=== PATIENT | female | born 1950 | race Caucasian/White ===

== ENCOUNTER 2017-10-27 15:10 | Inpatient (IN) | payer MEDICARE, MEDICAID ==
[2017-10-27] MEDS ORDERED: FUROSEMIDE INJ/PF 40 MG/4 ML SDV IV ONE (15:42)
--- NOTE | 2017-10-27 15:42 | ER Document Report ---
ED Medical Screen (RME) - General Chief Complaint: Abnormal Lab Results Stated Complaint: LABS Time Seen by Provider: 10/27/17 15:34 Mode of Arrival: Wheelchair Information source: Patient Notes: 67-year-old female who was seen recently for edema of the lower extremities presents after being called by primary care physician regarding abnormal lab value of the heart patient admits to recent shortness of breath and edema I have greeted and performed a rapid initial assessment of this patient. A comprehensive ED assessment and evaluation of the patient, analysis of test results and completion of the medical decision making process will be conducted by additional ED providers. PHYSICAL EXAMINATION: GENERAL: Well-appearing, well-nourished and in no acute distress. HEAD: Atraumatic, normocephalic. EYES: Pupils equal round extraocular movements intact, conjunctiva are normal. ENT: Nares patent NECK: Normal range of motion LUNGS: No respiratory distress Musculoskeletal: Normal range of motion NEUROLOGICAL: Normal speech, normal gait. PSYCH: Normal mood, normal affect. SKIN: +3 pitting edema lower extremities TRAVEL OUTSIDE OF THE [place] IN LAST 30 DAYS: No - Related Data Allergies/Adverse Reactions: iodine [Iodine] Allergy (Verified 10/27/17 15:13) Past Medical History - Social History Chew tobacco use (# tins/day): No Frequency of alcohol use: None Drug Abuse: None - Past Medical History Cardiac Medical History: Reports: Hx Hypertension Endocrine Medical History: Reports: Hx Diabetes Mellitus Type 2 Renal/ Medical History: Denies: Hx Peritoneal Dialysis Physical Exam - Vital signs Vitals: Temp Pulse Resp BP Pulse Ox 98.8 F 84 20 196/101 H 97 10/27/17 15:17 10/27/17 15:17 10/27/17 15:17 10/27/17 15:17 10/27/17 15:17 Course - Vital Signs Vital signs: Temp Pulse Resp BP Pulse Ox 98.5 F 84 20 189/104 H 97 10/27/17 15:23 10/27/17 15:23 10/27/17 15:23 10/27/17 15:23 10/27/17 15:23
[2017-10-27 16:14] LABS: ABSOLUTE EOSINOPHILS # (AUTO) 0.2 10^3/uL (0.0-0.6); ABSOLUTE LYMPHOCYTES (AUTO) 1.3 10^3/uL (0.5-4.7); ABSOLUTE MONOCYTES (AUTO) 0.5 10^3/uL (0.1-1.4); ABSOLUTE NEUT (AUTO) 4.2 10^3/uL (1.7-8.2); BASOPHILS % (AUTO) 0.3 % (0-2); EOSINOPHILS % (AUTO) 2.9 % (0-6); HEMATOCRIT 32.6 % (36.0-47.0); HEMOGLOBIN 10.5 g/dL (12.0-15.5); LYMPHOCYTES % (AUTO) 20.3 % (13-45); MEAN CORPUSCULAR HEMOGLOBIN 26.9 pg (27.0-33.4); MEAN CORPUSCULAR HGB CONC 32.2 g/dL (32.0-36.0); MEAN CORPUSCULAR VOLUME 84 fl (80-97); MONOCYTES % (AUTO) 8.8 % (3-13); PLATELET COUNT 297 10^3/uL (150-450); RED CELL DISTRIBUTION WIDTH 15.4 % (11.5-14.0); SEGMENTED NEUTROPHILS % (AUTO) 67.7 % (42-78); TOTAL CELLS COUNTED % (AUTO) 100 %; WHITE BLOOD COUNT 6.2 10^3/uL (4.0-10.5)
[2017-10-27 16:29] LABS: ALANINE AMINOTRANSFERASE 32 U/L (9-52); ALBUMIN 3.1 g/dL (3.5-5.0); ALKALINE PHOSPHATASE 103 U/L (38-126); ANION GAP 6 (5-19); ASPARTATE AMINO TRANSFERASE 47 U/L (14-36); BILIRUBIN,DIRECT 0.4 mg/dL (0.0-0.4); BILIRUBIN,TOTAL 0.5 mg/dL (0.2-1.3); BLOOD UREA NITROGEN 20 mg/dL (7-20); CALCIUM 8.5 mg/dL (8.4-10.2); CARBON DIOXIDE 28 mmol/L (22-30); CHLORIDE 105 mmol/L (98-107); CREATINE KINASE 369 U/L (30-135); GLUCOSE 127 mg/dL (75-110); POTASSIUM 4.3 mmol/L (3.6-5.0); SODIUM 138.7 mmol/L (137-145); TOTAL PROTEIN 6.7 g/dL (6.3-8.2)
[2017-10-27 16:39] LABS: CREATINE KINASE MB 2.51 ng/mL (<4.55); NT PRO BNP 7260 pg/mL (5-900)
--- NOTE | 2017-10-27 16:40 | RADIOLOGY REPORT (SQ) ---
EXAM DESCRIPTION: CHEST PA/LAT COMPLETED DATE/TIME: 10/27/2017 4:15 pm REASON FOR STUDY: edema lower extremities COMPARISON: None. EXAM PARAMETERS: NUMBER OF VIEWS: two views TECHNIQUE: Digital Frontal and Lateral radiographic views of the chest acquired. RADIATION DOSE: NA LIMITATIONS: Poor quality lateral view. FINDINGS: LUNGS AND PLEURA: No opacities, masses or pneumothorax. No pleural effusion. MEDIASTINUM AND HILAR STRUCTURES: No masses or contour abnormalities. HEART AND VASCULAR STRUCTURES: Mild cardiomegaly. Prominent central pulmonary vasculature on the rig ht. BONES: No acute findings. HARDWARE: None in the chest. OTHER: No other significant finding. IMPRESSION: Mild cardiomegaly with prominence of the central pulmonary vasculature on the right. TECHNICAL DOCUMENTATION: JOB ID: [id number] [email or web address]- All Rights Reserved
[2017-10-27 16:41] LABS: TROPONIN I < 0.012 ng/mL
--- NOTE | 2017-10-27 16:51 | ER Document Report ---
ED General - General Chief Complaint: Abnormal Lab Results Stated Complaint: LABS Time Seen by Provider: 10/27/17 15:34 Mode of Arrival: Wheelchair Notes: Patient has felt as if she has been swollen all over since Tuesday. She has also been short of breath. Tuesday this week, they had EMS come out and check the patient. She had an appointment at a local urgent care yesterday where she had some blood work drawn and was started on medications for her blood pressure and her blood sugar. She is taking metformin 500 mg daily and is on lisinopril 20-25, which she just started. The facility called her today about her lab results and told her 1 of her heart test was abnormal and she needed to come to the emergency department. We did not receive any calls, patient does not have any written information and we do not know what specifically she is being referred here for. Patient denies having chest pain, but has felt shortness of breath and swelling. She has a history of high blood pressure and diabetes, but has been out of her medications because she could not afford to go to the doctor. She has not had any vomiting or diarrhea. No UTI symptoms. No fevers. TRAVEL OUTSIDE OF THE [place] IN LAST 30 DAYS: No - Related Data Allergies/Adverse Reactions: iodine [Iodine] Allergy (Verified 10/27/17 15:13) Past Medical History - General Information source: Patient - Social History Smoking Status: Never Smoker Chew tobacco use (# tins/day): No Frequency of alcohol use: None Drug Abuse: None Family History: Reviewed & Not Pertinent Patient has suicidal ideation: No Patient has homicidal ideation: No - Past Medical History Cardiac Medical History: Reports: Hx Hypertension Denies: Hx Congestive Heart Failure, Hx Coronary Artery Disease Endocrine Medical History: Reports: Hx Diabetes Mellitus Type 2 Review of Systems - Review of Systems Notes: REVIEW OF SYSTEMS: CONSTITUTIONAL : Denies fever. EENT: Denies eye, ear, nose or mouth or throat pain or other symptoms. CARDIOVASCULAR: Denies chest pain. Has swelling of the lower extremities bilaterally. RESPIRATORY: Denies cough, chest congestion, but has had shortness of breath. GASTROINTESTINAL: Denies abdominal pain or nausea, vomiting, or diarrhea. GENITOURINARY: Denies difficulty or painful urinating, urinary frequency, blood in urine. MUSCULOSKELETAL: Denies back or neck pain. Denies joint pain or swelling. SKIN: Denies rash or skin lesions. NEUROLOGICAL: Denies LOC or altered mental status. Denies headache. Denies sensory loss or motor deficits. ALL OTHER SYSTEMS REVIEWED AND NEGATIVE. Physical Exam - Vital signs Vitals: Temp Pulse Resp BP Pulse Ox 98.8 F 84 20 196/101 H 97 10/27/17 15:17 10/27/17 15:17 10/27/17 15:17 10/27/17 15:17 10/27/17 15:17 Interpretation: Hypertensive - 196/101. - Notes Notes: PHYSICAL EXAMINATION: GENERAL: Well-appearing, in no acute distress. 360 pounds. HEAD: Atraumatic, normocephalic. EYES: Pupils equal round and reactive to light, extraocular movements intact. ENT: oropharynx clear without exudates. Moist mucous membranes. NECK: Normal range of motion, supple. LUNGS: Breath sounds are difficult to hear because of patient's size.. HEART: Regular rate and rhythm without murmurs. Heart sounds are very distant, also because of the adipose tissue present. ABDOMEN: Soft, nontender. No guarding or rebound. No masses. BACK: No tenderness throughout entire back. EXTREMITIES: Normal range of motion without pain. +2 pitting edema of the pretibial region of each lower leg. NEUROLOGICAL: Normal speech. Patient appears to have difficulty walking, but most of that I believe is due to the patient's size and her inability to carry this weight on her two legs. Normal sensory, motor, and reflex exams. Awake, alert, and oriented x3. Cranial nerves normal. PSYCH: Normal mood, normal affect. SKIN: Warm, dry, no rashes. Course - Re-evaluation Re-evalutation: 10/27/17 18:07 Workup appears to be primarily congestive heart failure. Spoke with hospitalist who will admit patient for inpatient for CHF, hypertension, renal insufficiency. - Vital Signs Vital signs: Temp Pulse Resp BP Pulse Ox 98.5 F 84 22 H 192/96 H 99 10/27/17 15:23 10/27/17 15:23 10/27/17 17:31 10/27/17 17:31 10/27/17 17:31 - Laboratory Result Diagrams: 10/27/17 15:54 10/27/17 15:54 Laboratory results interpreted by me: 10/27/17 10/27/17 10/27/17 15:54 15:54 15:54 Hgb 10.5 L Hct 32.6 L MCH 26.9 L RDW 15.4 H Creatinine 1.41 H Est GFR ( Amer) 45 L Est GFR (Non-Af Amer) 37 L Glucose 127 H AST 47 H Creatine Kinase 369 H NT-Pro-B Natriuret Pep 7260 H Albumin 3.1 L 10/27/17 16:54 Renal insufficiency noted and BNP of 7260 noted. - Diagnostic Test Radiology results interpreted by me: 10/27/17 16:53 Chest x-ray shows mild cardiomegaly with some mild vascular congestion of the right hilum. No evidence of pneumonia or infiltrates. - EKG Interpretation by Me EKG shows normal: Sinus rhythm Rate: Normal Rhythm: NSR, APC's Voltage: Consistant with [facility] Critical Care Note - Critical Care Note Total time excluding time spent on procedures (mins): 40 Discharge - Discharge Clinical Impression: Congestive heart failure, Hypertension, Renal insufficiency Condition: Stable Disposition: ADMITTED INPATIENT Admitting Provider: Hospitalist Unit Admitted: Telemetry
[2017-10-27] MEDS ORDERED: NITROGLYCERIN 5 MG (0.2 MG/HR) PATCH.TD24 TD ONE (17:57)
[2017-10-27] MEDS ORDERED: OXYCODONE-ACETAMINOPHEN 5-325 MG TABLET PO PRN (18:00)
[2017-10-27] MEDS ORDERED: ZOLPIDEM TARTRATE 5 MG TABLET PO PRN (18:00)
[2017-10-27] MEDS ORDERED: AMLODIPINE BESYLATE 5 MG TABLET PO SCH ×2 (18:00→18:08)
[2017-10-27] MEDS ORDERED: HYDRALAZINE HCL INJ/PF 20 MG/1 ML SDV IV PRN (18:07)
[2017-10-27] MEDS ORDERED: DEXTROSE 50%-WATER 25 GM/50 ML DISP.SYRIN IV PRN ×2 (18:25)
[2017-10-27] MEDS ORDERED: GLUCAGON,HUMAN RECOMB 1 MG INJ IM PRN (18:25)
[2017-10-27] MEDS ORDERED: DEXTROSE 40% GEL 15 GM TUBE PO PRN ×2 (18:25)
--- NOTE | 2017-10-27 18:40 | PDOC H&P ---
History of Present Illness Admission Date/PCP: FAZAL KNOTT October 27, 2017 Patient complains of: Shortness of breath and swelling over since Tuesday History of Present Illness: DOM ADAMS is a 67 year old female presented to emergency room after being referred by a local urgent care due to multiple abnormal laboratory tests. Patient states that she has been having shortness of breath and noticed swelling all over since Tuesday. She admits that prior to that she had noticed some swelling but got worse on Tuesday. She had also been experiencing some cough which she thought it was due to a cold. Patient denies chest pain, fever or chills. Patient admits that she has been losing weight for no particular reason. She admits also having being diagnosed as having high blood pressure and diabetes. She was notified by the provider at the urgent care to come to emergency room since there were multiple problems in her blood work. When evaluated in emergency room BNP was higher than 7000 and the hospitalist service was consulted for further management. We prompted to admit Past Medical History Cardiac Medical History: Reports: Hypertension Pulmonary Medical History: Reports: None EENT Medical History: Reports: None Neurological Medical History: Reports: None Endocrine Medical History: Reports: Diabetes Mellitus Type 2 Renal/ Medical History: Reports: None Malignancy Medical History: Reports: None GI Medical History: Reports: None Musculoskeltal Medical History: Reports: None Skin Medical History: Reports: None Psychiatric Medical History: Reports: None Traumatic Medical History: Reports: None Hematology: Reports: None Infectious Medical History: Reports: None Past Surgical History Past Surgical History: Reports: None Social History Information Source: Patient Smoking Status: Never Smoker Frequency of Alcohol Use: None Hx Recreational Drug Use: No Drugs: None Hx Prescription Drug Abuse: No Family History Family History: DM, Hypertension Parental Family History Reviewed: Yes Children Family History Reviewed: Yes Sibling(s) Family History Reviewed.: Yes Medication/Allergy Allergies/Adverse Reactions: iodine [Iodine] Allergy (Verified 10/27/17 15:13) Review of Systems Constitutional: PRESENT: weakness, weight loss. ABSENT: fever(s), headache(s) Eyes: ABSENT: visual disturbances Ears: ABSENT: hearing changes Nose, Mouth, and Throat: ABSENT: mouth pain, sore throat Cardiovascular: PRESENT: edema. ABSENT: chest pain, dyspnea on exertion Respiratory: PRESENT: cough, dyspnea Gastrointestinal: ABSENT: abdominal pain, nausea, vomiting Genitourinary: ABSENT: dysuria, hematuria Musculoskeletal: PRESENT: deformity Integumentary: ABSENT: pruritus Neurological: PRESENT: weakness. ABSENT: abnormal gait Endocrine: ABSENT: heat intolerance Physical Exam Vital Signs: Temp Pulse Resp BP Pulse Ox 98.5 F 84 22 H 192/96 H 99 10/27/17 15:23 10/27/17 15:23 10/27/17 17:31 10/27/17 17:31 10/27/17 17:31 Intake & Output 10/26/17 10/27/17 10/28/17 06:59 06:59 06:59 Weight 162.5 kg General appearance: PRESENT: cooperative, morbidly obese Head exam: PRESENT: atraumatic, normocephalic Eye exam: PRESENT: conjunctiva pink, EOMI, PERRLA Ear exam: PRESENT: normal external ear exam Mouth exam: PRESENT: moist Neck exam: PRESENT: full ROM. ABSENT: JVD, lymphadenopathy, tenderness Respiratory exam: PRESENT: clear to auscultation rona, decreased breath sounds Cardiovascular exam: PRESENT: RRR. ABSENT: diastolic murmur, systolic murmur Vascular exam: PRESENT: normal capillary refill GI/Abdominal exam: PRESENT: normal bowel sounds, soft. ABSENT: tenderness Extremities exam: PRESENT: full ROM, other - 4+ edema extending to pelvic area Musculoskeletal exam: PRESENT: ambulatory Neurological exam: PRESENT: alert, awake, oriented to person, oriented to place , oriented to time, oriented to situation Psychiatric exam: PRESENT: appropriate affect, normal mood Skin exam: PRESENT: intact, normal color Results Laboratory Results: 10/27/17 15:54 10/27/17 15:54 10/27/17 10/27/17 15:54 15:54 WBC 6.2 RBC 3.90 Hgb 10.5 L Hct 32.6 L MCV 84 MCH 26.9 L MCHC 32.2 RDW 15.4 H Plt Count 297 Seg Neutrophils % 67.7 Lymphocytes % 20.3 Monocytes % 8.8 Eosinophils % 2.9 Basophils % 0.3 Absolute Neutrophils 4.2 Absolute Lymphocytes 1.3 Absolute Monocytes 0.5 Absolute Eosinophils 0.2 Absolute Basophils 0.0 Sodium 138.7 Potassium 4.3 Chloride 105 Carbon Dioxide 28 Anion Gap 6 BUN 20 Creatinine 1.41 H Est GFR ( Amer) 45 L Est GFR (Non-Af Amer) 37 L Glucose 127 H Calcium 8.5 Total Bilirubin 0.5 AST 47 H ALT 32 Alkaline Phosphatase 103 Total Protein 6.7 Albumin 3.1 L 10/27/17 10/27/17 15:54 15:54 Creatine Kinase 369 H CK-MB (CK-2) 2.51 Troponin I < 0.012 NT-Pro-B Natriuret Pep 7260 H Impressions: Chest X-Ray 10/27/17 15:41 IMPRESSION: Mild cardiomegaly with prominence of the central pulmonary vasculature on the right. Assessment & Plan - Diagnosis (1) CKD (chronic kidney disease) stage 3, GFR 30-59 ml/min Is this a current diagnosis for this admission?: Yes Plan: Likely this relates to diabetic and hypertensive nephropathy. Patient will be placed on low-dose lisinopril (2) Hypertensive urgency Is this a current diagnosis for this admission?: Yes Plan: Patient will be placed on Norvasc, lisinopril and hydralazine for rescue. Will order a CT of the head since there is some mild drooping of her left eye (3) Congestive heart failure Qualifiers: Heart failure type: right-sided Heart failure chronicity: acute on chronic Qualified Code(s): I50.813 - Acute on chronic right heart failure Is this a current diagnosis for this admission?: Yes Plan: Patient will be placed on IV Lasix, will order echocardiogram and will trend renal function closely she can become cardiorenal (4) Morbid (severe) obesity due to excess calories Is this a current diagnosis for this admission?: Yes Plan: Patient encouraged to lose weight (5) Diabetes Qualifiers: Diabetes mellitus type: type 2 Diabetes mellitus complication status: with kidney complications Diabetes mellitus complication detail: with chronic kidney disease Diabetes mellitus fpc insulin use: without fpc use Chronic kidney disease stage: stage 3 (moderate) Qualified Code(s): E11.22 - Type 2 diabetes mellitus with diabetic chronic kidney disease; N18.3 - Chronic kidney disease, stage 3 (moderate); N18.3 - Chronic kidney disease, stage 3 (moderate) Is this a current diagnosis for this admission?: Yes Plan: Will place patient on Humalog sliding scale and bedside glucose before meals and at bedtime. Will order hemoglobin A1c (6) Anemia Qualifiers: Anemia type: unspecified type Qualified Code(s): D64.9 - Anemia, unspecified Is this a current diagnosis for this admission?: Yes Plan: Will order anemia panel - Time Time Spent: 50 to 70 Minutes Medications reviewed and adjusted accordingly: Yes Anticipated discharge: Home with Homehealth Within: within 72 hours - Inpatient Certification Based on my medical assessment, after consideration of the patient's comorbidities, presenting symptoms, or acuity I expect that the services needed warrant INPATIENT care.: Yes I certify that my determination is in accordance with my understanding of Medicare's requirements for reasonable and necessary INPATIENT services [42 CFR 412.3e].: Yes Medical Necessity: Need Close Monitoring Due to Risk of Patient Decompensation, Need For Continuous Telemetry Monitoring - IV diuresis
--- NOTE | 2017-10-27 19:39 | RADIOLOGY REPORT (SQ) ---
EXAM DESCRIPTION: CT HEAD WITHOUT COMPLETED DATE/TIME: 10/27/2017 7:22 pm REASON FOR STUDY: left eye weakness COMPARISON: None. TECHNIQUE: Axial images acquired through the brain without intravenous contrast. Images reviewed wi th bone, brain and subdural windows. Images stored on PACS. All CT scanners at this facility use dose modulation, iterative reconstruction, and/or weight based d osing when appropriate to reduce radiation dose to as low as reasonably achievable (ALARA). [facility]: Dose Right [facility]: CareDose [facility]: Dose Right [facility]: Teradose 4D [facility]: [address] RADIATION DOSE: CT Rad equipment meets quality standard of care and radiation dose reduction techniq ues were employed. CTDIvol: 64.6 mGy. DLP: 1163 mGy-cm. mGy. LIMITATIONS: None. FINDINGS: VENTRICLES: Normal size and contour. CEREBRUM: No masses. No hemorrhage. No midline shift. No evidence for acute infarction. Normal gra y/white matter differentiation. No areas of low density in the white matter. CEREBELLUM: No masses. No hemorrhage. No alteration of density. No evidence for acute infarction. EXTRAAXIAL SPACES: No fluid collections. No masses. ORBITS AND GLOBE: No intra- or extraconal masses. Normal contour of globe without masses. CALVARIUM: No fracture. PARANASAL SINUSES: No fluid or mucosal thickening. SOFT TISSUES: No mass or hematoma. OTHER: No other significant finding. IMPRESSION: No acute intracranial findings. EVIDENCE OF ACUTE STROKE: NO. COMMENT: Quality ID # [id number]: Final reports with documentation of one or more dose reduction techniques (e.g., Automated exposure control, adjustment of the mA and/or kV according to patient size, use of iterative reconstruction technique) TECHNICAL DOCUMENTATION: JOB ID: [id number] 2010 [employer]- All Rights Reserved
--- NOTE | 2017-10-27 19:47 | EKG REPORT ---
SEVERITY:- ABNORMAL ECG - SINUS RHYTHM ATRIAL PREMATURE COMPLEX LEFT VENTRICULAR HYPERTROPHY : Confirmed by: Francisco Triplett MD 27-Oct-2017 19:46:43
[2017-10-27] MEDS: HEPARIN SOD (PORCINE) 5,000 UNIT/ML 1 ML SYRINGE SUBCUT SCH (22:42)
[2017-10-27] MEDS: FUROSEMIDE INJ/PF 40 MG/4 ML SDV IV SCH (22:42)
[2017-10-27] MEDS: ATORVASTATIN CALCIUM 40 MG TABLET PO SCH (22:42)
[2017-10-28 05:05] LABS: ABSOLUTE EOSINOPHILS # (AUTO) 0.2 10^3/uL (0.0-0.6); ABSOLUTE LYMPHOCYTES (AUTO) 1.2 10^3/uL (0.5-4.7); ABSOLUTE MONOCYTES (AUTO) 0.7 10^3/uL (0.1-1.4); ABSOLUTE NEUT (AUTO) 4.3 10^3/uL (1.7-8.2); ABSOLUTE RETICS # 0.063 10^6/uL (0.028-0.122); BASOPHILS % (AUTO) 0.7 % (0-2); EOSINOPHILS % (AUTO) 3.5 % (0-6); HEMATOCRIT 30.1 % (36.0-47.0); LYMPHOCYTES % (AUTO) 18.7 % (13-45); MEAN CORPUSCULAR HEMOGLOBIN 27.3 pg (27.0-33.4); MEAN CORPUSCULAR HGB CONC 33.1 g/dL (32.0-36.0); MEAN CORPUSCULAR VOLUME 82 fl (80-97); MONOCYTES % (AUTO) 10.3 % (3-13); PLATELET COUNT 267 10^3/uL (150-450); RED BLOOD COUNT 3.65 10^6/uL (3.72-5.28); RED CELL DISTRIBUTION WIDTH 15.7 % (11.5-14.0); RETICULOCYTE COUNT (AUTO) 1.71 % (0.66-2.85); SEGMENTED NEUTROPHILS % (AUTO) 66.8 % (42-78); TOTAL CELLS COUNTED % (AUTO) 100 %; WHITE BLOOD COUNT 6.5 10^3/uL (4.0-10.5)
[2017-10-28] MEDS: HEPARIN SOD (PORCINE) 5,000 UNIT/ML 1 ML SYRINGE SUBCUT SCH ×3 (05:13→21:52)
[2017-10-28 05:24] LABS: ANION GAP 6 (5-19); BLOOD UREA NITROGEN 22 mg/dL (7-20); CALCIUM 8.7 mg/dL (8.4-10.2); CARBON DIOXIDE 29 mmol/L (22-30); CHLORIDE 105 mmol/L (98-107); GLUCOSE 154 mg/dL (75-110); IRON(TIBC) 44.2 ug/dL (37-170); POTASSIUM 4.1 mmol/L (3.6-5.0); SODIUM 140.3 mmol/L (137-145)
[2017-10-28] MEDS ORDERED: HYDRALAZINE HCL 50 MG TABLET PO ONE (08:45)
[2017-10-28] MEDS ORDERED: LANSOPRAZOLE 30 MG TAB.RAP.DR PO ONE (08:45)
[2017-10-28] MEDS: ASPIRIN 81 MG TABLET, CHEWABLE PO SCH (09:51)
[2017-10-28] MEDS: LISINOPRIL 10 MG TABLET PO SCH (09:51)
[2017-10-28] MEDS: FUROSEMIDE INJ/PF 40 MG/4 ML SDV IV SCH ×2 (09:51→21:52)
[2017-10-28] MEDS ORDERED: AMLODIPINE BESYLATE 10 MG TABLET PO SCH (10:00)
--- NOTE | 2017-10-28 10:38 | PDOC PROGRESS REPORT ---
Subjective Progress Note for:: 10/28/17 Subjective:: Patient complains of indigestion. As far as the shortness of breath she is not able to tell that much since she has been laying on her bed. She admits that the swelling is better. Patient was updated about findings on her medical condition. Daughter and her son were at bedside. Review of systems All organ systems evaluated and negative except as in subjective All significant laboratories and diagnostics have been reviewed Reason For Visit: RIGHT SIDED HEART FAILURE/ANASARCA/HTN Physical Exam Vital Signs: Temp Pulse Resp BP Pulse Ox 98.2 F 86 20 181/73 H 97 10/28/17 03:36 10/28/17 03:36 10/28/17 03:36 10/28/17 03:36 10/28/17 03:36 Intake & Output 10/26/17 10/27/17 10/28/17 06:59 06:59 06:59 Intake Total 1220 Output Total 2850 Balance -1630 Weight 165.9 kg General appearance: PRESENT: cooperative, morbidly obese Head exam: PRESENT: atraumatic, normocephalic Eye exam: PRESENT: conjunctiva pink, EOMI, PERRLA Ear exam: PRESENT: normal external ear exam Mouth exam: PRESENT: moist Neck exam: PRESENT: full ROM, JVD. ABSENT: lymphadenopathy, tenderness Respiratory exam: PRESENT: crackles, decreased breath sounds Cardiovascular exam: PRESENT: RRR. ABSENT: diastolic murmur, systolic murmur Vascular exam: PRESENT: normal capillary refill GI/Abdominal exam: PRESENT: normal bowel sounds, soft. 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) Psychiatric exam: PRESENT: appropriate affect, normal mood Skin exam: PRESENT: intact, normal color Results Laboratory Results: 10/28/17 04:36 10/28/17 04:36 10/28/17 10/28/17 10/28/17 04:36 04:36 04:36 WBC 6.5 RBC 3.65 L Hgb 10.0 L Hct 30.1 L MCV 82 MCH 27.3 MCHC 33.1 RDW 15.7 H Plt Count 267 Seg Neutrophils % 66.8 Lymphocytes % 18.7 Monocytes % 10.3 Eosinophils % 3.5 Basophils % 0.7 Absolute Neutrophils 4.3 Absolute Lymphocytes 1.2 Absolute Monocytes 0.7 Absolute Eosinophils 0.2 Absolute Basophils 0.0 Retic Count (auto) 1.71 Absolute Retic 0.063 Sodium 140.3 Potassium 4.1 Chloride 105 Carbon Dioxide 29 Anion Gap 6 BUN 22 H Creatinine 1.62 H Est GFR ( Amer) 38 L Est GFR (Non-Af Amer) 32 L Glucose 154 H Calcium 8.7 Magnesium 2.1 Iron 44.2 TIBC 236 L % Saturation 19 Ferritin 43.00 Vitamin B12 472.0 Folate 12.90 TSH 1.89 10/27/17 10/28/17 22:35 04:36 Troponin I < 0.012 < 0.012 Impressions: Head CT 10/27/17 00:00 IMPRESSION: No acute intracranial findings. EVIDENCE OF ACUTE STROKE: NO. Chest X-Ray 10/27/17 15:41 IMPRESSION: Mild cardiomegaly with prominence of the central pulmonary vasculature on the right. Assessment & Plan - Diagnosis (1) CKD (chronic kidney disease) stage 3, GFR 30-59 ml/min Is this a current diagnosis for this admission?: Yes Plan: Likely this relates to diabetic and hypertensive nephropathy. Continue lisinopril. Trend renal since diuresis and patient (2) Hypertensive urgency Is this a current diagnosis for this admission?: Yes Plan: Increase hydralazine and continue current dose of Norvasc and lisinopril. Urgency resolved (3) Congestive heart failure Qualifiers: Heart failure type: right-sided Heart failure chronicity: acute on chronic Qualified Code(s): I50.813 - Acute on chronic right heart failure Is this a current diagnosis for this admission?: Yes Plan: Echocardiogram result is pending therefore at this present time unable to determine whether systolic versus diastolic or combined. Will continue with diuresis and blood pressure control further adjustments will be tailored according to echocardiogram (4) Morbid (severe) obesity due to excess calories Is this a current diagnosis for this admission?: Yes Plan: Patient encouraged to lose weight (5) Diabetes Qualifiers: Diabetes mellitus type: type 2 Diabetes mellitus complication status: with kidney complications Diabetes mellitus complication detail: with chronic kidney disease Diabetes mellitus correction insulin use: without termite exterminator use Chronic kidney disease stage: stage 3 (moderate) Qualified Code(s): E11.22 - Type 2 diabetes mellitus with diabetic chronic kidney disease; N18.3 - Chronic kidney disease, stage 3 (moderate); N18.3 - Chronic kidney disease, stage 3 (moderate) Is this a current diagnosis for this admission?: Yes Plan: Continue Humalog sliding scale and bedside glucose before meals and at bedtime. Hemoglobin A1c 7.8. (6) Anemia Qualifiers: Anemia type: unspecified type Qualified Code(s): D64.9 - Anemia, unspecified Is this a current diagnosis for this admission?: Yes Plan: Anemia workup in process - Time Time Spent with patient: 15-24 minutes Medications reviewed and adjusted accordingly: Yes Anticipated discharge: Home Within: within 72 hours - Inpatient Certification Based on my medical assessment, after consideration of the patient's comorbidities, presenting symptoms, or acuity I expect that the services needed warrant INPATIENT care.: Yes I certify that my determination is in accordance with my understanding of Medicare's requirements for reasonable and necessary INPATIENT services [42 CFR 412.3e].: Yes Medical Necessity: Need Close Monitoring Due to Risk of Patient Decompensation - IV diuresis and blood pressure control
[2017-10-28] MEDS: HYDRALAZINE HCL 50 MG TABLET PO SCH ×2 (13:22→21:52)
[2017-10-28] MEDS: ONDANSETRON HCL INJ/PF 4 MG/2 ML SDV IV PRN (16:23)
--- NOTE | 2017-10-28 18:16 | XCELERA REPORT ---
[address] [address] Transthoracic Echocardiogram Report Name: DOM ADAMS Age: 67 yrs Gender: Female : 1950 Patient Status: Inpatient Patient Location: [address] [place] [address] Study Date: 10/28/2017 09:09 AM Height: 68 in Weight: 358 lb BSA: 2.6 m2 Procedure: A complete two-dimensional transthoracic echocardiogram was performed (2D, M-mode, spectral and color flow Doppler). The study was technically adequate with some images being suboptimal in quality. Reason For Study: chf Ordering Physician: GEORGE OCONNOR Performed By: Heather Polanco Interpretation Summary The left ventricular ejection fraction is within normal limits. Doppler measurements suggest pseudonormalized left ventricular relaxation, which is associated with grade II/IV or mild to moderate diastolic dysfunction There is mild concentric left ventricular hypertrophy. The left ventricle is grossly normal size. Wall motion cannot be accurately commented on, but no definite regional wall motion abnormalities noted. The right ventricular systolic function is normal. The left atrium is mildly dilated. The right atrium is normal in size There is a trace amount of mitral regurgitation There is no mitral valve stenosis. There is no aortic valve stenosis No aortic regurgitation is present. There is a mild amount of tricuspid regurgitation Right ventricular systolic pressure is estimated to be elevated at 40- 50mmHg. There is mild to moderate pulmonary hypertension by echo There is no pericardial effusion. MMode/2D Measurements & Calculations RVDd: 3.0 cm LVIDd: 5.7 cm FS: 36.1 % Ao root diam: 3.1 cm IVSd: 1.2 cm LVIDs: 3.6 cm EDV(Teich): 159.4 ml LVPWd: 1.2 cm ESV(Teich): 55.8 ml Ao root area: 7.5 cm2 EF(Teich): 65.0 % LA dimension: 3.9 cm Doppler Measurements & Calculations MV E max philomena: MV P1/2t max philomena: Ao V2 max: LV V1 max P.0 cm/sec 117.0 cm/sec 204.1 cm/sec 3.6 mmHg MV A max philomena: MV P1/2t: 74.6 msec Ao max PG: LV V1 max: 114.5 cm/sec 16.7 mmHg 94.3 cm/sec MV E/A: 1.0 MVA(P1/2t): 3.0 cm2 MV dec slope: 459.5 cm/sec2 MV dec time: 0.26 sec PA V2 max: TR max philomena: 81.4 cm/sec 283.7 cm/sec PA max P.7 mmHgTR max P.2 mmHg Left Ventricle The left ventricle is grossly normal size. There is mild concentric left ventricular hypertrophy. The left ventricular ejection fraction is within normal limits. Doppler measurements suggest pseudonormalized left ventricular relaxation, which is associated with grade II/IV or mild to moderate diastolic dysfunction. Wall motion cannot be accurately commented on, but no definite regional wall motion abnormalities noted. Right Ventricle The right ventricle is grossly normal size. There is normal right ventricular wall thickness. The right ventricular systolic function is normal. Atria The right atrium is normal in size. The left atrium is mildly dilated. Mitral Valve The mitral valve is grossly normal. There is no mitral valve stenosis. There is a trace amount of mitral regurgitation. Aortic Valve The aortic valve is grossly normal. There is no aortic valve stenosis. No aortic regurgitation is present. Tricuspid Valve The tricuspid valve is not well visualized, but is grossly normal. There is no tricuspid stenosis. There is a mild amount of tricuspid regurgitation. There is mild to moderate pulmonary hypertension by echo. Right ventricular systolic pressure is estimated to be elevated at 40-50mmHg. Pulmonic Valve The pulmonic valve is not well visualized. Great Vessels The aortic root is not well visualized but is probably normal size. The inferior vena cava appeared normal and decreased < 50% with respiration (RAP 10-15 mmHg). Effusions There is no pericardial effusion. : GEORGE OCONNOR > Montserrat Floresl
[2017-10-28] MEDS: ATORVASTATIN CALCIUM 40 MG TABLET PO SCH (21:52)
[2017-10-29] MEDS: CALCIUM CARBONATE 500 MG TAB.CHEW PO PRN (02:07)
[2017-10-29] MEDS: HEPARIN SOD (PORCINE) 5,000 UNIT/ML 1 ML SYRINGE SUBCUT SCH ×3 (05:23→21:59)
[2017-10-29] MEDS: HYDRALAZINE HCL 50 MG TABLET PO SCH ×3 (05:23→23:57)
[2017-10-29] MEDS ORDERED: LANSOPRAZOLE 30 MG TAB.RAP.DR PO SCH (06:00)
[2017-10-29] MEDS ORDERED: HYDRALAZINE HCL 50 MG TABLET PO ONE (07:30)
[2017-10-29 07:37] LABS: ANION GAP 7 (5-19); BLOOD UREA NITROGEN 24 mg/dL (7-20); CALCIUM 8.4 mg/dL (8.4-10.2); CARBON DIOXIDE 30 mmol/L (22-30); CHLORIDE 104 mmol/L (98-107); GLUCOSE 163 mg/dL (75-110); SODIUM 140.6 mmol/L (137-145)
[2017-10-29 08:15] LABS: RETICULOCYTE COUNT (AUTO) 1.67 % (0.66-2.85)
[2017-10-29 08:19] LABS: IRON(TIBC) 32.9 ug/dL (37-170); LIPASE 69.2 U/L (23-300)
[2017-10-29] MEDS ORDERED: NIFEDIPINE 30 MG TAB.ER.24 PO SCH (09:00)
[2017-10-29] MEDS: PANTOPRAZOLE SODIUM 40 MG VIAL IV SCH ×2 (09:29→21:59)
[2017-10-29] MEDS: ONDANSETRON HCL INJ/PF 4 MG/2 ML SDV IV PRN (09:29)
[2017-10-29] MEDS ORDERED: GLUCAGON,HUMAN RECOMB 1 MG INJ SUBCUT PRN (10:09)
[2017-10-29] MEDS ORDERED: DEXTROSE 50%-WATER 25 GM/50 ML DISP.SYRIN IV PRN (10:09)
[2017-10-29] MEDS ORDERED: DEXTROSE 5%-1/2 NORMAL SALINE 1,000 ML IV PRN (10:11)
--- NOTE | 2017-10-29 10:39 | PDOC PROGRESS REPORT ---
Subjective Progress Note for:: 10/29/17 Subjective:: Patient complains of indigestion. Patient relates that is having pain and points to the midepigastric area and mid chest. Accordingly pain got worse when she took the medication this morning. Pain is relieved when burping. At the time of dictating this note the nurse reported that patient started throwing up. Review of systems All organ systems evaluated and negative except as in subjective All significant laboratories and diagnostics have been reviewed Reason For Visit: RIGHT SIDED HEART FAILURE/ANASARCA/HTN Physical Exam Vital Signs: Temp Pulse Resp BP Pulse Ox 98.0 F 95 21 H 170/81 H 95 10/29/17 04:00 10/29/17 04:00 10/29/17 04:00 10/29/17 04:00 10/29/17 04:00 Intake & Output 10/28/17 10/29/17 10/30/17 06:59 06:59 06:59 Intake Total 1220 1592 Output Total 2850 4100 Balance -1630 -2508 Weight 165.9 kg 164.1 kg General appearance: PRESENT: cooperative, morbidly obese Head exam: PRESENT: atraumatic, normocephalic Eye exam: PRESENT: conjunctiva pink, EOMI, PERRLA Ear exam: PRESENT: normal external ear exam Mouth exam: PRESENT: moist Neck exam: PRESENT: full ROM. ABSENT: JVD, lymphadenopathy, tenderness Respiratory exam: PRESENT: clear to auscultation rona, decreased breath sounds Cardiovascular exam: PRESENT: RRR. ABSENT: diastolic murmur, systolic murmur Vascular exam: PRESENT: normal capillary refill GI/Abdominal exam: PRESENT: hypoactive bowel sounds, soft - Mild midepigastric tenderness, tenderness Rectal exam: PRESENT: deferred Extremities exam: PRESENT: full ROM, +2 edema Musculoskeletal exam: PRESENT: ambulatory Neurological exam: PRESENT: alert, awake, oriented to person, oriented to place , oriented to time, oriented to situation, CN II-XII grossly intact Psychiatric exam: PRESENT: appropriate affect, normal mood Skin exam: PRESENT: intact, normal color Results Laboratory Results: 10/28/17 04:36 10/27/17 10/28/17 10/28/17 22:35 04:36 19:23 Troponin I < 0.012 < 0.012 < 0.012 Impressions: Head CT 10/27/17 00:00 IMPRESSION: No acute intracranial findings. EVIDENCE OF ACUTE STROKE: NO. Chest X-Ray 10/27/17 15:41 IMPRESSION: Mild cardiomegaly with prominence of the central pulmonary vasculature on the right. Assessment & Plan - Diagnosis (1) Congestive heart failure Qualifiers: Heart failure type: diastolic Heart failure chronicity: acute on chronic Qualified Code(s): I50.33 - Acute on chronic diastolic (congestive) heart failure Is this a current diagnosis for this admission?: Yes Plan: Echocardiogram shows diastolic dysfunction and pulmonary hypertension. Will continue blood pressure control. Will decrease Lasix IV due to slight bump in renal function (2) Hypertensive urgency Is this a current diagnosis for this admission?: Yes Plan: Discontinue Norvasc and instead place her on Procardia XL. To increase hydralazine and will place on clonidine. (3) CKD (chronic kidney disease) stage 3, GFR 30-59 ml/min Is this a current diagnosis for this admission?: Yes Plan: Likely this relates to diabetic and hypertensive nephropathy. Continue lisinopril. Trend renal due to diuresis (4) Morbid (severe) obesity due to excess calories Is this a current diagnosis for this admission?: Yes Plan: Patient encouraged to lose weight (5) Diabetes Qualifiers: Diabetes mellitus type: type 2 Diabetes mellitus complication status: with kidney complications Diabetes mellitus complication detail: with chronic kidney disease Diabetes mellitus assistant terminal manager insulin use: without group home use Chronic kidney disease stage: stage 3 (moderate) Qualified Code(s): E11.22 - Type 2 diabetes mellitus with diabetic chronic kidney disease; N18.3 - Chronic kidney disease, stage 3 (moderate); N18.3 - Chronic kidney disease, stage 3 (moderate) Is this a current diagnosis for this admission?: Yes Plan: Continue Humalog sliding scale and bedside glucose before meals and at bedtime. Hemoglobin A1c 7.8. (6) Anemia Qualifiers: Anemia type: unspecified type Qualified Code(s): D64.9 - Anemia, unspecified Is this a current diagnosis for this admission?: Yes Plan: . Anemia panel showing iron deficiency. Will order occult blood This patient has not had a colonoscopy so therefore I am concerned about the possibility of malignancy though anemia of chronic disease and is also possibility in the setting of kidney disease. Will consider GI consult (7) Vomiting Qualifiers: Vomiting type: unspecified Nausea presence: with nausea Is this a current diagnosis for this admission?: Yes Plan: Provide antiemetic support. Order stat KUB, abdominal sonogram and lipase. The latter may be somewhat difficult due to patient's body habitus. Patient will be placed n.p.o. except for meds (8) Pulmonary hypertension Is this a current diagnosis for this admission?: Yes Plan: Likely due to diastolic dysfunction. Will continue aggressively managing blood pressure and diuresis - Time Time Spent with patient: 15-24 minutes Medications reviewed and adjusted accordingly: Yes Anticipated discharge: Home Within: within 72 hours - Inpatient Certification Based on my medical assessment, after consideration of the patient's comorbidities, presenting symptoms, or acuity I expect that the services needed warrant INPATIENT care.: Yes I certify that my determination is in accordance with my understanding of Medicare's requirements for reasonable and necessary INPATIENT services [42 CFR 412.3e].: Yes Medical Necessity: Need Close Monitoring Due to Risk of Patient Decompensation - IV diuretics
[2017-10-29] MEDS: METOCLOPRAMIDE HCL INJ/PF 10 MG/2 ML SDV IV SCH ×3 (11:12→23:57)
[2017-10-29] MEDS: CLONIDINE HCL 0.1 MG TABLET PO SCH ×2 (11:20→20:26)
[2017-10-29] MEDS: LISINOPRIL 10 MG TABLET PO SCH (11:21)
[2017-10-29] MEDS: NIFEDIPINE 30 MG TAB.ER.24 PO SCH (11:21)
[2017-10-29] MEDS: FUROSEMIDE INJ/PF 40 MG/4 ML SDV IV SCH ×2 (11:21→21:59)
[2017-10-29] MEDS: ASPIRIN 81 MG TABLET, CHEWABLE PO SCH (11:21)
[2017-10-29] MEDS: NITROGLYCERIN 2% OINTMENT 1 GM PACKET TP SCH ×3 (12:50→23:57)
--- NOTE | 2017-10-29 13:49 | RADIOLOGY REPORT (SQ) ---
EXAM DESCRIPTION: KUB/ABDOMEN (SINGLE VIEW) COMPLETED DATE/TIME: 10/29/2017 12:31 pm REASON FOR STUDY: vomiting COMPARISON: None. NUMBER OF VIEWS: One view. TECHNIQUE: Supine radiographic image of the abdomen acquired. LIMITATIONS: Morbid obesity FINDINGS: BOWEL GAS PATTERN: Normal bowel gas pattern. No dilated loops. CALCIFICATIONS: No suspicious calcifications. SOFT TISSUES: No gross mass or suggestion of organomegaly. HARDWARE: Lackey catheter in the bladder BONES: No acute fracture. No worrisome bone lesions. OTHER: No other significant finding. IMPRESSION: Grossly nonobstructive bowel gas pattern TECHNICAL DOCUMENTATION: JOB ID: [id number] Register My Info- All Rights Reserved Reading location - IP/workstation name: [email or web address]
[2017-10-29] MEDS: ACETAMINOPHEN 325 MG TABLET PO PRN ×2 (16:21→20:26)
[2017-10-29] MEDS: ATORVASTATIN CALCIUM 40 MG TABLET PO SCH (21:59)
--- NOTE | 2017-10-30 03:14 | RADIOLOGY REPORT (SQ) ---
EXAM DESCRIPTION: U/S ABDOMEN COMPLETE W/O DOP CLINICAL HISTORY: epigastric pain COMPARISON: None. TECHNIQUE: Real-time sonographic images of the abdomen were obtained using a curved multihertz transducer. Suboptimal exam due to patient body habitus and overlying bowel gas. FINDINGS: The visualized portions of the pancreas are unremarkable. The visualized portions of the aorta and IVC are unremarkable. The liver has normal contour and echogenicity. Common bile duct is not visualized. No definite biliary dilatation. Normal gallbladder wall thickness. Mobile echogenic structure with posterior shadowing compatible with gallstone. No definite pericholecystic fluid. The right kidney measures 11.9 cm in length. The left kidney is identified due to overlying bowel gas. No solid renal mass, shadowing renal calculi, or hydronephrosis. The spleen is not visualized due to overlying bowel gas. IMPRESSION: 1. Cholelithiasis without other sonographic evidence of acute cholecystitis. 2. Suboptimal evaluation of the common bile duct, left kidney and spleen due to overlying bowel gas and patient body habitus.
[2017-10-30] MEDS: METOCLOPRAMIDE HCL INJ/PF 10 MG/2 ML SDV IV SCH ×4 (05:45→23:14)
[2017-10-30] MEDS: HEPARIN SOD (PORCINE) 5,000 UNIT/ML 1 ML SYRINGE SUBCUT SCH ×3 (05:46→21:38)
[2017-10-30] MEDS: NITROGLYCERIN 2% OINTMENT 1 GM PACKET TP SCH (05:46)
[2017-10-30] MEDS: HYDRALAZINE HCL 50 MG TABLET PO SCH ×3 (05:46→21:39)
[2017-10-30 05:50] LABS: ALANINE AMINOTRANSFERASE 24 U/L (9-52); ALBUMIN 2.8 g/dL (3.5-5.0); ALKALINE PHOSPHATASE 86 U/L (38-126); ANION GAP 8 (5-19); ASPARTATE AMINO TRANSFERASE 17 U/L (14-36); BILIRUBIN,TOTAL 0.2 mg/dL (0.2-1.3); BLOOD UREA NITROGEN 22 mg/dL (7-20); CALCIUM 8.2 mg/dL (8.4-10.2); CARBON DIOXIDE 29 mmol/L (22-30); CHLORIDE 101 mmol/L (98-107); GLUCOSE 177 mg/dL (75-110); POTASSIUM 3.8 mmol/L (3.6-5.0); SODIUM 138.4 mmol/L (137-145); TOTAL PROTEIN 5.6 g/dL (6.3-8.2)
[2017-10-30] MEDS ORDERED: LANSOPRAZOLE 30 MG TAB.RAP.DR PO ONE (09:30)
[2017-10-30] MEDS: LISINOPRIL 10 MG TABLET PO SCH (10:25)
[2017-10-30] MEDS: ASPIRIN 81 MG TABLET, CHEWABLE PO SCH (10:26)
[2017-10-30] MEDS: NIFEDIPINE 30 MG TAB.ER.24 PO SCH (10:26)
[2017-10-30] MEDS: FERROUS SULFATE 325 MG TABLET PO SCH ×2 (10:26→17:32)
[2017-10-30] MEDS: CLONIDINE HCL 0.1 MG TABLET PO SCH ×2 (10:26→21:39)
[2017-10-30] MEDS: POLYETHYLENE GLYCOL 3350 POWDER 17 GM/1 PACKET PO SCH (10:27)
[2017-10-30] MEDS: FUROSEMIDE INJ/PF 40 MG/4 ML SDV IV SCH ×2 (10:28→21:39)
[2017-10-30] MEDS: ONDANSETRON HCL INJ/PF 4 MG/2 ML SDV IV PRN (10:37)
[2017-10-30] MEDS: ACETAMINOPHEN 325 MG TABLET PO PRN (10:45)
[2017-10-30] MEDS: INSULIN LISPRO 100 UNIT/ML 3 ML VIAL SUBCUT PRN ×3 (10:46→21:38)
--- NOTE | 2017-10-30 14:44 | PDOC PROGRESS REPORT ---
Subjective Progress Note for:: 10/30/17 Subjective:: Patient refers that after vomiting yesterday she started feeling better. Patient also refers that her shortness of breath is gone. Review of system All organ systems evaluated and negative except as in subjective All laboratories and significant diagnostics have been reviewed Reason For Visit: RIGHT SIDED HEART FAILURE/ANASARCA/HTN Physical Exam Vital Signs: Temp Pulse Resp BP Pulse Ox 98.5 F 94 21 H 157/60 H 93 10/30/17 04:00 10/30/17 07:00 10/30/17 04:00 10/30/17 04:00 10/30/17 04:00 Intake & Output 10/29/17 10/30/17 10/31/17 06:59 06:59 06:59 Intake Total 1592 1782 Output Total 4100 1520 Balance -2508 262 Weight 164.1 kg 161.5 kg Results Laboratory Results: 10/28/17 04:36 10/30/17 04:22 10/28/17 10/29/17 10/29/17 04:36 05:58 05:58 Retic Count (auto) Absolute Retic Sodium 140.6 Potassium 4.0 Chloride 104 Carbon Dioxide 30 Anion Gap 7 BUN 24 H Creatinine 1.66 H Est GFR ( Amer) 37 L Est GFR (Non-Af Amer) 31 L Glucose 163 H Calcium 8.4 Magnesium 2.2 Iron 32.9 L TIBC 244 L % Saturation 13 Transferrin 166 L Ferritin 35.50 Total Bilirubin AST ALT Alkaline Phosphatase Total Protein Albumin Lipase 69.2 Vitamin B12 488.0 Folate 10.80 10/29/17 10/30/17 05:58 04:22 Retic Count (auto) 1.67 Absolute Retic 0.060 Sodium 138.4 Potassium 3.8 Chloride 101 Carbon Dioxide 29 Anion Gap 8 BUN 22 H Creatinine 1.61 H Est GFR ( Amer) 39 L Est GFR (Non-Af Amer) 32 L Glucose 177 H Calcium 8.2 L Magnesium 2.0 Iron TIBC % Saturation Transferrin Ferritin Total Bilirubin 0.2 AST 17 ALT 24 Alkaline Phosphatase 86 Total Protein 5.6 L Albumin 2.8 L Lipase Vitamin B12 Folate 10/27/17 10/28/17 10/28/17 22:35 04:36 19:23 Troponin I < 0.012 < 0.012 < 0.012 Impressions: Head CT 10/27/17 00:00 IMPRESSION: No acute intracranial findings. EVIDENCE OF ACUTE STROKE: NO. Chest X-Ray 10/27/17 15:41 IMPRESSION: Mild cardiomegaly with prominence of the central pulmonary vasculature on the right. Abdomen Ultrasound 10/29/17 00:00 IMPRESSION: 1. Cholelithiasis without other sonographic evidence of acute cholecystitis. 2. Suboptimal evaluation of the common bile duct, left kidney and spleen due to overlying bowel gas and patient body habitus. KUB X-Ray 10/29/17 00:00 IMPRESSION: Grossly nonobstructive bowel gas pattern Assessment & Plan - Diagnosis (1) Congestive heart failure Qualifiers: Heart failure type: diastolic Heart failure chronicity: acute on chronic Qualified Code(s): I50.33 - Acute on chronic diastolic (congestive) heart failure Is this a current diagnosis for this admission?: Yes Plan: Echocardiogram shows diastolic dysfunction and pulmonary hypertension. Will decrease of Procardia XL. Will continue with hydralazine and clonidine. To discontinue Nitropaste. Watch for bradycardia. Order nuclear stress test (2) Hypertensive urgency Is this a current diagnosis for this admission?: Yes Plan: Resolved. Will continue clonidine, hydralazine and decrease Procardia dose (3) CKD (chronic kidney disease) stage 3, GFR 30-59 ml/min Is this a current diagnosis for this admission?: Yes Plan: Likely this relates to diabetic and hypertensive nephropathy. Continue lisinopril. Trend renal due to diuresis (4) Morbid (severe) obesity due to excess calories Is this a current diagnosis for this admission?: Yes Plan: Patient encouraged to lose weight. Currently posing problem as far as evaluating patient (5) Diabetes Qualifiers: Diabetes mellitus type: type 2 Diabetes mellitus complication status: with kidney complications Diabetes mellitus complication detail: with chronic kidney disease Diabetes mellitus snf insulin use: without placing judge use Chronic kidney disease stage: stage 3 (moderate) Qualified Code(s): E11.22 - Type 2 diabetes mellitus with diabetic chronic kidney disease; N18.3 - Chronic kidney disease, stage 3 (moderate); N18.3 - Chronic kidney disease, stage 3 (moderate) Is this a current diagnosis for this admission?: Yes Plan: Continue Humalog sliding scale and bedside glucose before meals and at bedtime. Hemoglobin A1c 7.8. Restart oral since nausea resolved (6) Anemia Qualifiers: Anemia type: unspecified type Qualified Code(s): D64.9 - Anemia, unspecified Is this a current diagnosis for this admission?: Yes Plan: . Anemia panel showing iron deficiency. Occult blood pending. This patient has not had a colonoscopy so therefore I am concerned about the possibility of malignancy though anemia of chronic disease and is also possibility in the setting of kidney disease. Will consider GI consult (7) Vomiting Qualifiers: Vomiting type: unspecified Nausea presence: with nausea Is this a current diagnosis for this admission?: Yes Plan: Resolved. Appears to be related to biliary colic (8) Pulmonary hypertension Is this a current diagnosis for this admission?: Yes Plan: Likely due to diastolic dysfunction. Will continue managing blood pressure and diuresis (9) Ambulatory dysfunction Is this a current diagnosis for this admission?: Yes Plan: Due to massive obesity. Nurse notified to encourage ambulation. Will request PT. Another issue is that patient does have heel ulcer (10) Heel ulcer Qualifiers: Laterality: unspecified laterality Non-pressure ulcer stage: limited to breakdown of skin Qualified Code(s): L97.401 - Non-pressure chronic ulcer of unspecified heel and midfoot limited to breakdown of skin Is this a current diagnosis for this admission?: Yes Plan: Apply foam right heel (11) Biliary colic Is this a current diagnosis for this admission?: Yes Plan: Abdominal sonogram shows cholelithiasis. Pain and nausea resolved - Time Time Spent with patient: 15-24 minutes Medications reviewed and adjusted accordingly: Yes Anticipated discharge: Home with Homehealth Within: within 72 hours - Inpatient Certification Based on my medical assessment, after consideration of the patient's comorbidities, presenting symptoms, or acuity I expect that the services needed warrant INPATIENT care.: Yes I certify that my determination is in accordance with my understanding of Medicare's requirements for reasonable and necessary INPATIENT services [42 CFR 412.3e].: Yes Medical Necessity: Need Close Monitoring Due to Risk of Patient Decompensation, Need For Continuous Telemetry Monitoring
[2017-10-30] MEDS: CALCIUM CARBONATE 500 MG TAB.CHEW PO PRN (16:00)
[2017-10-30] MEDS: PANTOT AC/MIN OIL/PET HY-PHL OINT 50 GM TOP SCH ×2 (17:31→17:36)
[2017-10-30] MEDS: LACTULOSE SYRUP 20 GM/30 ML UDCUP PO SCH (21:38)
[2017-10-30] MEDS: ATORVASTATIN CALCIUM 40 MG TABLET PO SCH (21:39)
[2017-10-31 05:13] LABS: ABSOLUTE EOSINOPHILS # (AUTO) 0.1 10^3/uL (0.0-0.6); ABSOLUTE LYMPHOCYTES (AUTO) 1.2 10^3/uL (0.5-4.7); ABSOLUTE MONOCYTES (AUTO) 0.8 10^3/uL (0.1-1.4); ABSOLUTE NEUT (AUTO) 6.3 10^3/uL (1.7-8.2); BASOPHILS % (AUTO) 0.4 % (0-2); EOSINOPHILS % (AUTO) 1.2 % (0-6); HEMATOCRIT 29.6 % (36.0-47.0); HEMOGLOBIN 9.8 g/dL (12.0-15.5); LYMPHOCYTES % (AUTO) 13.6 % (13-45); MEAN CORPUSCULAR HEMOGLOBIN 27.3 pg (27.0-33.4); MEAN CORPUSCULAR HGB CONC 33.1 g/dL (32.0-36.0); MEAN CORPUSCULAR VOLUME 83 fl (80-97); MONOCYTES % (AUTO) 9.7 % (3-13); PLATELET COUNT 285 10^3/uL (150-450); RED BLOOD COUNT 3.58 10^6/uL (3.72-5.28); RED CELL DISTRIBUTION WIDTH 15.8 % (11.5-14.0); SEGMENTED NEUTROPHILS % (AUTO) 75.1 % (42-78); TOTAL CELLS COUNTED % (AUTO) 100 %; WHITE BLOOD COUNT 8.5 10^3/uL (4.0-10.5)
[2017-10-31 05:34] LABS: ANION GAP 8 (5-19); BLOOD UREA NITROGEN 27 mg/dL (7-20); CALCIUM 7.8 mg/dL (8.4-10.2); CARBON DIOXIDE 28 mmol/L (22-30); CHLORIDE 101 mmol/L (98-107); GLUCOSE 167 mg/dL (75-110); POTASSIUM 4.1 mmol/L (3.6-5.0); SODIUM 136.6 mmol/L (137-145)
[2017-10-31] MEDS: HYDRALAZINE HCL 50 MG TABLET PO SCH ×3 (05:34→22:23)
[2017-10-31] MEDS: METOCLOPRAMIDE HCL INJ/PF 10 MG/2 ML SDV IV SCH ×3 (05:34→18:00)
[2017-10-31] MEDS: HEPARIN SOD (PORCINE) 5,000 UNIT/ML 1 ML SYRINGE SUBCUT SCH ×3 (05:34→22:24)
[2017-10-31] MEDS: LANSOPRAZOLE 30 MG TAB.RAP.DR PO SCH (05:34)
[2017-10-31] MEDS: FERROUS SULFATE 325 MG TABLET PO SCH ×2 (11:07→18:00)
[2017-10-31] MEDS: LISINOPRIL 10 MG TABLET PO SCH (11:07)
[2017-10-31] MEDS: ASPIRIN 81 MG TABLET, CHEWABLE PO SCH (11:08)
[2017-10-31] MEDS: CLONIDINE HCL 0.1 MG TABLET PO SCH ×2 (11:08→22:23)
[2017-10-31] MEDS: NIFEDIPINE 30 MG TAB.ER.24 PO SCH (11:08)
[2017-10-31] MEDS: PANTOT AC/MIN OIL/PET HY-PHL OINT 50 GM TOP SCH ×3 (11:09→18:01)
[2017-10-31] MEDS: FUROSEMIDE INJ/PF 40 MG/4 ML SDV IV SCH ×2 (11:09→22:24)
[2017-10-31] MEDS: POLYETHYLENE GLYCOL 3350 POWDER 17 GM/1 PACKET PO SCH (11:12)
--- NOTE | 2017-10-31 12:55 | PDOC PROGRESS REPORT ---
Subjective Progress Note for:: 10/31/17 Subjective:: Patient states feels she is improved no chest pains or abdominal pains decreased edema lower extremities Reason For Visit: RIGHT SIDED HEART FAILURE/ANASARCA/HTN Physical Exam Vital Signs: Temp Pulse Resp BP Pulse Ox 98.4 F 90 18 136/70 H 94 10/31/17 11:48 10/31/17 11:48 10/31/17 11:48 10/31/17 11:48 10/31/17 11:48 Intake & Output 10/30/17 10/31/17 11/01/17 00:59 00:59 00:59 Intake Total 1852 2246 Output Total 2310 1612 401 Balance -458 634 -401 Weight 164.1 kg 161.5 kg 164.3 kg General appearance: PRESENT: no acute distress, obese Head exam: PRESENT: atraumatic, normocephalic Eye exam: PRESENT: conjunctiva pink, EOMI, PERRLA. ABSENT: scleral icterus Neck exam: ABSENT: carotid bruit, JVD, lymphadenopathy, thyromegaly Respiratory exam: PRESENT: decreased breath sounds. ABSENT: accessory muscle use, rales, rhonchi, tachypnea Cardiovascular exam: PRESENT: RRR. ABSENT: diastolic murmur, rubs, systolic murmur Pulses: PRESENT: normal dorsalis pedis pul Vascular exam: PRESENT: normal capillary refill GI/Abdominal exam: PRESENT: normal bowel sounds, soft. ABSENT: distended, guarding, mass, organolmegaly, rebound, tenderness Extremities exam: PRESENT: full ROM. ABSENT: calf tenderness, pedal edema Neurological exam: PRESENT: alert, awake, oriented to person, oriented to place , oriented to time, oriented to situation, CN II-XII grossly intact. ABSENT: motor sensory deficit Results Laboratory Results: 10/31/17 04:54 10/31/17 04:54 10/30/17 10/31/17 10/31/17 23:55 04:54 04:54 WBC 8.5 RBC 3.58 L Hgb 9.8 L Hct 29.6 L MCV 83 MCH 27.3 MCHC 33.1 RDW 15.8 H Plt Count 285 Seg Neutrophils % 75.1 Lymphocytes % 13.6 Monocytes % 9.7 Eosinophils % 1.2 Basophils % 0.4 Absolute Neutrophils 6.3 Absolute Lymphocytes 1.2 Absolute Monocytes 0.8 Absolute Eosinophils 0.1 Absolute Basophils 0.0 Sodium 136.6 L Potassium 4.1 Chloride 101 Carbon Dioxide 28 Anion Gap 8 BUN 27 H Creatinine 1.85 H Est GFR ( Amer) 33 L Est GFR (Non-Af Amer) 27 L Glucose 167 H Calcium 7.8 L Magnesium 2.2 Stool Occult Blood NEGATIVE 10/27/17 10/28/17 10/28/17 22:35 04:36 19:23 Troponin I < 0.012 < 0.012 < 0.012 Impressions: Head CT 10/27/17 00:00 IMPRESSION: No acute intracranial findings. EVIDENCE OF ACUTE STROKE: NO. Chest X-Ray 10/27/17 15:41 IMPRESSION: Mild cardiomegaly with prominence of the central pulmonary vasculature on the right. Abdomen Ultrasound 10/29/17 00:00 IMPRESSION: 1. Cholelithiasis without other sonographic evidence of acute cholecystitis. 2. Suboptimal evaluation of the common bile duct, left kidney and spleen due to overlying bowel gas and patient body habitus. KUB X-Ray 10/29/17 00:00 IMPRESSION: Grossly nonobstructive bowel gas pattern Assessment & Plan - Time Time Spent with patient: (1) Congestive heart failure Qualifiers: Heart failure type: diastolic Heart failure chronicity: acute on chronic Qualified Code(s): I50.33 - Acute on chronic diastolic (congestive) heart failure Is this a current diagnosis for this admission?: Yes Plan: acute on chronic diastolic CHF Echocardiogram shows diastolic dysfunction and pulmonary hypertension. Will decrease of Procardia XL. resume small doses lasix po repeat proBNP continue present management (2) Hypertensive urgency Is this a current diagnosis for this admission?: Yes Plan: Resolved. Will continue clonidine, hydralazine and decrease Procardia dose (3) CKD (chronic kidney disease) stage 3, GFR 30-59 ml/min Is this a current diagnosis for this admission?: Yes Plan: Likely this relates to diabetic and hypertensive nephropathy. Continue lisinopril. Trend renal due to diuresis acute on chronic renal failure stage III repeat BMP in am (4) Morbid (severe) obesity due to excess calories Is this a current diagnosis for this admission?: Yes Plan: Patient encouraged to lose weight. Currently posing problem as far as evaluating patient (5) Diabetes Qualifiers: Diabetes mellitus type: type 2 Diabetes mellitus complication status: with kidney complications Diabetes mellitus complication detail: with chronic kidney disease Diabetes mellitus correction insulin use: without navy seal use Chronic kidney disease stage: stage 3 (moderate) Qualified Code(s): E11.22 - Type 2 diabetes mellitus with diabetic chronic kidney disease; N18.3 - Chronic kidney disease, stage 3 (moderate); N18.3 - Chronic kidney disease, stage 3 (moderate) Is this a current diagnosis for this admission?: Yes Plan: Continue Humalog sliding scale and bedside glucose before meals and at bedtime. Hemoglobin A1c 7.8. Restart oral since nausea resolved (6) Anemia Qualifiers: Anemia type: unspecified type Qualified Code(s): D64.9 - Anemia, unspecified Is this a current diagnosis for this admission?: Yes Plan: . Anemia panel showing iron deficiency. Occult blood pending. This patient has not had a colonoscopy so therefore I am concerned about the possibility of malignancy though anemia of chronic disease and is also possibility in the setting of kidney disease. Will consider GI consult (7) Vomiting Qualifiers: Vomiting type: unspecified Nausea presence: with nausea Is this a current diagnosis for this admission?: Yes Plan: Resolved. Appears to be related to biliary colic (8) Pulmonary hypertension Is this a current diagnosis for this admission?: Yes Plan: Likely due to diastolic dysfunction. Will continue managing blood pressure and diuresis (9) Ambulatory dysfunction Is this a current diagnosis for this admission?: Yes Plan: Due to massive obesity. Nurse notified to encourage ambulation. Will request PT. Another issue is that patient does have heel ulcer (10) Heel ulcer Qualifiers: Laterality: unspecified laterality Non-pressure ulcer stage: limited to breakdown of skin Qualified Code(s): L97.401 - Non-pressure chronic ulcer of unspecified heel and midfoot limited to breakdown of skin Is this a current diagnosis for this admission?: Yes Plan: Apply foam right heel (11) Biliary colic Is this a current diagnosis for this admission?: Yes Plan: Abdominal sonogram shows cholelithiasis. Pain and nausea resolved Time Spent with patient: 25-34 minutes
--- NOTE | 2017-10-31 13:39 | DRAGON STRESS TEST REPORT ---
INTRAVENOUS LEXISCAN CARDIOLITE STRESS TEST USING SINGLE PHOTON EMMISION COMPUTERIZED TOMOGRAPHIC. DATE OF PROCEDURE: October 31, 2017, INDICATION : Shortness of breath CARDIAC RISK FACTORS: Diabetes, hypertension, dyslipidemia RESTING EKG: Sinus rhythm with minor nonspecific T-wave changes STRESS EKG: No significant changes noted with LexiScan bolus REASON FOR TERMINATION: Protocol. PROCEDURE REPORT: Baseline heart rate 97 beats per minute with blood pressure of 137/75. Patient had no significant complaints. Heart rate at 2 minutes post bolus 100 with a blood pressure of 146/58. 3 minutes post bolus heart rate 99 with blood pressure of 122/58. No significant EKG changes were noted. Patient had no significant complaints during the procedure or postprocedure. Patient injected with Aminophyllin 75 mg at 3 minutes or later after Lexiscan bolus. CONCLUSIONS: Normal EKG and hemodynamic response to IV LexiScan. NUCLEAR DATA: 2 day protocol rest followed by stress. At rest the patient was given 41.6 millicuries of technetium 99 sestamibi injected intravenously. As per protocol rest gated SPECT images were obtained. On day of stress test, the patient was given intravenous LexiScan at a dose of 0.4 mg in 5 mL intravenously, followed by flush with normal saline. 40 stress imaging day 2, the stress dose of 41.8 millicuries of technetium 99 sestamibi was injected intravenously. As per protocol stress gated images were obtained. NUCLEAR INTERPRETATION: Both raw and processed data were used for interpretation. Visual, qualitative, computer-generated quantitative data was used. There was good myocardial uptake of technetium compound. Motion artifact and soft tissue attenuations were noted. Increased visceral uptake was noted. Mild decreased uptake noted in the inferior wall and is felt related to diaphragmatic attenuation artifact and subtraction artifact rather than a true perfusion defect. Clinical correlation however requested. No definitive areas of transient perfusion defect noted, No definitive areas of fixed perfusion defect or scars noted. EKG gated imaging showed LV EF at 58 %, rest and stress gated EF similar visually. No regional wall motion abnormalities noted. T. I D. ratio was 1.11. Lung heart ratio noted to be within normal limits 0.34. No significant extracardiac and abnormal radiotracer activities were noted. RV free wall uptake was noted to be WNL. IMPRESSION: Also refer to comments under nuclear interpretation. Also test results needs to be interpreted in the context of pretest probability. 1. No definitive areas of transient perfusion defect noted. 2. There is no definitive scintigraphic evidence of myocardial infarction/scar. 3. EKG gated imaging shows left ventricular ejection fraction of approx. 58 %. 4. Clinical correlation requested as occasionally single vessel disease or balanced ischemia could be missed. In approximately 10% of the cases Lexiscan may not cause adequate vasodilatory stress. RECOMMENDATIONS: Aggressive risk factor modification and medical management. Further evaluation may be needed if continued symptoms or other high risk indicators are noted on clinical evaluation. Close cardiology follow-up is also recommended. Clinical correlation with echocardiogram derived ejection fraction. Inability to exercise by itself can lead to increased cardiovascular event risks. Consider cardiology consultation and or follow-up if clinically indicated. I am available for cardiology evaluation and consultation if requested by the landscape architecture professor, unless patient already has a compensation director. CHRISTIAN
[2017-10-31] MEDS ORDERED: AMINOPHYLLINE INJ/PF 250 MG/10 ML SDV IV ONE (16:27)
[2017-10-31] MEDS ORDERED: REGADENOSON INJ 0.4 MG/5 ML DISP.SYRIN IV ONE (16:27)
[2017-10-31] MEDS: INSULIN LISPRO 100 UNIT/ML 3 ML VIAL SUBCUT PRN ×2 (18:00→22:24)
[2017-10-31] MEDS: ATORVASTATIN CALCIUM 40 MG TABLET PO SCH (22:23)
[2017-10-31] MEDS: LACTULOSE SYRUP 20 GM/30 ML UDCUP PO SCH (22:24)
[2017-11-01] MEDS: METOCLOPRAMIDE HCL INJ/PF 10 MG/2 ML SDV IV SCH ×4 (00:41→17:09)
[2017-11-01] MEDS: LANSOPRAZOLE 30 MG TAB.RAP.DR PO SCH (05:23)
[2017-11-01] MEDS: HEPARIN SOD (PORCINE) 5,000 UNIT/ML 1 ML SYRINGE SUBCUT SCH ×3 (05:23→22:52)
[2017-11-01] MEDS: HYDRALAZINE HCL 50 MG TABLET PO SCH ×3 (05:23→22:51)
[2017-11-01 07:05] LABS: ANION GAP 6 (5-19); BLOOD UREA NITROGEN 30 mg/dL (7-20); CALCIUM 7.5 mg/dL (8.4-10.2); CARBON DIOXIDE 27 mmol/L (22-30); CHLORIDE 101 mmol/L (98-107); GLUCOSE 130 mg/dL (75-110); POTASSIUM 4.3 mmol/L (3.6-5.0); SODIUM 134.1 mmol/L (137-145)
[2017-11-01] MEDS: CLONIDINE HCL 0.1 MG TABLET PO SCH ×2 (08:09→22:51)
[2017-11-01] MEDS: FERROUS SULFATE 325 MG TABLET PO SCH ×2 (08:09→17:08)
[2017-11-01] MEDS: LISINOPRIL 10 MG TABLET PO SCH (09:57)
[2017-11-01] MEDS: POLYETHYLENE GLYCOL 3350 POWDER 17 GM/1 PACKET PO SCH (09:57)
[2017-11-01] MEDS: NIFEDIPINE 30 MG TAB.ER.24 PO SCH (09:57)
[2017-11-01] MEDS: ASPIRIN 81 MG TABLET, CHEWABLE PO SCH (09:57)
[2017-11-01] MEDS: FUROSEMIDE INJ/PF 40 MG/4 ML SDV IV SCH ×2 (09:57→22:52)
[2017-11-01] MEDS: PANTOT AC/MIN OIL/PET HY-PHL OINT 50 GM TOP SCH ×3 (09:58→17:09)
[2017-11-01] MEDS: INSULIN LISPRO 100 UNIT/ML 3 ML VIAL SUBCUT PRN (12:48)
--- NOTE | 2017-11-01 12:48 | PDOC CONSULTATION ---
Consultation Consult Date: 11/01/17 Attending physician:: LINDA PORTILLO Consult reason:: Anemia, rectal bleeding. encounter for colorectal cancer screening History of Present Illness Admission Date/PCP: 10/27/17 18:13 FAZAL KNOTT History of Present Illness: Asked to see this patient for GI workup had been having some SOB, has had cardiac work up to include cardiolite stress test, this was negative patient had been having some blood in her stools she was supposed to have had a referral for a colonoscopy, but her primary is no longer in town, and that fell " thru the cracks" patient admits to having seen some blood in her stools she describes it as bright red there is no weight loss she does not have a family history of colon cancer patient is noted to be anemic GI work up is requested she denies having any upper GI symptoms there is no nausea or vomiting denies any dysphagia or odynophagia patient states no melena does not have any early satiety Past Medical History Cardiac Medical History: Reports: Hypertension Denies: Congestive Heart Failure, Coronary Artery Disease Pulmonary Medical History: Reports: None EENT Medical History: Reports: None Neurological Medical History: Reports: None Endocrine Medical History: Reports: Diabetes Mellitus Type 2 Renal/ Medical History: Reports: None Malignancy Medical History: Reports: None GI Medical History: Reports: None Musculoskeltal Medical History: Reports: None Skin Medical History: Reports: None Psychiatric Medical History: Reports: None Traumatic Medical History: Reports: None Hematology: Reports: None Infectious Medical History: Reports: None Past Surgical History Past Surgical History: Reports: None Social History Smoking Status: Former Smoker Number of Years Smokin Last Time Smoked: 35 years Frequency of Alcohol Use: None Hx Recreational Drug Use: No Drugs: None Hx Prescription Drug Abuse: No - Advance Directive Resuscitation Status: Full Code Family History Family History: Reviewed & Not Pertinent Parental Family History Reviewed: Yes Children Family History Reviewed: Unknown Sibling(s) Family History Reviewed.: Unknown Medication/Allergy Home Medications: Lisinopril/Hydrochlorothiazide [Lisinopril-Hctz 20-25 mg Tab] 1 tab PO DAILY Metformin HCl [Metformin HCl ER] 500 mg PO DAILY 10/27/17 Allergies/Adverse Reactions: iodine [Iodine] Allergy (Verified 10/27/17 15:13) Review of Systems Constitutional: ABSENT: fever(s), headache(s), night sweats, weakness Eyes: ABSENT: visual disturbances Ears: ABSENT: hearing changes Nose, Mouth, and Throat: ABSENT: mouth pain, sore throat Cardiovascular: ABSENT: chest pain, edema Respiratory: ABSENT: dyspnea, hemoptysis Gastrointestinal: ABSENT: diarrhea, melena, nausea, vomiting Genitourinary: ABSENT: dysuria, hematuria Musculoskeletal: ABSENT: deformity, joint swelling Integumentary: ABSENT: lesions, pruritus Neurological: ABSENT: focal weakness, tingling, tremor(s), vertigo Endocrine: ABSENT: polydipsia, polyphagia, polyuria Hematologic/Lymphatic: ABSENT: easy bruising Physical Exam Vital Signs: Temp Pulse Resp BP Pulse Ox 98.7 F 81 22 H 131/55 H 95 11/01/17 08:02 11/01/17 08:02 11/01/17 08:02 11/01/17 08:02 11/01/17 08:02 Intake & Output 10/31/17 11/01/17 11/02/17 06:59 06:59 06:59 Intake Total 1244 720 Output Total 803 1020 Balance 441 -300 Weight 164.3 kg 166.6 kg General appearance: PRESENT: no acute distress, well-developed, well-nourished Head exam: PRESENT: atraumatic, normocephalic Eye exam: PRESENT: EOMI, PERRLA. ABSENT: nystagmus, periorbital swelling, scleral icterus Mouth exam: PRESENT: moist, neck supple Throat exam: ABSENT: tonsillar exudate, tonsillogmegaly Neck exam: ABSENT: meningismus, tenderness, thyromegaly Respiratory exam: PRESENT: symmetrical, unlabored. ABSENT: tachypnea, wheezes Cardiovascular exam: PRESENT: RRR, +S1, +S2 GI/Abdominal exam: PRESENT: soft. ABSENT: rebound, rigid, tenderness Gentrourinary exam: ABSENT: lesions Extremities exam: ABSENT: joint swelling Musculoskeletal exam: PRESENT: full ROM Neurological exam: PRESENT: oriented to situation, CN II-XII grossly intact Psychiatric exam: PRESENT: appropriate affect Focused psych exam: ABSENT: restlessness Skin exam: PRESENT: normal color. ABSENT: mottled, pallor, petechiae, urticaria , vesicles Results Laboratory Results: 10/31/17 04:54 11/01/17 05:32 10/29/17 11/01/17 05:58 05:32 Sodium 134.1 L Potassium 4.3 Chloride 101 Carbon Dioxide 27 Anion Gap 6 BUN 30 H Creatinine 1.90 H Est GFR ( Amer) 32 L Est GFR (Non-Af Amer) 26 L Glucose 130 H Calcium 7.5 L Transferrin 164 L 10/27/17 10/28/17 10/28/17 22:35 04:36 19:23 Troponin I < 0.012 < 0.012 < 0.012 Impressions: Head CT 10/27/17 00:00 IMPRESSION: No acute intracranial findings. EVIDENCE OF ACUTE STROKE: NO. Chest X-Ray 10/27/17 15:41 IMPRESSION: Mild cardiomegaly with prominence of the central pulmonary vasculature on the right. Abdomen Ultrasound 10/29/17 00:00 IMPRESSION: 1. Cholelithiasis without other sonographic evidence of acute cholecystitis. 2. Suboptimal evaluation of the common bile duct, left kidney and spleen due to overlying bowel gas and patient body habitus. KUB X-Ray 10/29/17 00:00 IMPRESSION: Grossly nonobstructive bowel gas pattern Assessment & Plan - Diagnosis (1) Rectal bleeding Plan: could be due to hemorrhoids however has not had colorectal cancer screening Risks, benefits and alternatives are discussed with the patient in detail further recommendations to follow she is willing to proceed (2) Anemia Qualifiers: Anemia type: unspecified type Qualified Code(s): D64.9 - Anemia, unspecified Is this a current diagnosis for this admission?: Yes Plan: likely due to multifactorial reasons will need to have GI work up done while she is in an inpatient further recommendations to follow - Time Time Spent: 50 to 70 Minutes
[2017-11-01] MEDS ORDERED: PEG 3350/NA SULF,BICARB,CL/KCL 4000 ML PO ONE (16:00)
[2017-11-01] MEDS: ONDANSETRON HCL INJ/PF 4 MG/2 ML SDV IV PRN (17:09)
--- NOTE | 2017-11-01 17:51 | PDOC PROGRESS REPORT ---
Subjective Progress Note for:: 11/01/17 Subjective:: Patient states feels she is improved no chest pains or abdominal pains Chest still feels congested ; the urinary output has been poor she does not really have negative balance Patient was evaluated by Dr. Park for rectal bleeding And will be scheduled tomorrow for colonoscopy Reason For Visit: RIGHT SIDED HEART FAILURE/ANASARCA/HTN Physical Exam Vital Signs: Temp Pulse Resp BP Pulse Ox 98.4 F 87 18 138/64 H 99 11/01/17 12:30 11/01/17 14:00 11/01/17 12:30 11/01/17 12:30 11/01/17 12:30 Intake & Output 10/31/17 11/01/17 11/02/17 00:59 00:59 00:59 Intake Total 2246 360 360 Output Total 1612 1001 420 Balance 634 -641 -60 Weight 161.5 kg 164.3 kg 166.6 kg General appearance: PRESENT: no acute distress, obese Head exam: PRESENT: atraumatic, normocephalic Eye exam: PRESENT: conjunctiva pink, EOMI, PERRLA. ABSENT: scleral icterus Neck exam: ABSENT: carotid bruit, JVD, lymphadenopathy, thyromegaly Respiratory exam: PRESENT: decreased breath sounds. ABSENT: accessory muscle use, rales, rhonchi, tachypnea Cardiovascular exam: PRESENT: RRR. ABSENT: diastolic murmur, rubs, systolic murmur Pulses: PRESENT: normal dorsalis pedis pul Vascular exam: PRESENT: normal capillary refill GI/Abdominal exam: PRESENT: normal bowel sounds, soft. ABSENT: distended, guarding, mass, organolmegaly, rebound, tenderness Extremities exam: PRESENT: full ROM. ABSENT: calf tenderness, pedal edema Neurological exam: PRESENT: alert, awake, oriented to person, oriented to place , oriented to time, oriented to situation, CN II-XII grossly intact. ABSENT: motor sensory deficit Results Laboratory Results: 10/31/17 04:54 11/01/17 05:32 10/29/17 11/01/17 05:58 05:32 Sodium 134.1 L Potassium 4.3 Chloride 101 Carbon Dioxide 27 Anion Gap 6 BUN 30 H Creatinine 1.90 H Est GFR ( Amer) 32 L Est GFR (Non-Af Amer) 26 L Glucose 130 H Calcium 7.5 L Transferrin 164 L 10/27/17 10/28/17 10/28/17 22:35 04:36 19:23 Troponin I < 0.012 < 0.012 < 0.012 Impressions: Head CT 10/27/17 00:00 IMPRESSION: No acute intracranial findings. EVIDENCE OF ACUTE STROKE: NO. Chest X-Ray 10/27/17 15:41 IMPRESSION: Mild cardiomegaly with prominence of the central pulmonary vasculature on the right. Abdomen Ultrasound 10/29/17 00:00 IMPRESSION: 1. Cholelithiasis without other sonographic evidence of acute cholecystitis. 2. Suboptimal evaluation of the common bile duct, left kidney and spleen due to overlying bowel gas and patient body habitus. KUB X-Ray 10/29/17 00:00 IMPRESSION: Grossly nonobstructive bowel gas pattern Assessment & Plan - Time Time Spent with patient: (1) Congestive heart failure Qualifiers: Heart failure type: diastolic Heart failure chronicity: acute on chronic Qualified Code(s): I50.33 - Acute on chronic diastolic (congestive) heart failure Is this a current diagnosis for this admission?: Yes Plan: acute on chronic diastolic CHF Echocardiogram shows diastolic dysfunction and pulmonary hypertension. Increased Lasix; will give small dose of metolazone Follow-up BMP in a.m. (2) Hypertensive urgency Is this a current diagnosis for this admission?: Yes Plan: Resolved. (3) CKD (chronic kidney disease) stage 3, GFR 30-59 ml/min Is this a current diagnosis for this admission?: Yes Plan: Likely this relates to diabetic and hypertensive nephropathy. Continue lisinopril. Trend renal due to diuresis acute on chronic renal failure stage III repeat BMP in am (4) Morbid (severe) obesity due to excess calories Is this a current diagnosis for this admission?: Yes Plan: Patient encouraged to lose weight. Currently posing problem as far as evaluating patient (5) Diabetes Qualifiers: Diabetes mellitus type: type 2 Diabetes mellitus complication status: with kidney complications Diabetes mellitus complication detail: with chronic kidney disease Diabetes mellitus assisted insulin use: without assisted use Chronic kidney disease stage: stage 3 (moderate) Qualified Code(s): E11.22 - Type 2 diabetes mellitus with diabetic chronic kidney disease; N18.3 - Chronic kidney disease, stage 3 (moderate); N18.3 - Chronic kidney disease, stage 3 (moderate) Is this a current diagnosis for this admission?: Yes Plan: Continue Humalog sliding scale and bedside glucose before meals and at bedtime. Hemoglobin A1c 7.8. Restart oral since nausea resolved (6) Anemia Qualifiers: Anemia type: unspecified type Qualified Code(s): D64.9 - Anemia, unspecified Is this a current diagnosis for this admission?: Yes Plan: . Anemia panel showing iron deficiency. Occult blood pending. This patient has not had a colonoscopy so therefore I am concerned about the possibility of malignancy though anemia of chronic disease and is also possibility in the setting of kidney disease. Will consider GI consult (7) Vomiting Qualifiers: Vomiting type: unspecified Nausea presence: with nausea Is this a current diagnosis for this admission?: Yes Plan: Resolved. Appears to be related to biliary colic (8) Pulmonary hypertension Is this a current diagnosis for this admission?: Yes Plan: Likely due to diastolic dysfunction. Will continue managing blood pressure and diuresis (9) Ambulatory dysfunction Is this a current diagnosis for this admission?: Yes Plan: Due to massive obesity. Nurse notified to encourage ambulation. Will request PT. Another issue is that patient does have heel ulcer (10) Heel ulcer Qualifiers: Laterality: unspecified laterality Non-pressure ulcer stage: limited to breakdown of skin Qualified Code(s): L97.401 - Non-pressure chronic ulcer of unspecified heel and midfoot limited to breakdown of skin Is this a current diagnosis for this admission?: Yes Plan: Apply foam right heel (11) Biliary colic Is this a current diagnosis for this admission?: Yes Plan: Abdominal sonogram shows cholelithiasis. Pain and nausea resolved (12) Rectal bleeding H&H has been stable Patient will undergo colonoscopy in a.m. Dr. Park Time Spent with patient: 25-34 minutes
--- NOTE | 2017-11-01 18:49 | RADIOLOGY REPORT (SQ) ---
EXAM DESCRIPTION: CHEST SINGLE VIEW COMPLETED DATE/TIME: 11/01/2017 6:35 pm REASON FOR STUDY: SOB COMPARISON: 10/27/2017 EXAM PARAMETERS: NUMBER OF VIEWS: One view. TECHNIQUE: Single frontal radiographic view of the chest acquired. RADIATION DOSE: NA LIMITATIONS: None. FINDINGS: LUNGS AND PLEURA: New opacities at the lung bases. Possible effusions. MEDIASTINUM AND HILAR STRUCTURES: No masses. Contour normal. HEART AND VASCULAR STRUCTURES: Cardiac enlargement. Mild vascular congestion. BONES: No acute findings. HARDWARE: None in the chest. OTHER: No other significant finding. IMPRESSION: New opacities at the lung bases with possible effusions. Vascular congestion. TECHNICAL DOCUMENTATION: JOB ID: [id number] [employer]- All Rights Reserved Reading location - IP/workstation name: [email or web address]
[2017-11-01] MEDS ORDERED: METOLAZONE 5 MG TABLET PO ONE (19:00)
[2017-11-01] MEDS: ATORVASTATIN CALCIUM 40 MG TABLET PO SCH (22:51)
[2017-11-01] MEDS: LACTULOSE SYRUP 20 GM/30 ML UDCUP PO SCH (22:52)
[2017-11-02] MEDS: METOCLOPRAMIDE HCL INJ/PF 10 MG/2 ML SDV IV SCH ×4 (00:33→18:12)
--- NOTE | 2017-11-02 01:08 | PDOC CONSULTATION ---
Consultation Consult Date: 11/01/17 Consult reason:: right heel chronic ulcer History of Present Illness Admission Date/PCP: 10/27/17 18:13 FAZAL KNOTT History of Present Illness: Noted to have a right heel ulcer that was being treated at the wound care center with wound vac. Somehow this was stopped. Patient claims she some good response with the wound vac. Past Medical History Cardiac Medical History: Reports: Hypertension Denies: Congestive Heart Failure, Coronary Artery Disease Pulmonary Medical History: Reports: None EENT Medical History: Reports: None Neurological Medical History: Reports: None Endocrine Medical History: Reports: Diabetes Mellitus Type 2 Renal/ Medical History: Reports: None Malignancy Medical History: Reports: None GI Medical History: Reports: None Musculoskeltal Medical History: Reports: None Skin Medical History: Reports: None Psychiatric Medical History: Reports: None Traumatic Medical History: Reports: None Hematology: Reports: None Infectious Medical History: Reports: None Past Surgical History Past Surgical History: Reports: None Social History Smoking Status: Former Smoker Number of Years Smokin Last Time Smoked: 35 years Frequency of Alcohol Use: None Hx Recreational Drug Use: No Drugs: None Hx Prescription Drug Abuse: No - Advance Directive Resuscitation Status: Full Code Family History Family History: Reviewed & Not Pertinent Parental Family History Reviewed: Yes Children Family History Reviewed: No Sibling(s) Family History Reviewed.: No Medication/Allergy Home Medications: Lisinopril/Hydrochlorothiazide [Lisinopril-Hctz 20-25 mg Tab] 1 tab PO DAILY Metformin HCl [Metformin HCl ER] 500 mg PO DAILY 10/27/17 Allergies/Adverse Reactions: iodine [Iodine] Allergy (Verified 10/27/17 15:13) Review of Systems Integumentary: PRESENT: other - ulcer right heel with mild pains Physical Exam Vital Signs: Temp Pulse Resp BP Pulse Ox 98.4 F 88 22 H 154/60 H 93 11/01/17 16:46 11/01/17 19:00 11/01/17 16:46 11/01/17 16:46 11/01/17 16:46 Intake & Output 10/31/17 11/01/17 11/02/17 06:59 06:59 06:59 Intake Total 1244 720 480 Output Total 803 1020 1100 Balance 441 300 -584 Weight 164.3 kg 166.6 kg General appearance: PRESENT: no acute distress Head exam: PRESENT: atraumatic Eye exam: PRESENT: conjunctiva pink Mouth exam: PRESENT: moist Neck exam: PRESENT: full ROM Respiratory exam: PRESENT: clear to auscultation rona Cardiovascular exam: PRESENT: RRR Pulses: PRESENT: normal radial pulses, other - unable to palpate right ankle pulses primarily because of edema but foot is warm. Musculoskeletal exam: PRESENT: other - Has a4x5 cm ulcer with some necrotic surrounding skin that was sharply debrided. Skin exam: PRESENT: other - 5x4 cm right heel ulcer Results Laboratory Results: 10/31/17 04:54 11/01/17 05:32 10/29/17 11/01/17 05:58 05:32 Sodium 134.1 L Potassium 4.3 Chloride 101 Carbon Dioxide 27 Anion Gap 6 BUN 30 H Creatinine 1.90 H Est GFR ( Amer) 32 L Est GFR (Non-Af Amer) 26 L Glucose 130 H Calcium 7.5 L Transferrin 164 L 10/27/17 10/28/17 10/28/17 22:35 04:36 19:23 Troponin I < 0.012 < 0.012 < 0.012 Impressions: Head CT 10/27/17 00:00 IMPRESSION: No acute intracranial findings. EVIDENCE OF ACUTE STROKE: NO. Abdomen Ultrasound 10/29/17 00:00 IMPRESSION: 1. Cholelithiasis without other sonographic evidence of acute cholecystitis. 2. Suboptimal evaluation of the common bile duct, left kidney and spleen due to overlying bowel gas and patient body habitus. KUB X-Ray 10/29/17 00:00 IMPRESSION: Grossly nonobstructive bowel gas pattern Chest X-Ray 11/01/17 18:00 IMPRESSION: New opacities at the lung bases with possible effusions. Vascular congestion. Assessment & Plan - Diagnosis (1) Heel ulcer Qualifiers: Laterality: unspecified laterality Non-pressure ulcer stage: limited to breakdown of skin Qualified Code(s): L97.401 - Non-pressure chronic ulcer of unspecified heel and midfoot limited to breakdown of skin Is this a current diagnosis for this admission?: Yes - Time Time Spent: 30 to 50 Minutes - Plan Summary Plan Summary: Sharp debridement of ulcer done at bedside. Wound Vac ordered for tomorrow.
--- NOTE | 2017-11-02 05:14 | OPERATIVE REPORT E ---
Operative Report NAME: DOM ADAMS : 1950 AGE: 67Y DATE OF SURGERY: 11/01/2017 ROOM: 429 PREOPERATIVE DIAGNOSIS: Chronic ulcer, right heel 5 x 4 cm with necrotic tissue around it. POSTOPERATIVE DIAGNOSIS: Chronic ulcer, right heel 5 x 4 cm with necrotic tissue around it. OPERATION: Sharp debridement of necrotic tissue around right heel ulcer 5 x 4 cm. SURGEON: PERNELL SOARES M.D. INDICATION: This is a 67-year-old female with multiple comorbidities noted to have a chronic ulcer along the right heel that was previously treated with [facility]AC [facility]. This time there is about a 5 x 4 cm ulcer full thickness with some necrotic tissue around it. DESCRIPTION OF PROCEDURE: Patient was placed in supine position and the right leg elevated. The right heel was then sharply debrided around the ulcer, cutting most of the necrotic tissue. This was then performed with the use of sharp scissors. A wound VAC was ordered to be restarted tomorrow for better healing of the ulcer. A wound dressing was used, using thick pad. The patient tolerated the procedure well. DICTATING PHYSICIAN: PERNELL SOARES M.D. [id number] PHY#: [id number] ID: [id number] JOB#: [id number] ACCT: [id number] cc:PERNELL SOARES M.D. >
[2017-11-02] MEDS: HEPARIN SOD (PORCINE) 5,000 UNIT/ML 1 ML SYRINGE SUBCUT SCH ×3 (05:28→22:14)
[2017-11-02] MEDS: LANSOPRAZOLE 30 MG TAB.RAP.DR PO SCH (05:28)
[2017-11-02] MEDS: HYDRALAZINE HCL 50 MG TABLET PO SCH ×3 (06:20→22:13)
[2017-11-02 06:31] LABS: ABSOLUTE EOSINOPHILS # (AUTO) 0.3 10^3/uL (0.0-0.6); ABSOLUTE LYMPHOCYTES (AUTO) 0.8 10^3/uL (0.5-4.7); ABSOLUTE MONOCYTES (AUTO) 0.7 10^3/uL (0.1-1.4); ABSOLUTE NEUT (AUTO) 4.1 10^3/uL (1.7-8.2); BASOPHILS % (AUTO) 0.7 % (0-2); EOSINOPHILS % (AUTO) 5.3 % (0-6); HEMATOCRIT 30.8 % (36.0-47.0); HEMOGLOBIN 10.1 g/dL (12.0-15.5); LYMPHOCYTES % (AUTO) 12.8 % (13-45); MEAN CORPUSCULAR HEMOGLOBIN 27.2 pg (27.0-33.4); MEAN CORPUSCULAR HGB CONC 32.7 g/dL (32.0-36.0); MEAN CORPUSCULAR VOLUME 83 fl (80-97); MONOCYTES % (AUTO) 11.6 % (3-13); PLATELET COUNT 287 10^3/uL (150-450); RED CELL DISTRIBUTION WIDTH 15.5 % (11.5-14.0); SEGMENTED NEUTROPHILS % (AUTO) 69.6 % (42-78); TOTAL CELLS COUNTED % (AUTO) 100 %; WHITE BLOOD COUNT 5.9 10^3/uL (4.0-10.5)
[2017-11-02 06:45] LABS: ANION GAP 9 (5-19); BLOOD UREA NITROGEN 28 mg/dL (7-20); CALCIUM 7.7 mg/dL (8.4-10.2); CARBON DIOXIDE 27 mmol/L (22-30); CHLORIDE 100 mmol/L (98-107); GLUCOSE 171 mg/dL (75-110); POTASSIUM 3.9 mmol/L (3.6-5.0); SODIUM 135.6 mmol/L (137-145)
[2017-11-02] MEDS ORDERED: DIPHENHYDRAMINE HCL 25 MG CAPSULE ONE (08:07)
[2017-11-02] MEDS: CLONIDINE HCL 0.1 MG TABLET PO SCH ×2 (08:54→22:14)
[2017-11-02] MEDS: FUROSEMIDE INJ/PF 40 MG/4 ML SDV IV SCH ×2 (09:00→22:13)
[2017-11-02] MEDS ORDERED: NALOXONE HCL INJ/PF 0.4 MG/1 ML SDV ONE (10:16)
[2017-11-02] MEDS ORDERED: ONDANSETRON HCL INJ/PF 4 MG/2 ML SDV ONE (10:16)
[2017-11-02] MEDS ORDERED: DIPHENHYDRAMINE HCL 50 MG/ML VIAL ONE (10:16)
[2017-11-02] MEDS ORDERED: FLUMAZENIL INJ 0.5 MG/5 ML VIAL ONE (10:17)
[2017-11-02] MEDS ORDERED: EPINEPHRINE INJ 1 MG/10 ML DISP.SYRIN ONE (10:17)
[2017-11-02] MEDS ORDERED: GLUCAGON,HUMAN RECOMB 1 MG INJ ONE (10:17)
[2017-11-02] MEDS ORDERED: FENTANYL CITRATE INJ/PF 100 MCG/2 ML AMPUL ONE (10:17)
[2017-11-02] MEDS: MIDAZOLAM 2 MG/2 ML INJ ONE ×2 (11:10→11:20)
--- NOTE | 2017-11-02 11:55 | Operative Report ---
Operative Report DATE OF SURGERY: 11/02/17 Operative Report: The risks, benefits and alternatives of the procedure including risks of bleeding, perforation requiring surgery are explained to the patient in detail and informed consent was obtained. Patient was taken back to the endoscopy suite and placed in a left, lateral decubital position. Timeout was called. Conscious sedation medications are provided. A rectal examination is done which did not reveal any masses, tears or fissures. There does appear to be a uterine prolapse. The scope was inserted into the patient's rectum the scope was then carefully advanced all the way to the cecum. The cecum was identified by the usual anatomical landmarks including the ileocecal valve as well as the appendiceal office. Photodocumentation was obtained. Scope was then sequentially pulled back via the various segments of the colon including the ascending colon, hepatic flexure, transverse colon, splenic flexure, descending colon and into the rectosigmoid portions of the colon. Retroflexion maneuver is performed. PREOPERATIVE DIAGNOSIS: Rectal bleeding, anemia, encounter for colorectal cancer screening. POSTOPERATIVE DIAGNOSIS: Normal screening colonoscopy. Diverticulosis. Internal hemorrhoids OPERATION: Diagnostic colonoscopy SURGEON: LINDA PORTILLO ANESTHESIA: Moderate Sedation - 3 mg of Versed, 25 mcg of fentanyl. Conscious sedation monitoring time 30 minutes. TISSUE REMOVED OR ALTERED: None. COMPLICATIONS: None. ESTIMATED BLOOD LOSS: None. INTRAOPERATIVE FINDINGS: As noted above. Greenish stool noted throughout the colon. PROCEDURE: Patient tolerated procedure well. No immediate postprocedure complications are noted. Patient sent back to her room in good condition. Resume regular diet. Resume previous activity level. Can follow-up as outpatient.
[2017-11-02] MEDS: METOLAZONE 5 MG TABLET PO SCH (12:57)
[2017-11-02] MEDS: NIFEDIPINE 30 MG TAB.ER.24 PO SCH (12:58)
[2017-11-02] MEDS: LISINOPRIL 10 MG TABLET PO SCH (12:59)
[2017-11-02] MEDS: ASPIRIN 81 MG TABLET, CHEWABLE PO SCH (12:59)
[2017-11-02] MEDS: POLYETHYLENE GLYCOL 3350 POWDER 17 GM/1 PACKET PO SCH (13:00)
[2017-11-02] MEDS: FERROUS SULFATE 325 MG TABLET PO SCH ×2 (13:00→18:08)
[2017-11-02] MEDS: PANTOT AC/MIN OIL/PET HY-PHL OINT 50 GM TOP SCH ×2 (15:47→18:12)
[2017-11-02] MEDS: ACETAMINOPHEN 325 MG TABLET PO PRN (15:49)
[2017-11-02] MEDS: INSULIN LISPRO 100 UNIT/ML 3 ML VIAL SUBCUT PRN ×2 (18:07→22:14)
--- NOTE | 2017-11-02 18:22 | PDOC PROGRESS REPORT ---
Subjective Progress Note for:: 11/02/17 Subjective:: Patient underwent colonoscopy today without any complications She states she feels well She has no shortness of breath no chest pain no abdominal pain She has less edema We discussed at length discharge planning Patient is agreeable to go to short-term rehab Reason For Visit: RIGHT SIDED HEART FAILURE/ANASARCA/HTN Physical Exam Vital Signs: Temp Pulse Resp BP Pulse Ox 98.4 F 79 18 133/55 H 100 11/02/17 15:29 11/02/17 15:29 11/02/17 15:29 11/02/17 15:29 11/02/17 15:29 Intake & Output 11/01/17 11/02/17 11/03/17 00:59 00:59 00:59 Intake Total 360 3400 534 Output Total 1001 2500 900 Balance -641 900 -366 Weight 164.3 kg 166.6 kg 164.8 kg General appearance: PRESENT: no acute distress, obese Head exam: PRESENT: atraumatic, normocephalic Eye exam: PRESENT: conjunctiva pink, EOMI, PERRLA. ABSENT: scleral icterus Neck exam: ABSENT: carotid bruit, JVD, lymphadenopathy, thyromegaly Respiratory exam: PRESENT: decreased breath sounds. ABSENT: accessory muscle use, rales, rhonchi, tachypnea Cardiovascular exam: PRESENT: RRR. ABSENT: diastolic murmur, rubs, systolic murmur Pulses: PRESENT: normal dorsalis pedis pul Vascular exam: PRESENT: normal capillary refill GI/Abdominal exam: PRESENT: normal bowel sounds, soft. ABSENT: distended, guarding, mass, organolmegaly, rebound, tenderness Extremities exam: PRESENT: full ROM. ABSENT: calf tenderness, pedal edema Neurological exam: PRESENT: alert, awake, oriented to person, oriented to place , oriented to time, oriented to situation, CN II-XII grossly intact. ABSENT: motor sensory deficit Results Laboratory Results: 11/02/17 05:40 11/02/17 05:40 11/02/17 11/02/17 05:40 05:40 WBC 5.9 RBC 3.70 L Hgb 10.1 L Hct 30.8 L MCV 83 MCH 27.2 MCHC 32.7 RDW 15.5 H Plt Count 287 Seg Neutrophils % 69.6 Lymphocytes % 12.8 L Monocytes % 11.6 Eosinophils % 5.3 Basophils % 0.7 Absolute Neutrophils 4.1 Absolute Lymphocytes 0.8 Absolute Monocytes 0.7 Absolute Eosinophils 0.3 Absolute Basophils 0.0 Sodium 135.6 L Potassium 3.9 Chloride 100 Carbon Dioxide 27 Anion Gap 9 BUN 28 H Creatinine 1.60 H Est GFR ( Amer) 39 L Est GFR (Non-Af Amer) 32 L Glucose 171 H Calcium 7.7 L 10/27/17 10/28/17 10/28/17 22:35 04:36 19:23 Troponin I < 0.012 < 0.012 < 0.012 NT-Pro-B Natriuret Pep 11/02/17 05:40 Troponin I NT-Pro-B Natriuret Pep 1920 H Impressions: Head CT 10/27/17 00:00 IMPRESSION: No acute intracranial findings. EVIDENCE OF ACUTE STROKE: NO. Abdomen Ultrasound 10/29/17 00:00 IMPRESSION: 1. Cholelithiasis without other sonographic evidence of acute cholecystitis. 2. Suboptimal evaluation of the common bile duct, left kidney and spleen due to overlying bowel gas and patient body habitus. KUB X-Ray 10/29/17 00:00 IMPRESSION: Grossly nonobstructive bowel gas pattern Chest X-Ray 11/01/17 18:00 IMPRESSION: New opacities at the lung bases with possible effusions. Vascular congestion. Assessment & Plan - Time Time Spent with patient: (1) Congestive heart failure Qualifiers: Heart failure type: diastolic Heart failure chronicity: acute on chronic Qualified Code(s): I50.33 - Acute on chronic diastolic (congestive) heart failure Is this a current diagnosis for this admission?: Yes Plan: acute on chronic diastolic CHF Echocardiogram shows diastolic dysfunction and pulmonary hypertension. Increased Lasix; will give small dose of metolazone Follow-up BMP in a.m. (2) Hypertensive urgency Is this a current diagnosis for this admission?: Yes Plan: Resolved. (3) CKD (chronic kidney disease) stage 3, GFR 30-59 ml/min Is this a current diagnosis for this admission?: Yes Plan: Likely this relates to diabetic and hypertensive nephropathy. Continue lisinopril. Trend renal due to diuresis acute on chronic renal failure stage III repeat BMP in am (4) Morbid (severe) obesity due to excess calories Is this a current diagnosis for this admission?: Yes Plan: Patient encouraged to lose weight. Currently posing problem as far as evaluating patient (5) Diabetes Qualifiers: Diabetes mellitus type: type 2 Diabetes mellitus complication status: with kidney complications Diabetes mellitus complication detail: with chronic kidney disease Diabetes mellitus chcf insulin use: without chcf use Chronic kidney disease stage: stage 3 (moderate) Qualified Code(s): E11.22 - Type 2 diabetes mellitus with diabetic chronic kidney disease; N18.3 - Chronic kidney disease, stage 3 (moderate); N18.3 - Chronic kidney disease, stage 3 (moderate) Is this a current diagnosis for this admission?: Yes Plan: Continue Humalog sliding scale and bedside glucose before meals and at bedtime. Hemoglobin A1c 7.8. Restart oral since nausea resolved (6) Anemia Qualifiers: Anemia type: unspecified type Qualified Code(s): D64.9 - Anemia, unspecified Is this a current diagnosis for this admission?: Yes Plan: . Anemia panel showing iron deficiency. Occult blood pending. This patient has not had a colonoscopy so therefore I am concerned about the possibility of malignancy though anemia of chronic disease and is also possibility in the setting of kidney disease. Will consider GI consult (7) Vomiting Qualifiers: Vomiting type: unspecified Nausea presence: with nausea Is this a current diagnosis for this admission?: Yes Plan: Resolved. Appears to be related to biliary colic (8) Pulmonary hypertension Is this a current diagnosis for this admission?: Yes Plan: Likely due to diastolic dysfunction. Will continue managing blood pressure and diuresis (9) Ambulatory dysfunction Is this a current diagnosis for this admission?: Yes Plan: Due to massive obesity. Nurse notified to encourage ambulation. Will request PT. Another issue is that patient does have heel ulcer (10) Heel ulcer Qualifiers: Laterality: unspecified laterality Non-pressure ulcer stage: limited to breakdown of skin Qualified Code(s): L97.401 - Non-pressure chronic ulcer of unspecified heel and midfoot limited to breakdown of skin Is this a current diagnosis for this admission?: Yes Plan: Apply foam right heel (11) Biliary colic Is this a current diagnosis for this admission?: Yes Plan: Abdominal sonogram shows cholelithiasis. Pain and nausea resolved (12) Rectal bleeding H&H has been stable Patient did undergo colonoscopy No bleeding Diverticulosis Discharge planning to short-term rehab Time Spent with patient: 15-24 minutes
[2017-11-02] MEDS: LACTULOSE SYRUP 20 GM/30 ML UDCUP PO SCH (22:13)
[2017-11-02] MEDS: ATORVASTATIN CALCIUM 40 MG TABLET PO SCH (22:14)
[2017-11-03] MEDS: METOCLOPRAMIDE HCL INJ/PF 10 MG/2 ML SDV IV SCH ×2 (01:44→05:41)
[2017-11-03] MEDS: HEPARIN SOD (PORCINE) 5,000 UNIT/ML 1 ML SYRINGE SUBCUT SCH ×3 (05:41→21:41)
[2017-11-03] MEDS: LANSOPRAZOLE 30 MG TAB.RAP.DR PO SCH (05:41)
[2017-11-03] MEDS: HYDRALAZINE HCL 50 MG TABLET PO SCH ×3 (05:41→21:41)
[2017-11-03] MEDS: FERROUS SULFATE 325 MG TABLET PO SCH ×2 (09:02→18:20)
[2017-11-03] MEDS: CLONIDINE HCL 0.1 MG TABLET PO SCH ×2 (09:03→21:40)
[2017-11-03] MEDS: ASPIRIN 81 MG TABLET, CHEWABLE PO SCH (09:03)
[2017-11-03] MEDS ORDERED: ONDANSETRON HCL INJ/PF 4 MG/2 ML SDV IV PRN (10:30)
[2017-11-03] MEDS ORDERED: HYDRALAZINE HCL INJ/PF 20 MG/1 ML SDV IV PRN (10:30)
[2017-11-03] MEDS: LISINOPRIL 10 MG TABLET PO SCH (10:55)
[2017-11-03] MEDS: PANTOT AC/MIN OIL/PET HY-PHL OINT 50 GM TOP SCH ×3 (10:55→18:23)
[2017-11-03] MEDS: FUROSEMIDE INJ/PF 40 MG/4 ML SDV IV SCH ×2 (10:55→21:42)
[2017-11-03] MEDS: METOLAZONE 5 MG TABLET PO SCH (10:59)
[2017-11-03] MEDS: NIFEDIPINE 30 MG TAB.ER.24 PO SCH (10:59)
[2017-11-03] MEDS: POLYETHYLENE GLYCOL 3350 POWDER 17 GM/1 PACKET PO SCH (11:00)
[2017-11-03] MEDS: INSULIN LISPRO 100 UNIT/ML 3 ML VIAL SUBCUT PRN ×3 (12:35→22:34)
[2017-11-03] MEDS: METOCLOPRAMIDE HCL 10 MG TABLET PO SCH ×2 (12:36→18:20)
--- NOTE | 2017-11-03 13:27 | PDOC PROGRESS REPORT ---
Subjective Progress Note for:: 11/03/17 Subjective:: Doing better, no chest pain, shortness of breath improved. Edema improving. Denies fever or chills, no nausea or vomiting. Status post colonoscopy 11/02/17 and doing well. Rectal bleeding. Reason For Visit: RIGHT SIDED HEART FAILURE/ANASARCA/HTN Physical Exam Vital Signs: Temp Pulse Resp BP Pulse Ox 98.1 F 73 16 128/57 H 98 11/03/17 11:34 11/03/17 11:34 11/03/17 11:34 11/03/17 11:34 11/03/17 11:34 Intake & Output 11/02/17 11/03/17 11/04/17 06:59 06:59 06:59 Intake Total 3360 1245 Output Total 2980 4400 Balance 380 -3155 Weight 164.8 kg 163.6 kg GEN: NAD, well-developed, well-nourished, obese CV: RRR, NL S1S2 LUNGS: CTA bilaterally ABDOMEN Soft, NT, +BS EXTERMITIES: 3+ generalized edema, no cyanosis or clubbing, wound VAC right heel. : Lackey in place, clear urine NEURO: Alert, oriented 3, generalized weakness, but no acute focal weakness. Results Laboratory Results: 11/02/17 05:40 11/02/17 05:40 10/27/17 10/28/17 10/28/17 22:35 04:36 19:23 Troponin I < 0.012 < 0.012 < 0.012 NT-Pro-B Natriuret Pep 11/02/17 05:40 Troponin I NT-Pro-B Natriuret Pep 1920 H Impressions: Head CT 10/27/17 00:00 IMPRESSION: No acute intracranial findings. EVIDENCE OF ACUTE STROKE: NO. Abdomen Ultrasound 10/29/17 00:00 IMPRESSION: 1. Cholelithiasis without other sonographic evidence of acute cholecystitis. 2. Suboptimal evaluation of the common bile duct, left kidney and spleen due to overlying bowel gas and patient body habitus. KUB X-Ray 10/29/17 00:00 IMPRESSION: Grossly nonobstructive bowel gas pattern Chest X-Ray 11/01/17 18:00 IMPRESSION: New opacities at the lung bases with possible effusions. Vascular congestion. Assessment & Plan - Diagnosis (1) Congestive heart failure Qualifiers: Heart failure type: diastolic Heart failure chronicity: acute on chronic Qualified Code(s): I50.33 - Acute on chronic diastolic (congestive) heart failure Is this a current diagnosis for this admission?: Yes Plan: On Lasix IV 40 mg twice daily and Zaroxolyn 5mg daily. We will continue this regimen for now. Strict I&O's. (2) Hypertensive urgency Is this a current diagnosis for this admission?: Yes Plan: Improved. Continue blood pressure medications. (3) CKD (chronic kidney disease) stage 3, GFR 30-59 ml/min Is this a current diagnosis for this admission?: Yes Plan: Continue to monitor. (4) Diabetes Qualifiers: Diabetes mellitus type: type 2 Diabetes mellitus complication status: with kidney complications Diabetes mellitus complication detail: with chronic kidney disease Diabetes mellitus intermediate insulin use: without intermediate school teacher use Chronic kidney disease stage: stage 3 (moderate) Qualified Code(s): E11.22 - Type 2 diabetes mellitus with diabetic chronic kidney disease; N18.3 - Chronic kidney disease, stage 3 (moderate); N18.3 - Chronic kidney disease, stage 3 (moderate) Is this a current diagnosis for this admission?: Yes Plan: Continue management. (5) Morbid (severe) obesity due to excess calories Is this a current diagnosis for this admission?: Yes Plan: Stable. PT/OT. Weight loss counseling. (6) Pulmonary hypertension Is this a current diagnosis for this admission?: Yes (7) Ambulatory dysfunction Is this a current diagnosis for this admission?: Yes Plan: PT/OT. Plan for rehab. (8) Anemia Qualifiers: Anemia type: iron deficiency Is this a current diagnosis for this admission?: Yes Plan: Follow-up CBC in a.m. 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 - Time Time Spent with patient: 35 or more minutes
[2017-11-03] MEDS: ATORVASTATIN CALCIUM 40 MG TABLET PO SCH (21:41)
[2017-11-03] MEDS: LACTULOSE SYRUP 20 GM/30 ML UDCUP PO SCH (21:42)
[2017-11-04] MEDS: METOCLOPRAMIDE HCL 10 MG TABLET PO SCH ×4 (00:45→17:13)
[2017-11-04] MEDS: HYDRALAZINE HCL 50 MG TABLET PO SCH ×3 (05:58→22:11)
[2017-11-04] MEDS: LANSOPRAZOLE 30 MG TAB.RAP.DR PO SCH (05:59)
[2017-11-04] MEDS: HEPARIN SOD (PORCINE) 5,000 UNIT/ML 1 ML SYRINGE SUBCUT SCH ×3 (05:59→22:10)
[2017-11-04 06:05] LABS: ABSOLUTE EOSINOPHILS # (AUTO) 0.2 10^3/uL (0.0-0.6); ABSOLUTE LYMPHOCYTES (AUTO) 0.8 10^3/uL (0.5-4.7); ABSOLUTE MONOCYTES (AUTO) 0.6 10^3/uL (0.1-1.4); ABSOLUTE NEUT (AUTO) 4.3 10^3/uL (1.7-8.2); BASOPHILS % (AUTO) 0.4 % (0-2); EOSINOPHILS % (AUTO) 3.9 % (0-6); HEMATOCRIT 31.8 % (36.0-47.0); HEMOGLOBIN 10.5 g/dL (12.0-15.5); LYMPHOCYTES % (AUTO) 13.5 % (13-45); MEAN CORPUSCULAR HEMOGLOBIN 27.1 pg (27.0-33.4); MEAN CORPUSCULAR VOLUME 82 fl (80-97); MONOCYTES % (AUTO) 10.3 % (3-13); PLATELET COUNT 306 10^3/uL (150-450); RED BLOOD COUNT 3.88 10^6/uL (3.72-5.28); RED CELL DISTRIBUTION WIDTH 15.2 % (11.5-14.0); SEGMENTED NEUTROPHILS % (AUTO) 71.9 % (42-78); TOTAL CELLS COUNTED % (AUTO) 100 %; WHITE BLOOD COUNT 5.9 10^3/uL (4.0-10.5)
[2017-11-04 06:33] LABS: ANION GAP 9 (5-19); BLOOD UREA NITROGEN 32 mg/dL (7-20); CALCIUM 8.4 mg/dL (8.4-10.2); CARBON DIOXIDE 32 mmol/L (22-30); CHLORIDE 95 mmol/L (98-107); GLUCOSE 169 mg/dL (75-110); POTASSIUM 3.9 mmol/L (3.6-5.0); SODIUM 136.2 mmol/L (137-145)
[2017-11-04] MEDS: INSULIN LISPRO 100 UNIT/ML 3 ML VIAL SUBCUT PRN ×4 (08:54→22:10)
[2017-11-04] MEDS: FERROUS SULFATE 325 MG TABLET PO SCH ×2 (11:08→17:13)
[2017-11-04] MEDS: CLONIDINE HCL 0.1 MG TABLET PO SCH ×2 (11:08→22:10)
[2017-11-04] MEDS: POLYETHYLENE GLYCOL 3350 POWDER 17 GM/1 PACKET PO SCH (11:09)
[2017-11-04] MEDS: NIFEDIPINE 30 MG TAB.ER.24 PO SCH (11:10)
[2017-11-04] MEDS: METOLAZONE 5 MG TABLET PO SCH (11:11)
[2017-11-04] MEDS: ASPIRIN 81 MG TABLET, CHEWABLE PO SCH (11:11)
[2017-11-04] MEDS: FUROSEMIDE INJ/PF 40 MG/4 ML SDV IV SCH ×2 (11:11→22:10)
[2017-11-04] MEDS: LISINOPRIL 10 MG TABLET PO SCH (11:12)
[2017-11-04] MEDS: PANTOT AC/MIN OIL/PET HY-PHL OINT 50 GM TOP SCH ×3 (11:42→17:19)
--- NOTE | 2017-11-04 19:35 | PDOC PROGRESS REPORT ---
Subjective Progress Note for:: 11/04/17 Subjective:: Doing better, no chest pain, shortness of breath remains improved. Edema improving. Denies fever or chills, no nausea or vomiting. Status post colonoscopy 11/02/17 and doing well. Denies rectal bleeding. Reason For Visit: RIGHT SIDED HEART FAILURE/ANASARCA/HTN Physical Exam Vital Signs: Temp Pulse Resp BP Pulse Ox 97.9 F 86 20 154/61 H 95 11/04/17 07:36 11/04/17 07:36 11/04/17 07:36 11/04/17 07:36 11/04/17 07:36 Intake & Output 11/03/17 11/04/17 11/05/17 06:59 06:59 06:59 Intake Total 1245 818 Output Total 4400 1595 Balance -0257 -1067 Weight 163.6 kg 161.3 kg GEN: NAD, well-developed, well-nourished, obese CV: RRR, NL S1S2 LUNGS: CTA bilaterally ABDOMEN Soft, NT, +BS EXTERMITIES: 2+ generalized edema, no cyanosis or clubbing, wound VAC right heel. : Lackey in place, clear urine NEURO: Alert, oriented 3, generalized weakness, but no acute focal weakness. Results Laboratory Results: 11/04/17 05:35 11/04/17 05:35 11/04/17 11/04/17 05:35 05:35 WBC 5.9 RBC 3.88 Hgb 10.5 L Hct 31.8 L MCV 82 MCH 27.1 MCHC 33.0 RDW 15.2 H Plt Count 306 Seg Neutrophils % 71.9 Lymphocytes % 13.5 Monocytes % 10.3 Eosinophils % 3.9 Basophils % 0.4 Absolute Neutrophils 4.3 Absolute Lymphocytes 0.8 Absolute Monocytes 0.6 Absolute Eosinophils 0.2 Absolute Basophils 0.0 Sodium 136.2 L Potassium 3.9 Chloride 95 L Carbon Dioxide 32 H Anion Gap 9 BUN 32 H Creatinine 1.61 H Est GFR ( Amer) 39 L Est GFR (Non-Af Amer) 32 L Glucose 169 H Calcium 8.4 Magnesium 2.1 10/27/17 10/28/17 10/28/17 22:35 04:36 19:23 Troponin I < 0.012 < 0.012 < 0.012 NT-Pro-B Natriuret Pep 11/02/17 05:40 Troponin I NT-Pro-B Natriuret Pep 1920 H Impressions: Head CT 10/27/17 00:00 IMPRESSION: No acute intracranial findings. EVIDENCE OF ACUTE STROKE: NO. Abdomen Ultrasound 10/29/17 00:00 IMPRESSION: 1. Cholelithiasis without other sonographic evidence of acute cholecystitis. 2. Suboptimal evaluation of the common bile duct, left kidney and spleen due to overlying bowel gas and patient body habitus. KUB X-Ray 10/29/17 00:00 IMPRESSION: Grossly nonobstructive bowel gas pattern Chest X-Ray 11/01/17 18:00 IMPRESSION: New opacities at the lung bases with possible effusions. Vascular congestion. Assessment & Plan - Diagnosis (1) Congestive heart failure Qualifiers: Heart failure type: diastolic Heart failure chronicity: acute on chronic Qualified Code(s): I50.33 - Acute on chronic diastolic (congestive) heart failure Is this a current diagnosis for this admission?: Yes Plan: On Lasix IV 40 mg twice daily and Zaroxolyn 5mg daily. We will continue this regimen for now as patient making good urine and renal function remains stable. Continue strict I&O's. (2) Hypertensive urgency Is this a current diagnosis for this admission?: Yes Plan: Improved. Continue blood pressure medications. (3) CKD (chronic kidney disease) stage 3, GFR 30-59 ml/min Is this a current diagnosis for this admission?: Yes Plan: Continue to monitor. (4) Diabetes Qualifiers: Diabetes mellitus type: type 2 Diabetes mellitus complication status: with kidney complications Diabetes mellitus complication detail: with chronic kidney disease Diabetes mellitus half-way insulin use: without woodworking machine feeder use Chronic kidney disease stage: stage 3 (moderate) Qualified Code(s): E11.22 - Type 2 diabetes mellitus with diabetic chronic kidney disease; N18.3 - Chronic kidney disease, stage 3 (moderate); N18.3 - Chronic kidney disease, stage 3 (moderate) Is this a current diagnosis for this admission?: Yes Plan: Continue management. (5) Morbid (severe) obesity due to excess calories Is this a current diagnosis for this admission?: Yes Plan: Stable. PT/OT. Weight loss counseling. (6) Pulmonary hypertension Is this a current diagnosis for this admission?: Yes (7) Ambulatory dysfunction Is this a current diagnosis for this admission?: Yes Plan: Continue PT/OT. Plan for rehab. (8) Anemia Qualifiers: Anemia type: iron deficiency Is this a current diagnosis for this admission?: Yes Plan: Follow-up CBC in a.m. 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
[2017-11-04] MEDS: ATORVASTATIN CALCIUM 40 MG TABLET PO SCH (22:11)
[2017-11-04] MEDS: LACTULOSE SYRUP 20 GM/30 ML UDCUP PO SCH (22:11)
[2017-11-05] MEDS: METOCLOPRAMIDE HCL 10 MG TABLET PO SCH ×5 (00:01→23:53)
[2017-11-05] MEDS: CALCIUM CARBONATE 500 MG TAB.CHEW PO PRN (01:13)
[2017-11-05] MEDS: LANSOPRAZOLE 30 MG TAB.RAP.DR PO SCH (05:57)
[2017-11-05] MEDS: HYDRALAZINE HCL 50 MG TABLET PO SCH ×3 (05:57→22:03)
[2017-11-05] MEDS: HEPARIN SOD (PORCINE) 5,000 UNIT/ML 1 ML SYRINGE SUBCUT SCH ×3 (05:57→22:03)
[2017-11-05] MEDS: FUROSEMIDE INJ/PF 40 MG/4 ML SDV IV SCH ×2 (05:57→18:08)
[2017-11-05 06:22] LABS: ABSOLUTE EOSINOPHILS # (AUTO) 0.3 10^3/uL (0.0-0.6); ABSOLUTE LYMPHOCYTES (AUTO) 0.6 10^3/uL (0.5-4.7); ABSOLUTE MONOCYTES (AUTO) 0.6 10^3/uL (0.1-1.4); ABSOLUTE NEUT (AUTO) 3.9 10^3/uL (1.7-8.2); BASOPHILS % (AUTO) 0.8 % (0-2); EOSINOPHILS % (AUTO) 4.7 % (0-6); HEMATOCRIT 30.6 % (36.0-47.0); LYMPHOCYTES % (AUTO) 11.8 % (13-45); MEAN CORPUSCULAR HEMOGLOBIN 26.6 pg (27.0-33.4); MEAN CORPUSCULAR HGB CONC 32.5 g/dL (32.0-36.0); MEAN CORPUSCULAR VOLUME 82 fl (80-97); MONOCYTES % (AUTO) 11.5 % (3-13); PLATELET COUNT 286 10^3/uL (150-450); RED BLOOD COUNT 3.75 10^6/uL (3.72-5.28); RED CELL DISTRIBUTION WIDTH 15.3 % (11.5-14.0); SEGMENTED NEUTROPHILS % (AUTO) 71.2 % (42-78); TOTAL CELLS COUNTED % (AUTO) 100 %; WHITE BLOOD COUNT 5.4 10^3/uL (4.0-10.5)
[2017-11-05 06:34] LABS: ANION GAP 8 (5-19); BLOOD UREA NITROGEN 30 mg/dL (7-20); CALCIUM 8.5 mg/dL (8.4-10.2); CARBON DIOXIDE 34 mmol/L (22-30); CHLORIDE 92 mmol/L (98-107); GLUCOSE 166 mg/dL (75-110); POTASSIUM 3.7 mmol/L (3.6-5.0); SODIUM 134.1 mmol/L (137-145)
[2017-11-05] MEDS: NIFEDIPINE 30 MG TAB.ER.24 PO SCH (10:26)
[2017-11-05] MEDS: PANTOT AC/MIN OIL/PET HY-PHL OINT 50 GM TOP SCH ×3 (10:26→18:13)
[2017-11-05] MEDS: LISINOPRIL 10 MG TABLET PO SCH (10:27)
[2017-11-05] MEDS: METOLAZONE 5 MG TABLET PO SCH (10:27)
[2017-11-05] MEDS: FERROUS SULFATE 325 MG TABLET PO SCH ×2 (10:27→18:07)
[2017-11-05] MEDS: ASPIRIN 81 MG TABLET, CHEWABLE PO SCH (10:27)
[2017-11-05] MEDS: CLONIDINE HCL 0.1 MG TABLET PO SCH ×2 (10:27→22:03)
[2017-11-05] MEDS: POLYETHYLENE GLYCOL 3350 POWDER 17 GM/1 PACKET PO SCH (10:28)
--- NOTE | 2017-11-05 11:12 | PDOC PROGRESS REPORT ---
Subjective Progress Note for:: 11/05/17 Subjective:: Doing better, no chest pain, shortness of breath remains improved. Edema continues to improve. Denies fever or chills, no nausea or vomiting. Status post colonoscopy 11/02/17 and doing well. Denies rectal bleeding, no hematemesis. Reason For Visit: RIGHT SIDED HEART FAILURE/ANASARCA/HTN Physical Exam Vital Signs: Temp Pulse Resp BP Pulse Ox 98.3 F 86 12 160/77 H 99 11/05/17 07:34 11/05/17 07:34 11/05/17 07:34 11/05/17 07:34 11/05/17 07:34 Intake & Output 11/04/17 11/05/17 11/06/17 06:59 06:59 06:59 Intake Total 818 786 Output Total 3075 4150 1000 Balance -7371 -5687 -1000 Weight 161.3 kg 158.3 kg GEN: NAD, well-developed, well-nourished, obese CV: RRR, NL S1S2 LUNGS: CTA bilaterally ABDOMEN Soft, NT, +BS EXTERMITIES: 2+ generalized edema, no cyanosis or clubbing, wound VAC right heel. : Lackey in place, clear urine NEURO: Alert, oriented 3, generalized weakness, but no acute focal weakness. Results Laboratory Results: 11/05/17 05:00 11/05/17 05:00 11/05/17 11/05/17 05:00 05:00 WBC 5.4 RBC 3.75 Hgb 10.0 L Hct 30.6 L MCV 82 MCH 26.6 L MCHC 32.5 RDW 15.3 H Plt Count 286 Seg Neutrophils % 71.2 Lymphocytes % 11.8 L Monocytes % 11.5 Eosinophils % 4.7 Basophils % 0.8 Absolute Neutrophils 3.9 Absolute Lymphocytes 0.6 Absolute Monocytes 0.6 Absolute Eosinophils 0.3 Absolute Basophils 0.0 Sodium 134.1 L Potassium 3.7 Chloride 92 L Carbon Dioxide 34 H Anion Gap 8 BUN 30 H Creatinine 1.49 H Est GFR ( Amer) 42 L Est GFR (Non-Af Amer) 35 L Glucose 166 H Calcium 8.5 10/27/17 10/28/17 10/28/17 22:35 04:36 19:23 Troponin I < 0.012 < 0.012 < 0.012 NT-Pro-B Natriuret Pep 11/02/17 05:40 Troponin I NT-Pro-B Natriuret Pep 1920 H Impressions: Head CT 10/27/17 00:00 IMPRESSION: No acute intracranial findings. EVIDENCE OF ACUTE STROKE: NO. Abdomen Ultrasound 10/29/17 00:00 IMPRESSION: 1. Cholelithiasis without other sonographic evidence of acute cholecystitis. 2. Suboptimal evaluation of the common bile duct, left kidney and spleen due to overlying bowel gas and patient body habitus. KUB X-Ray 10/29/17 00:00 IMPRESSION: Grossly nonobstructive bowel gas pattern Chest X-Ray 11/01/17 18:00 IMPRESSION: New opacities at the lung bases with possible effusions. Vascular congestion. Assessment & Plan - Diagnosis (1) Congestive heart failure Qualifiers: Heart failure type: diastolic Heart failure chronicity: acute on chronic Qualified Code(s): I50.33 - Acute on chronic diastolic (congestive) heart failure Is this a current diagnosis for this admission?: Yes Plan: On Lasix IV 40 mg twice daily and Zaroxolyn 5mg daily. We will continue this regimen for now as patient making good urine and renal function remains stable. Continue strict I&O's. (2) Hypertensive urgency Is this a current diagnosis for this admission?: Yes Plan: Improved. Continue blood pressure medications. (3) CKD (chronic kidney disease) stage 3, GFR 30-59 ml/min Is this a current diagnosis for this admission?: Yes Plan: Continue to monitor. Creatinine continues to improve/stable. (4) Diabetes Qualifiers: Diabetes mellitus type: type 2 Diabetes mellitus complication status: with kidney complications Diabetes mellitus complication detail: with chronic kidney disease Diabetes mellitus extermination inspector insulin use: without extermination inspector use Chronic kidney disease stage: stage 3 (moderate) Qualified Code(s): E11.22 - Type 2 diabetes mellitus with diabetic chronic kidney disease; N18.3 - Chronic kidney disease, stage 3 (moderate); N18.3 - Chronic kidney disease, stage 3 (moderate) Is this a current diagnosis for this admission?: Yes Plan: Continue management. (5) Morbid (severe) obesity due to excess calories Is this a current diagnosis for this admission?: Yes Plan: Stable. PT/OT. Weight loss counseling. (6) Pulmonary hypertension Is this a current diagnosis for this admission?: Yes (7) Ambulatory dysfunction Is this a current diagnosis for this admission?: Yes Plan: Continue PT/OT. Plan for rehab. (8) Anemia Qualifiers: Anemia type: iron deficiency Is this a current diagnosis for this admission?: Yes Plan: H&H stable. 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
[2017-11-05] MEDS: ATORVASTATIN CALCIUM 40 MG TABLET PO SCH (22:03)
[2017-11-05] MEDS: INSULIN LISPRO 100 UNIT/ML 3 ML VIAL SUBCUT PRN (22:03)
[2017-11-05] MEDS: LACTULOSE SYRUP 20 GM/30 ML UDCUP PO SCH (22:31)
[2017-11-06 06:01] LABS: ANION GAP 9 (5-19); BLOOD UREA NITROGEN 28 mg/dL (7-20); CALCIUM 8.8 mg/dL (8.4-10.2); CARBON DIOXIDE 33 mmol/L (22-30); CHLORIDE 92 mmol/L (98-107); GLUCOSE 148 mg/dL (75-110); SODIUM 134.3 mmol/L (137-145)
[2017-11-06] MEDS: HYDRALAZINE HCL 50 MG TABLET PO SCH ×3 (06:44→23:15)
[2017-11-06] MEDS: FUROSEMIDE INJ/PF 40 MG/4 ML SDV IV SCH ×2 (06:44→18:01)
[2017-11-06] MEDS: METOCLOPRAMIDE HCL 10 MG TABLET PO SCH ×4 (06:44→23:19)
[2017-11-06] MEDS: LANSOPRAZOLE 30 MG TAB.RAP.DR PO SCH (06:45)
[2017-11-06] MEDS: HEPARIN SOD (PORCINE) 5,000 UNIT/ML 1 ML SYRINGE SUBCUT SCH ×3 (06:45→23:15)
[2017-11-06] MEDS: FERROUS SULFATE 325 MG TABLET PO SCH ×2 (08:52→18:03)
[2017-11-06] MEDS: CLONIDINE HCL 0.1 MG TABLET PO SCH ×2 (08:53→23:16)
[2017-11-06] MEDS: POLYETHYLENE GLYCOL 3350 POWDER 17 GM/1 PACKET PO SCH (11:50)
[2017-11-06] MEDS: NIFEDIPINE 30 MG TAB.ER.24 PO SCH (11:50)
[2017-11-06] MEDS: LISINOPRIL 10 MG TABLET PO SCH (11:50)
[2017-11-06] MEDS: METOLAZONE 5 MG TABLET PO SCH (11:50)
[2017-11-06] MEDS: ASPIRIN 81 MG TABLET, CHEWABLE PO SCH (11:50)
[2017-11-06] MEDS: PANTOT AC/MIN OIL/PET HY-PHL OINT 50 GM TOP SCH ×3 (11:51→18:06)
--- NOTE | 2017-11-06 11:54 | PDOC PROGRESS REPORT ---
Subjective Progress Note for:: 11/06/17 Subjective:: Continues to do better, no chest pain, shortness of breath remains improved. Edema continues to improve. Denies fever or chills, no nausea or vomiting. Status post colonoscopy 11/02/17 and doing well. Denies rectal bleeding, no hematemesis. Reason For Visit: RIGHT SIDED HEART FAILURE/ANASARCA/HTN Physical Exam Vital Signs: Temp Pulse Resp BP Pulse Ox 98.6 F 88 16 144/58 H 98 11/06/17 03:03 11/06/17 07:00 11/06/17 03:03 11/06/17 03:03 11/06/17 03:03 Intake & Output 11/05/17 11/06/17 11/07/17 06:59 06:59 06:59 Intake Total 786 483 Output Total 4150 2049 Balance -7414 -4603 Weight 158.3 kg 153.1 kg GEN: NAD, well-developed, well-nourished, obese CV: RRR, NL S1S2 LUNGS: CTA bilaterally ABDOMEN Soft, NT, +BS EXTERMITIES: 2+ generalized edema, no cyanosis or clubbing, wound VAC right heel. NEURO: Alert, oriented 3, generalized weakness, but no acute focal weakness. Results Laboratory Results: 11/05/17 05:00 11/06/17 04:56 11/06/17 04:56 Sodium 134.3 L Potassium 4.0 Chloride 92 L Carbon Dioxide 33 H Anion Gap 9 BUN 28 H Creatinine 1.48 H Est GFR ( Amer) 43 L Est GFR (Non-Af Amer) 35 L Glucose 148 H Calcium 8.8 10/27/17 10/28/17 10/28/17 22:35 04:36 19:23 Troponin I < 0.012 < 0.012 < 0.012 NT-Pro-B Natriuret Pep 11/02/17 05:40 Troponin I NT-Pro-B Natriuret Pep 1920 H Impressions: Head CT 10/27/17 00:00 IMPRESSION: No acute intracranial findings. EVIDENCE OF ACUTE STROKE: NO. Abdomen Ultrasound 10/29/17 00:00 IMPRESSION: 1. Cholelithiasis without other sonographic evidence of acute cholecystitis. 2. Suboptimal evaluation of the common bile duct, left kidney and spleen due to overlying bowel gas and patient body habitus. KUB X-Ray 10/29/17 00:00 IMPRESSION: Grossly nonobstructive bowel gas pattern Chest X-Ray 11/01/17 18:00 IMPRESSION: New opacities at the lung bases with possible effusions. Vascular congestion. Assessment & Plan - Diagnosis (1) Congestive heart failure Qualifiers: Heart failure type: diastolic Heart failure chronicity: acute on chronic Qualified Code(s): I50.33 - Acute on chronic diastolic (congestive) heart failure Is this a current diagnosis for this admission?: Yes Plan: On Lasix IV 40 mg twice daily and Zaroxolyn 5mg daily. We will continue this regimen for now as patient making good urine and renal function remains stable. Continue strict I&O's. (2) Hypertensive urgency Is this a current diagnosis for this admission?: Yes Plan: Improved. Continue blood pressure medications. (3) CKD (chronic kidney disease) stage 3, GFR 30-59 ml/min Is this a current diagnosis for this admission?: Yes Plan: Continue to monitor. Creatinine continues to improve/stable. (4) Diabetes Qualifiers: Diabetes mellitus type: type 2 Diabetes mellitus complication status: with kidney complications Diabetes mellitus complication detail: with chronic kidney disease Diabetes mellitus rat exterminator insulin use: without rat exterminator use Chronic kidney disease stage: stage 3 (moderate) Qualified Code(s): E11.22 - Type 2 diabetes mellitus with diabetic chronic kidney disease; N18.3 - Chronic kidney disease, stage 3 (moderate); N18.3 - Chronic kidney disease, stage 3 (moderate) Is this a current diagnosis for this admission?: Yes Plan: Continue management. (5) Morbid (severe) obesity due to excess calories Is this a current diagnosis for this admission?: Yes Plan: Stable. PT/OT. Weight loss counseling. (6) Pulmonary hypertension Is this a current diagnosis for this admission?: Yes (7) Ambulatory dysfunction Is this a current diagnosis for this admission?: Yes Plan: Continue PT/OT. Plan for rehab. (8) Anemia Qualifiers: Anemia type: iron deficiency Is this a current diagnosis for this admission?: Yes Plan: Status post colonoscopy 11/02/17 that revealed no suspicious lesion. Positive for diverticulosis and internal hemorrhoids. H&H stable. 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
[2017-11-06] MEDS: ACETAMINOPHEN 325 MG TABLET PO PRN (18:49)
[2017-11-06] MEDS: LACTULOSE SYRUP 20 GM/30 ML UDCUP PO SCH (23:15)
[2017-11-06] MEDS: INSULIN LISPRO 100 UNIT/ML 3 ML VIAL SUBCUT PRN (23:15)
[2017-11-06] MEDS: ATORVASTATIN CALCIUM 40 MG TABLET PO SCH (23:16)
[2017-11-07] MEDS: FUROSEMIDE INJ/PF 40 MG/4 ML SDV IV SCH ×2 (05:30→17:31)
[2017-11-07] MEDS: HEPARIN SOD (PORCINE) 5,000 UNIT/ML 1 ML SYRINGE SUBCUT SCH ×3 (05:30→22:01)
[2017-11-07] MEDS: METOCLOPRAMIDE HCL 10 MG TABLET PO SCH ×3 (05:30→17:32)
[2017-11-07] MEDS: HYDRALAZINE HCL 50 MG TABLET PO SCH ×3 (05:31→22:01)
[2017-11-07] MEDS: LANSOPRAZOLE 30 MG TAB.RAP.DR PO SCH (05:31)
[2017-11-07 07:06] LABS: HEMATOCRIT 31.4 % (36.0-47.0); HEMOGLOBIN 10.2 g/dL (12.0-15.5); MEAN CORPUSCULAR HEMOGLOBIN 26.7 pg (27.0-33.4); MEAN CORPUSCULAR HGB CONC 32.6 g/dL (32.0-36.0); MEAN CORPUSCULAR VOLUME 82 fl (80-97); PLATELET COUNT 316 10^3/uL (150-450); RED BLOOD COUNT 3.84 10^6/uL (3.72-5.28); RED CELL DISTRIBUTION WIDTH 15.3 % (11.5-14.0); WHITE BLOOD COUNT 4.9 10^3/uL (4.0-10.5)
[2017-11-07 07:26] LABS: ANION GAP 10 (5-19); BLOOD UREA NITROGEN 27 mg/dL (7-20); CALCIUM 8.5 mg/dL (8.4-10.2); CARBON DIOXIDE 33 mmol/L (22-30); CHLORIDE 92 mmol/L (98-107); GLUCOSE 141 mg/dL (75-110); POTASSIUM 3.9 mmol/L (3.6-5.0); SODIUM 134.5 mmol/L (137-145)
[2017-11-07 07:51] LABS: ABSOLUTE LYMPHOCYTES# (MANUAL) 0.5 10^3/uL (0.5-4.7); ABSOLUTE MONOCYTES # (MANUAL) 0.6 10^3/uL (0.1-1.4); ABSOLUTE NEUTROPHILS# (MANUAL) 3.7 10^3/uL (1.7-8.2); BAND NEUTROPHILS % (MANUAL) 1 % (3-5); BASOPHILS % (MANUAL) 1 % (0-2); EOSINOPHILS % (MANUAL) 1 % (0-6); LYMPHOCYTES % (MANUAL) 11 % (13-45); MONOCYTES % (MANUAL) 12 % (3-13); SEGMENTED NEUTROPHILS % (MAN) 74 % (42-78); TOTAL CELLS COUNTED 100
[2017-11-07 07:52] LABS: ANISOCYTOSIS SLIGHT; HYPOCHROMASIA SLIGHT; PLATELET COMMENT ADEQUATE; POLYCHROMASIA SLIGHT; ROULEAUX SLIGHT; TOXIC GRANULATION SLIGHT; TOXIC VACUOLATION PRESENT
[2017-11-07] MEDS: CLONIDINE HCL 0.1 MG TABLET PO SCH ×2 (09:44→20:47)
[2017-11-07] MEDS: POLYETHYLENE GLYCOL 3350 POWDER 17 GM/1 PACKET PO SCH (09:45)
[2017-11-07] MEDS: NIFEDIPINE 30 MG TAB.ER.24 PO SCH (09:45)
[2017-11-07] MEDS: LISINOPRIL 10 MG TABLET PO SCH (09:45)
[2017-11-07] MEDS: ASPIRIN 81 MG TABLET, CHEWABLE PO SCH (09:45)
[2017-11-07] MEDS: FERROUS SULFATE 325 MG TABLET PO SCH ×2 (09:45→17:32)
[2017-11-07] MEDS: METOLAZONE 5 MG TABLET PO SCH (09:45)
[2017-11-07] MEDS: PANTOT AC/MIN OIL/PET HY-PHL OINT 50 GM TOP SCH ×3 (09:46→17:32)
--- NOTE | 2017-11-07 18:45 | PDOC PROGRESS REPORT ---
Subjective Progress Note for:: 11/07/17 Subjective:: Continues to do better, no chest pain, shortness of breath remains improved. Edema continues to improve. Denies fever or chills, no nausea or vomiting. Status post colonoscopy 11/02/17 and doing well. Denies rectal bleeding, no hematemesis. Reason For Visit: RIGHT SIDED HEART FAILURE/ANASARCA/HTN Physical Exam Vital Signs: Temp Pulse Resp BP Pulse Ox 98.5 F 75 18 164/77 H 92 11/07/17 16:21 11/07/17 16:21 11/07/17 16:21 11/07/17 16:21 11/07/17 16:21 Intake & Output 11/06/17 11/07/17 11/08/17 06:59 06:59 06:59 Intake Total 532 103 5804 Output Total 5 1700 1400 Balance -1567 -886 606 Weight 153.1 kg 151.2 kg GEN: NAD, well-developed, well-nourished, obese CV: RRR, NL S1S2 LUNGS: CTA bilaterally ABDOMEN Soft, NT, +BS EXTERMITIES: 2+ generalized edema, no cyanosis or clubbing, wound VAC right heel. NEURO: Alert, oriented 3, generalized weakness, but no acute focal weakness. Results Laboratory Results: 11/07/17 06:30 11/07/17 06:30 11/07/17 11/07/17 06:30 06:30 WBC 4.9 RBC 3.84 Hgb 10.2 L Hct 31.4 L MCV 82 MCH 26.7 L MCHC 32.6 RDW 15.3 H Plt Count 316 Seg Neutrophils % Not Reportable Lymphocytes % Not Reportable Monocytes % Not Reportable Eosinophils % Not Reportable Basophils % Not Reportable Absolute Neutrophils Not Reportable Absolute Lymphocytes Not Reportable Absolute Monocytes Not Reportable Absolute Eosinophils Not Reportable Absolute Basophils Not Reportable Sodium 134.5 L Potassium 3.9 Chloride 92 L Carbon Dioxide 33 H Anion Gap 10 BUN 27 H Creatinine 1.49 H Est GFR ( Amer) 42 L Est GFR (Non-Af Amer) 35 L Glucose 141 H Calcium 8.5 10/27/17 10/28/17 10/28/17 22:35 04:36 19:23 Troponin I < 0.012 < 0.012 < 0.012 NT-Pro-B Natriuret Pep 11/02/17 05:40 Troponin I NT-Pro-B Natriuret Pep 1920 H Impressions: Head CT 10/27/17 00:00 IMPRESSION: No acute intracranial findings. EVIDENCE OF ACUTE STROKE: NO. Abdomen Ultrasound 10/29/17 00:00 IMPRESSION: 1. Cholelithiasis without other sonographic evidence of acute cholecystitis. 2. Suboptimal evaluation of the common bile duct, left kidney and spleen due to overlying bowel gas and patient body habitus. KUB X-Ray 10/29/17 00:00 IMPRESSION: Grossly nonobstructive bowel gas pattern Chest X-Ray 11/01/17 18:00 IMPRESSION: New opacities at the lung bases with possible effusions. Vascular congestion. Assessment & Plan - Diagnosis (1) Congestive heart failure Qualifiers: Heart failure type: diastolic Heart failure chronicity: acute on chronic Qualified Code(s): I50.33 - Acute on chronic diastolic (congestive) heart failure Is this a current diagnosis for this admission?: Yes Plan: On Lasix IV 40 mg twice daily and Zaroxolyn 5mg daily. We will continue this regimen for now as patient making good urine and renal function remains stable. Continue strict I&O's. (2) Hypertensive urgency Is this a current diagnosis for this admission?: Yes Plan: Improved. Continue blood pressure medications. (3) CKD (chronic kidney disease) stage 3, GFR 30-59 ml/min Is this a current diagnosis for this admission?: Yes Plan: Continue to monitor. Creatinine continues to improve/stable. 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 (5) Morbid (severe) obesity due to excess calories Is this a current diagnosis for this admission?: Yes Plan: Stable. PT/OT. Weight loss counseling. (6) Pulmonary hypertension Is this a current diagnosis for this admission?: Yes (7) Ambulatory dysfunction Is this a current diagnosis for this admission?: Yes Plan: Continue PT/OT. Plan for rehab. Awaiting placement. (8) Anemia Qualifiers: Anemia type: iron deficiency Is this a current diagnosis for this admission?: Yes Plan: Status post colonoscopy 11/02/17 that revealed no suspicious lesion. Positive for diverticulosis and internal hemorrhoids. H&H stable. 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
[2017-11-07] MEDS: INSULIN LISPRO 100 UNIT/ML 3 ML VIAL SUBCUT PRN (22:01)
[2017-11-07] MEDS: ATORVASTATIN CALCIUM 40 MG TABLET PO SCH (22:01)
[2017-11-07] MEDS: LACTULOSE SYRUP 20 GM/30 ML UDCUP PO SCH (22:01)
[2017-11-08] MEDS: METOCLOPRAMIDE HCL 10 MG TABLET PO SCH ×5 (00:58→23:33)
[2017-11-08] MEDS: HEPARIN SOD (PORCINE) 5,000 UNIT/ML 1 ML SYRINGE SUBCUT SCH ×3 (05:38→21:56)
[2017-11-08] MEDS: FUROSEMIDE INJ/PF 40 MG/4 ML SDV IV SCH (05:38)
[2017-11-08] MEDS: HYDRALAZINE HCL 50 MG TABLET PO SCH ×3 (05:39→21:56)
[2017-11-08] MEDS: LANSOPRAZOLE 30 MG TAB.RAP.DR PO SCH (05:39)
[2017-11-08 07:22] LABS: ABSOLUTE EOSINOPHILS # (AUTO) 0.2 10^3/uL (0.0-0.6); ABSOLUTE LYMPHOCYTES (AUTO) 0.9 10^3/uL (0.5-4.7); ABSOLUTE MONOCYTES (AUTO) 0.7 10^3/uL (0.1-1.4); BASOPHILS % (AUTO) 0.6 % (0-2); HEMOGLOBIN 11.1 g/dL (12.0-15.5); LYMPHOCYTES % (AUTO) 18.3 % (13-45); MEAN CORPUSCULAR HEMOGLOBIN 27.5 pg (27.0-33.4); MEAN CORPUSCULAR HGB CONC 33.6 g/dL (32.0-36.0); MEAN CORPUSCULAR VOLUME 82 fl (80-97); MONOCYTES % (AUTO) 14.4 % (3-13); PLATELET COUNT 325 10^3/uL (150-450); RED BLOOD COUNT 4.03 10^6/uL (3.72-5.28); RED CELL DISTRIBUTION WIDTH 15.4 % (11.5-14.0); SEGMENTED NEUTROPHILS % (AUTO) 62.7 % (42-78); TOTAL CELLS COUNTED % (AUTO) 100 %; WHITE BLOOD COUNT 4.7 10^3/uL (4.0-10.5)
[2017-11-08 07:36] LABS: ANION GAP 11 (5-19); BLOOD UREA NITROGEN 26 mg/dL (7-20); CALCIUM 8.8 mg/dL (8.4-10.2); CARBON DIOXIDE 33 mmol/L (22-30); CHLORIDE 91 mmol/L (98-107); GLUCOSE 169 mg/dL (75-110); POTASSIUM 3.6 mmol/L (3.6-5.0); SODIUM 134.9 mmol/L (137-145)
[2017-11-08] MEDS: CLONIDINE HCL 0.1 MG TABLET PO SCH ×2 (10:37→20:26)
[2017-11-08] MEDS: ASPIRIN 81 MG TABLET, CHEWABLE PO SCH (10:38)
[2017-11-08] MEDS: LISINOPRIL 10 MG TABLET PO SCH (10:38)
[2017-11-08] MEDS: FERROUS SULFATE 325 MG TABLET PO SCH ×2 (10:38→17:32)
[2017-11-08] MEDS: METOLAZONE 5 MG TABLET PO SCH (10:38)
[2017-11-08] MEDS: NIFEDIPINE 30 MG TAB.ER.24 PO SCH (10:38)
[2017-11-08] MEDS: PANTOT AC/MIN OIL/PET HY-PHL OINT 50 GM TOP SCH ×3 (10:41→17:33)
[2017-11-08] MEDS: POLYETHYLENE GLYCOL 3350 POWDER 17 GM/1 PACKET PO SCH (10:42)
--- NOTE | 2017-11-08 12:23 | PDOC PROGRESS REPORT ---
Subjective Progress Note for:: 11/08/17 Subjective:: Doing better, no chest pain, shortness of breath remains improved. Edema continues to improve. Denies fever or chills, no nausea or vomiting. Status post colonoscopy 11/02/17 and doing well. Denies rectal bleeding, no hematemesis. Patient awaiting rehab placement. Reason For Visit: RIGHT SIDED HEART FAILURE/ANASARCA/HTN Physical Exam Vital Signs: Temp Pulse Resp BP Pulse Ox 98.2 F 76 18 165/82 H 98 11/08/17 11:02 11/08/17 11:02 11/08/17 11:02 11/08/17 11:02 11/08/17 11:02 Intake & Output 11/07/17 11/08/17 11/09/17 06:59 06:59 06:59 Intake Total 814 2858 Output Total 1700 2650 Balance -886 208 Weight 151.2 kg 146.2 kg GEN: NAD, well-developed, well-nourished, obese CV: RRR, NL S1S2 LUNGS: CTA bilaterally ABDOMEN Soft, NT, +BS EXTERMITIES: 1-2+ pedal edema, no cyanosis or clubbing, wound VAC right heel. NEURO: Alert, oriented 3, no acute/focal weakness. Results Laboratory Results: 11/08/17 06:34 11/08/17 06:34 11/08/17 11/08/17 06:34 06:34 WBC 4.7 RBC 4.03 Hgb 11.1 L Hct 33.0 L MCV 82 MCH 27.5 MCHC 33.6 RDW 15.4 H Plt Count 325 Seg Neutrophils % 62.7 Lymphocytes % 18.3 Monocytes % 14.4 H Eosinophils % 4.0 Basophils % 0.6 Absolute Neutrophils 3.0 Absolute Lymphocytes 0.9 Absolute Monocytes 0.7 Absolute Eosinophils 0.2 Absolute Basophils 0.0 Sodium 134.9 L Potassium 3.6 Chloride 91 L Carbon Dioxide 33 H Anion Gap 11 BUN 26 H Creatinine 1.56 H Est GFR ( Amer) 40 L Est GFR (Non-Af Amer) 33 L Glucose 169 H Calcium 8.8 10/27/17 10/28/17 10/28/17 22:35 04:36 19:23 Troponin I < 0.012 < 0.012 < 0.012 NT-Pro-B Natriuret Pep 11/02/17 05:40 Troponin I NT-Pro-B Natriuret Pep 1920 H Impressions: Head CT 10/27/17 00:00 IMPRESSION: No acute intracranial findings. EVIDENCE OF ACUTE STROKE: NO. Abdomen Ultrasound 10/29/17 00:00 IMPRESSION: 1. Cholelithiasis without other sonographic evidence of acute cholecystitis. 2. Suboptimal evaluation of the common bile duct, left kidney and spleen due to overlying bowel gas and patient body habitus. KUB X-Ray 10/29/17 00:00 IMPRESSION: Grossly nonobstructive bowel gas pattern Chest X-Ray 11/01/17 18:00 IMPRESSION: New opacities at the lung bases with possible effusions. Vascular congestion. Assessment & Plan - Diagnosis (1) Congestive heart failure Qualifiers: Heart failure type: diastolic Heart failure chronicity: acute on chronic Qualified Code(s): I50.33 - Acute on chronic diastolic (congestive) heart failure Is this a current diagnosis for this admission?: Yes Plan: On Lasix IV 40 mg twice daily and Zaroxolyn 5mg daily. Patient has has diuresed very well. Renal function has generally remained stable, but her creatinine seems to have bumped slightly to today. Will transition IV Lasix to p.o. 40 mg twice daily. Continue strict I&O's. (2) Hypertensive urgency Is this a current diagnosis for this admission?: Yes (3) CKD (chronic kidney disease) stage 3, GFR 30-59 ml/min Is this a current diagnosis for this admission?: Yes Plan: Continue to monitor. Creatinine has been generally stable. Lasix being changed to p.o. as in CHF above. 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 (5) Morbid (severe) obesity due to excess calories Is this a current diagnosis for this admission?: Yes Plan: Stable. PT/OT. Weight loss counseling. (6) Pulmonary hypertension Is this a current diagnosis for this admission?: Yes (7) Ambulatory dysfunction Is this a current diagnosis for this admission?: Yes Plan: Continue PT/OT. Plan for rehab. Awaiting placement/rehab. (8) Anemia Qualifiers: Anemia type: iron deficiency Is this a current diagnosis for this admission?: Yes Plan: Status post colonoscopy 11/02/17 that revealed no suspicious lesion. Positive for diverticulosis and internal hemorrhoids. H&H stable. 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
[2017-11-08] MEDS: INSULIN LISPRO 100 UNIT/ML 3 ML VIAL SUBCUT PRN (18:03)
[2017-11-08] MEDS: FUROSEMIDE 40 MG TABLET PO SCH (18:28)
[2017-11-08] MEDS: ATORVASTATIN CALCIUM 40 MG TABLET PO SCH (21:56)
[2017-11-08] MEDS: LACTULOSE SYRUP 20 GM/30 ML UDCUP PO SCH (21:57)
[2017-11-09] MEDS: HEPARIN SOD (PORCINE) 5,000 UNIT/ML 1 ML SYRINGE SUBCUT SCH ×3 (05:38→21:54)
[2017-11-09] MEDS: FUROSEMIDE 40 MG TABLET PO SCH ×2 (05:38→17:16)
[2017-11-09] MEDS: LANSOPRAZOLE 30 MG TAB.RAP.DR PO SCH (05:39)
[2017-11-09] MEDS: METOCLOPRAMIDE HCL 10 MG TABLET PO SCH ×4 (05:39→23:37)
[2017-11-09] MEDS: HYDRALAZINE HCL 50 MG TABLET PO SCH ×3 (05:39→21:54)
[2017-11-09] MEDS: INSULIN LISPRO 100 UNIT/ML 3 ML VIAL SUBCUT PRN ×3 (09:34→21:54)
[2017-11-09] MEDS: METOLAZONE 5 MG TABLET PO SCH (09:36)
[2017-11-09] MEDS: ASPIRIN 81 MG TABLET, CHEWABLE PO SCH (09:37)
[2017-11-09] MEDS: POLYETHYLENE GLYCOL 3350 POWDER 17 GM/1 PACKET PO SCH (09:37)
[2017-11-09] MEDS: NIFEDIPINE 30 MG TAB.ER.24 PO SCH (09:37)
[2017-11-09] MEDS: LISINOPRIL 10 MG TABLET PO SCH (09:37)
[2017-11-09] MEDS: CLONIDINE HCL 0.1 MG TABLET PO SCH ×2 (09:39→21:54)
[2017-11-09] MEDS: FERROUS SULFATE 325 MG TABLET PO SCH ×2 (09:40→17:17)
[2017-11-09] MEDS: PANTOT AC/MIN OIL/PET HY-PHL OINT 50 GM TOP SCH ×3 (09:42→17:19)
--- NOTE | 2017-11-09 16:19 | PDOC PROGRESS REPORT ---
Subjective Progress Note for:: 11/09/17 Subjective:: This is a 67-year-old -[place] morbidly obese admitted since October with shortness of breath and treated this admission for acute on chronic diastolic CHF exacerbation. For this admission with evidence of grade 2 /4 moderate diastolic dysfunction. She also have evidence of moderate pulmonary hypertension with right ventricular systolic pressure estimated to be 40-50 mmHg. This admission she was evaluated by GI for concern of bloody stool and she did have a colonoscopy on 11/02/17 with a normal screening colonoscopy. Diverticulosis and internal hemorrhoid. And examined this morning she reports feeling and breathing better and her leg swelling it is much improved. Reason For Visit: RIGHT SIDED HEART FAILURE/ANASARCA/HTN Physical Exam Vital Signs: Temp Pulse Resp BP Pulse Ox 97.8 F 73 18 134/60 H 94 11/08/17 23:31 11/09/17 14:00 11/08/17 23:31 11/08/17 23:31 11/08/17 23:31 Intake & Output 11/08/17 11/09/17 11/10/17 06:59 06:59 06:59 Intake Total 2858 1281 Output Total 2650 3600 Balance 208 -2319 Weight 146.2 kg 144.7 kg General appearance: PRESENT: no acute distress, morbidly obese Head exam: PRESENT: atraumatic, normocephalic Eye exam: PRESENT: EOMI Mouth exam: PRESENT: moist Neck exam: PRESENT: full ROM Respiratory exam: PRESENT: clear to auscultation rona, unlabored. ABSENT: accessory muscle use Cardiovascular exam: PRESENT: RRR GI/Abdominal exam: PRESENT: normal bowel sounds, soft Rectal exam: PRESENT: deferred Extremities exam: PRESENT: +1 edema Neurological exam: PRESENT: alert, oriented to person, oriented to time, oriented to situation Psychiatric exam: PRESENT: appropriate affect Skin exam: PRESENT: other - LE with venous stasis Results Laboratory Results: 11/08/17 06:34 11/08/17 06:34 10/27/17 10/28/17 10/28/17 22:35 04:36 19:23 Troponin I < 0.012 < 0.012 < 0.012 NT-Pro-B Natriuret Pep 11/02/17 05:40 Troponin I NT-Pro-B Natriuret Pep 1920 H Impressions: Head CT 10/27/17 00:00 IMPRESSION: No acute intracranial findings. EVIDENCE OF ACUTE STROKE: NO. Abdomen Ultrasound 10/29/17 00:00 IMPRESSION: 1. Cholelithiasis without other sonographic evidence of acute cholecystitis. 2. Suboptimal evaluation of the common bile duct, left kidney and spleen due to overlying bowel gas and patient body habitus. KUB X-Ray 10/29/17 00:00 IMPRESSION: Grossly nonobstructive bowel gas pattern Chest X-Ray 11/01/17 18:00 IMPRESSION: New opacities at the lung bases with possible effusions. Vascular congestion. Assessment & Plan - Diagnosis (1) Acute on chronic diastolic ACC/AHA stage C congestive heart failure Is this a current diagnosis for this admission?: Yes Plan: Seems to have resolved Continue PO Lasix (2) Hypertension Qualifiers: Hypertension type: essential hypertension Qualified Code(s): I10 - Essential (primary) hypertension Is this a current diagnosis for this admission?: Yes Plan: BP not at goal On Clonidine, Nifedipine, Lisinopril and Hydralazine Titrate up Nifedipine to 90 mg PO daily (3) CKD (chronic kidney disease) stage 3, GFR 30-59 ml/min Is this a current diagnosis for this admission?: Yes Plan: Renally dosed all medication Renal function stable (4) Ambulatory dysfunction Is this a current diagnosis for this admission?: Yes Plan: Continue physical therapy (5) Morbid (severe) obesity due to excess calories Is this a current diagnosis for this admission?: Yes Plan: Caloric controlled diet (6) Pulmonary hypertension Is this a current diagnosis for this admission?: Yes Plan: Continue current management (7) Type 2 diabetes mellitus Qualifiers: Diabetes mellitus complication detail: with diabetic retinopathy Is this a current diagnosis for this admission?: Yes Plan: Continue current management (8) DVT prophylaxis Is this a current diagnosis for this admission?: Yes Plan: HSQ - Time Time Spent with patient: 25-34 minutes Within: within 24 hours
[2017-11-09] MEDS: ATORVASTATIN CALCIUM 40 MG TABLET PO SCH (21:54)
[2017-11-09] MEDS: LACTULOSE SYRUP 20 GM/30 ML UDCUP PO SCH (21:55)
[2017-11-09] MEDS ORDERED: NIFEDIPINE 30 MG TAB.ER.24 PO SCH (22:00)
[2017-11-10] MEDS: METOCLOPRAMIDE HCL 10 MG TABLET PO SCH ×3 (05:44→18:51)
[2017-11-10] MEDS: HYDRALAZINE HCL 50 MG TABLET PO SCH ×2 (05:44→13:42)
[2017-11-10] MEDS: HEPARIN SOD (PORCINE) 5,000 UNIT/ML 1 ML SYRINGE SUBCUT SCH ×2 (05:44→13:42)
[2017-11-10] MEDS: LANSOPRAZOLE 30 MG TAB.RAP.DR PO SCH (05:44)
[2017-11-10] MEDS: FUROSEMIDE 40 MG TABLET PO SCH ×2 (05:44→18:51)
[2017-11-10] MEDS: INSULIN LISPRO 100 UNIT/ML 3 ML VIAL SUBCUT PRN ×2 (08:05→13:44)
[2017-11-10] MEDS: FERROUS SULFATE 325 MG TABLET PO SCH ×2 (09:24→18:53)
[2017-11-10] MEDS: METOLAZONE 5 MG TABLET PO SCH (09:24)
[2017-11-10] MEDS: ASPIRIN 81 MG TABLET, CHEWABLE PO SCH (09:24)
[2017-11-10] MEDS: CLONIDINE HCL 0.1 MG TABLET PO SCH (09:25)
[2017-11-10] MEDS: LISINOPRIL 10 MG TABLET PO SCH (09:25)
[2017-11-10] MEDS: POLYETHYLENE GLYCOL 3350 POWDER 17 GM/1 PACKET PO SCH (09:25)
[2017-11-10] MEDS: PANTOT AC/MIN OIL/PET HY-PHL OINT 50 GM TOP SCH ×3 (09:26→19:01)
[2017-11-10] MEDS ORDERED: NIFEDIPINE 30 MG TAB.ER.24 PO SCH (10:00)
--- NOTE | 2017-11-10 10:54 | PDOC DISCHARGE SUMMARY ---
General - Admit/Disc Date/PCP Admission Date/Primary Care Provider: 10/27/17 18:13 FAZAL KNOTT Discharge Date: 11/10/17 - Discharge Diagnosis (1) Acute on chronic diastolic ACC/AHA stage C congestive heart failure Is this a current diagnosis for this admission?: Yes (2) Hypertension Is this a current diagnosis for this admission?: Yes (3) CKD (chronic kidney disease) stage 3, GFR 30-59 ml/min Is this a current diagnosis for this admission?: Yes (4) Ambulatory dysfunction Is this a current diagnosis for this admission?: Yes (5) Morbid (severe) obesity due to excess calories Is this a current diagnosis for this admission?: Yes (6) Pulmonary hypertension Is this a current diagnosis for this admission?: Yes (7) Type 2 diabetes mellitus Is this a current diagnosis for this admission?: Yes (8) Diabetic neuropathy Is this a current diagnosis for this admission?: Yes (9) DVT prophylaxis Is this a current diagnosis for this admission?: Yes (10) Diabetic foot ulcer Is this a current diagnosis for this admission?: Yes - Additional Information Resuscitation Status: Full Code Discharge Diet: Cardiac, Diabetic Discharge Activity: Activity As Tolerated, Balance Activity w/Rest, Weigh Daily Prescriptions: Aspirin [Aspirin 81 mg Chewable Tablet] 81 mg PO DAILY #30 tab.chew Atorvastatin Calcium [Lipitor 40 mg Tablet] 40 mg PO QHS #30 tablet Clonidine HCl [Catapres 0.1 mg Tablet] 0.1 mg PO Q12@0900,2100 #60 tablet Ferrous Sulfate [Feosol 325 mg Tablet] 325 mg PO BIDPCBS #60 tablet Furosemide [Lasix 40 mg Tablet] 40 mg PO Q12A #60 tablet Hydralazine HCl [Apresoline 50 mg Tablet] 100 mg PO Q8 #90 tablet Lansoprazole [Prevacid 30 mg Odt Tablet] 30 mg PO Q6AM #30 tab. Lisinopril [Prinivil 10 mg Tablet] 10 mg PO DAILY #30 tablet Metolazone [Zaroxolyn 5 mg Tablet] 5 mg PO DAILY #30 tablet Nifedipine [Procardia XL 30 mg Tablet] 90 mg PO DAILY #30 tab.er.24 Polyethylene Glycol 3350 [Clearlax] 17 gm PO QAM #30 powd.pack Home Medications: Metformin HCl [Metformin HCl ER] 500 mg PO DAILY 10/27/17 Aspirin [Aspirin 81 mg Chewable Tablet] 81 mg PO DAILY #30 tab.chew 11/10/17 Atorvastatin Calcium [Lipitor 40 mg Tablet] 40 mg PO QHS #30 tablet 11/10/17 Clonidine HCl [Catapres 0.1 mg Tablet] 0.1 mg PO Q12@0900,2100 #60 tablet Ferrous Sulfate [Feosol 325 mg Tablet] 325 mg PO BIDPCBS #60 tablet 11/10/17 Furosemide [Lasix 40 mg Tablet] 40 mg PO Q12A #60 tablet 11/10/17 Hydralazine HCl [Apresoline 50 mg Tablet] 100 mg PO Q8 #90 tablet 11/10/17 Lansoprazole [Prevacid 30 mg Odt Tablet] 30 mg PO Q6AM #30 tab.rap.dr 11/10/17 Lisinopril [Prinivil 10 mg Tablet] 10 mg PO DAILY #30 tablet 11/10/17 Metolazone [Zaroxolyn 5 mg Tablet] 5 mg PO DAILY #30 tablet 11/10/17 Nifedipine [Procardia XL 30 mg Tablet] 90 mg PO DAILY #30 tab.er.24 11/10/17 Pantot AC/Min Oil/Pet Hy-Phl [Aquaphor W-Emily Heal Oint 50 gm] 1 applic TOP TID tube 11/10/17 Polyethylene Glycol 3350 [Clearlax] 17 gm PO QAM #30 powd.pack 11/10/17 History of Present Illness History of Present Illness: DOM ADAMS is a 67 year old female presented to emergency room after being referred by a local urgent care due to multiple abnormal laboratory tests. Patient states that she has been having shortness of breath and noticed swelling all over since Tuesday. She admits that prior to that she had noticed some swelling but got worse on Tuesday. She had also been experiencing some cough which she thought it was due to a cold. Patient denies chest pain, fever or chills. Patient admits that she has been losing weight for no particular reason. She admits also having being diagnosed as having high blood pressure and diabetes. She was notified by the provider at the urgent care to come to emergency room since there were multiple problems in her blood work. When evaluated in emergency room BNP was higher than 7000 and the hospitalist service was consulted for further management. We prompted to admit. Hospital Course Hospital Course: his is a 67-year-old -[place] morbidly obese admitted since October with shortness of breath and treated this admission for acute on chronic diastolic CHF exacerbation. For this admission with evidence of grade 2/4 moderate diastolic dysfunction. She also have evidence of moderate pulmonary hypertension with right ventricular systolic pressure estimated to be 40-50 mmHg. This admission she was evaluated by GI for concern of bloody stool and she did have a colonoscopy on 11/02/17 with a normal screening colonoscopy. Diverticulosis and internal hemorrhoid. She was seen and evaluated by surgery this admission for diabetic heel ulcer and was taken to the OR and had surgical debridement. Currently had a wound VAC, she will need contined wound care and wound Vac management.Her antihypertensive regimen adjusted this admission. She has diuresed well this admission and IV Lasix changed to p.o. Seen and examined this morning she reports feeling fine and her leg swelling it is much better since admitted. She is being discharged to nursing facility to continue wound care and order management. To follow-up with PCP for further management. Physical Exam Vital Signs: Temp Pulse Resp BP Pulse Ox 97.5 F 81 20 158/72 H 97 11/10/17 07:40 11/10/17 07:40 11/10/17 07:40 11/10/17 07:40 11/10/17 07:40 Intake & Output 11/09/17 11/10/17 11/11/17 06:59 06:59 06:59 Intake Total 1281 460 Output Total 3600 700 Balance -2319 -240 Weight 144.7 kg 144.7 kg General appearance: PRESENT: no acute distress, morbidly obese Head exam: PRESENT: atraumatic, normocephalic Eye exam: PRESENT: EOMI Mouth exam: PRESENT: moist, neck supple Respiratory exam: PRESENT: clear to auscultation rona, unlabored. ABSENT: accessory muscle use Cardiovascular exam: PRESENT: RRR GI/Abdominal exam: PRESENT: normal bowel sounds, soft Rectal exam: PRESENT: deferred Extremities exam: PRESENT: full ROM, other - R found dressing with wound vac Neurological exam: PRESENT: alert, oriented to person, oriented to place, oriented to time, oriented to situation, reflexes normal Psychiatric exam: PRESENT: appropriate affect Skin exam: PRESENT: other - R foot ulcer dressed Results Laboratory Results: 11/08/17 06:34 11/08/17 06:34 10/27/17 10/28/17 10/28/17 22:35 04:36 19:23 Troponin I < 0.012 < 0.012 < 0.012 NT-Pro-B Natriuret Pep 11/02/17 05:40 Troponin I NT-Pro-B Natriuret Pep 1920 H Impressions: Head CT 10/27/17 00:00 IMPRESSION: No acute intracranial findings. EVIDENCE OF ACUTE STROKE: NO. Abdomen Ultrasound 10/29/17 00:00 IMPRESSION: 1. Cholelithiasis without other sonographic evidence of acute cholecystitis. 2. Suboptimal evaluation of the common bile duct, left kidney and spleen due to overlying bowel gas and patient body habitus. KUB X-Ray 10/29/17 00:00 IMPRESSION: Grossly nonobstructive bowel gas pattern Chest X-Ray 11/01/17 18:00 IMPRESSION: New opacities at the lung bases with possible effusions. Vascular congestion. Qualifiers - * PATEINT BEING DISCHARGED WITH ANY OF THE FOLLOWING DIAGNOSIS?: No VTE patient discharged on overlapping Therapy?: Yes
[2017-11-10 19:52] VITALS: BP 141/59
== END 2017-11-10 19:50 | DRG 291 ==
LOC: ER 15:10 → EH 18:13 → 4S 19:37
PROVIDERS: ADMIT Emergency Medicine; ATTEND Emergency Medicine
PROC: 0DJD8ZZ Inspection of Lower Intestinal Tract, Via Natural or Artificial Opening Endoscopic (ICD-10-PCS; 2017-11-02)
PROC: 0HBMXZZ Excision of Right Foot Skin, External Approach (ICD-10-PCS; principal; 2017-11-02 10:45)
DX: I13.0 Hypertensive heart and chronic kidney disease with heart failure and stage 1 through stage 4 chronic kidney disease, or unspecified chronic kidney disease (principal); I50.33 Acute on chronic diastolic (congestive) heart failure; L97.401 Non-pressure chronic ulcer of unspecified heel and midfoot limited to breakdown of skin; N17.9 Acute kidney failure, unspecified; K62.5 Hemorrhage of anus and rectum; Z68.42 Body mass index [BMI] 45.0-49.9, adult; I16.0 Hypertensive urgency; D50.9 Iron deficiency anemia, unspecified; E11.22 Type 2 diabetes mellitus with diabetic chronic kidney disease; N18.3 Chronic kidney disease, stage 3 (moderate); I27.20 Pulmonary hypertension, unspecified; E11.40 Type 2 diabetes mellitus with diabetic neuropathy, unspecified; K64.8 Other hemorrhoids; K57.90 Diverticulosis of intestine, part unspecified, without perforation or abscess without bleeding; K80.50 Calculus of bile duct without cholangitis or cholecystitis without obstruction; E66.01 Morbid (severe) obesity due to excess calories; N81.4 Uterovaginal prolapse, unspecified; R26.2 Difficulty in walking, not elsewhere classified; Z79.899 Other long term (current) drug therapy; Z79.84 Long term (current) use of oral hypoglycemic drugs; Z87.891 Personal history of nicotine dependence
CPT/HCPCS: 36415; 45378; 70450; 71045; 71046; 74018; 76700; 78452; 80048; 80053; 82272; 82550; 82553; 82607; 82728; 82746; 82962; 83036; 83540; 83550; 83690; 83735; 83880; 84443; 84466; 84484; 85025; 85045; 93005; 93010; 93017; 93306; 96374; 99291; A9500; G8978-GP; G8979-GP; J0171; J0280; J0360; J1200; J1610; J1644; J1815; J1940; J2250; J2310; J2405; J2765; J2785; J3010; J3490; Q9969; S0164

== ENCOUNTER 2017-12-12 15:14 | Inpatient (IN) | payer MEDICARE, MEDICAID ==
[2017-12-12] MEDS ORDERED: NORMAL SALINE 1000 ML 1,000 ML IV ONE ×2 (16:18→19:26)
[2017-12-12] MEDS ORDERED: ONDANSETRON HCL INJ/PF 4 MG/2 ML SDV IV ONE (16:18)
--- NOTE | 2017-12-12 16:19 | ER Document Report ---
ED Medical Screen (RME) - General Chief Complaint: Nausea/Vomiting Stated Complaint: NAUSEA VOMITING Time Seen by Provider: 12/12/17 16:18 Notes: Patient states for approximately 2 weeks she has had severe nausea and feeling weak. She states she saw her primary care physician today who told her that she appeared dehydrated and had an elevated blood sugar of 280. She states that her primary care physician told her to come the emergency department. The ambulance run sheet states that this is due to a medication change. However patient states she was not sure what that meant and does not know of any new medicines. TRAVEL OUTSIDE OF THE [place] IN LAST 30 DAYS: No - Related Data Allergies/Adverse Reactions: iodine [Iodine] Allergy (Verified 10/27/17 15:13) Past Medical History - Social History Chew tobacco use (# tins/day): No Frequency of alcohol use: None Drug Abuse: None - Past Medical History Cardiac Medical History: Reports: Hx Congestive Heart Failure, Hx Hypercholesterolemia, Hx Hypertension Denies: Hx Coronary Artery Disease Neurological Medical History: Denies: Hx Seizures Endocrine Medical History: Reports: Hx Diabetes Mellitus Type 2 Renal/ Medical History: Denies: Hx Peritoneal Dialysis Past Surgical History: Denies: Hx Hysterectomy - Immunizations History of Influenza Vaccine for 06/2017 - 11/2017 Season: Refused Physical Exam - Vital signs Vitals: Temp Pulse Resp BP Pulse Ox 98.7 F 114 H 20 154/80 H 97 12/12/17 15:37 12/12/17 15:37 12/12/17 15:37 12/12/17 15:37 12/12/17 15:37 Course - Vital Signs Vital signs: Temp Pulse Resp BP Pulse Ox 98.7 F 114 H 20 154/80 H 97 12/12/17 15:37 12/12/17 15:37 12/12/17 15:37 12/12/17 15:37 12/12/17 15:37
[2017-12-12 17:18] LABS: ABSOLUTE LYMPHOCYTES (AUTO) 0.7 10^3/uL (0.5-4.7); ABSOLUTE MONOCYTES (AUTO) 0.4 10^3/uL (0.1-1.4); ABSOLUTE NEUT (AUTO) 7.3 10^3/uL (1.7-8.2); BASOPHILS % (AUTO) 0.5 % (0-2); EOSINOPHILS % (AUTO) 0.5 % (0-6); HEMATOCRIT 33.5 % (36.0-47.0); HEMOGLOBIN 11.2 g/dL (12.0-15.5); LYMPHOCYTES % (AUTO) 8.4 % (13-45); MEAN CORPUSCULAR HGB CONC 33.5 g/dL (32.0-36.0); MEAN CORPUSCULAR VOLUME 81 fl (80-97); MONOCYTES % (AUTO) 4.5 % (3-13); PLATELET COUNT 403 10^3/uL (150-450); RED BLOOD COUNT 4.16 10^6/uL (3.72-5.28); RED CELL DISTRIBUTION WIDTH 15.7 % (11.5-14.0); SEGMENTED NEUTROPHILS % (AUTO) 86.1 % (42-78); TOTAL CELLS COUNTED % (AUTO) 100 %; WHITE BLOOD COUNT 8.5 10^3/uL (4.0-10.5)
[2017-12-12 17:35] LABS: ALANINE AMINOTRANSFERASE 16 U/L (9-52); ALBUMIN 4.1 g/dL (3.5-5.0); ALKALINE PHOSPHATASE 96 U/L (38-126); ANION GAP 17 (5-19); ASPARTATE AMINO TRANSFERASE 21 U/L (14-36); BILIRUBIN,DIRECT 0.5 mg/dL (0.0-0.4); BILIRUBIN,TOTAL 0.5 mg/dL (0.2-1.3); BLOOD UREA NITROGEN 79 mg/dL (7-20); CALCIUM 9.9 mg/dL (8.4-10.2); CARBON DIOXIDE 27 mmol/L (22-30); CHLORIDE 93 mmol/L (98-107); GLUCOSE 223 mg/dL (75-110); POTASSIUM 4.2 mmol/L (3.6-5.0); SODIUM 137.3 mmol/L (137-145); TOTAL PROTEIN 8.4 g/dL (6.3-8.2)
--- NOTE | 2017-12-12 20:17 | RADIOLOGY REPORT (SQ) ---
EXAM DESCRIPTION: ACUTE ABDOMEN SERIES COMPLETED DATE/TIME: 12/12/2017 8:06 pm REASON FOR STUDY: n/v COMPARISON: Chest films 11/01/2017 NUMBER OF VIEWS: Three views. TECHNIQUE: Frontal chest, supine abdomen and upright/decubitus abdomen radiographic images acquired. LIMITATIONS: None. FINDINGS: CHEST: Lungs clear of infiltrates. FREE AIR: None. No abnormal gas collections. BOWEL GAS PATTERN: Nonobstructive pattern. No dilated loops or air fluid levels. CALCIFICATIONS: No suspicious calcifications. HARDWARE: None in the abdomen. SOFT TISSUES: No gross mass or suggestion of organomegaly. BONES: No acute fracture. No worrisome bone lesions. OTHER: No other significant finding. IMPRESSION: NO RADIOGRAPHIC EVIDENCE FOR ACUTE ABDOMINAL DISEASE. TECHNICAL DOCUMENTATION: JOB ID: [id number] [employer]- All Rights Reserved Reading location - IP/workstation name: [email or web address]
--- NOTE | 2017-12-12 21:14 | RADIOLOGY REPORT (SQ) ---
EXAM DESCRIPTION: CT LTD RENAL STONE PROTOCOL ON COMPLETED DATE/TIME: 12/12/2017 8:55 pm REASON FOR STUDY: flank pain COMPARISON: None. TECHNIQUE: CT scan of the abdomen and pelvis performed without intravenous or oral contrast. Images reviewed with lung, soft tissue, and bone windows. Reconstructed coronal and sagittal MPR images revi ewed. All images stored on PACS. All CT scanners at this facility use dose modulation, iterative reconstruction, and/or weight based d osing when appropriate to reduce radiation dose to as low as reasonably achievable (ALARA). [facility]: Dose Right [facility]: CareDose [facility]: Dose Right [facility]: Teradose 4D [facility]: [employer] RADIATION DOSE: CT Rad equipment meets quality standard of care and radiation dose reduction techniq ues were employed. CTDIvol: 19.2 mGy. DLP: 993 mGy-cm.mGy. LIMITATIONS: None. FINDINGS: LOWER CHEST: No significant findings. No nodules or infiltrates. NON-CONTRASTED LIVER, SPLEEN, ADRENALS: Evaluation limited by lack of IV contrast. No identified sign ificant masses. PANCREAS: No masses. No peripancreatic inflammatory changes. GALLBLADDER: No identified stones by CT criteria. No inflammatory changes to suggest cholecystitis. RIGHT KIDNEY AND URETER: No solid masses. No significant calcification. No hydronephrosis or hydroure ter. LEFT KIDNEY AND URETER: No solid masses. No significant calcification. No hydronephrosis or hydrouret er. AORTA AND RETROPERITONEUM: No aneurysm. No retroperitoneal masses or adenopathy. BOWEL AND PERITONEAL CAVITY: Moderate colonic stool. No wall thickening or inflammatory process. No bowel obstruction, ascites or abnormal gas. APPENDIX: Normal. PELVIS, BLADDER, AND ABDOMINAL WALL:No abnormal masses. No free fluid. Bladder normal. BONES: No significant findings. OTHER: No other significant finding. IMPRESSION: 1. No acute or suspicious abdominopelvic abnormality. TECHNICAL DOCUMENTATION: JOB ID: [id number] Quality ID # [id number]: Final reports with documentation of one or more dose reduction techniques (e.g., Au tomated exposure control, adjustment of the mA and/or kV according to patient size, use of iterative reconstruction technique) 2010 [employer]- All Rights Reserved Reading location - IP/workstation name: [email or web address]
[2017-12-12] MEDS ORDERED: ACETAMINOPHEN 650 MG SUPP.RECT PR PRN (21:52)
[2017-12-12 21:53] LABS: APPEARANCE,URINE SLIGHTLY-CLOUDY; BILIRUBIN,URINE NEGATIVE (NEGATIVE); COLOR,URINE YELLOW; GLUCOSE, URINE 50 mg/dL (NEGATIVE); KETONES,URINE NEGATIVE (NEGATIVE); LEUKOCYTE ESTERASE,URINE SMALL (NEGATIVE); NITRITE,URINE NEGATIVE (NEGATIVE); PROTEIN,URINE >=500 mg/dL (NEGATIVE); URINE SPECIFIC GRAVITY 1.011; UROBILINOGEN,URINE NEGATIVE mg/dL (<2.0)
[2017-12-12] MEDS ORDERED: ONDANSETRON HCL INJ/PF 4 MG/2 ML SDV IV PRN (21:58)
[2017-12-12] MEDS ORDERED: DEXTROSE 50%-WATER 25 GM/50 ML DISP.SYRIN IV PRN ×2 (21:59)
[2017-12-12] MEDS ORDERED: GLUCAGON,HUMAN RECOMB 1 MG INJ IM PRN (21:59)
[2017-12-12] MEDS ORDERED: DEXTROSE 40% GEL 15 GM TUBE PO PRN ×2 (21:59)
[2017-12-12] MEDS ORDERED: DICYCLOMINE HCL INJ 20 MG/2 ML AMPULE IM ONE (22:45)
--- NOTE | 2017-12-12 22:54 | PDOC H&P ---
History of Present Illness Admission Date/PCP: 12/12/17 22:08 History of Present Illness: DOM ADAMS is a 67 year old black female patient with past medical history of hypertension, diabetes mellitus, diastolic congestive heart failure, CKD peripheral neuropathy presented with 2 weeks history of vomiting of ingested material which is on and off. For this problem she visited her primary care physician office and PCP office patient found to be dehydrated with elevated blood sugar so they direct her to visit ER. On her initial workup her creatinine is elevated to 2.38 her baseline creatinine is 1.4. Clinically patient's also visibly dehydrated. She denies chills, fever, chest pain, cough , palpitation, diaphoresis, abdominal pain, diarrhea or any urinary complaints. She denies headache, dizziness, blurring of vision. She denies shortness of breath, facial or leg swelling. As per her daughter patient denied to be over diuresed. Past Medical History Cardiac Medical History: Reports: Congestive Heart Failure, Hyperlipidema, Hypertension Denies: Coronary Artery Disease Neurological Medical History: Denies: Seizures Endocrine Medical History: Reports: Diabetes Mellitus Type 2 Past Surgical History Past Surgical History: Denies: Hysterectomy Social History Smoking Status: Former Smoker Frequency of Alcohol Use: None Hx Recreational Drug Use: No Drugs: None Hx Prescription Drug Abuse: No Family History Family History: Reviewed & Not Pertinent, Hypertension Parental Family History Reviewed: Yes Children Family History Reviewed: Yes Sibling(s) Family History Reviewed.: Yes Medication/Allergy Home Medications: Metformin HCl [Metformin HCl ER] 500 mg PO DAILY 10/27/17 Aspirin [Aspirin 81 mg Chewable Tablet] 81 mg PO DAILY #30 tab.chew 11/10/17 Atorvastatin Calcium [Lipitor 40 mg Tablet] 40 mg PO QHS #30 tablet 11/10/17 Clonidine HCl [Catapres 0.1 mg Tablet] 0.1 mg PO Q12@0900,2100 #60 tablet Ferrous Sulfate [Feosol 325 mg Tablet] 325 mg PO BIDPCBS #60 tablet 11/10/17 Furosemide [Lasix 40 mg Tablet] 40 mg PO Q12A #60 tablet 11/10/17 Hydralazine HCl [Apresoline 50 mg Tablet] 100 mg PO Q8 #90 tablet 11/10/17 Lansoprazole [Prevacid 30 mg Odt Tablet] 30 mg PO Q6AM #30 tab.rap. 11/10/17 Lisinopril [Prinivil 10 mg Tablet] 10 mg PO DAILY #30 tablet 11/10/17 Metolazone [Zaroxolyn 5 mg Tablet] 5 mg PO DAILY #30 tablet 11/10/17 Nifedipine [Procardia XL 30 mg Tablet] 90 mg PO DAILY #30 tab.er.24 11/10/17 Pantot AC/Min Oil/Pet Hy-Phl [Aquaphor W-Emily Heal Oint 50 gm] 1 applic TOP TID tube 11/10/17 Polyethylene Glycol 3350 [Clearlax] 17 gm PO QAM #30 powd.pack 11/10/17 Allergies/Adverse Reactions: iodine [Iodine] Allergy (Verified 10/27/17 15:13) Review of Systems Constitutional: PRESENT: as per HPI Eyes: PRESENT: as per HPI Cardiovascular: PRESENT: as per HPI Respiratory: PRESENT: as per HPI Gastrointestinal: PRESENT: as per HPI Physical Exam Vital Signs: Temp Pulse Resp BP Pulse Ox 98.7 F 106 H 18 156/65 H 97 12/12/17 15:37 12/12/17 21:35 12/12/17 18:18 12/12/17 21:35 12/12/17 15:37 Results Impressions: Acute Abdomen Series 12/12/17 19:26 IMPRESSION: NO RADIOGRAPHIC EVIDENCE FOR ACUTE ABDOMINAL DISEASE. Limited or Localized CT 12/12/17 20:17 IMPRESSION: 1. No acute or suspicious abdominopelvic abnormality. Assessment & Plan - Diagnosis (1) Acute kidney injury superimposed on chronic kidney disease Is this a current diagnosis for this admission?: Yes Plan: Since patient has underlying congestive heart failure we will cautiously hydrate her. She will be on Zofran for her emesis. (2) Hypertension Qualifiers: Hypertension type: essential hypertension Qualified Code(s): I10 - Essential (primary) hypertension Is this a current diagnosis for this admission?: Yes Plan: Controlled. I will continue her home medication. (3) Hyperlipidemia Qualifiers: Hyperlipidemia type: unspecified Qualified Code(s): E78.5 - Hyperlipidemia , unspecified Is this a current diagnosis for this admission?: Yes Plan: Continue her home medication. (4) Diastolic congestive heart failure Qualifiers: Heart failure chronicity: chronic Qualified Code(s): I50.32 - Chronic diastolic (congestive) heart failure Is this a current diagnosis for this admission?: Yes Plan: Patient seems compensated for heart failure. Patient may need adjustment to her diuretics. - Time Critical Time spent with patient: 15-24 minutes Within: within 48 hours
[2017-12-12] MEDS: HEPARIN SOD (PORCINE) 5,000 UNIT/ML 1 ML SYRINGE SUBCUT SCH (23:27)
[2017-12-12] MEDS: METOPROLOL SUCCINATE 50 MG TAB.SR.24H PO SCH (23:27)
--- NOTE | 2017-12-13 00:27 | ER Document Report ---
ED General - General Chief Complaint: Nausea/Vomiting Stated Complaint: NAUSEA VOMITING Time Seen by Provider: 12/12/17 16:18 TRAVEL OUTSIDE OF THE [place] IN LAST 30 DAYS: No - HPI Patient complains to provider of: Nausea vomiting Notes: Patient coming in for evaluation nausea vomiting. Patient states otherwise feeling generally weak feeling unwell. Patient has a history of CHF and renal issues in the past. States to have had adjusted her diuretics in the past. Patient states multiple episodes of nausea and vomiting patient otherwise states feeling very unwell. Patient also has a history of diabetes. Denies any recent travel denies any recent trauma denies any diarrhea. Patient looks unwell upon my evaluation. - Related Data Allergies/Adverse Reactions: iodine [Iodine] Allergy (Verified 10/27/17 15:13) Past Medical History - Social History Smoking Status: Former Smoker Chew tobacco use (# tins/day): No Frequency of alcohol use: None Drug Abuse: None Family History: Reviewed & Not Pertinent, Hypertension Patient has suicidal ideation: No Patient has homicidal ideation: No - Past Medical History Cardiac Medical History: Reports: Hx Congestive Heart Failure, Hx Hypercholesterolemia, Hx Hypertension Denies: Hx Coronary Artery Disease Neurological Medical History: Denies: Hx Seizures Endocrine Medical History: Reports: Hx Diabetes Mellitus Type 2 Renal/ Medical History: Denies: Hx Peritoneal Dialysis Past Surgical History: Denies: Hx Hysterectomy Review of Systems - Review of Systems Constitutional: Weakness EENT: No symptoms reported Cardiovascular: No symptoms reported Respiratory: No symptoms reported Gastrointestinal: Nausea, Vomiting Genitourinary: No symptoms reported Female Genitourinary: No symptoms reported Musculoskeletal: No symptoms reported Skin: No symptoms reported Hematologic/Lymphatic: No symptoms reported Neurological/Psychological: No symptoms reported -: Yes All other systems reviewed and negative Physical Exam - Vital signs Vitals: Temp Pulse Resp BP Pulse Ox 98.7 F 114 H 20 154/80 H 97 12/12/17 15:37 12/12/17 15:37 12/12/17 15:37 12/12/17 15:37 12/12/17 15:37 Interpretation: Normal - General General appearance: Appears well, Alert - HEENT Head: Normocephalic, Atraumatic Eyes: Normal Pupils: PERRL - Respiratory Respiratory status: No respiratory distress Chest status: Nontender Breath sounds: Normal Chest palpation: Normal - Cardiovascular Rhythm: Regular Heart sounds: Normal auscultation Murmur: No - Abdominal Inspection: Normal Distension: No distension Bowel sounds: Normal Tenderness: Nontender Organomegaly: No organomegaly - Back Back: Normal, Nontender - Extremities General upper extremity: Normal inspection, Nontender, Normal color, Normal temperature General lower extremity: Normal inspection, Nontender, Normal color, Normal temperature - Neurological Neuro grossly intact: Yes Cognition: Normal Orientation: AAOx4 Isaías Coma Scale Eye Opening: Spontaneous [place] Coma Scale Verbal: Oriented Isaías Coma Scale Motor: Obeys Commands [place] Coma Scale Total: 15 Speech: Normal Motor strength normal: LUE, RUE, LLE, RLE Sensory: Normal - Psychological Associated symptoms: Normal affect, Normal mood - Skin Skin Temperature: Warm Skin Moisture: Dry Skin Color: Normal Course - Re-evaluation Re-evalutation: 12/13/17 00:27 Laboratory studies showed acute renal injury on chronic. More likely due to underlying dehydration. Patient also has positive orthostatics. Discussed with hospital staff will admit the patient for hydration - Vital Signs Vital signs: Temp Pulse Resp BP Pulse Ox 98.7 F 106 H 18 156/65 H 97 12/12/17 15:37 12/12/17 21:35 12/12/17 18:18 12/12/17 21:35 12/12/17 15:37 - Laboratory Result Diagrams: 12/12/17 17:00 12/12/17 17:00 Laboratory results interpreted by me: 12/12/17 12/12/17 12/12/17 17:00 17:00 21:36 Hgb 11.2 L Hct 33.5 L RDW 15.7 H Seg Neutrophils % 86.1 H Lymphocytes % 8.4 L Chloride 93 L BUN 79 H Creatinine 2.38 H Est GFR ( Amer) 25 L Est GFR (Non-Af Amer) 20 L Glucose 223 H Direct Bilirubin 0.5 H Total Protein 8.4 H Urine Protein >=500 H Urine Glucose (UA) 50 H Ur Leukocyte Esterase SMALL H Discharge - Discharge Clinical Impression: Acute kidney injury superimposed on chronic kidney disease Congestive heart failure Qualifiers: Heart failure type: diastolic Heart failure chronicity: acute on chronic Qualified Code(s): I50.33 - Acute on chronic diastolic (congestive) heart failure Diastolic congestive heart failure Qualifiers: Heart failure chronicity: chronic Qualified Code(s): I50.32 - Chronic diastolic (congestive) heart failure Condition: Good Disposition: ADMITTED OBSERVATION Admitting Provider: Hospitalist Unit Admitted: Medical Floor
[2017-12-13] MEDS: ACETAMINOPHEN 325 MG TABLET PO PRN (03:34)
[2017-12-13] MEDS: HEPARIN SOD (PORCINE) 5,000 UNIT/ML 1 ML SYRINGE SUBCUT SCH ×3 (06:08→22:09)
[2017-12-13] MEDS: LANSOPRAZOLE 30 MG TAB.RAP.DR PO SCH (06:08)
[2017-12-13 07:28] LABS: ANION GAP 12 (5-19); BLOOD UREA NITROGEN 72 mg/dL (7-20); CALCIUM 9.1 mg/dL (8.4-10.2); CARBON DIOXIDE 28 mmol/L (22-30); CHLORIDE 98 mmol/L (98-107); GLUCOSE 149 mg/dL (75-110); POTASSIUM 4.5 mmol/L (3.6-5.0); SODIUM 138.3 mmol/L (137-145)
[2017-12-13] MEDS ORDERED: GLIPIZIDE 5 MG TABLET PO SCH (08:00)
[2017-12-13] MEDS: INSULIN LISPRO 100 UNIT/ML 3 ML VIAL SUBCUT PRN (08:30)
[2017-12-13] MEDS: METOPROLOL SUCCINATE 50 MG TAB.SR.24H PO SCH ×2 (09:31→22:08)
[2017-12-13] MEDS: NORMAL SALINE 1000 ML 1,000 ML IV PRN (09:31)
[2017-12-13] MEDS: AMLODIPINE BESYLATE 5 MG TABLET PO SCH (09:31)
[2017-12-13] MEDS: DOCUSATE SODIUM 100 MG CAPSULE PO SCH ×2 (09:31→17:49)
[2017-12-13] MEDS: HYDRALAZINE HCL 50 MG TABLET PO SCH ×2 (13:59→22:07)
[2017-12-13] MEDS: METOCLOPRAMIDE HCL INJ/PF 10 MG/2 ML SDV IV SCH ×2 (14:37→18:34)
[2017-12-13] MEDS ORDERED: MORPHINE SULFATE 10 MG/ML INJ IV PRN (15:30)
--- NOTE | 2017-12-13 17:43 | PDOC PROGRESS REPORT ---
Subjective Progress Note for:: 12/13/17 Subjective:: Patient complains of stomach pain and feeling nauseated. Turns out that I have taking care of patient on her previous hospitalization. At that point time she has had similar pain. Sonogram of the abdomen showed a gallstone. Review of system All organ systems evaluated and negative except as in subjective All significant laboratories and diagnostics have been reviewed Reason For Visit: NAUSEA,VOMITING,ACUTE RENAL FAILURE Physical Exam Vital Signs: Temp Pulse Resp BP Pulse Ox 98.0 F 92 18 167/84 H 93 12/13/17 03:59 12/13/17 03:59 12/13/17 03:59 12/13/17 03:59 12/13/17 03:59 Intake & Output 12/12/17 12/13/17 12/14/17 06:59 06:59 06:59 Weight 119.8 kg General appearance: PRESENT: cooperative, morbidly obese Head exam: PRESENT: atraumatic, normocephalic Eye exam: PRESENT: conjunctiva pink, EOMI, PERRLA Ear exam: PRESENT: normal external ear exam Neck exam: PRESENT: full ROM, JVD, lymphadenopathy. ABSENT: tenderness Respiratory exam: PRESENT: clear to auscultation rona Cardiovascular exam: PRESENT: RRR. ABSENT: diastolic murmur, systolic murmur GI/Abdominal exam: PRESENT: normal bowel sounds, soft, tenderness Extremities exam: PRESENT: full ROM, pedal edema Musculoskeletal exam: ABSENT: ambulatory Neurological exam: PRESENT: alert, awake, oriented to person, oriented to place , oriented to time, oriented to situation, CN II-XII grossly intact Psychiatric exam: PRESENT: depressed Skin exam: PRESENT: normal color Results Impressions: Acute Abdomen Series 12/12/17 19:26 IMPRESSION: NO RADIOGRAPHIC EVIDENCE FOR ACUTE ABDOMINAL DISEASE. Limited or Localized CT 12/12/17 20:17 IMPRESSION: 1. No acute or suspicious abdominopelvic abnormality. Assessment & Plan - Diagnosis (1) Biliary colic Is this a current diagnosis for this admission?: Yes Plan: CT okay in emergency room did not disclose any gallbladder problems. Will repeat sonogram and will request a HIDA scan. (2) Nausea & vomiting Qualifiers: Vomiting Intractability: unspecified Is this a current diagnosis for this admission?: Yes Plan: We will provide antiemetics. We will continue IV fluids. Will order a gastric empty study and HIDA scan (3) Acute kidney injury superimposed on chronic kidney disease Is this a current diagnosis for this admission?: Yes Plan: Trend (4) Diastolic congestive heart failure Qualifiers: Heart failure chronicity: chronic Qualified Code(s): I50.32 - Chronic diastolic (congestive) heart failure Is this a current diagnosis for this admission?: Yes Plan: Appears to be stable (5) Hyperlipidemia Qualifiers: Hyperlipidemia type: unspecified Qualified Code(s): E78.5 - Hyperlipidemia , unspecified Is this a current diagnosis for this admission?: Yes Plan: Continue ooutpatient regimen (6) Hypertension Qualifiers: Hypertension type: essential hypertension Qualified Code(s): I10 - Essential (primary) hypertension Is this a current diagnosis for this admission?: Yes Plan: Continue outpatient (7) Ambulatory dysfunction Is this a current diagnosis for this admission?: Yes Plan: Longstanding and multifactorial (8) Anemia Qualifiers: Anemia type: iron deficiency Is this a current diagnosis for this admission?: Yes Plan: Nutritional. Had work up during her recent hospital stay. Trend (9) Diabetes Qualifiers: Diabetes mellitus type: type 2 Diabetes mellitus tank terminal gauger insulin use: without custodial use Diabetes mellitus complication status: with kidney complications Diabetes mellitus complication detail: with chronic kidney disease Chronic kidney disease stage: stage 3 (moderate) Qualified Code(s): E11.22 - Type 2 diabetes mellitus with diabetic chronic kidney disease; N18.3 - Chronic kidney disease, stage 3 (moderate); N18.3 - Chronic kidney disease, stage 3 (moderate) Is this a current diagnosis for this admission?: Yes Plan: Continue current management (10) Morbid (severe) obesity due to excess calories Is this a current diagnosis for this admission?: Yes Plan: Patient has been educated about lifestyle modifications limiting factor is poor mobilization
--- NOTE | 2017-12-13 22:02 | RADIOLOGY REPORT (SQ) ---
EXAM DESCRIPTION: U/S ABDOMEN LIMITED W/O DOP COMPLETED DATE/TIME: 12/13/2017 9:00 pm REASON FOR STUDY: epigastric pain R10.13 EPIGASTRIC PAIN COMPARISON: 10/30/2017. TECHNIQUE: Dynamic and static grayscale images acquired of the abdomen and recorded on PACS. Additio nal selected color Doppler and spectral images recorded. LIMITATIONS: None. FINDINGS: PANCREAS: No masses. No peripancreatic edema or fluid collections. LIVER: Echotexture is coarse with increased echogenicity consistent with fatty infiltration. LIVER VASCULATURE: Normal directional flow of the main portal vein and hepatic veins. GALLBLADDER: Gallstone(s). No pericholecystic fluid. No wall thickening. ULTRASOUND-DETECTED ALFARO'S SIGN: Negative. INTRAHEPATIC DUCTS AND COMMON DUCT: CBD and intrahepatic ducts normal caliber. No filling defects. INFERIOR VENA CAVA: Normal flow. AORTA: No aneurysm. RIGHT KIDNEY: Normal size. Normal echogenicity. No solid or suspicious masses. No hydronephrosis. No calcifications. PERITONEAL AND RIGHT PLEURAL SPACE: No ascites or effusions. OTHER: No other significant finding. IMPRESSION: GALLSTONE. FATTY INFILTRATION OF THE LIVER. NO OTHER SIGNIFICANT FINDINGS. TECHNICAL DOCUMENTATION: JOB ID: [id number] [employer]- All Rights Reserved Reading location - IP/workstation name: [email or web address]
[2017-12-13] MEDS: CLONIDINE HCL 0.1 MG TABLET PO SCH (22:06)
[2017-12-13] MEDS: ATORVASTATIN CALCIUM 40 MG TABLET PO SCH (22:07)
[2017-12-14] MEDS: METOCLOPRAMIDE HCL INJ/PF 10 MG/2 ML SDV IV SCH ×4 (00:32→17:28)
[2017-12-14] MEDS: NORMAL SALINE 1000 ML 1,000 ML IV PRN (00:32)
[2017-12-14] MEDS: LANSOPRAZOLE 30 MG TAB.RAP.DR PO SCH (05:36)
[2017-12-14] MEDS: HYDRALAZINE HCL 50 MG TABLET PO SCH ×3 (06:04→22:03)
[2017-12-14] MEDS: HEPARIN SOD (PORCINE) 5,000 UNIT/ML 1 ML SYRINGE SUBCUT SCH ×3 (06:05→22:05)
[2017-12-14] MEDS: AMLODIPINE BESYLATE 5 MG TABLET PO SCH (09:45)
[2017-12-14] MEDS: LISINOPRIL 10 MG TABLET PO SCH (09:45)
[2017-12-14] MEDS: METOLAZONE 5 MG TABLET PO SCH (09:45)
[2017-12-14] MEDS: FUROSEMIDE 40 MG TABLET PO SCH (09:46)
[2017-12-14] MEDS: NIFEDIPINE 30 MG TAB.ER.24 PO SCH (09:46)
[2017-12-14] MEDS: METOPROLOL SUCCINATE 50 MG TAB.SR.24H PO SCH ×2 (09:46→22:05)
[2017-12-14] MEDS: DOCUSATE SODIUM 100 MG CAPSULE PO SCH ×2 (09:46→17:28)
[2017-12-14] MEDS: CLONIDINE HCL 0.1 MG TABLET PO SCH ×2 (09:47→22:04)
[2017-12-14] MEDS: POLYETHYLENE GLYCOL 3350 POWDER 17 GM/1 PACKET PO SCH (09:49)
--- NOTE | 2017-12-14 14:06 | RADIOLOGY REPORT (SQ) ---
EXAM DESCRIPTION: NM HIDA SCAN COMPLETED DATE/TIME: 12/14/2017 1:53 pm REASON FOR STUDY: abdominal pain/N V R10.13 EPIGASTRIC PAIN COMPARISON: CT abdomen pelvis 12/12/2017 Right upper quadrant ultrasound 12/13/2017 RADIONUCLIDE AND DOSE: DOSAGE RADIONUCLIDE: 5.4 millicuries Tc99m Mebrofenin. DOSAGE MORPHINE: Not required. The route of agent administration: Intravenous TECHNIQUE: Serial imaging right upper quadrant up to 60 minutes following injection of radionuclide. Patient imaged AP and Right Lateral. LIMITATIONS: None. FINDINGS: LIVER: Normal visualization without areas of photopenia. Good clearance of activity from the liver by 1 hour. INTRA-HEPATIC BILE DUCTS: Normal visualization COMMON BILE DUCT: Normal visualization GALLBLADDER: Visualized by 90 minutes OTHER: No other significant finding. IMPRESSION: No scintigraphic evidence of cystic duct or common duct obstruction TECHNICAL DOCUMENTATION: JOB ID: [id number] [employer]- All Rights Reserved Reading location - IP/workstation name: [email or web address]
[2017-12-14] MEDS: INSULIN LISPRO 100 UNIT/ML 3 ML VIAL SUBCUT PRN ×3 (14:13→22:45)
--- NOTE | 2017-12-14 18:37 | PDOC PROGRESS REPORT ---
Subjective Progress Note for:: 12/14/17 Subjective:: States the stomach pain and nausea totally forgot. Patient admits that she forgot about the gallstone that was diagnosed in her prior hospitalization. Review of system All organ systems evaluated and negative except as in subjective All significant laboratories and diagnostics have been reviewed Reason For Visit: NAUSEA,VOMITING,ACUTE RENAL FAILURE Physical Exam Vital Signs: Temp Pulse Resp BP Pulse Ox 98.4 F 62 18 140/62 H 96 12/14/17 11:25 12/14/17 11:25 12/14/17 11:25 12/14/17 11:25 12/14/17 11:25 Intake & Output 12/13/17 12/14/17 12/15/17 06:59 06:59 06:59 Weight 119.8 kg 122.8 kg General appearance: PRESENT: cooperative, morbidly obese Head exam: PRESENT: atraumatic, normocephalic Eye exam: PRESENT: conjunctiva pink, EOMI, PERRLA Ear exam: PRESENT: normal external ear exam Mouth exam: PRESENT: moist Neck exam: PRESENT: full ROM. ABSENT: JVD, lymphadenopathy, tenderness Respiratory exam: PRESENT: clear to auscultation rona Cardiovascular exam: PRESENT: RRR. ABSENT: diastolic murmur, systolic murmur Vascular exam: PRESENT: normal capillary refill GI/Abdominal exam: PRESENT: normal bowel sounds, soft. ABSENT: tenderness Extremities exam: PRESENT: full ROM, +1 edema Musculoskeletal exam: ABSENT: ambulatory Neurological exam: PRESENT: alert, awake, oriented to person, oriented to place , oriented to time, oriented to situation, CN II-XII grossly intact Psychiatric exam: PRESENT: appropriate affect, normal mood Skin exam: PRESENT: intact, normal color, other - Right foot wrapped with clean dressings Results Laboratory Results: 12/13/17 06:40 Impressions: Acute Abdomen Series 12/12/17 19:26 IMPRESSION: NO RADIOGRAPHIC EVIDENCE FOR ACUTE ABDOMINAL DISEASE. Limited or Localized CT 12/12/17 20:17 IMPRESSION: 1. No acute or suspicious abdominopelvic abnormality. Abdomen Ultrasound 12/13/17 00:00 IMPRESSION: GALLSTONE. FATTY INFILTRATION OF THE LIVER. NO OTHER SIGNIFICANT FINDINGS. Hepatobiliary Scan Nuclear Medicine 12/14/17 00:00 IMPRESSION: No scintigraphic evidence of cystic duct or common duct obstruction Assessment & Plan - Diagnosis (1) Biliary colic Is this a current diagnosis for this admission?: Yes Plan: Sonogram still showing gallstones. HIDA scan pending. Will consult surgery for further input (2) Nausea & vomiting Qualifiers: Vomiting Intractability: unspecified Is this a current diagnosis for this admission?: Yes Plan: Resolved. Gastric emptying study pending (3) Acute kidney injury superimposed on chronic kidney disease Is this a current diagnosis for this admission?: Yes Plan: Trend (4) Diastolic congestive heart failure Qualifiers: Heart failure chronicity: chronic Qualified Code(s): I50.32 - Chronic diastolic (congestive) heart failure Is this a current diagnosis for this admission?: Yes Plan: Appears to be stable (5) Hyperlipidemia Qualifiers: Hyperlipidemia type: unspecified Qualified Code(s): E78.5 - Hyperlipidemia , unspecified Is this a current diagnosis for this admission?: Yes Plan: Continue ooutpatient regimen (6) Hypertension Qualifiers: Hypertension type: essential hypertension Qualified Code(s): I10 - Essential (primary) hypertension Is this a current diagnosis for this admission?: Yes Plan: Continue outpatient (7) Ambulatory dysfunction Is this a current diagnosis for this admission?: Yes Plan: Longstanding and multifactorial (8) Anemia Qualifiers: Anemia type: iron deficiency Is this a current diagnosis for this admission?: Yes Plan: Nutritional. Had work up during her recent hospital stay. Trend (9) Diabetes Qualifiers: Diabetes mellitus type: type 2 Diabetes mellitus correction insulin use: without food service representative use Diabetes mellitus complication status: with kidney complications Diabetes mellitus complication detail: with chronic kidney disease Chronic kidney disease stage: stage 3 (moderate) Qualified Code(s): E11.22 - Type 2 diabetes mellitus with diabetic chronic kidney disease; N18.3 - Chronic kidney disease, stage 3 (moderate); N18.3 - Chronic kidney disease, stage 3 (moderate) Is this a current diagnosis for this admission?: Yes Plan: Continue current management (10) Morbid (severe) obesity due to excess calories Is this a current diagnosis for this admission?: Yes Plan: Patient has been educated about lifestyle modifications limiting factor is poor mobilization (11) Unspecified open wound, right foot, sequela Is this a current diagnosis for this admission?: Yes Plan: Has not been able to go to the wound care center yet - Time Time Spent with patient: 15-24 minutes Medications reviewed and adjusted accordingly: Yes Anticipated discharge: Home with Homehealth Within: within 48 hours - Inpatient Certification Based on my medical assessment, after consideration of the patient's comorbidities, presenting symptoms, or acuity I expect that the services needed warrant INPATIENT care.: Yes I certify that my determination is in accordance with my understanding of Medicare's requirements for reasonable and necessary INPATIENT services [42 CFR 412.3e].: Yes Medical Necessity: Need Close Monitoring Due to Risk of Patient Decompensation
[2017-12-14] MEDS ORDERED: DEXTROSE 5%-1/2 NORMAL SALINE 1,000 ML IV PRN (18:38)
--- NOTE | 2017-12-14 19:59 | PDOC CONSULTATION ---
History of Present Illness Admission Date/PCP: 12/12/17 22:08 Patient complains of: nausea and vomiting History of Present Illness: DOM ADAMS is a 67 year old female whohas DM,CHF,CRF initially admitted for Nausea and vomiting with no apparent abdominal pains. Patient then known to have gallstones on US. Had Hida scan today which was normal. Past Medical History Cardiac Medical History: Reports: Congestive Heart Failure, Hyperlipidema, Hypertension Denies: Coronary Artery Disease Neurological Medical History: Denies: Seizures Endocrine Medical History: Reports: Diabetes Mellitus Type 2 Past Surgical History Past Surgical History: Denies: Hysterectomy Social History Smoking Status: Former Smoker Last Time Smoked: 20 years ago Frequency of Alcohol Use: None Hx Recreational Drug Use: No Drugs: None Hx Prescription Drug Abuse: No Family History Family History: Reviewed & Not Pertinent, Hypertension Parental Family History Reviewed: Yes - hypertension Sibling(s) Family History Reviewed.: No Medication/Allergy Home Medications: Atorvastatin Calcium [Lipitor 40 mg Tablet] 40 mg PO QHS 12/13/17 Clonidine HCl [Catapres 0.1 mg Tablet] 0.1 mg PO Q12 12/13/17 Furosemide [Lasix 40 mg Tablet] 40 mg PO DAILY 12/13/17 Hydralazine HCl [Apresoline 50 mg Tablet] 100 mg PO Q8 12/13/17 Lisinopril [Prinivil 10 mg Tablet] 10 mg PO DAILY 12/13/17 Metolazone [Zaroxolyn 5 mg Tablet] 5 mg PO DAILY 12/13/17 Nifedipine [Nifedipine ER] 90 mg PO DAILY 12/13/17 Polyethylene Glycol 3350 [Miralax Powder 17 gm/Packet] 17 gm PO DAILY 12/13/17 Allergies/Adverse Reactions: iodine [Iodine] Allergy (Verified 10/27/17 15:13) Review of Systems Constitutional: PRESENT: other - no fever/chills Eyes: PRESENT: other - no visual/hearing changes Cardiovascular: PRESENT: other - no chest pains/cough Gastrointestinal: PRESENT: nausea, vomiting Genitourinary: PRESENT: other - no dysuria Integumentary: PRESENT: wounds - right foot Neurological: PRESENT: other - no seizures Endocrine: PRESENT: other - no polyuria Hematologic/Lymphatic: PRESENT: other - no easy bruising Physical Exam Vital Signs: Temp Pulse Resp BP Pulse Ox 98.4 F 62 18 140/62 H 96 12/14/17 11:25 12/14/17 11:25 12/14/17 11:25 12/14/17 11:25 12/14/17 11:25 Intake & Output 12/13/17 12/14/17 12/15/17 06:59 06:59 06:59 Weight 119.8 kg 122.8 kg General appearance: PRESENT: no acute distress Head exam: PRESENT: atraumatic Eye exam: PRESENT: conjunctiva pink Mouth exam: PRESENT: moist Neck exam: PRESENT: full ROM Respiratory exam: PRESENT: clear to auscultation rona Cardiovascular exam: PRESENT: RRR Pulses: PRESENT: normal radial pulses Vascular exam: PRESENT: normal capillary refill GI/Abdominal exam: PRESENT: soft - non tender Rectal exam: PRESENT: deferred Extremities exam: PRESENT: full ROM Musculoskeletal exam: PRESENT: ambulatory Neurological exam: PRESENT: alert, oriented to person, oriented to place, oriented to time, oriented to situation Psychiatric exam: PRESENT: appropriate affect Skin exam: PRESENT: normal color, warm Results Laboratory Results: 12/13/17 06:40 Impressions: Acute Abdomen Series 12/12/17 19:26 IMPRESSION: NO RADIOGRAPHIC EVIDENCE FOR ACUTE ABDOMINAL DISEASE. Limited or Localized CT 12/12/17 20:17 IMPRESSION: 1. No acute or suspicious abdominopelvic abnormality. Abdomen Ultrasound 12/13/17 00:00 IMPRESSION: GALLSTONE. FATTY INFILTRATION OF THE LIVER. NO OTHER SIGNIFICANT FINDINGS. Hepatobiliary Scan Nuclear Medicine 12/14/17 00:00 IMPRESSION: No scintigraphic evidence of cystic duct or common duct obstruction Assessment & Plan - Diagnosis (1) Cholelithiasis Qualifiers: Cholecystitis presence: without cholecystitis Biliary obstruction: without biliary obstruction Is this a current diagnosis for this admission?: Yes - Time Time Spent: 30 to 50 Minutes - Plan Summary Plan Summary: There is no urgent indication to do cholecystectomy. Follow up at the surgical clinic when medically cleared for surgery Will be high risk for now because of history of CHF. Not sure if she really needs surgery if remains asymptomatic
[2017-12-14] MEDS: ATORVASTATIN CALCIUM 40 MG TABLET PO SCH (22:04)
[2017-12-15] MEDS: METOCLOPRAMIDE HCL INJ/PF 10 MG/2 ML SDV IV SCH ×2 (00:30→05:48)
[2017-12-15] MEDS: HYDRALAZINE HCL 50 MG TABLET PO SCH ×2 (05:47→14:34)
[2017-12-15] MEDS: LANSOPRAZOLE 30 MG TAB.RAP.DR PO SCH (05:48)
[2017-12-15] MEDS: INSULIN LISPRO 100 UNIT/ML 3 ML VIAL SUBCUT PRN ×5 (06:04→22:45)
[2017-12-15 07:38] LABS: ABSOLUTE BASOPHILS # (AUTO) 0.1 10^3/uL (0.0-0.2); ABSOLUTE EOSINOPHILS # (AUTO) 0.2 10^3/uL (0.0-0.6); ABSOLUTE MONOCYTES (AUTO) 0.4 10^3/uL (0.1-1.4); ABSOLUTE NEUT (AUTO) 4.8 10^3/uL (1.7-8.2); EOSINOPHILS % (AUTO) 3.2 % (0-6); HEMATOCRIT 31.4 % (36.0-47.0); HEMOGLOBIN 10.4 g/dL (12.0-15.5); LYMPHOCYTES % (AUTO) 15.9 % (13-45); MEAN CORPUSCULAR HEMOGLOBIN 26.8 pg (27.0-33.4); MEAN CORPUSCULAR VOLUME 81 fl (80-97); MONOCYTES % (AUTO) 6.7 % (3-13); PLATELET COUNT 345 10^3/uL (150-450); RED BLOOD COUNT 3.87 10^6/uL (3.72-5.28); RED CELL DISTRIBUTION WIDTH 15.5 % (11.5-14.0); SEGMENTED NEUTROPHILS % (AUTO) 73.2 % (42-78); TOTAL CELLS COUNTED % (AUTO) 100 %; WHITE BLOOD COUNT 6.5 10^3/uL (4.0-10.5)
[2017-12-15 07:51] LABS: ANION GAP 15 (5-19); BLOOD UREA NITROGEN 50 mg/dL (7-20); CALCIUM 9.3 mg/dL (8.4-10.2); CARBON DIOXIDE 26 mmol/L (22-30); CHLORIDE 99 mmol/L (98-107); GLUCOSE 209 mg/dL (75-110); POTASSIUM 4.3 mmol/L (3.6-5.0); SODIUM 139.5 mmol/L (137-145)
[2017-12-15] MEDS: HEPARIN SOD (PORCINE) 5,000 UNIT/ML 1 ML SYRINGE SUBCUT SCH ×3 (09:44→22:59)
[2017-12-15] MEDS: AMLODIPINE BESYLATE 5 MG TABLET PO SCH (09:52)
[2017-12-15] MEDS: NIFEDIPINE 30 MG TAB.ER.24 PO SCH (09:52)
[2017-12-15] MEDS: METOPROLOL SUCCINATE 50 MG TAB.SR.24H PO SCH (09:52)
[2017-12-15] MEDS: METOLAZONE 5 MG TABLET PO SCH (09:53)
[2017-12-15] MEDS: CLONIDINE HCL 0.1 MG TABLET PO SCH (09:53)
[2017-12-15] MEDS: LISINOPRIL 10 MG TABLET PO SCH (09:53)
[2017-12-15] MEDS: DOCUSATE SODIUM 100 MG CAPSULE PO SCH ×2 (09:53→17:54)
[2017-12-15] MEDS: FUROSEMIDE 40 MG TABLET PO SCH (09:53)
[2017-12-15] MEDS: POLYETHYLENE GLYCOL 3350 POWDER 17 GM/1 PACKET PO SCH (09:53)
[2017-12-15] MEDS: ACETAMINOPHEN 325 MG TABLET PO PRN ×2 (12:52→18:21)
[2017-12-15] MEDS ORDERED: LABETALOL HCL 200 MG TABLET PO SCH (14:00)
--- NOTE | 2017-12-15 17:11 | PDOC PROGRESS REPORT ---
Subjective Progress Note for:: 12/15/17 Subjective:: She relates that had been able to tolerate food. Blood sugar has been all and revised the author to discontinue IV fluids with sugar sugar. Review of system All organ systems evaluated and negative except as in subjective All significant laboratories and diagnostics have been reviewed Reason For Visit: NAUSEA,VOMITING,ACUTE RENAL FAILURE Physical Exam Vital Signs: Temp Pulse Resp BP Pulse Ox 98.0 F 62 16 145/64 H 96 12/15/17 03:19 12/15/17 03:19 12/14/17 22:55 12/15/17 03:19 12/15/17 03:19 Intake & Output 12/13/17 12/14/17 12/15/17 06:59 06:59 06:59 Weight 119.8 kg 122.8 kg 121.1 kg General appearance: PRESENT: cooperative, morbidly obese Head exam: PRESENT: atraumatic, normocephalic Eye exam: PRESENT: conjunctiva pink, EOMI, PERRLA Ear exam: PRESENT: normal external ear exam Mouth exam: PRESENT: moist Neck exam: PRESENT: full ROM. ABSENT: JVD, lymphadenopathy, tenderness Respiratory exam: PRESENT: chest wall tenderness Cardiovascular exam: PRESENT: RRR. ABSENT: diastolic murmur, systolic murmur Vascular exam: PRESENT: normal capillary refill GI/Abdominal exam: PRESENT: normal bowel sounds, soft. ABSENT: tenderness Extremities exam: PRESENT: full ROM, pedal edema. ABSENT: clubbing Musculoskeletal exam: PRESENT: ambulatory Neurological exam: PRESENT: alert, awake, oriented to person, oriented to place , oriented to time, oriented to situation, CN II-XII grossly intact Psychiatric exam: PRESENT: appropriate affect, normal mood Skin exam: PRESENT: normal color Results Laboratory Results: 12/13/17 06:40 Impressions: Acute Abdomen Series 12/12/17 19:26 IMPRESSION: NO RADIOGRAPHIC EVIDENCE FOR ACUTE ABDOMINAL DISEASE. Limited or Localized CT 12/12/17 20:17 IMPRESSION: 1. No acute or suspicious abdominopelvic abnormality. Abdomen Ultrasound 12/13/17 00:00 IMPRESSION: GALLSTONE. FATTY INFILTRATION OF THE LIVER. NO OTHER SIGNIFICANT FINDINGS. Hepatobiliary Scan Nuclear Medicine 12/14/17 00:00 IMPRESSION: No scintigraphic evidence of cystic duct or common duct obstruction Assessment & Plan - Diagnosis (1) Biliary colic Is this a current diagnosis for this admission?: Yes Plan: Sonogram still showing gallstones. HIDA scan negative. Patient seen by surgery and deemed to be high risk and agree. Discussed with patient will place on Reglan p.o. for the possibility of gastroparesis (2) Nausea & vomiting Qualifiers: Vomiting Intractability: unspecified Is this a current diagnosis for this admission?: Yes Plan: Resolved. Gastric emptying study pending. To place on Reglan p.o. (3) Acute kidney injury superimposed on chronic kidney disease Is this a current diagnosis for this admission?: Yes Plan: Stable (4) Diastolic congestive heart failure Qualifiers: Heart failure chronicity: chronic Qualified Code(s): I50.32 - Chronic diastolic (congestive) heart failure Is this a current diagnosis for this admission?: Yes Plan: Appears to be stable (5) Hyperlipidemia Qualifiers: Hyperlipidemia type: unspecified Qualified Code(s): E78.5 - Hyperlipidemia , unspecified Is this a current diagnosis for this admission?: Yes Plan: Continue ooutpatient regimen (6) Hypertension Qualifiers: Hypertension type: essential hypertension Qualified Code(s): I10 - Essential (primary) hypertension Is this a current diagnosis for this admission?: Yes Plan: Discontinue Toprol and placed on labetalol to see if can achieve better blood pressure control (7) Ambulatory dysfunction Is this a current diagnosis for this admission?: Yes Plan: Longstanding and multifactorial (8) Anemia Qualifiers: Anemia type: iron deficiency Is this a current diagnosis for this admission?: Yes Plan: Nutritional. Had work up during her recent hospital stay. 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 Discontinue IV fluids with D5 water which was started to avoid hypoglycemia due to n.p.o. status for diagnostics (10) Morbid (severe) obesity due to excess calories Is this a current diagnosis for this admission?: Yes Plan: Patient has been educated about lifestyle modifications limiting factor is poor mobilization (11) Unspecified open wound, right foot, sequela Is this a current diagnosis for this admission?: Yes Plan: Has not been able to go to the wound care center yet - Time Time Spent with patient: 15-24 minutes Medications reviewed and adjusted accordingly: Yes Anticipated discharge: Home with Homehealth Within: within 24 hours - Inpatient Certification Based on my medical assessment, after consideration of the patient's comorbidities, presenting symptoms, or acuity I expect that the services needed warrant INPATIENT care.: Yes I certify that my determination is in accordance with my understanding of Medicare's requirements for reasonable and necessary INPATIENT services [42 CFR 412.3e].: Yes Medical Necessity: Significant Comorbidiites Make Outpatient Treatment Too Risky
[2017-12-15] MEDS ORDERED: BUTALB/ACETAMINOPHEN/CAFFEINE 1 TAB EACH PO PRN (17:23)
[2017-12-15] MEDS ORDERED: METOCLOPRAMIDE HCL 10 MG TABLET PO SCH (22:00)
[2017-12-15] MEDS: ATORVASTATIN CALCIUM 40 MG TABLET PO SCH (22:58)
[2017-12-16] MEDS ORDERED: LABETALOL HCL 200 MG TABLET PO ONE (00:15)
[2017-12-16] MEDS ORDERED: CLONIDINE HCL 0.1 MG TABLET PO ONE (00:15)
[2017-12-16] MEDS: HYDRALAZINE HCL 50 MG TABLET PO SCH ×3 (00:26→15:36)
[2017-12-16] MEDS: LANSOPRAZOLE 30 MG TAB.RAP.DR PO SCH (06:47)
[2017-12-16] MEDS: LABETALOL HCL 200 MG TABLET PO SCH ×2 (06:47→15:37)
[2017-12-16] MEDS: HEPARIN SOD (PORCINE) 5,000 UNIT/ML 1 ML SYRINGE SUBCUT SCH ×2 (06:52→15:38)
[2017-12-16] MEDS: INSULIN LISPRO 100 UNIT/ML 3 ML VIAL SUBCUT PRN ×2 (08:03→12:30)
[2017-12-16] MEDS: NIFEDIPINE 30 MG TAB.ER.24 PO SCH (09:28)
[2017-12-16] MEDS: LISINOPRIL 10 MG TABLET PO SCH (09:29)
[2017-12-16] MEDS: METOLAZONE 5 MG TABLET PO SCH (09:29)
[2017-12-16] MEDS: FUROSEMIDE 40 MG TABLET PO SCH (09:29)
[2017-12-16] MEDS: AMLODIPINE BESYLATE 5 MG TABLET PO SCH (09:29)
[2017-12-16] MEDS: DOCUSATE SODIUM 100 MG CAPSULE PO SCH (09:29)
[2017-12-16] MEDS ORDERED: CLONIDINE HCL 0.1 MG TABLET PO SCH (10:00)
--- NOTE | 2017-12-16 14:19 | RADIOLOGY REPORT (SQ) ---
EXAM DESCRIPTION: NM GASTRIC EMPTYING STUDY COMPLETED DATE/TIME: 12/16/2017 2:11 pm REASON FOR STUDY: abdominal pain/n V R10.13 EPIGASTRIC PAIN COMPARISON: CT abdomen pelvis 12/12/2017, Abdominal ultrasound 12/13/2017 Hepatobiliary scan 12/14/2017 RADIONUCLIDE AND DOSE: 2.1 mCi of technetium 99 M sulfur colloid was not administered orally, patien t ate scrambled egg with sulfur colloid The route of agent administration: Oral. TECHNIQUE: Serial images acquired to 4 hours with each image recorded over a 2-minute time frame. Im age intensity values plotted with respect to time with linear regression algorithm. LIMITATIONS: None. FINDINGS: Patient was observed for 4 hours. Gastric emptying at 30 minutes, 19% At 60 minutes, 34% At 90 minutes 46% At 120 minutes 56% At 240 minutes 81% IMPRESSION: NORMAL GASTRIC EMPTYING. TECHNICAL DOCUMENTATION: JOB ID: [id number] [employer]- All Rights Reserved Reading location - IP/workstation name: [email or web address]
[2017-12-16] MEDS: POLYETHYLENE GLYCOL 3350 POWDER 17 GM/1 PACKET PO SCH (15:38)
[2017-12-16 15:41] VITALS: BP 145/62
--- NOTE | 2017-12-16 18:12 | PDOC DISCHARGE SUMMARY ---
General - Admit/Disc Date/PCP Admission Date/Primary Care Provider: 12/12/17 22:08 Discharge Date: 12/16/17 - Discharge Diagnosis (1) Acute kidney injury superimposed on chronic kidney disease Is this a current diagnosis for this admission?: Yes (2) Nausea & vomiting Is this a current diagnosis for this admission?: Yes (3) Biliary colic Is this a current diagnosis for this admission?: Yes (4) Gallstones Is this a current diagnosis for this admission?: Yes (5) Diastolic congestive heart failure Is this a current diagnosis for this admission?: Yes (6) Hyperlipidemia Is this a current diagnosis for this admission?: Yes (7) Hypertension Is this a current diagnosis for this admission?: Yes (8) Ambulatory dysfunction Is this a current diagnosis for this admission?: Yes (9) Anemia Is this a current diagnosis for this admission?: Yes (10) Diabetes Is this a current diagnosis for this admission?: Yes (11) Morbid (severe) obesity due to excess calories Is this a current diagnosis for this admission?: Yes (12) Unspecified open wound, right foot, sequela Is this a current diagnosis for this admission?: Yes - Additional Information Resuscitation Status: Full Code Discharge Diet: Cardiac, Diabetic Discharge Activity: Activity As Tolerated Prescriptions: Labetalol HCl [Normodyne 200 mg Tablet] 200 mg PO Q8 #90 tablet Nifedipine [Procardia XL 60 mg Tablet] 60 mg PO DAILY #60 tab.er.24 Home Medications: Atorvastatin Calcium [Lipitor 40 mg Tablet] 40 mg PO QHS 12/13/17 Clonidine HCl [Catapres 0.1 mg Tablet] 0.1 mg PO Q12 12/13/17 Furosemide [Lasix 40 mg Tablet] 40 mg PO DAILY 12/13/17 Hydralazine HCl [Apresoline 50 mg Tablet] 100 mg PO Q8 12/13/17 Lisinopril [Prinivil 10 mg Tablet] 10 mg PO DAILY 12/13/17 Metolazone [Zaroxolyn 5 mg Tablet] 5 mg PO DAILY 12/13/17 Polyethylene Glycol 3350 [Miralax Powder 17 gm/Packet] 17 gm PO DAILY 12/13/17 Labetalol HCl [Normodyne 200 mg Tablet] 200 mg PO Q8 #90 tablet 12/16/17 Nifedipine [Procardia XL 60 mg Tablet] 60 mg PO DAILY #60 tab.er.24 12/16/17 History of Present Illness History of Present Illness: DOM ADAMS is a 67 year old female with a past medical history of hypertension, diabetes mellitus, diastolic congestive heart failure, CKD peripheral neuropathy presented with 2 weeks history of vomiting which was on and off. For this problem she visited her primary care physician office. Patient was found to be dehydrated and with elevated blood sugar. She was directed ER. On her initial workup her creatinine was elevated to 2.38 when her baseline creatinine is 1.4. She denied chills, fever, chest pain, cough, palpitation, diaphoresis, abdominal pain, diarrhea or any urinary complaints. She denied headache, dizziness, blurring of vision. She denied shortness of breath, facial or leg swelling. Patient was admitted under the hospitalist service Hospital Course Hospital Course: Patient was gently hydrated trying to avoid exacerbation of chronic diastolic congestive heart failure. On discharge creatinine had gone down to 1.76. The author had taken care of this patient in the recent past. Since concerned that she was having another bout that related to gallstones repeated sonogram. It is noteworthy to mention that initial imaging in ED failed to show gallstone. Repeat sonogram of the abdomen showed a large gallstone. We ordered a HIDA scan which was negative. Surgical team was consulted since symptoms are recurrent in nature. Patient was deemed to be high risk. Patient was informed that if she continues having problems she may need to be evaluated in a tertiary center such as [facility] or [facility]. Patient was also evaluated through a gastric emptying study which was negative. At the time of discharge nausea, vomiting and abdominal pain had resolved. Patient was able to tolerate diet. Patient does suffer from uncontrolled high blood pressure. We opted to place patient on Procardia XL 60 mg 2 caps p.o. daily and discontinue Norvasc. We also discontinued Toprol and instead placed her on labetalol 200 mg p.o. 3 times daily. Recommend PCP to follow-up since she is also on clonidine. Patient has been encouraged as to follow-up at wound care center for the follow- up of right foot wound. Blood sugar was slightly elevated since we had to place her on D5 normal saline to avoid hypoglycemic event in the setting of her being n.p.o. for diagnostics. Since patient had achieved maximum benefit of hospitalization stay prompted to discharge Physical Exam Vital Signs: Temp Pulse Resp BP Pulse Ox 98.6 F 70 18 141/61 H 97 12/16/17 07:53 12/16/17 07:53 12/16/17 07:53 12/16/17 07:53 12/16/17 07:53 Intake & Output 12/15/17 12/16/17 12/17/17 06:59 06:59 06:59 Weight 121.1 kg 121.5 kg General appearance: PRESENT: no acute distress, cooperative, morbidly obese Head exam: PRESENT: atraumatic, normocephalic Eye exam: PRESENT: conjunctiva pink, EOMI, PERRLA Ear exam: PRESENT: normal external ear exam Mouth exam: PRESENT: moist Neck exam: PRESENT: full ROM. ABSENT: JVD, lymphadenopathy, tenderness Respiratory exam: PRESENT: clear to auscultation rona Cardiovascular exam: PRESENT: RRR. ABSENT: diastolic murmur, systolic murmur Vascular exam: PRESENT: normal capillary refill GI/Abdominal exam: PRESENT: normal bowel sounds, soft. ABSENT: tenderness Extremities exam: PRESENT: full ROM, +2 edema Musculoskeletal exam: PRESENT: ambulatory Neurological exam: PRESENT: alert, awake, oriented to person, oriented to place , oriented to time, oriented to situation, CN II-XII grossly intact Psychiatric exam: PRESENT: appropriate affect, normal mood Skin exam: PRESENT: normal color Results Laboratory Results: 12/15/17 06:48 12/15/17 06:48 Impressions: Acute Abdomen Series 12/12/17 19:26 IMPRESSION: NO RADIOGRAPHIC EVIDENCE FOR ACUTE ABDOMINAL DISEASE. Limited or Localized CT 12/12/17 20:17 IMPRESSION: 1. No acute or suspicious abdominopelvic abnormality. Abdomen Ultrasound 12/13/17 00:00 IMPRESSION: GALLSTONE. FATTY INFILTRATION OF THE LIVER. NO OTHER SIGNIFICANT FINDINGS. Hepatobiliary Scan Nuclear Medicine 12/14/17 00:00 IMPRESSION: No scintigraphic evidence of cystic duct or common duct obstruction Gastric Emptying Nuclear Medicine 12/16/17 00:00 IMPRESSION: NORMAL GASTRIC EMPTYING. Qualifiers - * PATEINT BEING DISCHARGED WITH ANY OF THE FOLLOWING DIAGNOSIS?: No Plan Discharge Plan: Discharge home with home health Time Spent: Less than 30 Minutes
== END 2017-12-16 15:58 | disposition home health service (06) | DRG 683 ==
LOC: ER 15:14 → OBSVTOIN 22:08 → EH 22:08 → 2N 12-13 00:43
PROVIDERS: ADMIT Internal Medicine; ATTEND Internal Medicine
DX: N17.9 Acute kidney failure, unspecified (principal); I13.0 Hypertensive heart and chronic kidney disease with heart failure and stage 1 through stage 4 chronic kidney disease, or unspecified chronic kidney disease; Z68.41 Body mass index [BMI] 40.0-44.9, adult; I50.32 Chronic diastolic (congestive) heart failure; N18.3 Chronic kidney disease, stage 3 (moderate); E78.00 Pure hypercholesterolemia, unspecified; D50.9 Iron deficiency anemia, unspecified; E11.22 Type 2 diabetes mellitus with diabetic chronic kidney disease; E66.01 Morbid (severe) obesity due to excess calories; E11.42 Type 2 diabetes mellitus with diabetic polyneuropathy; E86.0 Dehydration; K76.0 Fatty (change of) liver, not elsewhere classified; K80.20 Calculus of gallbladder without cholecystitis without obstruction; S91.301S Unspecified open wound, right foot, sequela; X58.XXXS Exposure to other specified factors, sequela; Z79.82 Long term (current) use of aspirin; Z79.899 Other long term (current) drug therapy; Z87.891 Personal history of nicotine dependence; Z88.8 Allergy status to other drugs, medicaments and biological substances; Z82.49 Family history of ischemic heart disease and other diseases of the circulatory system
CPT/HCPCS: 36415; 74022; 76380; 76705; 78226; 78264; 80048; 80053; 81001; 82962; 83735; 84484; 85025; 96361; 96372; 96374; 99285; A9537; A9541; J0500; J1644; J1815; J2405; J2765; J3490; J7030; Q9969

== ENCOUNTER 2017-12-21 17:38 | Emergency (ER) | payer MEDICARE, MEDICAID ==
--- NOTE | 2017-12-21 17:57 | ER Document Report ---
ED Medical Screen (RME) - General Chief Complaint: Low Back Pain Stated Complaint: BACK PAIN Time Seen by Provider: 12/21/17 17:53 Mode of Arrival: Medic Information source: Patient Notes: 67-year-old female presents to ED via EMS for low back pain shortness of breath with a history of CHF diabetes blood pressure cholesterol and multiple cardiac problems. She also has a diabetic ulcer to her right leg. She has had pedal edema bilaterally. She states she went to her doctor's office today and started having severe back pain does not normally have back pain and became very short of breath so he sent her to the ER via EMS. I have greeted and performed a rapid initial assessment of this patient. A comprehensive ED assessment and evaluation of the patient, analysis of test results and completion of medical decision making process will be conducted by an additional ED providers. TRAVEL OUTSIDE OF THE [place] IN LAST 30 DAYS: No - Related Data Allergies/Adverse Reactions: iodine [Iodine] Allergy (Verified 10/27/17 15:13) Past Medical History - Past Medical History Cardiac Medical History: Reports: Hx Congestive Heart Failure, Hx Hypercholesterolemia, Hx Hypertension Denies: Hx Coronary Artery Disease Neurological Medical History: Denies: Hx Seizures Endocrine Medical History: Reports: Hx Diabetes Mellitus Type 2 Renal/ Medical History: Denies: Hx Peritoneal Dialysis Past Surgical History: Denies: Hx Hysterectomy - Immunizations History of Influenza Vaccine for 06/2017 - 11/2017 Season: No Physical Exam - Vital signs Vitals: Temp Pulse Resp BP Pulse Ox 98.0 F 76 18 143/67 H 96 12/21/17 17:44 12/21/17 17:44 12/21/17 17:44 12/21/17 17:44 12/21/17 17:44 Course - Vital Signs Vital signs: Temp Pulse Resp BP Pulse Ox 98.0 F 76 18 143/67 H 96 12/21/17 17:44 12/21/17 17:44 12/21/17 17:44 12/21/17 17:44 12/21/17 17:44
[2017-12-21] MEDS ORDERED: ONDANSETRON HCL INJ/PF 4 MG/2 ML SDV IV ONE (18:18)
[2017-12-21 18:55] LABS: ABSOLUTE EOSINOPHILS # (AUTO) 0.1 10^3/uL (0.0-0.6); ABSOLUTE LYMPHOCYTES (AUTO) 0.9 10^3/uL (0.5-4.7); ABSOLUTE MONOCYTES (AUTO) 0.4 10^3/uL (0.1-1.4); ABSOLUTE NEUT (AUTO) 4.7 10^3/uL (1.7-8.2); BASOPHILS % (AUTO) 0.6 % (0-2); EOSINOPHILS % (AUTO) 2.1 % (0-6); HEMATOCRIT 30.2 % (36.0-47.0); HEMOGLOBIN 9.9 g/dL (12.0-15.5); LYMPHOCYTES % (AUTO) 14.7 % (13-45); MEAN CORPUSCULAR HEMOGLOBIN 26.5 pg (27.0-33.4); MEAN CORPUSCULAR HGB CONC 32.9 g/dL (32.0-36.0); MEAN CORPUSCULAR VOLUME 81 fl (80-97); MONOCYTES % (AUTO) 7.1 % (3-13); PLATELET COUNT 323 10^3/uL (150-450); RED BLOOD COUNT 3.75 10^6/uL (3.72-5.28); RED CELL DISTRIBUTION WIDTH 15.9 % (11.5-14.0); SEGMENTED NEUTROPHILS % (AUTO) 75.5 % (42-78); TOTAL CELLS COUNTED % (AUTO) 100 %; VENOUS BLOOD BASE EXCESS 0.2 mmol/L; VENOUS BLOOD HCO3 20.8 mmol/L (20-32); VENOUS BLOOD PCO2 25.7 mmHg (35-63); VENOUS BLOOD PH 7.53 (7.30-7.42); WHITE BLOOD COUNT 6.2 10^3/uL (4.0-10.5)
--- NOTE | 2017-12-21 19:09 | RADIOLOGY REPORT (SQ) ---
EXAM DESCRIPTION: CHEST 2 VIEWS COMPLETED DATE/TIME: 12/21/2017 6:57 pm REASON FOR STUDY: short of breath, low back pain COMPARISON: 11/01/2017 EXAM PARAMETERS: NUMBER OF VIEWS: two views TECHNIQUE: Digital Frontal and Lateral radiographic views of the chest acquired. RADIATION DOSE: NA LIMITATIONS: none FINDINGS: LUNGS AND PLEURA: No opacities, masses or pneumothorax. No pleural effusion. MEDIASTINUM AND HILAR STRUCTURES: No masses or contour abnormalities. HEART AND VASCULAR STRUCTURES: Heart normal size. No evidence for failure. BONES: No acute findings. HARDWARE: None in the chest. OTHER: No other significant finding. IMPRESSION: NO ACUTE RADIOGRAPHIC FINDING IN THE CHEST. TECHNICAL DOCUMENTATION: JOB ID: [id number] [employer]- All Rights Reserved Reading location - IP/workstation name: [email or web address]
--- NOTE | 2017-12-21 19:11 | RADIOLOGY REPORT (SQ) ---
EXAM DESCRIPTION: L SPINE WHOLE COMPLETED DATE/TIME: 12/21/2017 6:57 pm REASON FOR STUDY: short of breath, low back pain COMPARISON: None. NUMBER OF VIEWS: Five views including obliques. TECHNIQUE: AP, lateral, oblique, and sacral radiographic images acquired of the lumbar spine. LIMITATIONS: None. FINDINGS: MINERALIZATION: Normal. SEGMENTATION: Normal. No transitional anatomy. ALIGNMENT: Levoscoliosis. Grade 1 anterolisthesis of L4 on L5. VERTEBRAE: Maintained height. No fracture or worrisome bone lesion. DISCS: Disc spaces are narrowed from L2 to L5. POSTERIOR ELEMENTS: Hypertrophic facet changes from L2-S1. HARDWARE: None in the spine. PARASPINAL SOFT TISSUES: Normal. PELVIS: Intact as visualized. No fractures or worrisome bone lesions. SI joints intact. OTHER: No other significant finding. IMPRESSION: Anterolisthesis of L4 on L5. Scoliosis. Degenerative disc disease. Facet arthropathy. TECHNICAL DOCUMENTATION: JOB ID: [id number] [employer]- All Rights Reserved Reading location - IP/workstation name: [email or web address]
[2017-12-21 19:19] LABS: ALANINE AMINOTRANSFERASE 16 U/L (9-52); ALBUMIN 3.8 g/dL (3.5-5.0); ALKALINE PHOSPHATASE 85 U/L (38-126); ANION GAP 17 (5-19); ASPARTATE AMINO TRANSFERASE 20 U/L (14-36); BILIRUBIN,DIRECT 0.3 mg/dL (0.0-0.4); BILIRUBIN,TOTAL 0.4 mg/dL (0.2-1.3); BLOOD UREA NITROGEN 56 mg/dL (7-20); CALCIUM 9.5 mg/dL (8.4-10.2); CARBON DIOXIDE 20 mmol/L (22-30); CHLORIDE 95 mmol/L (98-107); CREATINE KINASE 79 U/L (30-135); GLUCOSE 146 mg/dL (75-110); POTASSIUM 4.4 mmol/L (3.6-5.0); SODIUM 131.6 mmol/L (137-145)
[2017-12-21] MEDS ORDERED: MORPHINE SULFATE 10 MG/ML INJ IV ONE (19:24)
--- NOTE | 2017-12-21 19:30 | ER Document Report ---
ED General - General Chief Complaint: Low Back Pain Stated Complaint: BACK PAIN Time Seen by Provider: 12/21/17 17:53 Mode of Arrival: Medic Notes: The patient is a 67-year-old female, PMHx CHF, diabetes, hypertension, hypercholesterolemia, presents with lower back pain that developed while she was at her PA's office today. Patient does not normally have back pain and does not remember an injury. Patient also with chronic pedal edema and a diabetic ulcer to her right leg, which she is [facility]. Patient also with chronic shortness of breath. She denies chest pain, nausea, vomiting, fevers, abdominal pain, rash, saddle anesthesia, change in bowel or bladder, numbness or tingling. TRAVEL OUTSIDE OF THE [place] IN LAST 30 DAYS: No - Related Data Allergies/Adverse Reactions: iodine [Iodine] Allergy (Verified 10/27/17 15:13) Past Medical History - General Information source: Patient - Social History Smoking Status: Unknown if Ever Smoked Frequency of alcohol use: None Drug Abuse: None Family History: Reviewed & Not Pertinent, Hypertension Patient has suicidal ideation: No Patient has homicidal ideation: No - Past Medical History Cardiac Medical History: Reports: Hx Congestive Heart Failure, Hx Hypercholesterolemia, Hx Hypertension Denies: Hx Coronary Artery Disease Neurological Medical History: Denies: Hx Seizures Endocrine Medical History: Reports: Hx Diabetes Mellitus Type 2 Renal/ Medical History: Denies: Hx Peritoneal Dialysis Past Surgical History: Denies: Hx Hysterectomy Review of Systems - Review of Systems Notes: REVIEW OF SYSTEMS: CONSTITUTIONAL: -fevers, -chills EENT: -eye pain, -difficulty swallowing, -nasal congestion CARDIOVASCULAR: -chest pain, -syncope. RESPIRATORY: -cough, +SOB GASTROINTESTINAL: -abdominal pain, -nausea, -vomiting, -diarrhea GENITOURINARY: -dysuria, -hematuria MUSCULOSKELETAL: +back pain, -neck pain SKIN: -rash or skin lesions. HEMATOLOGIC: -easy bruising or bleeding. LYMPHATIC: -swollen, enlarged glands. NEUROLOGICAL: -altered mental status or loss of consciousness, -headache, - neurologic symptoms PSYCHIATRIC: -anxiety, -depression. ALL OTHER SYSTEMS REVIEWED AND NEGATIVE. Physical Exam - Vital signs Vitals: Temp Pulse Resp BP Pulse Ox 98.0 F 76 18 143/67 H 96 12/21/17 17:44 12/21/17 17:44 12/21/17 17:44 12/21/17 17:44 12/21/17 17:44 - Notes Notes: PHYSICAL EXAMINATION: GENERAL: Uncomfortable. Hyperventilating. HEAD: Atraumatic, normocephalic. EYES: Pupils equal round and reactive to light, extraocular movements intact, sclera anicteric, conjunctiva are normal. ENT: nares patent, oropharynx clear without exudates. Moist mucous membranes. NECK: Normal range of motion, supple without lymphadenopathy LUNGS: Breath sounds clear to auscultation bilaterally and equal. No wheezes rales or rhonchi. HEART: Regular rate and rhythm without murmurs ABDOMEN: Soft, nontender, normoactive bowel sounds. No guarding, no rebound. No masses appreciated. : Prolapsed uterus. EXTREMITIES: Normal range of motion. No cyanosis. Chronic right diabetic heel ulcer without drainage or surrounding erythema. BACK: No midline or paraspinal tenderness. NEUROLOGICAL: Cranial nerves grossly intact. Normal speech, normal gait. Normal sensory and motor exams. PSYCH: Anxious affect. Course - Re-evaluation Re-evalutation: Pt with acute low back pain that is worse when she moves. There are no red flag signs for low back pain at this time. Exam is difficult due to body habitus and patient initially hyperventilating with an elevated lactate. CT A/P and blood work does not show any evidence of emergent abnormalities. Gentle hydration provided by patient and lactate normalized on repeat and after she became less anxious. She feels much better after medications and is able to ambulate using her home walker. Talked to family about pain control and following-up with her primary care physician. She already has home PT and OT. Her diabetic foot wound does not appear acutely infected. Given very strict return precautions and she understands. - Vital Signs Vital signs: Temp Pulse Resp BP Pulse Ox 97.8 F 76 28 H 119/63 100 12/21/17 18:28 12/21/17 17:44 12/21/17 19:01 12/21/17 19:00 12/21/17 19:01 - Laboratory Result Diagrams: 12/21/17 18:14 12/21/17 18:14 Laboratory results interpreted by me: 12/21/17 12/21/17 12/21/17 18:14 18:14 18:14 Hgb 9.9 L Hct 30.2 L MCH 26.5 L RDW 15.9 H VBG pH VBG pCO2 Sodium 131.6 L Chloride 95 L Carbon Dioxide 20 L BUN 56 H Creatinine 1.94 H Est GFR ( Amer) 31 L Est GFR (Non-Af Amer) 26 L Glucose 146 H Lactic Acid NT-Pro-B Natriuret Pep 1000 H Urine Protein 12/21/17 12/21/17 12/21/17 18:14 18:14 21:31 Hgb Hct MCH RDW VBG pH 7.53 H VBG pCO2 25.7 L Sodium Chloride Carbon Dioxide BUN Creatinine Est GFR ( Amer) Est GFR (Non-Af Amer) Glucose Lactic Acid 4.2 H NT-Pro-B Natriuret Pep Urine Protein 100 H - Diagnostic Test Radiology reviewed: Image reviewed, Reports reviewed Radiology results interpreted by me: CXR: NAD Lumbar x-ray: Anterolisthesis of L4 on L5. Scoliosis. Degenerative disc disease. Facet arthropathy. - EKG Interpretation by Me EKG shows normal: Sinus rhythm, [place], Intervals, QRS Complexes, ST-T Waves Rate: Normal Discharge - Discharge Clinical Impression: Low back pain Qualifiers: Chronicity: acute Back pain laterality: unspecified Sciatica presence: without sciatica Qualified Code(s): M54.5 - Low back pain Condition: Stable Disposition: HOME, SELF-CARE Additional Instructions: LOW BACK PAIN: Three out of every four people will have an episode of disabling back pain during their lifetime. Most commonly the pain is due to straining of the muscles and ligaments in the low back. Usual treatment includes: (1) Rest on a firm surface. Avoid lying on your stomach. (2) Ice pack the painful area. After a few days, gentle heat may be used intermittently to relax the area, or ice packs can be continued. (3) Medication may be needed -- muscle relaxers and antiinflammatory medicines are commonly used. (4) As the back improves, exercises are prescribed to strengthen the back and abdominal muscles. Your doctor will advise you on the proper care for your back at each stage in your recovery. You may be better in a few days -- or healing may take several weeks. If new symptoms of a "herniated disc" (radiation of pain, numbness, or tingling down the back of the leg or weakness in the leg) occur, you should be re-examined. Further testing may be necessary. PAIN MEDICATION INJECTION: You have received an injection of a pain medication. You should experience significant pain relief within 45 minutes. If this injection was a narcotic -- it will impair your judgement, slow your reaction time and make you sleepy (as well as relieve your pain). Narcotics also can cause nausea. You should not drive, work with machinery, or perform any task requiring mental alertness until all effects of the medication are gone -- six to eight hours. Do not take any alcohol, or sedatives, and do not take any other medication without checking with your physician. MUSCLE RELAXERS: Muscle relaxing medications are usually prescribed for acute muscle spasm or injury to the neck and back. They are often combined with antiinflammatory pain medication for increased relief. You may stop the muscle relaxer when the pain and stiffness have improved. Start the medication again if spasms recur. Muscle relaxers may cause drowsiness, especially with the first dose. Do not operate machinery or drive while under the effects of the medication. Most muscle relaxers last up to 24 hours. Do not combine the medication with alcohol. ICE PACKS: Apply ice packs frequently against the painful area. Many different schedules are recommended, such as "20 minutes on, 20 minutes off" or "one hour ice, two hours rest." If you need to work, you may need to go longer between ice treatments. You should plan to have the area ice packed AT LEAST one fourth of the time. The ice should be applied over the wrap, tape, or splint, or over a layer of cloth -- not directly against the skin. Some ice bags have a built-in cloth and can be put directly on the skin. WARM PACKS: After approximately two days, apply gentle heat (such as a heating pad or hot water bottle) for about 20 to 30 minutes about every two hours -- at least four times daily. Warmth and elevation will help you make a more rapid recovery , and will ease the pain considerably. Do not use HOT heat, and never apply heat for longer than 30 minutes. The continuous heat can invisibly damage skin and muscles -- even when no burn is seen on the surface. Damaged muscles can make you MORE sore. FOLLOW-UP CARE: If you have been referred to a physician for follow-up care, call the physician s office for an appointment as you were instructed or within the next two days. If you experience worsening or a significant change in your symptoms, notify the physician immediately or return to the Emergency Department at any time for re-evaluation. Prescriptions: Diclofenac Sodium [Voltaren] 100 gm TP Q8H PRN #100 gel..gram. PRN Reason: Lidocaine [Lidoderm 5% (700 mg) Transdermal Patch] 1 patch TP DAILY #10 adh..patch Tizanidine HCl [Zanaflex 4 Mg Tablet] 4 mg PO Q8H PRN #15 tablet PRN Reason: Referrals: ROSINA PRICE PA-C [Primary Care Provider] - Follow up as needed
[2017-12-21 19:34] LABS: CREATINE KINASE MB 1.25 ng/mL (<4.55); NT PRO BNP 1000 pg/mL (5-900)
[2017-12-21 19:35] LABS: TROPONIN I < 0.012 ng/mL
[2017-12-21] MEDS ORDERED: NORMAL SALINE 1000 ML 1,000 ML IV ONE (19:40)
--- NOTE | 2017-12-21 20:30 | RADIOLOGY REPORT (SQ) ---
EXAM DESCRIPTION: CT ABD/PELVIS NO ORAL OR IV COMPLETED DATE/TIME: 12/21/2017 8:18 pm REASON FOR STUDY: septic COMPARISON: None. TECHNIQUE: CT scan of the abdomen and pelvis performed without intravenous or oral contrast. Images reviewed with lung, soft tissue, and bone windows. Reconstructed coronal and sagittal MPR images revi ewed. All images stored on PACS. All CT scanners at this facility use dose modulation, iterative reconstruction, and/or weight based d osing when appropriate to reduce radiation dose to as low as reasonably achievable (ALARA). [facility]: Dose Right [facility]: CareDose [facility]: Dose Right [facility]: Teradose 4D [facility]: Smart Technologies RADIATION DOSE: CT Rad equipment meets quality standard of care and radiation dose reduction techniq ues were employed. CTDIvol: 26.9 mGy. DLP: 1407 mGy-cm.mGy. LIMITATIONS: None. FINDINGS: LOWER CHEST: No significant findings. No nodules or infiltrates. NON-CONTRASTED LIVER, SPLEEN, ADRENALS: Evaluation limited by lack of IV contrast. No identified sign ificant masses. PANCREAS: No masses. No peripancreatic inflammatory changes. GALLBLADDER: Low-density gallstones are suggested. There is no ductal dilatation. RIGHT KIDNEY AND URETER: No suspicious masses. Assessment limited by lack of IV contrast. No signif icant calcifications. No hydronephrosis or hydroureter. LEFT KIDNEY AND URETER: No suspicious masses. Assessment limited by lack of IV contrast. No signifi cant calcifications. No hydronephrosis or hydroureter. AORTA AND RETROPERITONEUM: No aneurysm. No retroperitoneal masses or adenopathy. BOWEL AND PERITONEAL CAVITY: Sigmoid diverticulosis coli. No acute inflammatory changes. No masses. APPENDIX: Normal. PELVIS, BLADDER, AND ABDOMINAL WALL:Urinary bladder is normal. Uterus is absent. BONES: Scoliosis, degenerative disc changes. OTHER: No other significant finding. IMPRESSION: 1. There appear to be some low-density gallstones. There is no ductal dilatation. 2. Diverticulosis coli. 3. Scoliosis and degenerative disc changes in the lumbar spine. COMMENT: Quality ID # [id number]: Final reports with documentation of one or more dose reduction techniques (e.g., Automated exposure control, adjustment of the mA and/or kV according to patient size, use of iterative reconstruction technique) TECHNICAL DOCUMENTATION: JOB ID: [id number]- All Rights Reserved Reading location - IP/workstation name: [email or web address]
[2017-12-21] MEDS ORDERED: DIAZEPAM INJ 10 MG/2 ML DISP.SYRIN IV ONE (20:55)
--- NOTE | 2017-12-21 21:22 | RADIOLOGY REPORT (SQ) ---
EXAM DESCRIPTION: U/S ABDOMEN LIMITED W/O DOP COMPLETED DATE/TIME: 12/21/2017 8:56 pm REASON FOR STUDY: RUQ tenderness, N/V COMPARISON: 12/13/2017 TECHNIQUE: Dynamic and static grayscale images acquired of the abdomen and recorded on PACS. Rodney mejia selected color Doppler and spectral images recorded. LIMITATIONS: None. FINDINGS: PANCREAS: No masses. Visualized pancreatic duct normal caliber. LIVER: 17.1 cm. Normal echotexture. LIVER VASCULATURE: Portal vein not seen. GALLBLADDER: Gallstones. No thickening of the gallbladder wall. No pericholecystic fluid. ULTRASOUND-DETECTED ALFARO'S SIGN: Positive. INTRAHEPATIC DUCTS AND COMMON DUCT: CBD and intrahepatic ducts normal caliber. No filling defects. INFERIOR VENA CAVA: Not seen AORTA: Not well seen. No aneurysm the proximal or distal abdominal aorta. RIGHT KIDNEY: Normal size, 11.3 cm. Normal echogenicity. No solid or suspicious masses. No hydroneph rosis. No calcifications. PERITONEAL AND RIGHT PLEURAL SPACE: No ascites or effusions. OTHER: No other significant findings. IMPRESSION: Cholelithiasis with a positive sonographic Alfaro sign. There is no wall thickening or pericholecystic fluid. TECHNICAL DOCUMENTATION: JOB ID: [id number] [employer]- All Rights Reserved Reading location - IP/workstation name: [email or web address]
[2017-12-21 22:03] LABS: AMORPHOUS SEDIMENT,URINE TRACE /HPF; APPEARANCE,URINE SLIGHTLY-CLOUDY; BILIRUBIN,URINE NEGATIVE (NEGATIVE); COLOR,URINE YELLOW; GLUCOSE, URINE NEGATIVE (NEGATIVE); KETONES,URINE NEGATIVE (NEGATIVE); LEUKOCYTE ESTERASE,URINE NEGATIVE (NEGATIVE); NITRITE,URINE NEGATIVE (NEGATIVE); PROTEIN,URINE 100 mg/dL (NEGATIVE); URINE SPECIFIC GRAVITY 1.009; UROBILINOGEN,URINE NEGATIVE mg/dL (<2.0)
--- NOTE | 2017-12-21 22:19 | EKG REPORT ---
SEVERITY:- ABNORMAL ECG - SINUS RHYTHM MULTIPLE ATRIAL PREMATURE COMPLEXES NONSPECIFIC T ABNORMALITIES, LATERAL LEADS : Confirmed by: Brice Flores 21-Dec-2017 22:18:57
[2017-12-21 22:40] VITALS: BP 150/70
== END 2017-12-22 00:52 | disposition home or self-care (01) ==
LOC: ER 17:38
DX: M54.5 Low back pain (principal); R06.02 Shortness of breath; E11.621 Type 2 diabetes mellitus with foot ulcer; I50.9 Heart failure, unspecified; I11.0 Hypertensive heart disease with heart failure; E78.00 Pure hypercholesterolemia, unspecified; R60.9 Edema, unspecified
CPT/HCPCS: 93005; 99285; 96361; 96374; 96375; 36415; 87040; 87070; 87205; 82553; 82962; 82550; 85025; 87077; 80053; 81001; 84484; 87186; 82803; 83605; 83880; 71046; 72110; 76705; 74176; 93010; J3360; J2270; J2405; J7030

== ENCOUNTER 2018-01-24 13:08 | Inpatient (IN) | payer MEDICARE, MEDICAID ==
--- NOTE | 2018-01-24 13:51 | ER Document Report ---
ED Medical Screen (RME) - General Chief Complaint: Nausea/Vomiting/Diarrhea Stated Complaint: VOMITING Time Seen by Provider: 01/24/18 13:42 Notes: RAPID MEDICAL EVALUATION DISCLOSURE I have seen this patient as part of a Rapid Medical Evaluation and, if applicable, placed any initially appropriate orders. The patient will be seen and fully evaluated, including a full history and physical exam, by a provider ( in Main ED or Fast Track) when a room becomes available. 67-year-old female here with 4-6 weeks of nausea vomiting diarrhea and generalized weakness progressively worsening. Today she had an episode of syncope less than 1 minute approximately 3 hours ago. Patient denies that she had any odell-ictal chest pain shortness of breath headache. EMS gave her 4 mg Zofran and she no longer has nausea. She has been seen here in the past and per chart review had a CT scan that showed cholelithiasis and a subsequent gallbladder ultrasound that showed cholelithiasis but no cholecystitis. She denies nausea abdominal pain at this time. EXAM No abdominal TTP TRAVEL OUTSIDE OF THE [place] IN LAST 30 DAYS: No - Related Data Allergies/Adverse Reactions: iodine [Iodine] Allergy (Verified 01/24/18 13:22) Past Medical History - Social History Chew tobacco use (# tins/day): No Frequency of alcohol use: None Drug Abuse: None - Past Medical History Cardiac Medical History: Reports: Hx Congestive Heart Failure, Hx Hypercholesterolemia, Hx Hypertension Denies: Hx Coronary Artery Disease Neurological Medical History: Denies: Hx Seizures Endocrine Medical History: Reports: Hx Diabetes Mellitus Type 2 Renal/ Medical History: Denies: Hx Peritoneal Dialysis Musculoskeltal Medical History: Reports Hx Arthritis Past Surgical History: Denies: Hx Hysterectomy - Immunizations History of Influenza Vaccine for 06/2017 - 11/2017 Season: No Physical Exam - Vital signs Vitals: Temp Pulse Resp BP Pulse Ox 98.5 F 81 22 H 116/62 99 01/24/18 13:13 01/24/18 13:13 01/24/18 13:13 01/24/18 13:13 01/24/18 13:13 Course - Vital Signs Vital signs: Temp Pulse Resp BP Pulse Ox 98.5 F 81 22 H 116/62 99 01/24/18 13:13 01/24/18 13:13 01/24/18 13:13 01/24/18 13:13 01/24/18 13:13
[2018-01-24 14:23] LABS: ABSOLUTE EOSINOPHILS # (AUTO) 0.3 10^3/uL (0.0-0.6); ABSOLUTE LYMPHOCYTES (AUTO) 0.8 10^3/uL (0.5-4.7); ABSOLUTE MONOCYTES (AUTO) 0.4 10^3/uL (0.1-1.4); ABSOLUTE NEUT (AUTO) 5.9 10^3/uL (1.7-8.2); BASOPHILS % (AUTO) 0.6 % (0-2); HEMATOCRIT 30.4 % (36.0-47.0); HEMOGLOBIN 10.1 g/dL (12.0-15.5); LYMPHOCYTES % (AUTO) 10.2 % (13-45); MEAN CORPUSCULAR HEMOGLOBIN 26.9 pg (27.0-33.4); MEAN CORPUSCULAR HGB CONC 33.3 g/dL (32.0-36.0); MEAN CORPUSCULAR VOLUME 81 fl (80-97); PLATELET COUNT 384 10^3/uL (150-450); RED BLOOD COUNT 3.77 10^6/uL (3.72-5.28); RED CELL DISTRIBUTION WIDTH 17.4 % (11.5-14.0); SEGMENTED NEUTROPHILS % (AUTO) 79.2 % (42-78); TOTAL CELLS COUNTED % (AUTO) 100 %; WHITE BLOOD COUNT 7.5 10^3/uL (4.0-10.5)
[2018-01-24 14:44] LABS: ALANINE AMINOTRANSFERASE 17 U/L (9-52); ALKALINE PHOSPHATASE 87 U/L (38-126); ASPARTATE AMINO TRANSFERASE 18 U/L (14-36); BILIRUBIN,DIRECT 0.4 mg/dL (0.0-0.4); BILIRUBIN,TOTAL 0.5 mg/dL (0.2-1.3); BLOOD UREA NITROGEN 68 mg/dL (7-20); CALCIUM 9.9 mg/dL (8.4-10.2); GLUCOSE 110 mg/dL (75-110); LIPASE 134.4 U/L (23-300); POTASSIUM 5.8 mmol/L (3.6-5.0); TOTAL PROTEIN 7.5 g/dL (6.3-8.2)
[2018-01-24 14:49] LABS: CARBON DIOXIDE 14 mmol/L (22-30); CHLORIDE 103 mmol/L (98-107); SODIUM 137.3 mmol/L (137-145)
[2018-01-24 14:52] LABS: ANION GAP 20 (5-19)
--- NOTE | 2018-01-24 15:02 | RADIOLOGY REPORT (SQ) ---
EXAM DESCRIPTION: ACUTE ABDOMEN SERIES COMPLETED DATE/TIME: 01/24/2018 2:47 pm REASON FOR STUDY: syncope COMPARISON: CT abdomen pelvis 12/21/2017, 12/12/2017 Right upper quadrant ultrasound 12/21/2017, 10/30/2017 Chest film 12/21/2017 Gastric emptying study 12/16/2017 Hepatobiliary scan 12/14/2017 NUMBER OF VIEWS: Three views. TECHNIQUE: Frontal chest, supine abdomen and upright abdomen radiographic images acquired. LIMITATIONS: None. FINDINGS: CHEST: Minimal scarring or atelectasis in the left lateral costophrenic sulcus. No fluffy alveolar infiltrates worrisome for edema or pneumonia. No pleural effusion. No pneumothorax. No c ardiomegaly. Calcific tendinopathy both shoulders. FREE AIR: None. No abnormal gas collections. BOWEL GAS PATTERN: Nonobstructive pattern. No dilated loops or air fluid levels. CALCIFICATIONS: Calcified pelvic phleboliths HARDWARE: None in the abdomen. SOFT TISSUES: No gross mass or suggestion of organomegaly. BONES: No acute fracture. SI joint vacuum phenomenon. Degenerative disc changes lower lumbar spine. Enthesophytes along the iliac crests and proximal femurs. OTHER: No other significant finding. IMPRESSION: Nonobstructive bowel gas pattern Minimal left lateral costophrenic sulcus atelectasis or scarring TECHNICAL DOCUMENTATION: JOB ID: [id number]- All Rights Reserved Reading location - IP/workstation name: [email or web address]
[2018-01-24] MEDS ORDERED: NORMAL SALINE 1000 ML 1,000 ML IV ONE (15:57)
--- NOTE | 2018-01-24 16:06 | ER Document Report ---
ED GI/ - General Chief Complaint: Nausea/Vomiting/Diarrhea Stated Complaint: VOMITING Time Seen by Provider: 01/24/18 13:42 Information source: Patient Notes: Patient is a 67-year-old female with past medical history as recorded including stage III kidney disease, diabetes, diverticulitis, high blood pressure, followed by the primary care physician Dr. Rivera who states 2-3 weeks of some intermittent vomiting and diarrhea. She also states some mild abdominal diffuse tenderness prior to bowel movement. She denies any recent antibiotics, trips or travel. She denies any fevers, chest pain, or flank pain. She states mild dysuria. She states she has been admitted in October for congestive heart failure as well as for vomiting and diarrhea subsequently. She states she has had multiple tests showing no obvious acute pathology except for gallstones. She states that they told her that she did not need an operation for these gallstones. She denies any blood in the vomit or diarrhea. She states she vomited around 3 times today. She states the diarrhea has improved with Imodium over this last week. She states her bowel movement today was " more formed". TRAVEL OUTSIDE OF THE [place] IN LAST 30 DAYS: No - HPI Patient complains to provider of: Other - See above Onset: Other - See above Timing/Duration: Sudden Quality of pain: Achy Severity at maximum: Mild Severity in ED: None Pain Level: Denies Location: Other - See above Sexual history: Inactive Associated symptoms: Other - See above Exacerbated by: Denies Relieved by: Denies Similar symptoms previously: Yes Recently seen / treated by doctor: Yes - Related Data Allergies/Adverse Reactions: iodine [Iodine] Allergy (Verified 01/24/18 13:22) Past Medical History - General Information source: Patient - Social History Smoking Status: Unknown if Ever Smoked Cigarette use (# per day): No Chew tobacco use (# tins/day): No Smoking Education Provided: No Frequency of alcohol use: None Drug Abuse: None Family History: Reviewed & Not Pertinent, Hypertension Patient has suicidal ideation: No Patient has homicidal ideation: No - Past Medical History Cardiac Medical History: Reports: Hx Congestive Heart Failure, Hx Hypercholesterolemia, Hx Hypertension Denies: Hx Coronary Artery Disease Neurological Medical History: Denies: Hx Seizures Endocrine Medical History: Reports: Hx Diabetes Mellitus Type 2 Renal/ Medical History: Denies: Hx Peritoneal Dialysis Musculoskeltal Medical History: Reports Hx Arthritis Past Surgical History: Denies: Hx Hysterectomy Review of Systems - Review of Systems Constitutional: denies: Fever EENT: denies: Eye discharge, Nose discharge Cardiovascular: denies: Chest pain, Palpitations Respiratory: denies: Short of breath Gastrointestinal: Vomiting Genitourinary: Dysuria Musculoskeletal: denies: Leg swelling Skin: Other - no hives. denies: Rash Neurological/Psychological: Other - no slurred speech -: Yes All other systems reviewed and negative Physical Exam - Vital signs Vitals: Temp Pulse Resp BP Pulse Ox 98.5 F 81 22 H 116/62 99 01/24/18 13:13 01/24/18 13:13 01/24/18 13:13 01/24/18 13:13 01/24/18 13:13 Notes: Reviewed vital signs and nursing note as charted by RN. CONSTITUTIONAL: Alert and oriented and responds appropriately to questions. Well -appearing; well-nourished HEAD: Normocephalic; atraumatic EYES: PERRL; sclerae non-icteric ENT: Normal nose; no rhinorrhea; moist mucous membranes NECK: Supple without meningismus; non-tender; no cervical lymphadenopathy CARD: Regular rate and rhythm; no murmurs RESP: Normal chest excursion without splinting or tachypnea; breath sounds clear and equal bilaterally ABD/GI: Normal bowel sounds; elevated BMI; soft, non-tender to deep palpation of all 4 quadrants of the abdomen including no right upper quadrant tenderness BACK: The back appears normal and is non-tender to palpation EXT: Normal ROM in all joints; non-tender to palpation, no edema NEURO: Moves all extremities equally; Motor and sensory function intact PSYCH: The patient's mood and manner are appropriate. Grooming and personal hygiene are appropriate. Course - Re-evaluation Re-evalutation: 01/24/18 16:04 Given the above history and physical examination, basic labs, liver panel, lipase, and a CT scan of the abdomen and pelvis were performed. I also ordered stool studies to evaluate the patient's chronic appearing diarrhea. EKG and troponin were ordered in triage. EKG shows a heart rate of 80, normal sinus rhythm, LVH, no obvious ST elevation or depression. Inverted T waves in leads I, aVL, V5 and V6 Labs and troponin as recorded. Urinalysis and stool studies are pending. Patient's creatinine and potassium as recorded. A liter of fluid has been provided. Patient has a history of chronic kidney disease. Her creatinine at discharge on previous admission was 1.7. Patient supposedly had a baseline of 1.4. A liter of fluid has been started. During last admission it appears that the patient was noted to have a gallstone in the gallbladder after initial ultrasound on last evaluation was negative. HIDA scan was unremarkable. Gastric flow study was unremarkable. 01/24/18 17:15 On reexamination while they were attempting to perform a urine catheterization, it appears that the patient has a very large prolapsed uterus. She states that she was aware of this in the past. She does state it intermittently extrudes. I have tried to apply gentle pressure with no retraction whatsoever. I have called and spoken to the DENTAL TECHNICIAN APPRENTICE Dr. Best to come and evaluate the patient. She has politely stated she will be down in around 20-30 minutes. 01/24/18 17:48 Dr. Best is come and evaluated the patient. She states she is able to reduce the prolapse. She states that she is happy to consult on the service. The patient is having no urinary retention. Urine analysis shows no obvious infection. I have called and spoken directly to Dr. Madrigal the radiologist who has reviewed the CT scan. He states that there is no obvious obstruction. No obvious urinary retention. No diverticulitis noted. He states the patient still has the gallstones noted on previous imaging. Given the patient's elevated creatinine, I did call the patient's cage operator Dr. Alvarado once again. We will hydrate the patient gently given her heart failure and reassess. DENTAL TECHNICIAN APPRENTICE states that they will consult on the patient. 01/24/18 17:59 I have spoken to Dr. Alvarado who is comfortable with the patient being admitted to this location. - Vital Signs Vital signs: Temp Pulse Resp BP Pulse Ox 98.5 F 81 22 H 116/62 99 01/24/18 13:13 01/24/18 13:13 01/24/18 13:13 01/24/18 13:13 01/24/18 13:13 - Laboratory Result Diagrams: 01/24/18 13:56 01/24/18 13:56 Laboratory results interpreted by me: 01/24/18 01/24/18 01/24/18 13:56 13:56 17:14 Hgb 10.1 L Hct 30.4 L MCH 26.9 L RDW 17.4 H Seg Neutrophils % 79.2 H Lymphocytes % 10.2 L Potassium 5.8 H Carbon Dioxide 14 L Anion Gap 20 H BUN 68 H Creatinine 2.59 H Est GFR ( Amer) 22 L Est GFR (Non-Af Amer) 18 L Phosphorus 5.0 H Urine Protein 30 H Discharge - Discharge Clinical Impression: Vomiting and diarrhea, Uterine prolapse Acute renal failure (ARF) Qualifiers: Acute renal failure type: unspecified Qualified Code(s): N17.9 - Acute kidney failure, unspecified Condition: Fair Disposition: ADMITTED INPATIENT Admitting Provider: Hospitalist Unit Admitted: Telemetry Referrals: ROSINA PRICE PA-C [Primary Care Provider] - Follow up as needed
[2018-01-24 17:28] LABS: AMORPHOUS SEDIMENT,URINE TRACE /HPF; APPEARANCE,URINE SLIGHTLY-CLOUDY; BILIRUBIN,URINE NEGATIVE (NEGATIVE); COLOR,URINE YELLOW; GLUCOSE, URINE NEGATIVE (NEGATIVE); KETONES,URINE NEGATIVE (NEGATIVE); LEUKOCYTE ESTERASE,URINE NEGATIVE (NEGATIVE); NITRITE,URINE NEGATIVE (NEGATIVE); PROTEIN,URINE 30 mg/dL (NEGATIVE); URINE SPECIFIC GRAVITY 1.011; UROBILINOGEN,URINE NEGATIVE mg/dL (<2.0)
--- NOTE | 2018-01-24 18:06 | RADIOLOGY REPORT (SQ) ---
EXAM DESCRIPTION: CT ABD/PELVIS NO ORAL OR IV COMPLETED DATE/TIME: 01/24/2018 5:50 pm REASON FOR STUDY: 20, vomiting and diarrhea COMPARISON: 12/21/2017 TECHNIQUE: CT scan of the abdomen and pelvis performed without intravenous or oral contrast. Images reviewed with lung, soft tissue, and bone windows. Reconstructed coronal and sagittal MPR images revi ewed. All images stored on PACS. All CT scanners at this facility use dose modulation, iterative reconstruction, and/or weight based d osing when appropriate to reduce radiation dose to as low as reasonably achievable (ALARA). [facility]: Dose Right [facility]: CareDose [facility]: Dose Right [facility]: Teradose 4D [facility]: Smart [employer] Systems RADIATION DOSE: CT Rad equipment meets quality standard of care and radiation dose reduction techniq ues were employed. CTDIvol: 19.4 mGy. DLP: 1173 mGy-cm.mGy. LIMITATIONS: None. FINDINGS: LOWER CHEST: 4 mm pulmonary nodule left lower lobe. Interval portions of the lungs are ot herwise clear. NON-CONTRASTED LIVER, SPLEEN, ADRENALS: Evaluation limited by lack of IV contrast. No identified sign ificant masses. PANCREAS: No masses. No peripancreatic inflammatory changes. GALLBLADDER: Gallstones. No inflammatory changes to suggest cholecystitis. RIGHT KIDNEY AND URETER: No suspicious masses. Assessment limited by lack of IV contrast. No signif icant calcifications. No hydronephrosis or hydroureter. LEFT KIDNEY AND URETER: No suspicious masses. Assessment limited by lack of IV contrast. No signifi cant calcifications. No hydronephrosis or hydroureter. AORTA AND RETROPERITONEUM: No aneurysm. No retroperitoneal masses or adenopathy. BOWEL AND PERITONEAL CAVITY: Scattered colonic diverticula. No obvious masses or inflammatory change s. No free fluid. APPENDIX: Normal. PELVIS, BLADDER, AND ABDOMINAL WALL:No abnormal masses. No free fluid. Prolapsed uterus. A small po rtion of the bladder is also prolapsed without evidence of urinary outlet obstruction. Tiny fat cont aining periumbilical hernia. BONES: Stable degenerative change without fracture or suspicious osseous lesion. OTHER: No other significant finding. IMPRESSION: NO ACUTE FINDINGS WITHIN THE ABDOMEN OR PELVIS. NO SIGNIFICANT CHANGE COMPARED TO PRIOR STUDY INCLUDING CHOLELITHIASIS, DIVERTICULOSIS, AND PROLAPSED UTERUS. COMMENT: Quality ID # [id number]: Final reports with documentation of one or more dose reduction techniques (e.g., Automated exposure control, adjustment of the mA and/or kV according to patient size, use of iterative reconstruction technique) TECHNICAL DOCUMENTATION: JOB ID: [id number] [employer]- All Rights Reserved Reading location - IP/workstation name: [email or web address]
--- NOTE | 2018-01-24 18:24 | PDOC CONSULTATION ---
Consultation Consult Date: 01/24/18 Attending physician:: FABIAN HATCH Consult reason:: possible prolapse uterus History of Present Illness Admission Date/PCP: ROSINA PRICE PA-C Patient complains of: vomiting, diarrhea, abdominal pain. History of Present Illness: DOM ADAMS is a 67-year-old female with past medical history as recorded including stage III kidney disease, diabetes, diverticulitis, high blood pressure, followed by the primary care physician Dr. Thomas (?) who states 2-3 weeks of some intermittent vomiting and diarrhea. She reports that she was last able to tolerate po intake with Ensure this am at 0700ish. She also states some mild abdominal diffuse tenderness prior to bowel movement. She denies any recent antibiotics, trips or travel. She denies any fevers, chest pain, or flank pain. She states mild dysuria but reports that she is voiding normally. She reports that she only has mild pressure in vaginal area. She states she has been admitted in October for congestive heart failure as well as for vomiting and diarrhea subsequently. She states she has had multiple tests showing no obvious acute pathology except for gallstones. She states that they told her that she did not need an operation for these gallstones. She denies any blood in the vomit or diarrhea. She states she vomited around 3 times today and reports sometimes more. She states the diarrhea has improved with Imodium over this last week. She states her bowel movement today was " more formed". She is menopausal and reports that she has not had any postmenopausal vaginal bleeding. Past Medical History Gynecological Infection: No Cardiac Medical History: Reports: Congestive Heart Failure, Hyperlipidema, Hypertension Denies: Coronary Artery Disease Neurological Medical History: Denies: Seizures Endocrine Medical History: Reports: Diabetes Mellitus Type 2 Renal/ Medical History: Reports: Chronic Kidney Disease Malignancy Medical History: Reports: None GI Medical History: Reports: Diverticulitis Musculoskeltal Medical History: Reports: Arthritis Social History Information Source: Patient, Emergency Med Personnel, [facility] Records Lives with: Alone Smoking Status: Unknown if Ever Smoked Frequency of Alcohol Use: None Hx Recreational Drug Use: No Drugs: None Hx Prescription Drug Abuse: No - Advance Directive Resuscitation Status: Full Code Family History Family History: Reviewed & Not Pertinent, Hypertension Parental Family History Reviewed: No Children Family History Reviewed: NA Sibling(s) Family History Reviewed.: NA Medication/Allergy Home Medications: Atorvastatin Calcium [Lipitor 40 mg Tablet] 40 mg PO QHS 12/13/17 Clonidine HCl [Catapres 0.1 mg Tablet] 0.1 mg PO Q12 12/13/17 Furosemide [Lasix 40 mg Tablet] 40 mg PO DAILY 12/13/17 Hydralazine HCl [Apresoline 50 mg Tablet] 100 mg PO Q8 12/13/17 Lisinopril [Prinivil 10 mg Tablet] 10 mg PO DAILY 12/13/17 Metolazone [Zaroxolyn 5 mg Tablet] 5 mg PO DAILY 12/13/17 Polyethylene Glycol 3350 [Miralax Powder 17 gm/Packet] 17 gm PO DAILY 12/13/17 Labetalol HCl [Normodyne 200 mg Tablet] 200 mg PO Q8 #90 tablet 12/16/17 Nifedipine [Procardia XL 60 mg Tablet] 60 mg PO DAILY #60 tab.er.24 12/16/17 Diclofenac Sodium [Voltaren] 100 gm TP Q8H PRN #100 gel..gram. 12/21/17 Lidocaine [Lidoderm 5% (700 mg) Transdermal Patch] 1 patch TP DAILY #10 adh..patch 12/21/17 Tizanidine HCl [Zanaflex 4 Mg Tablet] 4 mg PO Q8H PRN #15 tablet 12/21/17 Allergies/Adverse Reactions: iodine [Iodine] Allergy (Verified 01/24/18 13:22) Review of Systems Constitutional: PRESENT: weakness. ABSENT: chills, fatigue, fever(s) Cardiovascular: PRESENT: as per HPI Respiratory: ABSENT: cough, dyspnea Gastrointestinal: PRESENT: abdominal pain, diarrhea, nausea, vomiting. ABSENT: constipation, hematemesis, hematochezia, melena Genitourinary: PRESENT: dysuria. ABSENT: difficulty urinating, hematuria Musculoskeletal: ABSENT: joint swelling Integumentary: ABSENT: wounds Neurological: PRESENT: as per HPI, other - pt examined in [facility] - appears ill Psychiatric: ABSENT: anxiety, depression Endocrine: ABSENT: cold intolerance, heat intolerance, polydipsia, polyuria Hematologic/Lymphatic: ABSENT: easy bleeding, easy bruising Physical Exam - Physical Exam Vital Signs: Temp Pulse Resp BP Pulse Ox 98.5 F 81 22 H 116/62 99 01/24/18 13:13 01/24/18 13:13 01/24/18 13:13 01/24/18 13:13 01/24/18 13:13 Intake & Output 01/23/18 01/24/18 01/25/18 06:59 06:59 06:59 Weight 110 kg General appearance: PRESENT: morbidly obese, well-developed, well-nourished, other - shivering, appears uncomfortable, is able to converse Head exam: PRESENT: atraumatic, normocephalic Respiratory exam: PRESENT: clear to auscultation rona, symmetrical Cardiovascular exam: PRESENT: RRR. ABSENT: diastolic murmur, rubs, systolic murmur GI/Abdominal exam: PRESENT: normal bowel sounds, soft, tenderness - only with replacement of uterus which was easily replaced - then reprolapsed with patient valsalva Rectal exam: PRESENT: deferred Gentrourinary exam: PRESENT: other - uterus and cervix prolapsed in entireity. Uterus easily replaced. When patient valsalva reprolapse occurs Extremities exam: ABSENT: clubbing Neurological exam: PRESENT: alert, awake, oriented to person, oriented to place , oriented to time, oriented to situation, CN II-XII grossly intact. ABSENT: motor sensory deficit Psychiatric exam: PRESENT: appropriate affect Result Laboratory Results: 01/24/18 13:56 01/24/18 13:56 01/24/18 01/24/18 01/24/18 13:56 13:56 13:56 WBC 7.5 RBC 3.77 Hgb 10.1 L Hct 30.4 L MCV 81 MCH 26.9 L MCHC 33.3 RDW 17.4 H Plt Count 384 Seg Neutrophils % 79.2 H Lymphocytes % 10.2 L Monocytes % 6.0 Eosinophils % 4.0 Basophils % 0.6 Absolute Neutrophils 5.9 Absolute Lymphocytes 0.8 Absolute Monocytes 0.4 Absolute Eosinophils 0.3 Absolute Basophils 0.0 Sodium 137.3 Potassium 5.8 H Chloride 103 Carbon Dioxide 14 L Anion Gap 20 H BUN 68 H Creatinine 2.59 H Est GFR ( Amer) 22 L Est GFR (Non-Af Amer) 18 L Glucose 110 Calcium 9.9 Phosphorus 5.0 H Magnesium 1.9 Total Bilirubin 0.5 AST 18 ALT 17 Alkaline Phosphatase 87 Total Protein 7.5 Albumin 4.0 Lipase 134.4 TSH 1.53 Urine Color Urine Appearance Urine pH Ur Specific [place] Urine Protein Urine Glucose (UA) Urine Ketones Urine Blood Urine Nitrite Ur Leukocyte Esterase Urine WBC (Auto) Urine RBC (Auto) 01/24/18 17:14 WBC RBC Hgb Hct MCV MCH MCHC RDW Plt Count Seg Neutrophils % Lymphocytes % Monocytes % Eosinophils % Basophils % Absolute Neutrophils Absolute Lymphocytes Absolute Monocytes Absolute Eosinophils Absolute Basophils Sodium Potassium Chloride Carbon Dioxide Anion Gap BUN Creatinine Est GFR ( Amer) Est GFR (Non-Af Amer) Glucose Calcium Phosphorus Magnesium Total Bilirubin AST ALT Alkaline Phosphatase Total Protein Albumin Lipase TSH Urine Color YELLOW Urine Appearance SLIGHTLY-CLOUDY Urine pH 5.0 Ur Specific [place] 1.011 Urine Protein 30 H Urine Glucose (UA) NEGATIVE Urine Ketones NEGATIVE Urine Blood NEGATIVE Urine Nitrite NEGATIVE Ur Leukocyte Esterase NEGATIVE Urine WBC (Auto) 1 Urine RBC (Auto) 0 01/24/18 13:56 Troponin I < 0.012 Impressions: Acute Abdomen Series 01/24/18 13:49 IMPRESSION: Nonobstructive bowel gas pattern Minimal left lateral costophrenic sulcus atelectasis or scarring Status: Imported from PACS Assessment & Plan - Diagnosis (1) Uterovaginal prolapse, complete Is this a current diagnosis for this admission?: Yes Plan: Patient is still voiding normally per her report. Only reports mild vaginal discomfort and dysuria. CT abd/pelvis done - no urinary or bowel obstruction. Pt with multiple medical issues and not a good surgical candidate at this time. Suspect that based on patients history of this being present as a longstanding issue - that she can usually replace uterus and it replaces itself when she is sitting. She is likely having worsening of her longstanding prolapse with her 3 week history of Nausea and vomiting and diarrhea. Suspect if n/v/d improves that her prolapse will improve. May need pessary for interim to relieve some of symptoms if needed. Will be able to fit patient in office. Other treatment options include: colpocleisis (closure of vagina -if continues to be a poor surgical candidate) versus hysterectomy. Due to medical issues if hysterectomy is needed she may need that performed at tertiary care facility. Pt is going to be admitted to medical service due to her multiple medical issues. Would recommend monitor patients voiding habits and I/O - if patient becomes unable to void then would place urinary catheter. If patient is able to be discharge from medical standpoint in the future (and patient unable to void) then would discharge home with a leg bag and f/u in office if that is necessary - Time Time Spent: 30 to 50 Minutes Critical Time spent with patient: 15-24 minutes Medications reviewed and adjusted accordingly: Yes Anticipated discharge: Home Within: Other - Inpatient Certification Based on my medical assessment, after consideration of the patient's comorbidities, presenting symptoms, or acuity I expect that the services needed warrant INPATIENT care.: Yes I certify that my determination is in accordance with my understanding of Medicare's requirements for reasonable and necessary INPATIENT services [42 CFR 412.3e].: Yes Medical Necessity: Need Close Monitoring Due to Risk of Patient Decompensation, Need For IV Fluids Post Hospital Care: D/C [employer] Programmer Documentation - Plan Summary Plan Summary: will follow if needed.
[2018-01-24] MEDS ORDERED: ACETAMINOPHEN 325 MG TABLET PO PRN (19:28)
[2018-01-24 19:58] LABS: ABSOLUTE RETICS # 0.031 10^6/uL (0.028-0.122); RETICULOCYTE COUNT (AUTO) 0.84 % (0.66-2.85)
--- NOTE | 2018-01-24 20:33 | EKG REPORT ---
SEVERITY:- ABNORMAL ECG - SINUS RHYTHM PROBABLE LVH WITH SECONDARY REPOL ABNRM : Confirmed by: Francisco Triplett MD 24-Jan-2018 20:32:26
[2018-01-24] MEDS ORDERED: GLUCAGON,HUMAN RECOMB 1 MG INJ IM PRN (21:58)
[2018-01-24] MEDS ORDERED: DEXTROSE 50%-WATER 25 GM/50 ML DISP.SYRIN IV PRN ×2 (21:58)
[2018-01-24] MEDS ORDERED: DEXTROSE 40% GEL 15 GM TUBE PO PRN ×2 (21:58)
[2018-01-24] MEDS: HYDRALAZINE HCL 50 MG TABLET PO SCH (23:55)
[2018-01-24] MEDS: HEPARIN SOD (PORCINE) 5,000 UNIT/ML 1 ML SYRINGE SUBCUT SCH (23:55)
[2018-01-24] MEDS: CLONIDINE HCL 0.1 MG TABLET PO SCH (23:56)
[2018-01-24] MEDS: NORMAL SALINE 1000 ML 1,000 ML IV SCH (23:56)
[2018-01-24] MEDS: LABETALOL HCL 200 MG TABLET PO SCH (23:56)
[2018-01-25] MEDS: NORMAL SALINE 1000 ML 1,000 ML IV SCH (04:42)
--- NOTE | 2018-01-25 05:02 | PDOC H&P ---
History of Present Illness Admission Date/PCP: 01/24/18 18:11 ROSINA PRICE PA-C Patient complains of: Abdominal pain nausea vomiting History of Present Illness: DOM ADAMS is a 67 year old female with past medical history of mild to moderate moderate diastolic heart failure, pulmonary hypertension, morbid obesity, stage III chronic kidney disease, anemia, chronic uterine prolapse and diabetes. Patient presents after 2 weeks of nausea vomiting and abdominal pain. In the emergency room she is found to have hypotension of 100/70, acute on chronic renal failure and referred to the hospitalist for admission. Patient has recently had an addition of labetalol and nifedipine. She has continued to take metformin. She denies chest pain, shortness of breath, palpitations, orthopnea or fever. She denies previous episode. Past Medical History Cardiac Medical History: Reports: Congestive Heart Failure, Hyperlipidema, Hypertension Denies: Coronary Artery Disease Neurological Medical History: Denies: Seizures Endocrine Medical History: Reports: Diabetes Mellitus Type 2, Obesity Renal/ Medical History: Reports: Chronic Kidney Disease Malignancy Medical History: Reports: None GI Medical History: Reports: Diverticulitis Musculoskeltal Medical History: Reports: Arthritis Hematology: Reports: Anemia Past Surgical History Past Surgical History: Denies: Hysterectomy Social History Information Source: Patient, [facility] Records Lives with: Alone Smoking Status: Unknown if Ever Smoked Frequency of Alcohol Use: None Hx Recreational Drug Use: No Drugs: None Hx Prescription Drug Abuse: No - Advance Directive Resuscitation Status: Full Code Family History Family History: DM, Hypertension Parental Family History Reviewed: Yes Children Family History Reviewed: Yes Sibling(s) Family History Reviewed.: Yes Medication/Allergy Home Medications: Atorvastatin Calcium [Lipitor 40 mg Tablet] 40 mg PO QHS 12/13/17 Clonidine HCl [Catapres 0.1 mg Tablet] 0.1 mg PO QPM 12/13/17 Furosemide [Lasix 40 mg Tablet] 40 mg PO DAILY 12/13/17 Hydralazine HCl [Apresoline 50 mg Tablet] 50 mg PO BID 12/13/17 Lisinopril [Prinivil 10 mg Tablet] 10 mg PO DAILY 12/13/17 Labetalol HCl [Normodyne 200 mg Tablet] 200 mg PO Q8 #90 tablet 12/16/17 Nifedipine [Procardia XL 60 mg Tablet] 60 mg PO DAILY #60 tab.er.24 12/16/17 Lansoprazole [Prevacid] 30 mg PO DAILY 01/24/18 Metformin HCl [Metformin HCl ER] 1,000 mg PO BID 01/24/18 Metolazone [Zaroxolyn 2.5 Mg Tablet] 2.5 mg PO DAILY 01/24/18 Allergies/Adverse Reactions: iodine [Iodine] Allergy (Verified 01/24/18 13:22) Review of Systems Constitutional: PRESENT: as per HPI, anorexia, fatigue, weakness, weight loss. ABSENT: fever(s) Eyes: ABSENT: visual disturbances Ears: ABSENT: hearing changes Cardiovascular: ABSENT: chest pain, dyspnea on exertion, edema, orthropnea, palpitations Respiratory: ABSENT: cough, hemoptysis Gastrointestinal: PRESENT: as per HPI, abdominal pain, diarrhea, nausea, vomiting. ABSENT: constipation Genitourinary: PRESENT: other - Acute worsening of chronic uterine prolapse secondary to nausea and vomiting. ABSENT: dysuria, hematuria Musculoskeletal: ABSENT: joint swelling Integumentary: ABSENT: rash, wounds Neurological: ABSENT: abnormal gait, abnormal speech, confusion, dizziness, focal weakness, syncope Psychiatric: ABSENT: anxiety, depression, homidical ideation, suicidal ideation Endocrine: PRESENT: as per HPI Physical Exam Vital Signs: Temp Pulse Resp BP Pulse Ox 98.3 F 85 16 116/54 L 96 01/25/18 04:02 01/25/18 04:02 01/25/18 04:02 01/25/18 04:02 01/25/18 04:02 Intake & Output 01/23/18 01/24/18 01/25/18 11:59 11:59 11:59 Weight 110.3 kg General appearance: PRESENT: cooperative, mild distress, morbidly obese. ABSENT : disheveled Head exam: PRESENT: atraumatic, normocephalic Eye exam: PRESENT: conjunctiva pink, EOMI, PERRLA. ABSENT: scleral icterus Ear exam: PRESENT: normal external ear exam Mouth exam: PRESENT: dry mucosa, neck supple. ABSENT: laceration, moist Neck exam: ABSENT: carotid bruit, JVD, lymphadenopathy, thyromegaly Respiratory exam: PRESENT: clear to auscultation rona. ABSENT: rales, rhonchi, wheezes Cardiovascular exam: PRESENT: RRR, tachycardia. ABSENT: diastolic murmur, rubs , systolic murmur Pulses: PRESENT: normal dorsalis pedis pul Vascular exam: PRESENT: normal capillary refill GI/Abdominal exam: PRESENT: normal bowel sounds, soft. ABSENT: distended, guarding, mass, organolmegaly, rebound, tenderness Rectal exam: PRESENT: deferred Gentrourinary exam: PRESENT: other - Uterine prolapse reduced with minimal manual pressure Extremities exam: PRESENT: full ROM. ABSENT: calf tenderness, clubbing, pedal edema Neurological exam: PRESENT: alert, awake, oriented to person, oriented to place , oriented to time, oriented to situation, CN II-XII grossly intact. ABSENT: motor sensory deficit Psychiatric exam: PRESENT: appropriate affect, normal mood. ABSENT: homicidal ideation, suicidal ideation Skin exam: PRESENT: dry, intact, warm. ABSENT: cyanosis, rash Results Impressions: Acute Abdomen Series 01/24/18 13:49 IMPRESSION: Nonobstructive bowel gas pattern Minimal left lateral costophrenic sulcus atelectasis or scarring Abdomen/Pelvis CT 01/24/18 15:59 IMPRESSION: NO ACUTE FINDINGS WITHIN THE ABDOMEN OR PELVIS. NO SIGNIFICANT CHANGE COMPARED TO PRIOR STUDY INCLUDING CHOLELITHIASIS, DIVERTICULOSIS, AND PROLAPSED UTERUS. Assessment & Plan - Diagnosis (1) Hypotension Is this a current diagnosis for this admission?: Yes Plan: Secondary to excessive antihypertensive medication receiving labetalol, nifedipine, lisinopril, hydralazine, clonidine, Lasix and Zaroxolyn. IV fluid challenge resume labetalol followed by lisinopril as tolerated. (2) Acute kidney injury superimposed on chronic kidney disease Is this a current diagnosis for this admission?: Yes Plan: Likely secondary to hypotension, metformin and prerenal azotemia, hold metformin , diuretics IV fluid challenge reevaluate chemistry avoid nephrotoxic meds and doses (3) Anemia Qualifiers: Anemia type: iron deficiency Is this a current diagnosis for this admission?: Yes Plan: Likely secondary to chronic kidney disease, evaluate anemia workup (4) CKD (chronic kidney disease) stage 3, GFR 30-59 ml/min Is this a current diagnosis for this admission?: Yes Plan: Secondary to hypotension, hold antihypertensives, IV fluid challenge. Follow- up chemistry (5) Diabetes Qualifiers: Diabetes mellitus type: type 2 Diabetes mellitus intermodal dispatcher insulin use: without halfway use Diabetes mellitus complication status: with kidney complications Diabetes mellitus complication detail: with chronic kidney disease Chronic kidney disease stage: stage 3 (moderate) Qualified Code(s): E11.22 - Type 2 diabetes mellitus with diabetic chronic kidney disease; N18.3 - Chronic kidney disease, stage 3 (moderate); N18.3 - Chronic kidney disease, stage 3 (moderate) Is this a current diagnosis for this admission?: Yes Plan: Discontinue metformin, education, Humalog sliding scale (6) Uterovaginal prolapse, complete Is this a current diagnosis for this admission?: Yes Plan: MANAGER WEALTH MANAGEMENT consult - Time Time Spent: 50 to 70 Minutes
[2018-01-25 05:45] LABS: ABSOLUTE EOSINOPHILS # (AUTO) 0.4 10^3/uL (0.0-0.6); ABSOLUTE MONOCYTES (AUTO) 0.6 10^3/uL (0.1-1.4); ABSOLUTE NEUT (AUTO) 4.1 10^3/uL (1.7-8.2); BASOPHILS % (AUTO) 0.5 % (0-2); HEMATOCRIT 25.8 % (36.0-47.0); HEMOGLOBIN 8.8 g/dL (12.0-15.5); LYMPHOCYTES % (AUTO) 16.8 % (13-45); MEAN CORPUSCULAR HEMOGLOBIN 27.3 pg (27.0-33.4); MEAN CORPUSCULAR HGB CONC 34.1 g/dL (32.0-36.0); MEAN CORPUSCULAR VOLUME 80 fl (80-97); MONOCYTES % (AUTO) 9.1 % (3-13); PLATELET COUNT 310 10^3/uL (150-450); RED BLOOD COUNT 3.23 10^6/uL (3.72-5.28); RED CELL DISTRIBUTION WIDTH 17.3 % (11.5-14.0); SEGMENTED NEUTROPHILS % (AUTO) 67.6 % (42-78); TOTAL CELLS COUNTED % (AUTO) 100 %; WHITE BLOOD COUNT 6.1 10^3/uL (4.0-10.5)
[2018-01-25] MEDS: LABETALOL HCL 200 MG TABLET PO SCH ×3 (05:56→21:32)
[2018-01-25] MEDS: HYDRALAZINE HCL 50 MG TABLET PO SCH ×2 (05:56→14:04)
[2018-01-25] MEDS: HEPARIN SOD (PORCINE) 5,000 UNIT/ML 1 ML SYRINGE SUBCUT SCH ×3 (05:56→21:32)
[2018-01-25 06:01] LABS: ANION GAP 13 (5-19); BLOOD UREA NITROGEN 64 mg/dL (7-20); CALCIUM 9.2 mg/dL (8.4-10.2); CARBON DIOXIDE 18 mmol/L (22-30); CHLORIDE 111 mmol/L (98-107); GLUCOSE 138 mg/dL (75-110); POTASSIUM 5.3 mmol/L (3.6-5.0); SODIUM 141.7 mmol/L (137-145)
[2018-01-25] MEDS: CLONIDINE HCL 0.1 MG TABLET PO SCH (09:33)
[2018-01-25] MEDS: DOCUSATE SODIUM 100 MG CAPSULE PO SCH ×2 (09:33→17:21)
[2018-01-25] MEDS ORDERED: LISINOPRIL 10 MG TABLET PO SCH (10:00)
[2018-01-25] MEDS: INSULIN LISPRO 100 UNIT/ML 3 ML VIAL SUBCUT PRN ×3 (12:36→21:32)
[2018-01-25] MEDS ORDERED: HYDRALAZINE HCL INJ/PF 20 MG/1 ML SDV IV PRN (16:54)
--- NOTE | 2018-01-25 16:57 | PDOC PROGRESS REPORT ---
Subjective Progress Note for:: 01/25/18 Subjective:: The patient is a 67-year-old female with past medical history significant for diastolic heart failure, pulmonary hypertension, morbid obesity, stage III chronic kidney disease, anemia, chronic uterine prolapse and diabetes who was admitted 01/24/18 for hypotension and acute renal failure. The patient is seen on morning rounds with family member present. She is found lying in bed comfortably on room air. She reports that she is feeling fatigued today but otherwise has no complaints. She denies fever, chills, body aches, chest pain, palpitations, dyspnea, orthopnea, abdominal pain, nausea, vomiting, diarrhea. They have no new questions or concerns today. Reason For Visit: ARF,NAUSEA,VOMITING,ANEMIA,UTERINE PROLAPSE Physical Exam Vital Signs: Temp Pulse Resp BP Pulse Ox 98.1 F 83 20 131/57 H 97 01/25/18 07:44 01/25/18 07:44 01/25/18 07:44 01/25/18 07:44 01/25/18 07:44 Intake & Output 01/24/18 01/25/18 01/26/18 06:59 06:59 06:59 Intake Total 2316 Output Total 900 Balance 1416 Weight 110.3 kg General appearance: PRESENT: no acute distress, obese, well-developed, well- nourished Head exam: PRESENT: atraumatic, normocephalic Eye exam: PRESENT: conjunctiva pink, EOMI, PERRLA. ABSENT: scleral icterus Ear exam: PRESENT: normal external ear exam Mouth exam: PRESENT: moist, tongue midline Neck exam: ABSENT: carotid bruit, JVD, lymphadenopathy, thyromegaly Respiratory exam: PRESENT: clear to auscultation rona, symmetrical, unlabored. ABSENT: rales, rhonchi, wheezes Cardiovascular exam: PRESENT: RRR, +S1, +S2. ABSENT: diastolic murmur, rubs, systolic murmur Pulses: PRESENT: normal dorsalis pedis pul Vascular exam: PRESENT: normal capillary refill GI/Abdominal exam: PRESENT: normal bowel sounds, soft. ABSENT: distended, guarding, mass, organolmegaly, rebound, tenderness Rectal exam: PRESENT: deferred Extremities exam: PRESENT: full ROM. ABSENT: calf tenderness, clubbing, pedal edema Neurological exam: PRESENT: alert, awake, oriented to person, oriented to place , oriented to time, oriented to situation, CN II-XII grossly intact. ABSENT: motor sensory deficit Psychiatric exam: PRESENT: appropriate affect, normal mood. ABSENT: homicidal ideation, suicidal ideation Skin exam: PRESENT: dry, intact, warm. ABSENT: cyanosis, rash Results Laboratory Results: 01/25/18 05:29 01/25/18 05:29 01/25/18 01/25/18 05:29 05:29 WBC 6.1 RBC 3.23 L Hgb 8.8 L Hct 25.8 L MCV 80 MCH 27.3 MCHC 34.1 RDW 17.3 H Plt Count 310 Seg Neutrophils % 67.6 Lymphocytes % 16.8 Monocytes % 9.1 Eosinophils % 6.0 Basophils % 0.5 Absolute Neutrophils 4.1 Absolute Lymphocytes 1.0 Absolute Monocytes 0.6 Absolute Eosinophils 0.4 Absolute Basophils 0.0 Sodium 141.7 Potassium 5.3 H Chloride 111 H Carbon Dioxide 18 L Anion Gap 13 BUN 64 H Creatinine 2.23 H Est GFR ( Amer) 27 L Est GFR (Non-Af Amer) 22 L Glucose 138 H Calcium 9.2 Impressions: Acute Abdomen Series 01/24/18 13:49 IMPRESSION: Nonobstructive bowel gas pattern Minimal left lateral costophrenic sulcus atelectasis or scarring Abdomen/Pelvis CT 01/24/18 15:59 IMPRESSION: NO ACUTE FINDINGS WITHIN THE ABDOMEN OR PELVIS. NO SIGNIFICANT CHANGE COMPARED TO PRIOR STUDY INCLUDING CHOLELITHIASIS, DIVERTICULOSIS, AND PROLAPSED UTERUS. Assessment & Plan - Diagnosis (1) Hypotension Is this a current diagnosis for this admission?: Yes Plan: The patient was admitted with blood pressures of 100/70; improved today: 131/57. The patient is admitted to the medical floor on continuous cardiac telemetry. Continue maintenance IV fluids. Continue home dose labetalol. Holding home dose nifedipine, lisinopril, hydralazine, clonidine, Lasix, Zaroxolyn IV hydralazine for blood pressure control. (2) Acute kidney injury superimposed on chronic kidney disease Is this a current diagnosis for this admission?: Yes Plan: Improved; slight decrease in creatinine and BUN this morning. Secondary to hypotension, metformin, and prerenal azotemia. Continue IV maintenance fluids. Continue holding metformin, diuretics, blood pressure medications above. Avoid nephrotoxic medications. Monitor with daily chemistries. (3) Anemia Qualifiers: Anemia type: iron deficiency Is this a current diagnosis for this admission?: Yes Plan: Secondary to chronic kidney disease. Anemia panel benign. (4) CKD (chronic kidney disease) stage 3, GFR 30-59 ml/min Is this a current diagnosis for this admission?: Yes (5) Diabetes Qualifiers: Diabetes mellitus type: type 2 Diabetes mellitus mcfp insulin use: without mcfp use Diabetes mellitus complication status: with kidney complications Diabetes mellitus complication detail: with chronic kidney disease Chronic kidney disease stage: stage 3 (moderate) Qualified Code(s): E11.22 - Type 2 diabetes mellitus with diabetic chronic kidney disease; N18.3 - Chronic kidney disease, stage 3 (moderate); N18.3 - Chronic kidney disease, stage 3 (moderate) Is this a current diagnosis for this admission?: Yes Plan: The patient was placed on a consistent carb diet. Accu-Cheks before meals and at bedtime with Humalog for sliding scale coverage. Holding metformin. reaming press operator requested. (6) Uterovaginal prolapse, complete Is this a current diagnosis for this admission?: Yes Plan: MEDICAL STAFF COORDINATOR is consulted; appreciate their evaluation recommendations. - Time Time Spent with patient: 25-34 minutes Medications reviewed and adjusted accordingly: Yes Anticipated discharge: Home - Inpatient Certification Based on my medical assessment, after consideration of the patient's comorbidities, presenting symptoms, or acuity I expect that the services needed warrant INPATIENT care.: Yes I certify that my determination is in accordance with my understanding of Medicare's requirements for reasonable and necessary INPATIENT services [42 CFR 412.3e].: Yes Medical Necessity: Need For IV Fluids
[2018-01-26 05:05] LABS: HEMOGLOBIN 8.8 g/dL (12.0-15.5); MEAN CORPUSCULAR HEMOGLOBIN 27.2 pg (27.0-33.4); MEAN CORPUSCULAR HGB CONC 33.6 g/dL (32.0-36.0); MEAN CORPUSCULAR VOLUME 81 fl (80-97); PLATELET COUNT 307 10^3/uL (150-450); RED BLOOD COUNT 3.22 10^6/uL (3.72-5.28); RED CELL DISTRIBUTION WIDTH 17.5 % (11.5-14.0); WHITE BLOOD COUNT 5.5 10^3/uL (4.0-10.5)
[2018-01-26 05:22] LABS: ANION GAP 11 (5-19); BLOOD UREA NITROGEN 49 mg/dL (7-20); CALCIUM 9.3 mg/dL (8.4-10.2); CARBON DIOXIDE 21 mmol/L (22-30); CHLORIDE 110 mmol/L (98-107); GLUCOSE 126 mg/dL (75-110); POTASSIUM 5.1 mmol/L (3.6-5.0); SODIUM 142.1 mmol/L (137-145)
[2018-01-26] MEDS: HEPARIN SOD (PORCINE) 5,000 UNIT/ML 1 ML SYRINGE SUBCUT SCH ×3 (05:43→21:29)
[2018-01-26] MEDS: LABETALOL HCL 200 MG TABLET PO SCH ×3 (05:43→21:29)
[2018-01-26] MEDS: DOCUSATE SODIUM 100 MG CAPSULE PO SCH ×2 (08:58→17:26)
--- NOTE | 2018-01-26 11:05 | Physician Advisory Note ---
Physician Advisor ProgressNote .: Pursuant to the plan for [facility], I have reviewed the medical record for this patient. Physician Advisor Statement: Very nice documentation of pulmonary HTN, anemia of Fe defic due to CKD, CKD stage 3. Overall documentation is very good. Please consider documenting, if you agree: 1. Principal Dx: was main reason for admission a low BP (?only once, or ...?) , or the KORI w/associated acute high Anion Gap metabolic acidosis & hyperkalemia ? Please be sure to list Principal Dx as Dx #1 in each note. 2. "chronic diastolic HF" Thanks! CK
[2018-01-26] MEDS ORDERED: LOSARTAN POTASSIUM 25 MG TABLET PO ONE (11:45)
[2018-01-26] MEDS ORDERED: NORMAL SALINE 1000 ML 1,000 ML IV PRN ×2 (11:53→14:26)
[2018-01-26] MEDS: INSULIN LISPRO 100 UNIT/ML 3 ML VIAL SUBCUT PRN ×3 (13:38→21:29)
--- NOTE | 2018-01-26 14:26 | PDOC PROGRESS REPORT ---
Subjective Progress Note for:: 01/26/18 Subjective:: The patient is a 67-year-old female with past medical history significant for diastolic heart failure, pulmonary hypertension, morbid obesity, stage III chronic kidney disease, anemia, chronic uterine prolapse and diabetes who was admitted 01/24/18 for hypotension and acute renal failure. The patient is seen on morning rounds with family member present. She is found lying in bed comfortably on room air. She reports that she is feeling much better today. She reports that she had a formed stools; diarrhea has resolved. She denies fever, chills, body aches, chest pain, palpitations, dyspnea, orthopnea, abdominal pain, nausea, vomiting, diarrhea. They have no new questions or concerns today. Reason For Visit: ARF,NAUSEA,VOMITING,ANEMIA,UTERINE PROLAPSE Physical Exam Vital Signs: Temp Pulse Resp BP Pulse Ox 98.8 F 83 16 171/78 H 98 01/26/18 11:29 01/26/18 11:29 01/26/18 11:29 01/26/18 11:29 01/26/18 11:29 Intake & Output 01/25/18 01/26/18 01/27/18 06:59 06:59 06:59 Intake Total 2316 1284 Output Total 900 1750 Balance 1416 -466 Weight 110.3 kg 109.7 kg General appearance: PRESENT: no acute distress, obese, well-developed, well- nourished Head exam: PRESENT: atraumatic, normocephalic Eye exam: PRESENT: conjunctiva pink, EOMI, PERRLA. ABSENT: scleral icterus Ear exam: PRESENT: normal external ear exam Mouth exam: PRESENT: moist, tongue midline Neck exam: ABSENT: carotid bruit, JVD, lymphadenopathy, thyromegaly Respiratory exam: PRESENT: clear to auscultation rona, symmetrical, unlabored. ABSENT: rales, rhonchi, wheezes Cardiovascular exam: PRESENT: RRR, +S1, +S2. ABSENT: diastolic murmur, rubs, systolic murmur Pulses: PRESENT: normal dorsalis pedis pul Vascular exam: PRESENT: normal capillary refill GI/Abdominal exam: PRESENT: normal bowel sounds, soft. ABSENT: distended, guarding, mass, organolmegaly, rebound, tenderness Rectal exam: PRESENT: deferred Extremities exam: PRESENT: full ROM. ABSENT: calf tenderness, clubbing, pedal edema Neurological exam: PRESENT: alert, awake, oriented to person, oriented to place , oriented to time, oriented to situation, CN II-XII grossly intact. ABSENT: motor sensory deficit Psychiatric exam: PRESENT: appropriate affect, normal mood. ABSENT: homicidal ideation, suicidal ideation Skin exam: PRESENT: dry, intact, warm. ABSENT: cyanosis, rash Results Laboratory Results: 01/26/18 04:40 01/26/18 04:40 01/26/18 01/26/18 01/26/18 04:40 04:40 10:45 WBC 5.5 RBC 3.22 L Hgb 8.8 L Hct 26.0 L MCV 81 MCH 27.2 MCHC 33.6 RDW 17.5 H Plt Count 307 Sodium 142.1 Potassium 5.1 H Chloride 110 H Carbon Dioxide 21 L Anion Gap 11 BUN 49 H Creatinine 1.72 H Est GFR ( Amer) 36 L Est GFR (Non-Af Amer) 30 L Glucose 126 H Calcium 9.3 Stool Occult Blood NEGATIVE Impressions: Acute Abdomen Series 01/24/18 13:49 IMPRESSION: Nonobstructive bowel gas pattern Minimal left lateral costophrenic sulcus atelectasis or scarring Abdomen/Pelvis CT 01/24/18 15:59 IMPRESSION: NO ACUTE FINDINGS WITHIN THE ABDOMEN OR PELVIS. NO SIGNIFICANT CHANGE COMPARED TO PRIOR STUDY INCLUDING CHOLELITHIASIS, DIVERTICULOSIS, AND PROLAPSED UTERUS. Assessment & Plan - Diagnosis (1) Acute kidney injury superimposed on chronic kidney disease Is this a current diagnosis for this admission?: Yes Plan: Improved; BUN and creatinine continue to trend down. Secondary to hypotension, metformin, and prerenal azotemia. Continue IV maintenance fluids. Continue holding metformin, diuretics, and multiple blood pressure medications as below. Avoid nephrotoxic medications. Monitor with daily chemistries. (2) Hypotension Is this a current diagnosis for this admission?: Yes Plan: Resolved. The patient was admitted with blood pressures of 100/70; now elevated to 171/78. The patient is admitted to the medical floor on continuous cardiac telemetry. Continue maintenance IV fluids. Continue home dose labetalol. We will initiate losartan 25 mg twice daily. Holding home dose nifedipine, lisinopril, hydralazine, clonidine, Lasix, Zaroxolyn; will continue to monitor closely and initiate medications as needed. Will avoid nephrotoxic medications as able. IV hydralazine for blood pressure control. (3) Anemia Qualifiers: Anemia type: iron deficiency Is this a current diagnosis for this admission?: Yes Plan: Secondary to chronic kidney disease. Hemoglobin is stable today at 8.8; down slightly from 10.1 secondary to hemodilution. Anemia panel benign. (4) CKD (chronic kidney disease) stage 3, GFR 30-59 ml/min Is this a current diagnosis for this admission?: Yes Plan: Avoid nephrotoxic medications. Plan as above. (5) Diabetes Qualifiers: Diabetes mellitus type: type 2 Diabetes mellitus local company intermodal truck driver insulin use: without local company intermodal truck driver use Diabetes mellitus complication status: with kidney complications Diabetes mellitus complication detail: with chronic kidney disease Chronic kidney disease stage: stage 3 (moderate) Qualified Code(s): E11.22 - Type 2 diabetes mellitus with diabetic chronic kidney disease; N18.3 - Chronic kidney disease, stage 3 (moderate); N18.3 - Chronic kidney disease, stage 3 (moderate) Is this a current diagnosis for this admission?: Yes Plan: The patient was placed on a consistent carb diet. Accu-Cheks before meals and at bedtime with Humalog for sliding scale coverage. Holding metformin. breastfeeding educator requested. (6) Uterovaginal prolapse, complete Is this a current diagnosis for this admission?: Yes Plan: SEA KAYAKING GUIDE is consulted; appreciate their evaluation recommendations. Plan for outpatient follow-up and management. - Time Time Spent with patient: 15-24 minutes Medications reviewed and adjusted accordingly: Yes Anticipated discharge: Home Within: within 24 hours
[2018-01-26] MEDS: LOSARTAN POTASSIUM 25 MG TABLET PO SCH (21:29)
[2018-01-27] MEDS: LABETALOL HCL 200 MG TABLET PO SCH ×3 (05:45→22:04)
[2018-01-27] MEDS: HEPARIN SOD (PORCINE) 5,000 UNIT/ML 1 ML SYRINGE SUBCUT SCH ×3 (05:45→22:04)
[2018-01-27 06:24] LABS: HEMATOCRIT 25.7 % (36.0-47.0); HEMOGLOBIN 8.8 g/dL (12.0-15.5); MEAN CORPUSCULAR HEMOGLOBIN 27.4 pg (27.0-33.4); MEAN CORPUSCULAR HGB CONC 34.2 g/dL (32.0-36.0); MEAN CORPUSCULAR VOLUME 80 fl (80-97); PLATELET COUNT 316 10^3/uL (150-450); RED BLOOD COUNT 3.21 10^6/uL (3.72-5.28); RED CELL DISTRIBUTION WIDTH 17.5 % (11.5-14.0); WHITE BLOOD COUNT 5.5 10^3/uL (4.0-10.5)
[2018-01-27 06:46] LABS: ANION GAP 10 (5-19); BLOOD UREA NITROGEN 37 mg/dL (7-20); CALCIUM 9.2 mg/dL (8.4-10.2); CARBON DIOXIDE 20 mmol/L (22-30); CHLORIDE 114 mmol/L (98-107); GLUCOSE 135 mg/dL (75-110); SODIUM 143.5 mmol/L (137-145)
[2018-01-27] MEDS ORDERED: RINGERS SOLUTION,LACTATED 1,000 ML IV PRN (08:11)
[2018-01-27] MEDS: LOSARTAN POTASSIUM 25 MG TABLET PO SCH ×2 (09:51→22:04)
[2018-01-27] MEDS: DOCUSATE SODIUM 100 MG CAPSULE PO SCH ×2 (09:51→17:12)
[2018-01-27] MEDS ORDERED: LOSARTAN POTASSIUM 25 MG TABLET PO SCH (10:00)
[2018-01-27] MEDS: INSULIN LISPRO 100 UNIT/ML 3 ML VIAL SUBCUT PRN ×2 (13:05→17:11)
[2018-01-27 15:05] LABS: ANION GAP 14 (5-19); BLOOD UREA NITROGEN 35 mg/dL (7-20); CALCIUM 9.4 mg/dL (8.4-10.2); CARBON DIOXIDE 21 mmol/L (22-30); CHLORIDE 112 mmol/L (98-107); GLUCOSE 184 mg/dL (75-110); POTASSIUM 4.8 mmol/L (3.6-5.0); SODIUM 146.6 mmol/L (137-145)
[2018-01-27] MEDS ORDERED: 1/2 NORMAL SALINE 1,000 ML IV PRN (15:26)
--- NOTE | 2018-01-27 15:43 | PDOC PROGRESS REPORT ---
Subjective Progress Note for:: 01/27/18 Subjective:: The patient is a 67-year-old female with past medical history significant for diastolic heart failure, pulmonary hypertension, morbid obesity, stage III chronic kidney disease, anemia, chronic uterine prolapse and diabetes who was admitted 01/24/18 for hypotension and acute renal failure. The patient is seen on morning rounds with family member present. She is found lying in bed comfortably on room air. She reports abdominal discomfort today related to "gas pains" and constipation. Otherwise, she is feeling better. She has had minimal ambulation and was only out of bed for a few moments yesterday with occupational therapy. She denies fever, chills, body aches, chest pain, palpitations, dyspnea, orthopnea, abdominal pain, nausea, vomiting, diarrhea. They have no new questions or concerns today. Reason For Visit: ARF,NAUSEA,VOMITING,ANEMIA,UTERINE PROLAPSE Physical Exam Vital Signs: Temp Pulse Resp BP Pulse Ox 98.6 F 84 20 177/87 H 98 01/27/18 11:31 01/27/18 14:00 01/27/18 11:31 01/27/18 11:31 01/27/18 11:31 Intake & Output 01/26/18 01/27/18 01/28/18 06:59 06:59 06:59 Intake Total 1284 3791 Output Total 1750 1675 Balance -466 2116 Weight 109.7 kg 110.5 kg General appearance: PRESENT: no acute distress, morbidly obese, well-developed, well-nourished Head exam: PRESENT: atraumatic, normocephalic Eye exam: PRESENT: conjunctiva pink, EOMI, PERRLA. ABSENT: scleral icterus Ear exam: PRESENT: normal external ear exam Mouth exam: PRESENT: moist, tongue midline Neck exam: ABSENT: carotid bruit, JVD, lymphadenopathy, thyromegaly Respiratory exam: PRESENT: clear to auscultation rona, decreased breath sounds - Bibasilar secondary to body habitus and poor effort, symmetrical, unlabored. ABSENT: rales, rhonchi, wheezes Cardiovascular exam: PRESENT: RRR, +S1, +S2. ABSENT: diastolic murmur, rubs, systolic murmur Pulses: PRESENT: normal dorsalis pedis pul Vascular exam: PRESENT: normal capillary refill GI/Abdominal exam: PRESENT: normal bowel sounds, soft. ABSENT: distended, guarding, mass, organolmegaly, rebound, tenderness Rectal exam: PRESENT: deferred Extremities exam: PRESENT: full ROM. ABSENT: calf tenderness, clubbing, pedal edema Neurological exam: PRESENT: alert, awake, oriented to person, oriented to place , oriented to time, oriented to situation, CN II-XII grossly intact. ABSENT: motor sensory deficit Psychiatric exam: PRESENT: flat affect, normal mood. ABSENT: homicidal ideation , suicidal ideation Skin exam: PRESENT: dry, intact, warm. ABSENT: cyanosis, rash Results Laboratory Results: 01/27/18 05:32 01/27/18 14:28 01/27/18 01/27/18 01/27/18 05:32 05:32 14:28 WBC 5.5 RBC 3.21 L Hgb 8.8 L Hct 25.7 L MCV 80 MCH 27.4 MCHC 34.2 RDW 17.5 H Plt Count 316 Sodium 143.5 146.6 H Potassium 5.0 4.8 Chloride 114 H 112 H Carbon Dioxide 20 L 21 L Anion Gap 10 14 BUN 37 H 35 H Creatinine 1.48 H 1.42 H Est GFR ( Amer) 43 L 45 L Est GFR (Non-Af Amer) 35 L 37 L Glucose 135 H 184 H Calcium 9.2 9.4 Impressions: Acute Abdomen Series 01/24/18 13:49 IMPRESSION: Nonobstructive bowel gas pattern Minimal left lateral costophrenic sulcus atelectasis or scarring Abdomen/Pelvis CT 01/24/18 15:59 IMPRESSION: NO ACUTE FINDINGS WITHIN THE ABDOMEN OR PELVIS. NO SIGNIFICANT CHANGE COMPARED TO PRIOR STUDY INCLUDING CHOLELITHIASIS, DIVERTICULOSIS, AND PROLAPSED UTERUS. Assessment & Plan - Diagnosis (1) Acute kidney injury superimposed on chronic kidney disease Is this a current diagnosis for this admission?: Yes Plan: Continues to improve; BUN and creatinine trending down. Creatinine appears to be at baseline, however, BUN is still elevated at 35 and the patient's sodium is 146.6 today. Bicarb is improving (14-->21). Secondary to hypotension, metformin, and prerenal azotemia. Continue IV maintenance fluids. Continue holding metformin, diuretics, and multiple blood pressure medications as below. Avoid nephrotoxic medications. Monitor with daily chemistries. We will plan on discharging to home tomorrow if sodium is corrected and BUN trends further down. (2) Resistant hypertension Is this a current diagnosis for this admission?: Yes Plan: The patient is admitted to the medical floor on continuous cardiac telemetry. Continue maintenance IV fluids. Continue home dose labetalol. Continue losartan 25 mg twice daily. We will resume clonidine 0.1 mg p.o. 3 times daily today. Holding home dose nifedipine, lisinopril, hydralazine, Lasix, Zaroxolyn; will continue to monitor closely and initiate medications as needed. Will avoid nephrotoxic medications as able. IV hydralazine for blood pressure control. The patient reports that she was seen by nephrology, cannot recall the provider' s name. She reports that she was scheduled to have an outpatient renal ultrasound completed yesterday. Will obtain renal u/s while admitted as the patient has had multiple admissions for hypertensive emergency. (3) Anemia Qualifiers: Anemia type: iron deficiency Is this a current diagnosis for this admission?: Yes Plan: Secondary to chronic kidney disease. Hemoglobin is stable today at 8.8; down slightly from 10.1 secondary to hemodilution. Anemia panel benign. (4) Diabetes Qualifiers: Diabetes mellitus type: type 2 Diabetes mellitus oysterman insulin use: without shelter use Diabetes mellitus complication status: with kidney complications Diabetes mellitus complication detail: with chronic kidney disease Chronic kidney disease stage: stage 3 (moderate) Qualified Code(s): E11.22 - Type 2 diabetes mellitus with diabetic chronic kidney disease; N18.3 - Chronic kidney disease, stage 3 (moderate); N18.3 - Chronic kidney disease, stage 3 (moderate) Is this a current diagnosis for this admission?: Yes Plan: The patient was placed on a consistent carb diet. Accu-Cheks before meals and at bedtime with Humalog for sliding scale coverage. Holding metformin. special education paraeducator requested. (5) CKD (chronic kidney disease) stage 3, GFR 30-59 ml/min Is this a current diagnosis for this admission?: Yes Plan: Avoid nephrotoxic medications. Plan as above. (6) Uterovaginal prolapse, complete Is this a current diagnosis for this admission?: Yes Plan: CASE PACKER AND SEALER is consulted; appreciate their evaluation recommendations. Plan for outpatient follow-up and management. (7) Hypotension Is this a current diagnosis for this admission?: Yes Plan: Resolved. The patient was admitted with blood pressures of 100/70; now elevated to 177/87. - Time Time Spent with patient: 25-34 minutes Medications reviewed and adjusted accordingly: Yes Anticipated discharge: Home
[2018-01-27] MEDS: MAGNESIUM HYDROXIDE SUSP 30 ML UDCUP PO PRN (16:19)
--- NOTE | 2018-01-27 18:54 | RADIOLOGY REPORT (SQ) ---
EXAM DESCRIPTION: U/S RETROPERITON LTD COMPLETED DATE/TIME: 01/27/2018 6:42 pm REASON FOR STUDY: resistent hypertension D63.1 ANEMIA IN CHRONIC KIDNEY DISEASE N17.9 ACUTE KIDNEY FAILURE, UNSPECIFIED COMPARISON: None. TECHNIQUE: Dynamic and static grayscale images acquired of the kidneys and bladder and recorded on P ACS. Additional selected color Doppler and spectral images recorded. LIMITATIONS: Bowel gas and patient body habitus. FINDINGS: RIGHT KIDNEY: Normal size. Normal echogenicity. No solid or suspicious masses. No h ydronephrosis. No calcifications. LEFT KIDNEY: Not visualized. BLADDER: No masses. OTHER FINDINGS: No other significant finding. IMPRESSION: Normal right kidney. Left kidney not identified due to bowel gas and body habitus. TECHNICAL DOCUMENTATION: JOB ID: [id number] [place]-72 2010 [employer]- All Rights Reserved Reading location - IP/workstation name: [employer]
[2018-01-27] MEDS ORDERED: CLONIDINE HCL 0.1 MG TABLET PO SCH (22:00)
[2018-01-28] MEDS: HEPARIN SOD (PORCINE) 5,000 UNIT/ML 1 ML SYRINGE SUBCUT SCH ×3 (06:25→21:52)
[2018-01-28] MEDS: LABETALOL HCL 200 MG TABLET PO SCH ×3 (06:25→21:52)
[2018-01-28 06:41] LABS: ANION GAP 13 (5-19); BLOOD UREA NITROGEN 29 mg/dL (7-20); CALCIUM 9.6 mg/dL (8.4-10.2); CARBON DIOXIDE 20 mmol/L (22-30); CHLORIDE 111 mmol/L (98-107); GLUCOSE 144 mg/dL (75-110); POTASSIUM 5.2 mmol/L (3.6-5.0); SODIUM 143.6 mmol/L (137-145)
[2018-01-28] MEDS ORDERED: SODIUM POLYSTYRENE SULFONATE 15 GM/60 ML PO ONE (07:49)
[2018-01-28] MEDS: INSULIN LISPRO 100 UNIT/ML 3 ML VIAL SUBCUT PRN ×3 (08:27→17:33)
[2018-01-28] MEDS: DOCUSATE SODIUM 100 MG CAPSULE PO SCH ×2 (09:19→17:34)
[2018-01-28] MEDS: LOSARTAN POTASSIUM 25 MG TABLET PO SCH (09:19)
[2018-01-28 15:23] LABS: ANION GAP 14 (5-19); BLOOD UREA NITROGEN 27 mg/dL (7-20); CALCIUM 9.4 mg/dL (8.4-10.2); CARBON DIOXIDE 20 mmol/L (22-30); CHLORIDE 108 mmol/L (98-107); GLUCOSE 175 mg/dL (75-110); POTASSIUM 4.8 mmol/L (3.6-5.0); SODIUM 142.2 mmol/L (137-145)
[2018-01-28] MEDS ORDERED: LOSARTAN POTASSIUM 25 MG TABLET PO SCH (16:21)
--- NOTE | 2018-01-28 16:28 | PDOC PROGRESS REPORT ---
Subjective Progress Note for:: 01/28/18 Subjective:: The patient is a 67-year-old female with past medical history significant for diastolic heart failure, pulmonary hypertension, morbid obesity, stage III chronic kidney disease, anemia, chronic uterine prolapse and diabetes who was admitted 01/24/18 for hypotension and acute renal failure. The patient is seen on morning rounds with family member present. She is found lying in bed, completely supine, and breathing comfortably on room air. She reports continued abdominal discomfort today related to constipation. She states that she did have a bowel movement yesterday but has been unable to produce one today. She requests milk of magnesia with prune juice. She also reports swelling to her right lower extremity however, there is no objective findings to support this. Otherwise, she is feeling better. She has had minimal ambulation but did sit upright in the recliner for several hours today. She denies fever, chills, body aches, chest pain, palpitations, dyspnea, orthopnea, abdominal pain, nausea, vomiting, diarrhea. They have no new questions or concerns today. Reason For Visit: ARF,NAUSEA,VOMITING,ANEMIA,UTERINE PROLAPSE Physical Exam Vital Signs: Temp Pulse Resp BP Pulse Ox 98.3 F 85 14 172/95 H 98 01/28/18 12:00 01/28/18 14:00 01/28/18 12:00 01/28/18 12:00 01/28/18 12:00 Intake & Output 01/27/18 01/28/18 01/29/18 06:59 06:59 06:59 Intake Total 3791 2347 Output Total 1675 Balance 2116 2347 Weight 110.5 kg 110.9 kg General appearance: PRESENT: no acute distress, obese, well-developed, well- nourished Head exam: PRESENT: atraumatic, normocephalic Eye exam: PRESENT: conjunctiva pink, EOMI, PERRLA. ABSENT: scleral icterus Ear exam: PRESENT: normal external ear exam Mouth exam: PRESENT: moist, tongue midline Neck exam: ABSENT: carotid bruit, JVD, lymphadenopathy, thyromegaly Respiratory exam: PRESENT: clear to auscultation rona, symmetrical, unlabored. ABSENT: rales, rhonchi, wheezes Cardiovascular exam: PRESENT: RRR, +S1, +S2. ABSENT: diastolic murmur, rubs, systolic murmur Pulses: PRESENT: normal dorsalis pedis pul Vascular exam: PRESENT: normal capillary refill GI/Abdominal exam: PRESENT: normal bowel sounds, soft. ABSENT: distended, guarding, mass, organolmegaly, rebound, tenderness Rectal exam: PRESENT: deferred Extremities exam: PRESENT: full ROM. ABSENT: calf tenderness, clubbing, joint swelling, pedal edema, +1 edema, +2 edema Neurological exam: PRESENT: alert, awake, oriented to person, oriented to place , oriented to time, oriented to situation, CN II-XII grossly intact. ABSENT: motor sensory deficit Psychiatric exam: PRESENT: appropriate affect, normal mood. ABSENT: homicidal ideation, suicidal ideation Skin exam: PRESENT: dry, intact, warm. ABSENT: cyanosis, rash Results Laboratory Results: 01/27/18 05:32 01/28/18 14:48 01/28/18 01/28/18 05:20 14:48 Sodium 143.6 142.2 Potassium 5.2 H 4.8 Chloride 111 H 108 H Carbon Dioxide 20 L 20 L Anion Gap 13 14 BUN 29 H 27 H Creatinine 1.26 H 1.29 H Est GFR ( Amer) 51 L 50 L Est GFR (Non-Af Amer) 42 L 41 L Glucose 144 H 175 H Calcium 9.6 9.4 01/26/18 10:53 Stool - Stool - Final 01/26/18 10:53 Stool - Stool Stool Culture - Final NO SALMONELLA, SHIGELLA, CAMPYLOBACTER, OR E.COLI 0157 RECOVERED. NEGATIVE FOR SHIGA TOXINS 1&2. Impressions: Acute Abdomen Series 01/24/18 13:49 IMPRESSION: Nonobstructive bowel gas pattern Minimal left lateral costophrenic sulcus atelectasis or scarring Abdomen/Pelvis CT 01/24/18 15:59 IMPRESSION: NO ACUTE FINDINGS WITHIN THE ABDOMEN OR PELVIS. NO SIGNIFICANT CHANGE COMPARED TO PRIOR STUDY INCLUDING CHOLELITHIASIS, DIVERTICULOSIS, AND PROLAPSED UTERUS. Renal Ultrasound 01/27/18 00:00 IMPRESSION: Normal right kidney. Left kidney not identified due to bowel gas and body habitus. Assessment & Plan - Diagnosis (1) Acute kidney injury superimposed on chronic kidney disease Is this a current diagnosis for this admission?: Yes Plan: Continues to improve; BUN and creatinine continue trending down and now appear to be at baseline. Secondary to hypotension, metformin, and prerenal azotemia. Renal ultrasound obtained yesterday; normal right kidney, left kidney not visualized secondary to bowel gas. We will discontinue IV fluids. Avoid nephrotoxic medications. Monitor with daily chemistries. Kidney function has now stabilized; patient is advised to follow-up with her possum trapper. (2) Resistant hypertension Is this a current diagnosis for this admission?: Yes Plan: The patient is admitted to the medical floor on continuous cardiac telemetry. IV fluids are discontinued. Continue home dose labetalol. Increase losartan to 50 mg twice daily. Continue clonidine 0.1 mg p.o. 3 times daily. Initiate furosemide 20 mg p.o. daily. IV hydralazine for blood pressure control. Had anticipated discharging the patient today; blood pressures this morning were appropriate (137/83, 146/77). However this afternoon her blood pressures were elevated to 172/95. Medications adjusted as above. Likely, sugars will remain labile and require close follow-up by her primary care provider and possum trapper to obtain consistently acceptable control. (3) Anemia Qualifiers: Anemia type: iron deficiency Is this a current diagnosis for this admission?: Yes Plan: Secondary to chronic kidney disease. Hemoglobin is stable today at 8.8; down slightly from 10.1 secondary to hemodilution. Anemia panel benign. (4) Diabetes Qualifiers: Diabetes mellitus type: type 2 Diabetes mellitus ferry terminal agent insulin use: without ferry terminal agent use Diabetes mellitus complication status: with kidney complications Diabetes mellitus complication detail: with chronic kidney disease Chronic kidney disease stage: stage 3 (moderate) Qualified Code(s): E11.22 - Type 2 diabetes mellitus with diabetic chronic kidney disease; N18.3 - Chronic kidney disease, stage 3 (moderate); N18.3 - Chronic kidney disease, stage 3 (moderate) Is this a current diagnosis for this admission?: Yes Plan: The patient was placed on a consistent carb diet. Accu-Cheks before meals and at bedtime with Humalog for sliding scale coverage. Holding metformin. land surveying party chief requested. (5) CKD (chronic kidney disease) stage 3, GFR 30-59 ml/min Is this a current diagnosis for this admission?: Yes Plan: Avoid nephrotoxic medications. Plan as above. (6) Uterovaginal prolapse, complete Is this a current diagnosis for this admission?: Yes Plan: COAGULATING OPERATOR is consulted; appreciate their evaluation recommendations. Plan for outpatient follow-up and management. (7) Hypotension Is this a current diagnosis for this admission?: Yes Plan: Resolved. The patient was admitted with blood pressures of 100/70; now elevated to 177/87. (8) Constipation Is this a current diagnosis for this admission?: Yes Plan: Daily Colace, MiraLAX daily as needed, milk of magnesia for unresolved constipation. Encourage p.o. fluids and ambulation. - Time Time Spent with patient: 15-24 minutes Medications reviewed and adjusted accordingly: Yes Anticipated discharge: Home Within: within 24 hours
[2018-01-28] MEDS ORDERED: FUROSEMIDE 20 MG TABLET PO ONE (16:30)
[2018-01-28] MEDS: MAGNESIUM HYDROXIDE SUSP 30 ML UDCUP PO PRN (17:32)
[2018-01-28] MEDS ORDERED: LOSARTAN POTASSIUM 50 MG TABLET PO SCH (22:00)
[2018-01-29 06:23] LABS: ANION GAP 10 (5-19); BLOOD UREA NITROGEN 26 mg/dL (7-20); CALCIUM 9.1 mg/dL (8.4-10.2); CARBON DIOXIDE 22 mmol/L (22-30); CHLORIDE 109 mmol/L (98-107); GLUCOSE 166 mg/dL (75-110); POTASSIUM 5.1 mmol/L (3.6-5.0); SODIUM 140.8 mmol/L (137-145)
[2018-01-29] MEDS: LABETALOL HCL 200 MG TABLET PO SCH (06:32)
[2018-01-29] MEDS: HEPARIN SOD (PORCINE) 5,000 UNIT/ML 1 ML SYRINGE SUBCUT SCH (06:32)
[2018-01-29] MEDS ORDERED: HYDRALAZINE HCL 50 MG TABLET PO SCH (07:43)
[2018-01-29] MEDS ORDERED: CLONIDINE HCL 0.1 MG TABLET PO SCH (07:45)
[2018-01-29] MEDS ORDERED: FUROSEMIDE 40 MG TABLET PO SCH ×2 (08:00)
[2018-01-29] MEDS ORDERED: FUROSEMIDE 20 MG TABLET PO SCH (08:00)
[2018-01-29] MEDS: INSULIN LISPRO 100 UNIT/ML 3 ML VIAL SUBCUT PRN (08:59)
[2018-01-29] MEDS: DOCUSATE SODIUM 100 MG CAPSULE PO SCH (08:59)
[2018-01-29] MEDS ORDERED: POLYETHYLENE GLYCOL 3350 POWDER 17 GM/1 PACKET PO SCH (10:00)
[2018-01-29] MEDS ORDERED: AMLODIPINE BESYLATE 5 MG TABLET PO SCH (10:00)
[2018-01-29 10:18] VITALS: BP 152/71
[2018-01-29] MEDS ORDERED: CLONIDINE HCL 0.2 MG TABLET PO SCH (14:00)
--- NOTE | 2018-01-29 14:03 | PDOC DISCHARGE SUMMARY ---
General - Admit/Disc Date/PCP Admission Date/Primary Care Provider: 01/25/18 05:02 ROSINA PRICE PA-C Discharge Date: 01/29/18 - Discharge Diagnosis (1) Acute kidney injury superimposed on chronic kidney disease Is this a current diagnosis for this admission?: Yes Summary: Acute on chronic renal injury secondary to excessive antihypertensive medications and metformin resulting in nephrotoxicity, hypotension related to medications and diarrhea with poor p.o. intake, and prerenal azotemia. Her metformin and antihypertensive medications were held with the exception of labetalol. She was provided IV fluids and chemistries monitor daily for correction. Her creatinine and BUN trended down from 2.59 and 68 respectively to her baseline of creatinine 1.26 and BUN 26. At time of discharge, she is in stable condition, her blood pressures are acceptable, she has good urinary output, is tolerating a regular diet, and maintaining oxygen saturations on room air. She is provided prescriptions for amlodipine and reduce dose furosemide. She is instructed to continue her labetalol and to resume her metformin. She is arranged to have home health nurse for disease management. She is encouraged to follow-up with her primary care provider within 1 week and to notify her drawer in hand of her admission and follow-up as directed. (2) Resistant hypertension Is this a current diagnosis for this admission?: Yes Summary: At time of admission, patient was noted to be on labetalol, nifedipine, clonidine, hydralazine, lisinopril, furosemide and metolazone. Highest Blood Pressure this admission was 181/98. The patient's labetalol was continued; all others held secondary to initial hypotension and acute on chronic kidney failure. MARYANN inhibitors were avoided secondary to worsening kidney function. A trial of losartan resulted in persistent hyperkalemia; but acceptable blood pressure. Therefore, losartan was discontinued and amlodipine started. Once acute kidney injury resolved, furosemide was resumed at half of her previous dose. At time of discharge, the patient has blood pressures of 143/77-152/71 with a heart rate in the mid to high 70s while on labetalol 200 mg three times daily ( home dose), amlodipine 5 mg daily (new), and furosemide 20 mg daily (lowered home dose). The patient was strongly advised on the importance of following a cardiac diet, weighing herself daily and reporting any weight gain greater than 2 pounds from previous day, and checking blood pressure daily and keeping a log. She was instructed to take the records of her daily weights and blood pressures to all follow-up appointments with both her primary care and drawer in hand. The patient is recommended to follow-up with her primary care provider within 1 week. Recommend repeat BMP in 1 week. She is also instructed to call her drawer in hand's office to notify them of her admission and medication changes; follow-up as directed. She is being discharged with home health nursing for disease management and medication education. She may also benefit from a referral to a Hypertension specialist. (3) Anemia Is this a current diagnosis for this admission?: Yes Summary: Stable; chronic anemia secondary to chronic kidney disease. Slight downward shift in Hgb attributed to hemodilution. No evidence of active bleeding. Recommend follow up with Iron Pellet Tester. (4) Diabetes Is this a current diagnosis for this admission?: Yes Summary: Dietary discretion is advised; patient should follow a low-calorie, ADA/AHA diet. May resume metformin. (5) CKD (chronic kidney disease) stage 3, GFR 30-59 ml/min Is this a current diagnosis for this admission?: Yes Summary: Acute exacerbation of chronic renal failure has resolved. She has returned to her baseline; current GFR 51. Recommend follow with Iron Pellet Tester as scheduled. (6) Uterovaginal prolapse, complete Is this a current diagnosis for this admission?: Yes Summary: Gynecology was consulted. Follow up with SPREADING MACHINE OPERATOR as needed; patient may benefit from pessary vs. colpocleisis. (7) Hypotension Is this a current diagnosis for this admission?: Yes Summary: One episode of borderline hypotension upon admission; has remained hypertensive since. Patient was cleared by occupational health. She was also evaluated by physical therapy who recommended home health PT follow-up. Asymptomatic while ambulatory. (8) Constipation Is this a current diagnosis for this admission?: Yes Summary: Resolved with colace, MiraLAX and milk of magnesia. - Additional Information Resuscitation Status: Full Code Discharge Diet: Cardiac, Diabetic Discharge Activity: Activity As Tolerated, Balance Activity w/Rest, Slowly Increase Activity, Weigh Daily Prescriptions: Amlodipine Besylate [Norvasc 5 mg Tablet] 5 mg PO DAILY #30 tablet Furosemide [Lasix 20 mg Tablet] 20 mg PO QAM #30 tablet Polyethylene Glycol 3350 [Miralax Powder 17 gm/Packet] 17 gm PO DAILY #30 powd.pack Home Medications: Atorvastatin Calcium [Lipitor 40 mg Tablet] 40 mg PO QHS 12/13/17 Labetalol HCl [Normodyne 200 mg Tablet] 200 mg PO Q8 #90 tablet 12/16/17 Lansoprazole [Prevacid] 30 mg PO DAILY 01/24/18 Metformin HCl [Metformin HCl ER] 1,000 mg PO BID 01/24/18 Acetaminophen [Tylenol 325 mg Tablet] 650 mg PO Q4HP PRN tablet 01/28/18 Amlodipine Besylate [Norvasc 5 mg Tablet] 5 mg PO DAILY #30 tablet 01/29/18 Furosemide [Lasix 20 mg Tablet] 20 mg PO QAM #30 tablet 01/29/18 Polyethylene Glycol 3350 [Miralax Powder 17 gm/Packet] 17 gm PO DAILY #30 powd.pack 01/29/18 History of Present Illness History of Present Illness: Per H&P by Dr. Davis: DOM ADAMS is a 67 year old female with past medical history of mild to moderate moderate diastolic heart failure, pulmonary hypertension, morbid obesity, stage III chronic kidney disease, anemia, chronic uterine prolapse and diabetes. Patient presents after 2 weeks of nausea vomiting and abdominal pain. In the emergency room she is found to have hypotension of 100/70, acute on chronic renal failure and referred to the hospitalist for admission. Patient has recently had an addition of labetalol and nifedipine. She has continued to take metformin. She denies chest pain, shortness of breath, palpitations, orthopnea or fever. She denies previous episode. Physical Exam Vital Signs: Temp Pulse Resp BP Pulse Ox 98.9 F 73 18 152/71 H 100 01/29/18 10:17 01/29/18 10:17 01/29/18 10:17 01/29/18 10:17 01/29/18 10:17 Intake & Output 01/28/18 01/29/18 01/30/18 06:59 06:59 06:59 Intake Total 2347 2230 Output Total 600 Balance 2347 1630 Weight 110.9 kg 111.5 kg General appearance: PRESENT: no acute distress, obese, well-developed, well- nourished Head exam: PRESENT: atraumatic, normocephalic Eye exam: PRESENT: conjunctiva pink, EOMI, PERRLA. ABSENT: scleral icterus Ear exam: PRESENT: normal external ear exam Mouth exam: PRESENT: moist, tongue midline Neck exam: ABSENT: carotid bruit, JVD, lymphadenopathy, thyromegaly Respiratory exam: PRESENT: clear to auscultation rona, symmetrical, unlabored. ABSENT: rales, rhonchi, wheezes Cardiovascular exam: PRESENT: RRR, +S1, +S2. ABSENT: diastolic murmur, rubs, systolic murmur Pulses: PRESENT: normal dorsalis pedis pul Vascular exam: PRESENT: normal capillary refill GI/Abdominal exam: PRESENT: normal bowel sounds, soft. ABSENT: distended, guarding, mass, organolmegaly, rebound, tenderness Rectal exam: PRESENT: deferred Extremities exam: PRESENT: full ROM. ABSENT: calf tenderness, clubbing, pedal edema Neurological exam: PRESENT: alert, awake, oriented to person, oriented to place , oriented to time, oriented to situation, CN II-XII grossly intact. ABSENT: motor sensory deficit Psychiatric exam: PRESENT: appropriate affect, normal mood. ABSENT: homicidal ideation, suicidal ideation Skin exam: PRESENT: dry, warm. ABSENT: cyanosis, intact - Chronic left foot wound (POA), rash Results Laboratory Results: 01/27/18 05:32 01/29/18 04:18 01/28/18 01/29/18 14:48 04:18 Sodium 142.2 140.8 Potassium 4.8 5.1 H Chloride 108 H 109 H Carbon Dioxide 20 L 22 Anion Gap 14 10 BUN 27 H 26 H Creatinine 1.29 H 1.26 H Est GFR ( Amer) 50 L 51 L Est GFR (Non-Af Amer) 41 L 42 L Glucose 175 H 166 H Calcium 9.4 9.1 01/26/18 10:53 Stool - Stool - Final 01/26/18 10:53 Stool - Stool Stool Culture - Final NO SALMONELLA, SHIGELLA, CAMPYLOBACTER, OR E.COLI 0157 RECOVERED. NEGATIVE FOR SHIGA TOXINS 1&2. Impressions: Acute Abdomen Series 01/24/18 13:49 IMPRESSION: Nonobstructive bowel gas pattern Minimal left lateral costophrenic sulcus atelectasis or scarring Abdomen/Pelvis CT 01/24/18 15:59 IMPRESSION: NO ACUTE FINDINGS WITHIN THE ABDOMEN OR PELVIS. NO SIGNIFICANT CHANGE COMPARED TO PRIOR STUDY INCLUDING CHOLELITHIASIS, DIVERTICULOSIS, AND PROLAPSED UTERUS. Renal Ultrasound 01/27/18 00:00 IMPRESSION: Normal right kidney. Left kidney not identified due to bowel gas and body habitus. Qualifiers - * PATIENT BEING DISCHARGED WITH ANY OF THE FOLLOWING DIAGNOSIS: No Plan Discharge Plan: Discharge to home with home health nursing and physical therapy. Follow-up with primary care provider within 1 week. Follow-up with nephrology as scheduled. Follow up with gynecology as needed.
== END 2018-01-29 12:20 | disposition home health service (06) | DRG 683 ==
LOC: ER 13:08 → INTOOBSV 18:11 → EH 18:11 → 4S 21:35 → OBSVTOIN 01-25 05:02
PROVIDERS: ADMIT Internal Medicine; ATTEND Internal Medicine
DX: N17.9 Acute kidney failure, unspecified (principal); I50.32 Chronic diastolic (congestive) heart failure; I13.0 Hypertensive heart and chronic kidney disease with heart failure and stage 1 through stage 4 chronic kidney disease, or unspecified chronic kidney disease; I95.2 Hypotension due to drugs; T46.5X5A Adverse effect of other antihypertensive drugs, initial encounter; T38.3X5A Adverse effect of insulin and oral hypoglycemic [antidiabetic] drugs, initial encounter; E11.22 Type 2 diabetes mellitus with diabetic chronic kidney disease; N18.3 Chronic kidney disease, stage 3 (moderate); M19.90 Unspecified osteoarthritis, unspecified site; E66.01 Morbid (severe) obesity due to excess calories; N81.3 Complete uterovaginal prolapse; E87.5 Hyperkalemia; K80.80 Other cholelithiasis without obstruction; D63.1 Anemia in chronic kidney disease; E78.5 Hyperlipidemia, unspecified; Z68.37 Body mass index [BMI] 37.0-37.9, adult; Z79.84 Long term (current) use of oral hypoglycemic drugs; Z88.8 Allergy status to other drugs, medicaments and biological substances; Z82.49 Family history of ischemic heart disease and other diseases of the circulatory system; Z83.3 Family history of diabetes mellitus; Z79.899 Other long term (current) drug therapy
CPT/HCPCS: 36415; 51701; 74022; 74176; 76775; 80048; 80053; 81001; 82272; 82607; 82728; 82746; 82962; 83036; 83540; 83550; 83690; 83735; 84100; 84443; 84484; 85025; 85027; 85045; 87045; 87205; 93005; 93010; 99285; G0378; G8978-GP; G8979-GP; G8987-GO; G8988-GO; G8989-GO; J1644; J1815; J3490; J7030

== ENCOUNTER → 2018-02-23 | Outpatient (CLI) | payer MEDICARE, MEDICAID ==
[2018-02-23 10:54] LABS: ABSOLUTE BASOPHILS # (AUTO) 0.1 10^3/uL (0.0-0.2); ABSOLUTE EOSINOPHILS # (AUTO) 0.3 10^3/uL (0.0-0.6); ABSOLUTE LYMPHOCYTES (AUTO) 1.3 10^3/uL (0.5-4.7); ABSOLUTE MONOCYTES (AUTO) 0.5 10^3/uL (0.1-1.4); BASOPHILS % (AUTO) 0.6 % (0-2); EOSINOPHILS % (AUTO) 2.7 % (0-6); HEMATOCRIT 25.4 % (36.0-47.0); HEMOGLOBIN 8.5 g/dL (12.0-15.5); LYMPHOCYTES % (AUTO) 12.6 % (13-45); MEAN CORPUSCULAR HGB CONC 33.4 g/dL (32.0-36.0); MEAN CORPUSCULAR VOLUME 81 fl (80-97); MONOCYTES % (AUTO) 5.2 % (3-13); PLATELET COUNT 442 10^3/uL (150-450); RED BLOOD COUNT 3.14 10^6/uL (3.72-5.28); RED CELL DISTRIBUTION WIDTH 16.9 % (11.5-14.0); SEGMENTED NEUTROPHILS % (AUTO) 78.9 % (42-78); TOTAL CELLS COUNTED % (AUTO) 100 %; WHITE BLOOD COUNT 10.2 10^3/uL (4.0-10.5)
--- NOTE | 2018-02-23 11:02 | RADIOLOGY REPORT (SQ) ---
EXAM DESCRIPTION: FOOT RIGHT COMPLETE COMPLETED DATE/TIME: 02/23/2018 10:47 am REASON FOR STUDY: NON PRESSURE ULCER RT HEEL; FAT EXPOSED EXPOSED E11.621 TYPE 2 DIABETES MELLITUS WITH FOOT ULCER L97.412 NON-PRS CHR ULCER OF RIGHT HEEL AND MIDFT W FAT LAYE COMPARISON: None. NUMBER OF VIEWS: Three views. TECHNIQUE: AP, lateral and oblique radiographic images acquired of the right foot. LIMITATIONS: None. FINDINGS: MINERALIZATION: Normal. BONES: No acute fracture or dislocation. No worrisome bone lesions. JOINTS: No effusions. SOFT TISSUES: 3 cm diameter plantar calcaneal ulcer. No adjacent erosion of the calcaneus or periost itis worrisome for calcaneal osteomyelitis OTHER: No other significant finding. IMPRESSION: 3 cm diameter plantar calcaneal ulcer. No adjacent erosion of the calcaneus or periosti tis worrisome for calcaneal osteomyelitis TECHNICAL DOCUMENTATION: JOB ID: [id number] [employer]- All Rights Reserved Reading location - IP/workstation name: [email or web address]
[2018-02-23 11:14] LABS: ALANINE AMINOTRANSFERASE 14 U/L (9-52); ALBUMIN 3.4 g/dL (3.5-5.0); ALKALINE PHOSPHATASE 95 U/L (38-126); ANION GAP 13 (5-19); ASPARTATE AMINO TRANSFERASE 18 U/L (14-36); BILIRUBIN,DIRECT 0.4 mg/dL (0.0-0.4); BILIRUBIN,TOTAL 0.6 mg/dL (0.2-1.3); BLOOD UREA NITROGEN 21 mg/dL (7-20); C-REACTIVE PROTEIN 11.9 mg/L (<10.0); CALCIUM 9.4 mg/dL (8.4-10.2); CARBON DIOXIDE 29 mmol/L (22-30); CHLORIDE 99 mmol/L (98-107); GLUCOSE 192 mg/dL (75-110); POTASSIUM 4.5 mmol/L (3.6-5.0); SODIUM 141.4 mmol/L (137-145); TOTAL PROTEIN 6.9 g/dL (6.3-8.2)
[2018-02-23 12:55] LABS: ERYTHROCYTE SEDIMENTATION RATE > 120 mm/hr (0-30)
== END ==
LOC: WC 10:13
PROVIDERS: ATTEND Preventive Medicine Undersea and Hyperbaric Medicine
DX: E11.621 Type 2 diabetes mellitus with foot ulcer (principal); L97.512 Non-pressure chronic ulcer of other part of right foot with fat layer exposed; L97.412 Non-pressure chronic ulcer of right heel and midfoot with fat layer exposed
CPT/HCPCS: 36415; 80053; 83036; 85025; 85652; 86140

== ENCOUNTER 2018-03-22 08:17 | Day surgery (SDC) | payer MEDICARE, MEDICAID ==
[~2018-03-22 08:17] MED LIST: DIPHENHYDRAMINE HCL 50 MG/ML VIAL ONE; EPINEPHRINE INJ 1 MG/10 ML DISP.SYRIN ONE; FLUMAZENIL INJ 0.5 MG/5 ML VIAL ONE; GLUCAGON,HUMAN RECOMB 1 MG INJ ONE; NALOXONE HCL INJ/PF 0.4 MG/1 ML SDV ONE; ONDANSETRON HCL INJ/PF 4 MG/2 ML SDV ONE
[2018-03-22] MEDS: MIDAZOLAM 2 MG/2 ML INJ ONE ×2 (08:54→08:58)
[2018-03-22] MEDS: FENTANYL CITRATE INJ/PF 100 MCG/2 ML AMPUL ONE ×2 (08:56→09:00)
--- NOTE | 2018-03-22 09:06 | Operative Report ---
Operative Report DATE OF SURGERY: 03/22/18 Operative Report: The risks benefits and alternatives of the procedure explained to the patient in detail and informed consent is obtained.A GIF Olympus video scope was inserted into the patient's mouth and hypopharynx, the esophagus is identified intubated and insufflated, the scope was then advanced through the esophagus stomach and duodenum, retroflexion maneuver is done, the esophagus stomach and first and second portions of the duodenum examined PREOPERATIVE DIAGNOSIS: Epigastric pain POSTOPERATIVE DIAGNOSIS: Gastritis status post biopsy rule out Helicobacter pylori. No ulcers noted. Normal distal esophagus OPERATION: EGD with biopsy SURGEON: LINDA PORTILLO ANESTHESIA: Moderate Sedation - 4 mg of Versed, 50 mcg of fentanyl. Conscious sedation monitoring time 30 minutes. TISSUE REMOVED OR ALTERED: As noted above. COMPLICATIONS: None. ESTIMATED BLOOD LOSS: None. INTRAOPERATIVE FINDINGS: As noted above. PROCEDURE: Patient tolerated procedure well. No immediate postprocedure comp occasions are noted. Patient discharged in good condition. Discharge date 03/22/2018. Discharge diet: Regular. Discharge activity: Regular. 2-3 week follow-up to discuss findings. Patient is instructed to call the office or proceed to the emergency room should there be any further problems or questions. We will await the pathology.
[2018-03-22 10:24] VITALS: BP 168/75
== END 2018-03-22 10:10 | disposition home or self-care (01) ==
LOC: END 08:17
PROVIDERS: ATTEND Internal Medicine Gastroenterology
DX: K29.50 Unspecified chronic gastritis without bleeding (principal); I13.0 Hypertensive heart and chronic kidney disease with heart failure and stage 1 through stage 4 chronic kidney disease, or unspecified chronic kidney disease; I50.32 Chronic diastolic (congestive) heart failure; N18.9 Chronic kidney disease, unspecified; E11.22 Type 2 diabetes mellitus with diabetic chronic kidney disease; E66.01 Morbid (severe) obesity due to excess calories; Z79.899 Other long term (current) drug therapy; Z68.41 Body mass index [BMI] 40.0-44.9, adult; Z79.84 Long term (current) use of oral hypoglycemic drugs
CPT/HCPCS: 43239; 82962; 88305 ×2; J2250; J3010; J0171; J1200; J1610; J2310; J2405; J3490

== ENCOUNTER 2018-07-07 17:47 | Inpatient (IN) | payer MEDICARE, MEDICAID ==
[2018-07-07] MEDS ORDERED: VANCOMYCIN HCL INJ 1000 MG VIAL IV ONE (18:38)
--- NOTE | 2018-07-07 18:42 | ER Document Report ---
ED General - General Chief Complaint: Leg Pain Stated Complaint: LEG SWELLING Time Seen by Provider: 07/07/18 18:15 Notes: Patient is a 67-year-old female with a past medical history of morbid obesity, insulin-dependent type 2 diabetes, chronic foot wound to the right side currently in wound management, who presents with a rapidly progressing cellulitis over the lateral aspect of the right lower extremity. Patient states for the last 24 hours she has noticed rapid progression of erythema along the lateral aspect of her right lower extremity starting from her foot now extend all the way up to her buttock. She states the area has a severe, aching, throbbing pain. She states that the redness did spread from apparently the foot wound. No history of similar symptoms in the past. She notes that she has felt achy and generally poor but denies fever or additional constitutional symptoms. Contrary to triage assessment there is no left leg pain and she denies abdominal pain. The patient has not had any vomiting, chest pain or shortness of breath. She has not yet seen her general doctor regarding today's concerns. Nothing improves or worsens her symptoms. TRAVEL OUTSIDE OF THE [place] IN LAST 30 DAYS: No - Related Data Allergies/Adverse Reactions: iodine [Iodine] Allergy (Verified 03/22/18 08:37) Past Medical History - General Information source: Patient - Social History Smoking Status: Former Smoker Chew tobacco use (# tins/day): No Frequency of alcohol use: None Drug Abuse: None Lives with: Family Family History: DM, Hypertension Patient has suicidal ideation: No Patient has homicidal ideation: No - Past Medical History Cardiac Medical History: Reports: Hx Congestive Heart Failure, Hx Hypercholesterolemia, Hx Hypertension Denies: Hx Coronary Artery Disease, Hx Heart Attack Pulmonary Medical History: Denies: Hx Asthma, Hx Bronchitis, Hx COPD, Hx Pneumonia Neurological Medical History: Denies: Hx Cerebrovascular Accident, Hx Seizures Endocrine Medical History: Reports: Hx Diabetes Mellitus Type 1, Hx Diabetes Mellitus Type 2 Renal/ Medical History: Denies: Hx Peritoneal Dialysis GI Medical History: Reports: Hx Diverticulitis Musculoskeletal Medical History: Reports Hx Arthritis Past Surgical History: Denies: Hx Hysterectomy - Immunizations Hx Diphtheria, Pertussis, Tetanus Vaccination: No Review of Systems - Review of Systems Notes: Constitutional: Negative for fever. HENT: Negative for sore throat. Eyes: Negative for visual changes. Cardiovascular: Negative for chest pain. Respiratory: Negative for shortness of breath. Gastrointestinal: Negative for abdominal pain, vomiting or diarrhea. Genitourinary: Negative for dysuria. Musculoskeletal: Positive for right leg pain Skin: Positive for rash. Neurological: Negative for headaches, weakness or numbness. 10 point ROS negative except as marked above and in HPI. Physical Exam - Vital signs Vitals: Temp Pulse Resp BP Pulse Ox 98.9 F 73 18 147/66 H 98 07/07/18 18:16 07/07/18 18:16 07/07/18 18:16 07/07/18 18:16 07/07/18 18:16 Interpretation: Hypertensive Notes: PHYSICAL EXAMINATION: GENERAL: Morbidly obese female, in no acute distress HEAD: Atraumatic, normocephalic. EYES: Pupils equal round and reactive to light, extraocular movements intact, sclera anicteric, conjunctiva are normal. ENT: nares patent, oropharynx clear without exudates. Moderately dry mucous membranes. NECK: Normal range of motion, supple without lymphadenopathy LUNGS: Breath sounds clear to auscultation bilaterally and equal. No wheezes rales or rhonchi. HEART: Regular rate and rhythm without murmurs ABDOMEN: Soft, nontender, normoactive bowel sounds. No guarding, no rebound. No masses appreciated. EXTREMITIES: Normal range of motion, trace edema in the bilateral lower extremities, slightly more prominent on the right. NEUROLOGICAL: No focal neurological deficits. Moves all extremities spontaneously and on command. PSYCH: Normal mood, normal affect. SKIN: Warm, Dry, normal turgor, there is a pronounced erythema along the entirety of the lateral aspect of the right lower extremity extending from the heel to the mid buttock on the right. No associated purulence or area of fluid collection. There is a 1 x 0.5 cm heel wound that appears well-healing, granulation tissue around wound edges, no malodorous discharge. Course - Re-evaluation Re-evalutation: 07/07/18 18:41 Patient presents with what appears to be a rapidly progressing cellulitis without associated sepsis at this point. Primary concern is that the patient has a pronounced degree of erythema that has spread from the base of her heel all the way up to her buttock in less than 24 hours. She has multiple risk factors for poor outcome including advanced age, chronic kidney disease, insulin dependent diabetes, and the degree of the cellulitis including lymphadenopathy in the inguinal crease on the right is worrisome for rapidly progressing infection. Will obtain labs, cultures, begin broad-spectrum antibiotics cover for both Pseudomonas and MRSA including cefepime and vancomycin. No indication for large fluid boluses at this point as patient does have CHF, normal heart rate and blood pressure. 07/07/18 19:49 I discussed this case with Dr. Lorenzo who has accepted the patient for admission. Labs are only notable for moderately worsened chronic kidney disease , chronic anemia, mild leukocytosis, lactate normal. - Vital Signs Vital signs: Temp Pulse Resp BP Pulse Ox 98.9 F 73 18 147/66 H 98 07/07/18 18:16 07/07/18 18:16 07/07/18 18:16 07/07/18 18:16 07/07/18 18:16 - Laboratory Result Diagrams: 07/07/18 18:50 07/07/18 18:50 Laboratory results interpreted by me: 07/07/18 07/07/18 18:50 18:50 WBC 10.7 H RBC 2.87 L Hgb 7.9 L Hct 24.0 L RDW 14.8 H Seg Neutrophils % 81.5 H Lymphocytes % 9.5 L Absolute Neutrophils 8.7 H Sodium 135.7 L Potassium 3.4 L BUN 35 H Creatinine 1.66 H Est GFR ( Amer) 37 L Est GFR (Non-Af Amer) 31 L Glucose 257 H Calcium 8.0 L Albumin 3.0 L - Diagnostic Test Radiology reviewed: Image reviewed, Reports reviewed Radiology results interpreted by me: 07/07/18 19:49 No evidence of gas in the soft tissue or acute osteomyelitis Discharge - Discharge Clinical Impression: Cellulitis of right lower extremity, CKD (chronic kidney disease) stage 3, GFR 30-59 ml/min, Morbid (severe) obesity due to excess calories Heel ulcer Qualifiers: Laterality: right Non-pressure ulcer stage: unspecified non-pressure ulcer stage Qualified Code(s): L97.419 - Non-pressure chronic ulcer of right heel and midfoot with unspecified severity Condition: Fair Disposition: ADMITTED INPATIENT Admitting Provider: Hospitalist Unit Admitted: Medical Floor Referrals: NICOLASA TALBOT DPM [ACTIVE STAFF] - Follow up as needed
[2018-07-07 19:09] LABS: VENOUS BLOOD BASE EXCESS 0.7 mmol/L; VENOUS BLOOD HCO3 25.5 mmol/L (20-32); VENOUS BLOOD PCO2 41.7 mmHg (35-63); VENOUS BLOOD PH 7.4 (7.30-7.42)
[2018-07-07 19:11] LABS: ABSOLUTE EOSINOPHILS # (AUTO) 0.2 10^3/uL (0.0-0.6); ABSOLUTE MONOCYTES (AUTO) 0.7 10^3/uL (0.1-1.4); ABSOLUTE NEUT (AUTO) 8.7 10^3/uL (1.7-8.2); BASOPHILS % (AUTO) 0.3 % (0-2); LYMPHOCYTES % (AUTO) 9.5 % (13-45); MEAN CORPUSCULAR HEMOGLOBIN 27.6 pg (27.0-33.4); MEAN CORPUSCULAR VOLUME 84 fl (80-97); MONOCYTES % (AUTO) 6.7 % (3-13); PLATELET COUNT 236 10^3/uL (150-450); RED BLOOD COUNT 2.87 10^6/uL (3.72-5.28); RED CELL DISTRIBUTION WIDTH 14.8 % (11.5-14.0); SEGMENTED NEUTROPHILS % (AUTO) 81.5 % (42-78); TOTAL CELLS COUNTED % (AUTO) 100 %; WHITE BLOOD COUNT 10.7 10^3/uL (4.0-10.5)
[2018-07-07 19:13] LABS: HEMOGLOBIN 7.9 g/dL (12.0-15.5)
--- NOTE | 2018-07-07 19:17 | RADIOLOGY REPORT (SQ) ---
EXAM DESCRIPTION: FOOT RIGHT COMPLETE COMPLETED DATE/TIME: 07/07/2018 7:00 pm REASON FOR STUDY: right foot infection COMPARISON: None. EXAM PARAMETERS: NUMBER OF VIEWS: Three views. TECHNIQUE: AP, lateral and oblique radiographic images acquired of the right foot. LIMITATIONS: None. FINDINGS: MINERALIZATION: Osteopenia. BONES: No acute fracture or dislocation. No worrisome bone lesions. JOINTS: No effusion. SOFT TISSUES: Dorsal soft tissue swelling. No radiopaque foreign body. OTHER: No other significant finding. IMPRESSION: Dorsal soft tissue swelling. No acute osseous findings. TECHNICAL DOCUMENTATION: JOB ID: [id number] [place]-72 2010 [employer]- All Rights Reserved Reading location - IP/workstation name: [email or web address]
[2018-07-07 19:30] LABS: ALANINE AMINOTRANSFERASE 19 U/L (9-52); ALKALINE PHOSPHATASE 113 U/L (38-126); ANION GAP 11 (5-19); ASPARTATE AMINO TRANSFERASE 27 U/L (14-36); BILIRUBIN,DIRECT 0.3 mg/dL (0.0-0.4); BILIRUBIN,TOTAL 0.7 mg/dL (0.2-1.3); BLOOD UREA NITROGEN 35 mg/dL (7-20); CARBON DIOXIDE 27 mmol/L (22-30); CHLORIDE 98 mmol/L (98-107); GLUCOSE 257 mg/dL (75-110); POTASSIUM 3.4 mmol/L (3.6-5.0); SODIUM 135.7 mmol/L (137-145); TOTAL PROTEIN 6.8 g/dL (6.3-8.2)
[2018-07-07] MEDS ORDERED: CEFEPIME 2 GM/D5W RTU 2 GM/50 ML RTUPB IV ONE ×2 (19:30→22:30)
[2018-07-07] MEDS ORDERED: PROMETHAZINE HCL 25 MG TABLET PO PRN (20:53)
[2018-07-07] MEDS ORDERED: PROMETHAZINE HCL INJ 25 MG/1 ML VIAL IV PRN (20:53)
[2018-07-07] MEDS ORDERED: ACETAMINOPHEN 325 MG TABLET PO PRN (20:53)
[2018-07-07] MEDS ORDERED: IPRATROPIUM/ALBUTEROL 0.5-2.5 MG/3 ML AMPUL NEB PRN (20:53)
[2018-07-07] MEDS ORDERED: MAG HYDROX/AL HYDROX/SIMETH SUSP 30 ML UDCUP PO PRN (20:53)
[2018-07-07] MEDS ORDERED: GLUCAGON,HUMAN RECOMB 1 MG INJ IM PRN (21:02)
[2018-07-07] MEDS ORDERED: DEXTROSE 50%-WATER 25 GM/50 ML DISP.SYRIN IV PRN ×2 (21:02)
[2018-07-07] MEDS ORDERED: DEXTROSE 40% GEL 15 GM TUBE PO PRN (21:02)
[2018-07-07] MEDS ORDERED: VANCOMYCIN HCL 0 MG in DEXTROSE 5%-WATER 250 ML IV NR (21:15)
--- NOTE | 2018-07-07 21:29 | PDOC H&P ---
History of Present Illness Admission Date/PCP: 07/07/18 20:21 LUIZ LOPEZ MD Patient complains of: Right lower extremity pain History of Present Illness: DOM ADAMS is a 67 year old female with multiple medical conditions that I will outline below. Patient has a chronic right heel diabetic ulceration that is healing well, she follows at the wound clinic with Dr. Perry and her last visit was last Tuesday. Yesterday she has noticed that when she stands up she has pain on the right leg, when she look at it she notices swelling and redness that has been rapidly progressing from her foot up to the inner area of his tight and buttock, warm to the touch and very tender to palpation. Pain has been going up to 9/10 in intensity, severe, aching and throbbing in nature. Denies any fever, chills, nausea, vomiting. Her left leg is unremarkable. Patient complains of mild shortness of breath for the last few days. In the emergency department given IV cefepime and IV vancomycin. Blood cultures sent. Past Medical History Cardiac Medical History: Reports: Congestive Heart Failure, Hyperlipidema, Hypertension Denies: Coronary Artery Disease, Myocardial Infarction Pulmonary Medical History: Denies: Asthma, Bronchitis, Chronic Obstructive Pulmonary Disease (COPD), Pneumonia Neurological Medical History: Denies: Seizures Endocrine Medical History: Reports: Diabetes Mellitus Type 2, Obesity Renal/ Medical History: Reports: Chronic Kidney Disease GI Medical History: Reports: Diverticulitis Musculoskeltal Medical History: Reports: Arthritis Skin Medical History: Reports: Other - Right heal diabetic ulcer Hematology: Reports: Anemia Past Surgical History Past Surgical History: Reports: None Social History Lives with: Family Smoking Status: Former Smoker Frequency of Alcohol Use: None Hx Recreational Drug Use: No Drugs: None Hx Prescription Drug Abuse: No Family History Family History: DM, Hypertension Parental Family History Reviewed: Yes - As above Children Family History Reviewed: NA Sibling(s) Family History Reviewed.: NA Medication/Allergy Home Medications: Atorvastatin Calcium [Lipitor 40 mg Tablet] 40 mg PO QHS 12/13/17 Amlodipine Besylate [Norvasc 5 mg Tablet] 5 mg PO DAILY #30 tablet 01/29/18 Furosemide [Lasix 20 mg Tablet] 40 mg PO QAM 03/22/18 Labetalol HCl [Normodyne 200 mg Tablet] 200 mg PO Q8 03/22/18 Allergies/Adverse Reactions: iodine [Iodine] Allergy (Verified 03/22/18 08:37) Review of Systems Review of Systems: As outlined in the HPI, others negative Physical Exam Vital Signs: Temp Pulse Resp BP Pulse Ox 98.9 F 73 18 147/66 H 98 07/07/18 18:16 07/07/18 18:16 07/07/18 18:16 07/07/18 18:16 07/07/18 18:16 Additional comments: General appearance: Well-developed, morbid obese, alert and cooperative, and appears to be in no acute distress Head: Normocephalic Eyes: PEERL, EOMI, vision is grossly intact. Ears: External auditory canal and tympanic membranes clear, hearing grossly intact. Nose: No nasal discharge. Throat: Oral cavity and pharynx normal. No inflammation, swelling, exudate or lesions. Neck: Neck supple, nontender without lymphadenopathy, masses or thyromegaly. Cardiac: Normal S1 and S2. No S3, S4 or murmurs. Rhythm is regular. There is no peripheral edema, cyanosis or pallor. Extremities are warm and well perfused. Capillary refill is less than 2 seconds. No carotid bruits. Lungs: Clear to auscultation and percussion without rales, rhonchi, wheezing or diminished breath sounds. Not using accessory muscles. Abdomen: Positive bowel sounds. Soft. Nondistended, nontender. No guarding or rebound. No masses. Unable to evaluate hepatosplenomegaly as per body habitus Extremities: Right lower extremity with a healing diabetic ulcer in the lateral external area of the right heel, no signs of infection. Erythema more intense in the leg area radiated to the internal side and the buttocks. No associated secretions or fluid collection. Neurological: Cranial nerves II through XII grossly intact. Strength and sensation symmetric and intact throughout. Reflexes 2+ throughout. Skin: Skin normal color, texture and turgor with no lesions or eruptions, warm and dry. Psychiatric: The mental examination revealed the patient was oriented to person , place, and time. The patient was able to demonstrate good judgment on recent , without hallucinations, abnormal affect or abnormal behaviors. Results Laboratory Results: 07/07/18 07/07/18 07/07/18 18:50 18:50 18:50 WBC 10.7 H RBC 2.87 L Hgb 7.9 L Hct 24.0 L MCV 84 MCH 27.6 MCHC 33.0 RDW 14.8 H Plt Count 236 Seg Neutrophils % 81.5 H Lymphocytes % 9.5 L Monocytes % 6.7 Eosinophils % 2.0 Basophils % 0.3 Absolute Neutrophils 8.7 H Absolute Lymphocytes 1.0 Absolute Monocytes 0.7 Absolute Eosinophils 0.2 Absolute Basophils 0.0 VBG pH VBG pCO2 VBG HCO3 VBG Base Excess Sodium 135.7 L Potassium 3.4 L Chloride 98 Carbon Dioxide 27 Anion Gap 11 BUN 35 H Creatinine 1.66 H Est GFR ( Amer) 37 L Est GFR (Non-Af Amer) 31 L Glucose 257 H Lactic Acid 1.4 Calcium 8.0 L Total Bilirubin 0.7 Direct Bilirubin 0.3 AST 27 ALT 19 Alkaline Phosphatase 113 Total Protein 6.8 Albumin 3.0 L 07/07/18 18:50 WBC RBC Hgb Hct MCV MCH MCHC RDW Plt Count Seg Neutrophils % Lymphocytes % Monocytes % Eosinophils % Basophils % Absolute Neutrophils Absolute Lymphocytes Absolute Monocytes Absolute Eosinophils Absolute Basophils VBG pH 7.40 VBG pCO2 41.7 VBG HCO3 25.5 VBG Base Excess 0.7 Sodium Potassium Chloride Carbon Dioxide Anion Gap BUN Creatinine Est GFR ( Amer) Est GFR (Non-Af Amer) Glucose Lactic Acid Calcium Total Bilirubin Direct Bilirubin AST ALT Alkaline Phosphatase Total Protein Albumin Impressions: Foot X-Ray 07/07/18 18:37 IMPRESSION: Dorsal soft tissue swelling. No acute osseous findings. Assessment & Plan - Diagnosis (1) Cellulitis of right lower extremity Is this a current diagnosis for this admission?: Yes Plan: Patient comes with severe cellulitis in the right lower extremity, felt that is arising from his chronic right lateral heel ulcer, probably infection origin is deep tissue as upon evaluation the heel ulcer seems to be healing nicely with no signs of infection or secretions. I will place an order for right lower extremity with sound and rule out DVT. IV cefepime and IV vancomycin started in the emergency department, will continue with his antibiotics. Please follow blood cultures. I am placing a general surgery evaluation for further recommendations. (2) Diabetic ulcer of right heel Qualifiers: Diabetes mellitus type: type 2 Is this a current diagnosis for this admission?: Yes Plan: Follows in the wound clinic with Dr. Perry, last visit was last Tuesday, also seems to be healing very well. (3) CKD (chronic kidney disease) stage 3, GFR 30-59 ml/min Is this a current diagnosis for this admission?: Yes Plan: Stable (4) Type 2 diabetes mellitus Qualifiers: Diabetes mellitus complication detail: with diabetic retinopathy Is this a current diagnosis for this admission?: Yes Plan: As per daughter blood sugar has been well controlled lately. Will resume her home diabetes medications and do Accu-Cheks q. before meals and at bedtime, insulin lispro sliding scale and hypoglycemia protocol. (5) Chronic diastolic CHF (congestive heart failure) Is this a current diagnosis for this admission?: Yes Plan: Patient complains of mild shortness of breath On exertion for the last few days , we will go ahead and add BNP to prior labs. Will resume her home Lasix. I have noticed that her hemoglobin and hematocrit has been dropping during the last few months, today is 7.9, I believe the patient might benefit of 1 unit of PRBC, but I will wait for the morning labs to reassess H/H. (6) Hypertension Qualifiers: Hypertension type: essential hypertension Qualified Code(s): I10 - Essential (primary) hypertension Is this a current diagnosis for this admission?: Yes Plan: Blood pressure is decently controlled, resume home antihypertensive medications. (7) DVT prophylaxis Is this a current diagnosis for this admission?: Yes Plan: Heparin - Time Time Spent: 50 to 70 Minutes - Inpatient Certification Based on my medical assessment, after consideration of the patient's comorbidities, presenting symptoms, or acuity I expect that the services needed warrant INPATIENT care.: Yes I certify that my determination is in accordance with my understanding of Medicare's requirements for reasonable and necessary INPATIENT services [42 CFR 412.3e].: Yes Medical Necessity: Risk of Complication if Not Cared For in Hospital - Plan Summary Plan Summary: Plan discussed with patient and daughter who is at the bedside, agree with plan
[2018-07-07] MEDS ORDERED: POTASSIUM CHLORIDE 20 MEQ/15 ML UDCUP PO ONE (22:25)
[2018-07-07] MEDS ORDERED: HEPARIN SOD (PORCINE) 5,000 UNIT/ML 1 ML SYRINGE SUBCUT ONE (22:30)
[2018-07-08] MEDS: HEPARIN SOD (PORCINE) 5,000 UNIT/ML 1 ML SYRINGE SUBCUT SCH ×3 (05:16→21:03)
[2018-07-08] MEDS: LABETALOL HCL 200 MG TABLET PO SCH ×3 (05:16→21:02)
[2018-07-08] MEDS ORDERED: CEFEPIME 2 GM/D5W RTU 2 GM/50 ML RTUPB IV SCH (06:00)
[2018-07-08 06:17] LABS: ABSOLUTE EOSINOPHILS # (AUTO) 0.2 10^3/uL (0.0-0.6); ABSOLUTE LYMPHOCYTES (AUTO) 0.7 10^3/uL (0.5-4.7); ABSOLUTE MONOCYTES (AUTO) 0.7 10^3/uL (0.1-1.4); ABSOLUTE NEUT (AUTO) 6.5 10^3/uL (1.7-8.2); ABSOLUTE RETICS # 0.042 10^6/uL (0.028-0.122); BASOPHILS % (AUTO) 0.4 % (0-2); EOSINOPHILS % (AUTO) 2.4 % (0-6); HEMATOCRIT 23.7 % (36.0-47.0); LYMPHOCYTES % (AUTO) 9.2 % (13-45); MEAN CORPUSCULAR HEMOGLOBIN 27.8 pg (27.0-33.4); MEAN CORPUSCULAR HGB CONC 33.7 g/dL (32.0-36.0); MEAN CORPUSCULAR VOLUME 83 fl (80-97); MONOCYTES % (AUTO) 8.7 % (3-13); PLATELET COUNT 229 10^3/uL (150-450); RED BLOOD COUNT 2.87 10^6/uL (3.72-5.28); RED CELL DISTRIBUTION WIDTH 14.5 % (11.5-14.0); RETICULOCYTE COUNT (AUTO) 1.47 % (0.66-2.85); SEGMENTED NEUTROPHILS % (AUTO) 79.3 % (42-78); TOTAL CELLS COUNTED % (AUTO) 100 %; WHITE BLOOD COUNT 8.2 10^3/uL (4.0-10.5)
[2018-07-08 06:35] LABS: INTERNATIONAL RATION (INR) 1.15; PROTHROMBIN TIME 15.3 SEC (11.4-15.4)
[2018-07-08 06:36] LABS: PARTIAL THROMBOPLASTIN TIME 34.7 SEC (23.5-35.8)
[2018-07-08 07:56] LABS: ANION GAP 12 (5-19); BLOOD UREA NITROGEN 33 mg/dL (7-20); CALCIUM 8.2 mg/dL (8.4-10.2); CARBON DIOXIDE 23 mmol/L (22-30); CHLORIDE 101 mmol/L (98-107); GLUCOSE 313 mg/dL (75-110); IRON(TIBC) 16.4 ug/dL (37-170); PHOSPHORUS 3.6 mg/dL (2.5-4.5)
[2018-07-08 07:57] LABS: POTASSIUM 4.5 mmol/L (3.6-5.0)
[2018-07-08] MEDS: INSULIN LISPRO 100 UNIT/ML 3 ML VIAL SUBCUT PRN ×2 (08:19→21:38)
[2018-07-08] MEDS: FUROSEMIDE 20 MG TABLET PO SCH (08:21)
--- NOTE | 2018-07-08 09:43 | RADIOLOGY REPORT (SQ) ---
EXAM DESCRIPTION: VENOUS UNILATERAL LOWER COMPLETED DATE/TIME: 07/08/2018 9:32 am REASON FOR STUDY: r/o DVT in RLE COMPARISON: 04/16/2014. TECHNIQUE: Dynamic and static fitzgerald scale and color images acquired of the right leg venous system. S elected spectral images acquired with additional compression and augmentation maneuvers. The contrala teral common femoral vein and saphenofemoral junction were also imaged. Images stored on PACS. LIMITATIONS: None. FINDINGS: COMMON FEMORAL: Normal phasicity, compression and augmentation. No visualized echogenic ma terial on fitzgerald scale. No defects on color images. FEMORAL: Normal compression and augmentation. No visualized echogenic material on fitzgerald scale. No defe cts on color images. POPLITEAL: Normal compression, augmentation. No visualized echogenic material on fitzgerald scale. No defec ts on color images. CALF VESSELS: Normal compression, augmentation. No visualized echogenic material on fitzgerald scale. No de fects on color images. GSV and SSV: Normal compression, augmentation. No visualized echogenic material on fitzgerald scale. No def ects on color images. ANY DEEP VENOUS INSUFFICIENCY: No. ANY EVIDENCE OF POPLITEAL CYST: No. OTHER: No other significant finding. CONTRALATERAL COMMON FEMORAL VEIN AND SAPHENOFEMORAL JUNCTION: Normal phasicity, compression and augmentation. No visualized echogenic material on fitzgerald scale. No de fects on color images. IMPRESSION: NO EVIDENCE DVT OR SVT IN THE RIGHT LEG. TECHNICAL DOCUMENTATION: JOB ID: [id number] [employer]- All Rights Reserved Reading location - IP/workstation name: [email or web address]
[2018-07-08] MEDS: CEFEPIME 2 GM/D5W RTU 2 GM/50 ML RTUPB IV SCH ×2 (10:30→17:58)
[2018-07-08] MEDS: AMLODIPINE BESYLATE 5 MG TABLET PO SCH (10:31)
--- NOTE | 2018-07-08 11:32 | PDOC PROGRESS REPORT ---
Subjective Progress Note for:: 07/08/18 Subjective:: Pleasant 67-year-old diabetic female who has been attending the wound care clinic for a right lateral heel ulcer. Reason For Visit: RIGHT LE CELLULITIS Physical Exam Vital Signs: Temp Pulse Resp BP Pulse Ox 98.3 F 70 12 158/66 H 100 07/08/18 07:30 07/08/18 07:30 07/08/18 07:30 07/08/18 07:30 07/08/18 07:30 Intake & Output 07/07/18 07/08/18 07/09/18 06:59 06:59 05:59 Intake Total 362 Balance 362 Weight 124.1 kg General appearance: PRESENT: no acute distress, cooperative, obese, well- developed Head exam: PRESENT: atraumatic, normocephalic Eye exam: PRESENT: conjunctiva pale, EOMI. ABSENT: scleral icterus Ear exam: PRESENT: normal external ear exam Mouth exam: PRESENT: moist, tongue midline Neck exam: ABSENT: carotid bruit, JVD, lymphadenopathy Respiratory exam: PRESENT: clear to auscultation rona, symmetrical, unlabored. ABSENT: rales, rhonchi, wheezes Cardiovascular exam: PRESENT: RRR, +S1, +S2, systolic murmur - 2/6 GI/Abdominal exam: PRESENT: hypoactive bowel sounds, soft. ABSENT: guarding, tenderness Extremities exam: PRESENT: pedal edema - 2+ right leg and foot Neurological exam: PRESENT: alert, awake, oriented to person, oriented to place , oriented to situation, CN II-XII grossly intact Psychiatric exam: PRESENT: appropriate affect, normal mood. ABSENT: agitated, anxious Skin exam: PRESENT: dry, erythema - Lateral aspect right thigh, warm, other - On the lateral aspect of the right heel there is a diabetic ulcer approximately 2 cm in diameter. The base is good granulation tissue. Results Laboratory Results: 07/08/18 05:29 07/08/18 05:29 07/08/18 07/08/18 05:29 05:29 WBC 8.2 RBC 2.87 L Hgb 8.0 L Hct 23.7 L MCV 83 MCH 27.8 MCHC 33.7 RDW 14.5 H Plt Count 229 Seg Neutrophils % 79.3 H Lymphocytes % 9.2 L Monocytes % 8.7 Eosinophils % 2.4 Basophils % 0.4 Absolute Neutrophils 6.5 Absolute Lymphocytes 0.7 Absolute Monocytes 0.7 Absolute Eosinophils 0.2 Absolute Basophils 0.0 Retic Count (auto) 1.47 Absolute Retic 0.042 Sodium 136.0 L Potassium 4.5 D Chloride 101 Carbon Dioxide 23 Anion Gap 12 BUN 33 H Creatinine 1.52 H Est GFR ( Amer) 41 L Est GFR (Non-Af Amer) 34 L Glucose 313 H Calcium 8.2 L Phosphorus 3.6 Magnesium 2.3 Iron 16.4 L TIBC 212 L % Saturation 8 Ferritin 162.00 Vitamin B12 879.0 Folate 17.00 Impressions: Foot X-Ray 07/07/18 18:37 IMPRESSION: Dorsal soft tissue swelling. No acute osseous findings. Venous Doppler Study 07/08/18 00:00 IMPRESSION: NO EVIDENCE DVT OR SVT IN THE RIGHT LEG. Assessment & Plan - Diagnosis (1) Cellulitis of right lower extremity Is this a current diagnosis for this admission?: Yes Plan: The patient has been dealing with a right heel diabetic ulcer for some time. She has been going to the wound care clinic regularly. Home health and family have been changing dressings. Her ulcer has been healing nicely. Yesterday she presented after increased pain and swelling extending approximately to the thigh. She reports that there is less pain today. There is still erythema noted. She is currently on vancomycin and cefepime. We will continue these for the time being. Have ordered a sed rate as well. A plain film did not reveal any bony ulceration. Osteomyelitis seems unlikely given her progressive healing. We will continue antibiotics and monitor closely. (2) Anemia Qualifiers: Anemia type: due to chronic kidney disease Chronic kidney disease stage: stage 3 (moderate) Qualified Code(s): N18.3 - Chronic kidney disease, stage 3 (moderate); D63.1 - Anemia in chronic kidney disease; D63.1 - Anemia in chronic kidney disease Is this a current diagnosis for this admission?: Yes Plan: The patient's hemoglobin was only 8. She does have chronic kidney disease stage III a. I will check iron studies in the morning. (3) Chronic kidney disease, stage 3a Is this a current diagnosis for this admission?: Yes Plan: The patient has chronic kidney disease. Her estimated GFR is 38. I reviewed all of her serum chemistries 12/2017 and it appears that this is her baseline. We will continue to monitor her renal function. Pharmacy is dosing her vancomycin accordingly. (4) Diabetic ulcer of right heel Qualifiers: Diabetes mellitus type: type 2 Non-pressure ulcer stage: limited to breakdown of skin Qualified Code(s): E11.621 - Type 2 diabetes mellitus with foot ulcer; L97.411 - Non-pressure chronic ulcer of right heel and midfoot limited to breakdown of skin; L97.411 - Non-pressure chronic ulcer of right heel and midfoot limited to breakdown of skin; L97.411 - Non-pressure chronic ulcer of right heel and midfoot limited to breakdown of skin; L97.411 - Non- pressure chronic ulcer of right heel and midfoot limited to breakdown of skin Is this a current diagnosis for this admission?: Yes Plan: The ulcer has been exhibiting good healing and the patient has been compliant with her wound care visits and home dressing changes. We will continue simple gauze dressings since there is no purulent drainage and the ulceration is now limited to the skin without subcutaneous tissue involvement. She will continue with outpatient wound care after discharge. - Time Time Spent with patient: 25-34 minutes Medications reviewed and adjusted accordingly: Yes Anticipated discharge: Home
--- NOTE | 2018-07-08 16:34 | PDOC CONSULTATION ---
Consultation Consult Date: 07/08/18 Consult reason:: cellulitis right leg History of Present Illness Admission Date/PCP: 07/07/18 20:21 LUIZ LOPEZ MD Patient complains of: pains right leg History of Present Illness: DOM ADAMS is a 67 year old female with DM, HTN and CHF, [facility] an ulcer on the right lateral heel. [facility]felt good about the ulcer getting bigger. The next day,Tuesday, c/o not feeling well with nausea and vomiting. On Jul 06 woke up with painful swelling of the right leg and then went to ED Tuesday and admitted for cellulitis of the right leg. Today feels a lot better with less sugqs7d the right leg. Had an ultrasound of the right leg which showed no DVT. Past Medical History Cardiac Medical History: Reports: Congestive Heart Failure, Hyperlipidema, Hypertension Denies: Coronary Artery Disease, Myocardial Infarction Pulmonary Medical History: Denies: Asthma, Bronchitis, Chronic Obstructive Pulmonary Disease (COPD), Pneumonia Neurological Medical History: Denies: Seizures Endocrine Medical History: Reports: Diabetes Mellitus Type 1, Diabetes Mellitus Type 2, Obesity Renal/ Medical History: Reports: Chronic Kidney Disease GI Medical History: Reports: Diverticulitis Musculoskeltal Medical History: Reports: Arthritis Skin Medical History: Reports: Other - Right heal diabetic ulcer Hematology: Reports: Anemia Past Surgical History Past Surgical History: Reports: None Denies: Hysterectomy Social History Lives with: Family Smoking Status: Former Smoker Frequency of Alcohol Use: None Hx Recreational Drug Use: No Drugs: None Hx Prescription Drug Abuse: No Family History Family History: DM, Hypertension Parental Family History Reviewed: Yes - Both parents with DM Children Family History Reviewed: No Sibling(s) Family History Reviewed.: No Medication/Allergy Home Medications: Atorvastatin Calcium [Lipitor 40 mg Tablet] 40 mg PO QHS 12/13/17 Amlodipine Besylate [Norvasc 5 mg Tablet] 5 mg PO DAILY #30 tablet 01/29/18 Furosemide [Lasix 20 mg Tablet] 40 mg PO QAM 03/22/18 Labetalol HCl [Normodyne 200 mg Tablet] 200 mg PO Q8 03/22/18 Allergies/Adverse Reactions: iodine [Iodine] Allergy (Verified 03/22/18 08:37) Review of Systems Constitutional: PRESENT: other - No fever/chills Eyes: PRESENT: other - no visual/hearing changesd Cardiovascular: PRESENT: other - no chest pains/cough Gastrointestinal: PRESENT: nausea, vomiting Genitourinary: PRESENT: other - no dysuria Musculoskeletal: PRESENT: other - swelling right leg Pains right thigh and knee Neurological: PRESENT: weakness Physical Exam Vital Signs: Temp Pulse Resp BP Pulse Ox 99.1 F 83 16 141/74 H 97 07/08/18 15:38 07/08/18 15:38 07/08/18 15:38 07/08/18 15:38 07/08/18 15:38 Intake & Output 07/07/18 07/08/18 07/09/18 06:59 06:59 05:59 Intake Total 362 759 Output Total 1100 Balance 362 -341 Weight 124.1 kg General appearance: PRESENT: mild distress Head exam: PRESENT: atraumatic Eye exam: PRESENT: conjunctiva pink Mouth exam: PRESENT: moist Neck exam: PRESENT: full ROM Respiratory exam: PRESENT: clear to auscultation rona Cardiovascular exam: PRESENT: RRR Pulses: PRESENT: normal radial pulses Vascular exam: PRESENT: normal capillary refill, other - unable to palpate right ankle pulses but has some edema which may obscure pulses palpation Faint right popliteal pulse GI/Abdominal exam: PRESENT: soft Rectal exam: PRESENT: deferred Extremities exam: PRESENT: other - right lower leg medial aspect is warm but no swelling Has a 2cm dry ulcer right lateral heel Musculoskeletal exam: PRESENT: ambulatory Neurological exam: PRESENT: alert, oriented to person, oriented to place, oriented to time, oriented to situation Psychiatric exam: PRESENT: appropriate affect Skin exam: PRESENT: normal color, warm Results Laboratory Results: 07/08/18 05:29 07/08/18 05:29 07/08/18 07/08/18 05:29 05:29 WBC 8.2 RBC 2.87 L Hgb 8.0 L Hct 23.7 L MCV 83 MCH 27.8 MCHC 33.7 RDW 14.5 H Plt Count 229 Seg Neutrophils % 79.3 H Lymphocytes % 9.2 L Monocytes % 8.7 Eosinophils % 2.4 Basophils % 0.4 Absolute Neutrophils 6.5 Absolute Lymphocytes 0.7 Absolute Monocytes 0.7 Absolute Eosinophils 0.2 Absolute Basophils 0.0 Retic Count (auto) 1.47 Absolute Retic 0.042 Sodium 136.0 L Potassium 4.5 D Chloride 101 Carbon Dioxide 23 Anion Gap 12 BUN 33 H Creatinine 1.52 H Est GFR ( Amer) 41 L Est GFR (Non-Af Amer) 34 L Glucose 313 H Calcium 8.2 L Phosphorus 3.6 Magnesium 2.3 Iron 16.4 L TIBC 212 L % Saturation 8 Ferritin 162.00 Vitamin B12 879.0 Folate 17.00 Impressions: Foot X-Ray 07/07/18 18:37 IMPRESSION: Dorsal soft tissue swelling. No acute osseous findings. Venous Doppler Study 07/08/18 00:00 IMPRESSION: NO EVIDENCE DVT OR SVT IN THE RIGHT LEG. Assessment & Plan - Diagnosis (1) CKD (chronic kidney disease) stage 3, GFR 30-59 ml/min Is this a current diagnosis for this admission?: Yes (2) Cellulitis of right lower extremity Is this a current diagnosis for this admission?: Yes (3) Chronic diastolic CHF (congestive heart failure) Is this a current diagnosis for this admission?: Yes (4) Chronic kidney disease, stage 3a Is this a current diagnosis for this admission?: Yes (5) Diabetic ulcer of right heel Qualifiers: Diabetes mellitus type: type 2 Non-pressure ulcer stage: limited to breakdown of skin Qualified Code(s): E11.621 - Type 2 diabetes mellitus with foot ulcer; L97.411 - Non-pressure chronic ulcer of right heel and midfoot limited to breakdown of skin; L97.411 - Non-pressure chronic ulcer of right heel and midfoot limited to breakdown of skin; L97.411 - Non-pressure chronic ulcer of right heel and midfoot limited to breakdown of skin; L97.411 - Non- pressure chronic ulcer of right heel and midfoot limited to breakdown of skin Is this a current diagnosis for this admission?: Yes (6) Heel ulcer Qualifiers: Laterality: right Non-pressure ulcer stage: unspecified non-pressure ulcer stage Qualified Code(s): L97.419 - Non-pressure chronic ulcer of right heel and midfoot with unspecified severity Is this a current diagnosis for this admission?: Yes (7) Morbid (severe) obesity due to excess calories Is this a current diagnosis for this admission?: Yes (8) Ambulatory dysfunction Is this a current diagnosis for this admission?: Yes (9) Congestive heart failure Qualifiers: Heart failure type: diastolic Heart failure chronicity: acute on chronic Qualified Code(s): I50.33 - Acute on chronic diastolic (congestive) heart failure Is this a current diagnosis for this admission?: Yes (10) Renal insufficiency Is this a current diagnosis for this admission?: Yes (11) Type 2 diabetes mellitus Qualifiers: Diabetes mellitus complication detail: with diabetic retinopathy Is this a current diagnosis for this admission?: Yes (12) Vomiting Qualifiers: Vomiting type: unspecified Nausea presence: with nausea Is this a current diagnosis for this admission?: Yes - Time Time Spent: 30 to 50 Minutes - Inpatient Certification Medical Necessity: Need for IV Antibiotics - Plan Summary Plan Summary: Cellulitis likely from the heel ulcer. Appears to be improving with IV Antibiotics Continue IV antibiotics However if cellulitis worsens suggest vascular surgery evaluation
[2018-07-08] MEDS: VANCOMYCIN HCL 1,500 MG in DEXTROSE 5%-WATER 250 ML IV SCH (18:37)
[2018-07-08] MEDS: ATORVASTATIN CALCIUM 40 MG TABLET PO SCH (21:02)
[2018-07-09] MEDS: CEFEPIME 2 GM/D5W RTU 2 GM/50 ML RTUPB IV SCH ×3 (01:28→17:01)
[2018-07-09] MEDS: HEPARIN SOD (PORCINE) 5,000 UNIT/ML 1 ML SYRINGE SUBCUT SCH ×3 (05:50→21:47)
[2018-07-09] MEDS: LABETALOL HCL 200 MG TABLET PO SCH ×3 (05:50→21:47)
[2018-07-09 07:08] LABS: ABSOLUTE RETICS # 0.046 10^6/uL (0.028-0.122); HEMATOCRIT 23.5 % (36.0-47.0); HEMOGLOBIN 8.1 g/dL (12.0-15.5); MEAN CORPUSCULAR HEMOGLOBIN 28.3 pg (27.0-33.4); MEAN CORPUSCULAR HGB CONC 34.4 g/dL (32.0-36.0); MEAN CORPUSCULAR VOLUME 82 fl (80-97); PLATELET COUNT 255 10^3/uL (150-450); RED BLOOD COUNT 2.86 10^6/uL (3.72-5.28); RED CELL DISTRIBUTION WIDTH 14.6 % (11.5-14.0); RETICULOCYTE COUNT (AUTO) 1.61 % (0.66-2.85); WHITE BLOOD COUNT 6.8 10^3/uL (4.0-10.5)
[2018-07-09 07:17] LABS: ANION GAP 9 (5-19); BLOOD UREA NITROGEN 33 mg/dL (7-20); CALCIUM 8.5 mg/dL (8.4-10.2); CARBON DIOXIDE 26 mmol/L (22-30); CHLORIDE 103 mmol/L (98-107); GLUCOSE 206 mg/dL (75-110); IRON(TIBC) 19.4 ug/dL (37-170); POTASSIUM 4.2 mmol/L (3.6-5.0); SODIUM 137.9 mmol/L (137-145)
[2018-07-09] MEDS: FUROSEMIDE 20 MG TABLET PO SCH (07:56)
[2018-07-09 08:33] LABS: ERYTHROCYTE SEDIMENTATION RATE 120 mm/hr (0-30)
[2018-07-09] MEDS: AMLODIPINE BESYLATE 5 MG TABLET PO SCH (09:44)
--- NOTE | 2018-07-09 13:34 | PDOC PROGRESS REPORT ---
Subjective Progress Note for:: 07/09/18 Subjective:: The patient is feeling better yet again today. She does not have tenderness on the right lateral thigh. Her right foot and lower leg still hurt. Reason For Visit: RIGHT LE CELLULITIS Physical Exam Vital Signs: Temp Pulse Resp BP Pulse Ox 98.0 F 65 16 148/76 H 100 07/09/18 11:29 07/09/18 11:29 07/09/18 11:29 07/09/18 11:29 07/09/18 11:29 Intake & Output 07/08/18 07/09/18 07/10/18 07:59 06:59 06:59 Intake Total 50 Output Total Balance 50 Weight General appearance: PRESENT: no acute distress, cooperative, morbidly obese, well-developed Head exam: PRESENT: atraumatic, normocephalic Neck exam: ABSENT: carotid bruit, JVD, lymphadenopathy Respiratory exam: PRESENT: clear to auscultation rona, symmetrical, unlabored. ABSENT: rales, rhonchi, wheezes Cardiovascular exam: PRESENT: RRR, +S1, +S2, systolic murmur - 2/6 best at left sternal border GI/Abdominal exam: PRESENT: normal bowel sounds, soft. ABSENT: tenderness Extremities exam: PRESENT: tenderness - Right leg. Not in right thigh., +2 edema - Right leg. Neurological exam: PRESENT: alert, awake, oriented to person, oriented to place , oriented to situation Psychiatric exam: PRESENT: appropriate affect, normal mood. ABSENT: agitated, anxious Skin exam: PRESENT: other - Diabetic heel ulcer right lateral Results Laboratory Results: 07/09/18 06:39 07/09/18 06:39 07/09/18 07/09/18 06:39 06:39 WBC 6.8 RBC 2.86 L Hgb 8.1 L Hct 23.5 L MCV 82 MCH 28.3 MCHC 34.4 RDW 14.6 H Plt Count 255 Retic Count (auto) 1.61 Absolute Retic 0.046 Sodium 137.9 Potassium 4.2 Chloride 103 Carbon Dioxide 26 Anion Gap 9 BUN 33 H Creatinine 1.36 H Est GFR ( Amer) 47 L Est GFR (Non-Af Amer) 39 L Glucose 206 H Calcium 8.5 Iron 19.4 L TIBC 216 L % Saturation 9 Ferritin 120.00 Vitamin B12 846.0 Folate 16.80 Impressions: Foot X-Ray 07/07/18 18:37 IMPRESSION: Dorsal soft tissue swelling. No acute osseous findings. Venous Doppler Study 07/08/18 00:00 IMPRESSION: NO EVIDENCE DVT OR SVT IN THE RIGHT LEG. Assessment & Plan - Diagnosis (1) Cellulitis of right lower extremity Is this a current diagnosis for this admission?: Yes Plan: The patient has been dealing with a right heel diabetic ulcer for some time. She has been going to the wound care clinic regularly. Home health and family have been changing dressings. Her ulcer has been healing nicely. Yesterday she presented after increased pain and swelling extending approximately to the thigh. She reports that there is less pain today. There is still erythema noted. She is currently on vancomycin and cefepime. We will continue these for the time being. Have ordered a sed rate as well. A plain film did not reveal any bony ulceration. Osteomyelitis seems unlikely given her progressive healing. We will continue antibiotics and monitor closely. 07/09/2018-this is not a surgical case. The patient's sed rate is 120. Plain films did not show evidence of bony ulceration. If her sed rate remains high consider MRI to rule out osteomyelitis. This makes a significant difference in her treatment regimen. (2) Anemia Qualifiers: Anemia type: due to chronic kidney disease Chronic kidney disease stage: stage 3 (moderate) Qualified Code(s): N18.3 - Chronic kidney disease, stage 3 (moderate); D63.1 - Anemia in chronic kidney disease; D63.1 - Anemia in chronic kidney disease Is this a current diagnosis for this admission?: Yes Plan: The patient's hemoglobin was only 8. She does have chronic kidney disease stage III a. I will check iron studies in the morning. 07/09/2018-lab work reveals normal B12 and folate levels but her serum iron and iron binding capacity are low. I have added ferrous sulfate 325 mg twice daily along with vitamin C 500 mg twice daily for improved absorption. (3) Chronic kidney disease, stage 3a Is this a current diagnosis for this admission?: Yes Plan: The patient has chronic kidney disease. Her estimated GFR is 38. I reviewed all of her serum chemistries 12/2017 and it appears that this is her baseline. We will continue to monitor her renal function. Pharmacy is dosing her vancomycin accordingly. 07/09/2018-stable at this time. Renal dosing in effect. (4) Diabetic ulcer of right heel Qualifiers: Diabetes mellitus type: type 2 Non-pressure ulcer stage: limited to breakdown of skin Qualified Code(s): E11.621 - Type 2 diabetes mellitus with foot ulcer; L97.411 - Non-pressure chronic ulcer of right heel and midfoot limited to breakdown of skin; L97.411 - Non-pressure chronic ulcer of right heel and midfoot limited to breakdown of skin; L97.411 - Non-pressure chronic ulcer of right heel and midfoot limited to breakdown of skin; L97.411 - Non- pressure chronic ulcer of right heel and midfoot limited to breakdown of skin Is this a current diagnosis for this admission?: Yes Plan: The ulcer has been exhibiting good healing and the patient has been compliant with her wound care visits and home dressing changes. We will continue simple gauze dressings since there is no purulent drainage and the ulceration is now limited to the skin without subcutaneous tissue involvement. She will continue with outpatient wound care after discharge. 1114-continue conservative measures. No surgical intervention warranted. Concerns for osteomyelitis as noted above. - Time Time Spent with patient: 15-24 minutes Medications reviewed and adjusted accordingly: Yes Anticipated discharge: Home - Plan Summary Plan Summary: As noted above. Continue current antibiotic regimen.
[2018-07-09] MEDS: ASCORBIC ACID 500 MG TABLET PO SCH (17:06)
[2018-07-09] MEDS: FERROUS SULFATE 325 MG TABLET PO SCH (17:06)
[2018-07-09] MEDS: INSULIN LISPRO 100 UNIT/ML 3 ML VIAL SUBCUT PRN ×2 (17:26→21:47)
[2018-07-09] MEDS: VANCOMYCIN HCL 1,500 MG in DEXTROSE 5%-WATER 250 ML IV SCH (17:38)
--- NOTE | 2018-07-09 20:12 | PDOC PROGRESS REPORT ---
Subjective Progress Note for:: 07/09/18 Subjective:: no more pains Reason For Visit: RIGHT LE CELLULITIS Physical Exam Vital Signs: Temp Pulse Resp BP Pulse Ox 98.0 F 70 20 151/60 H 100 07/09/18 19:23 07/09/18 19:23 07/09/18 19:23 07/09/18 19:23 07/09/18 19:23 Intake & Output 07/08/18 07/09/18 07/10/18 07:59 06:59 06:59 Intake Total 1089 Output Total Balance 1089 Weight Exam: no tenderness right leg but still swollen around ankle Results Laboratory Results: 07/09/18 06:39 07/09/18 06:39 07/09/18 07/09/18 06:39 06:39 WBC 6.8 RBC 2.86 L Hgb 8.1 L Hct 23.5 L MCV 82 MCH 28.3 MCHC 34.4 RDW 14.6 H Plt Count 255 Retic Count (auto) 1.61 Absolute Retic 0.046 Sodium 137.9 Potassium 4.2 Chloride 103 Carbon Dioxide 26 Anion Gap 9 BUN 33 H Creatinine 1.36 H Est GFR ( Amer) 47 L Est GFR (Non-Af Amer) 39 L Glucose 206 H Calcium 8.5 Iron 19.4 L TIBC 216 L % Saturation 9 Ferritin 120.00 Vitamin B12 846.0 Folate 16.80 Impressions: Foot X-Ray 07/07/18 18:37 IMPRESSION: Dorsal soft tissue swelling. No acute osseous findings. Venous Doppler Study 07/08/18 00:00 IMPRESSION: NO EVIDENCE DVT OR SVT IN THE RIGHT LEG. Assessment & Plan - Diagnosis (1) CKD (chronic kidney disease) stage 3, GFR 30-59 ml/min Is this a current diagnosis for this admission?: Yes (2) Cellulitis of right lower extremity Is this a current diagnosis for this admission?: Yes (3) Chronic diastolic CHF (congestive heart failure) Is this a current diagnosis for this admission?: Yes (4) Chronic kidney disease, stage 3a Is this a current diagnosis for this admission?: Yes (5) Diabetic ulcer of right heel Qualifiers: Diabetes mellitus type: type 2 Non-pressure ulcer stage: limited to breakdown of skin Qualified Code(s): E11.621 - Type 2 diabetes mellitus with foot ulcer; L97.411 - Non-pressure chronic ulcer of right heel and midfoot limited to breakdown of skin; L97.411 - Non-pressure chronic ulcer of right heel and midfoot limited to breakdown of skin; L97.411 - Non-pressure chronic ulcer of right heel and midfoot limited to breakdown of skin; L97.411 - Non- pressure chronic ulcer of right heel and midfoot limited to breakdown of skin Is this a current diagnosis for this admission?: Yes (6) Heel ulcer Qualifiers: Laterality: right Non-pressure ulcer stage: unspecified non-pressure ulcer stage Qualified Code(s): L97.419 - Non-pressure chronic ulcer of right heel and midfoot with unspecified severity Is this a current diagnosis for this admission?: Yes (7) Morbid (severe) obesity due to excess calories Is this a current diagnosis for this admission?: Yes (8) Ambulatory dysfunction Is this a current diagnosis for this admission?: Yes (9) Congestive heart failure Qualifiers: Heart failure type: diastolic Heart failure chronicity: acute on chronic Qualified Code(s): I50.33 - Acute on chronic diastolic (congestive) heart failure Is this a current diagnosis for this admission?: Yes (10) Renal insufficiency Is this a current diagnosis for this admission?: Yes (11) Type 2 diabetes mellitus Qualifiers: Diabetes mellitus complication detail: with diabetic retinopathy Is this a current diagnosis for this admission?: Yes (12) Vomiting Qualifiers: Vomiting type: unspecified Nausea presence: with nausea Is this a current diagnosis for this admission?: Yes - Time Time Spent with patient: 15-24 minutes - Inpatient Certification Medical Necessity: Need for IV Antibiotics, Risk of Complication if Not Cared For in Hospital - Plan Summary Plan Summary: Continue IV antibiotics Elevate right leg when not ambulating. Nurse informed. Will follow as needed
[2018-07-09] MEDS: ATORVASTATIN CALCIUM 40 MG TABLET PO SCH (21:47)
[2018-07-10] MEDS: CEFEPIME 2 GM/D5W RTU 2 GM/50 ML RTUPB IV SCH ×2 (01:39→09:00)
[2018-07-10] MEDS: LABETALOL HCL 200 MG TABLET PO SCH ×2 (06:04→18:03)
[2018-07-10] MEDS: HEPARIN SOD (PORCINE) 5,000 UNIT/ML 1 ML SYRINGE SUBCUT SCH ×2 (06:04→18:02)
[2018-07-10] MEDS ORDERED: GLIPIZIDE 5 MG TABLET PO SCH (08:00)
[2018-07-10] MEDS: FUROSEMIDE 20 MG TABLET PO SCH (08:51)
[2018-07-10] MEDS: FERROUS SULFATE 325 MG TABLET PO SCH (08:51)
[2018-07-10] MEDS: AMLODIPINE BESYLATE 5 MG TABLET PO SCH (08:59)
[2018-07-10] MEDS: ASCORBIC ACID 500 MG TABLET PO SCH (08:59)
[2018-07-10 17:50] VITALS: BP 164/74
--- NOTE | 2018-07-10 20:10 | PDOC DISCHARGE SUMMARY ---
General - Admit/Disc Date/PCP Admission Date/Primary Care Provider: 07/07/18 20:21 LUIZ LOPEZ MD Discharge Date: 07/10/18 - Discharge Diagnosis (1) Cellulitis of right lower extremity Is this a current diagnosis for this admission?: Yes Summary: The patient responded extremely well to her course of IV antibiotics. She will continue outpatient oral antibiotic therapy with levofloxacin. (2) Anemia Is this a current diagnosis for this admission?: Yes Summary: Chronic and stable (3) Chronic kidney disease, stage 3a Is this a current diagnosis for this admission?: Yes Summary: Her chronic kidney disease remained stable throughout her stay. (4) Diabetic ulcer of right heel Is this a current diagnosis for this admission?: Yes Summary: Venessa such as significant cellulitis the heel ulcer is relatively unremarkable. It is shallow. It appears to have good granulation tissue formation. She will continue to follow-up with the wound care clinic. - Additional Information Discharge Diet: As Tolerated, Cardiac, Diabetic Discharge Activity: Activity As Tolerated, Balance Activity w/Rest, Slowly Increase Activity Prescriptions: Glipizide [Glucotrol 5 mg Tablet] 5 mg PO QAM 30 Days #30 tablet Levofloxacin 500 mg PO DAILY 14 Days #14 tablet Home Medications: Atorvastatin Calcium [Lipitor 40 mg Tablet] 40 mg PO QHS 12/13/17 Amlodipine Besylate [Norvasc 5 mg Tablet] 5 mg PO DAILY #30 tablet 01/29/18 Furosemide [Lasix 20 mg Tablet] 40 mg PO QAM 03/22/18 Labetalol HCl [Normodyne 200 mg Tablet] 200 mg PO Q8 03/22/18 Ascorbic Acid [Vitamin C 500 mg Tablet] 500 mg PO BID tablet 07/10/18 Ferrous Sulfate [Feosol 325 mg Tablet] 325 mg PO BIDPCBS tablet 07/10/18 Glipizide [Glucotrol 5 mg Tablet] 5 mg PO QAM 30 Days #30 tablet 07/10/18 Levofloxacin 500 mg PO DAILY 14 Days #14 tablet 07/10/18 History of Present Illness Patient complains of: Swollen painful right leg History of Present Illness: DOM ADAMS is a 67 year old female with multiple medical comorbidities. She follows regularly at the wound care clinic. On the day prior to admission she began to notice some increased discomfort in her right leg. This was not only around the ulcer but extended proximally through her thigh. She had significant discomfort and presented to the hospital for evaluation and treatment. Hospital Course Hospital Course: The patient had a relatively unremarkable hospital course. She responded quite well to her IV antibiotic therapy. Surgery did see the patient and felt that there were no surgical issues present. The patient exhibited significant improvement especially through the thigh area. Her leg has much less pain. There is still some residual swelling below the knee. I explained that this will improve slowly at home. Physical Exam Vital Signs: Temp Pulse Resp BP Pulse Ox 98.4 F 64 18 164/74 H 100 07/10/18 16:50 07/10/18 16:50 07/10/18 16:50 07/10/18 16:50 07/10/18 16:50 Intake & Output 07/09/18 07/10/18 07/11/18 06:59 06:59 06:59 Intake Total 1496 Output Total 1050 Balance 446 Weight 119 kg General appearance: PRESENT: no acute distress, cooperative, morbidly obese, well-developed Head exam: PRESENT: atraumatic, normocephalic Neck exam: ABSENT: lymphadenopathy, tenderness Respiratory exam: PRESENT: clear to auscultation rona, other - Distant breath sounds due to body habitus.. ABSENT: rales, rhonchi, wheezes Cardiovascular exam: PRESENT: RRR, +S1, +S2 GI/Abdominal exam: PRESENT: normal bowel sounds, soft. ABSENT: tenderness Extremities exam: PRESENT: joint swelling - The right ankle is still swollen., + 1 edema - Still with edema in the right leg. Neurological exam: PRESENT: alert, awake, oriented to person, oriented to place , oriented to time, oriented to situation, CN II-XII grossly intact Psychiatric exam: PRESENT: appropriate affect, normal mood. ABSENT: agitated, anxious Skin exam: PRESENT: other - Slowly healing ulcer lateral aspect of right heel. Results Laboratory Results: 07/09/18 06:39 07/09/18 06:39 Impressions: Foot X-Ray 07/07/18 18:37 IMPRESSION: Dorsal soft tissue swelling. No acute osseous findings. Venous Doppler Study 07/08/18 00:00 IMPRESSION: NO EVIDENCE DVT OR SVT IN THE RIGHT LEG. Qualifiers - * PATIENT BEING DISCHARGED WITH ANY OF THE FOLLOWING DIAGNOSIS: No Plan Discharge Plan: Continue to follow up with the wound care clinic. Complete 14 days of p.o. Levaquin for the cellulitis. Time Spent: Greater than 30 Minutes
== END 2018-07-10 18:08 | disposition home or self-care (01) | DRG 638 ==
LOC: ER 17:47 → EH 20:21 → 4S 23:10
PROVIDERS: ADMIT Emergency Medicine; ATTEND Emergency Medicine
DX: E11.628 Type 2 diabetes mellitus with other skin complications (principal); L03.115 Cellulitis of right lower limb; L97.411 Non-pressure chronic ulcer of right heel and midfoot limited to breakdown of skin; I13.0 Hypertensive heart and chronic kidney disease with heart failure and stage 1 through stage 4 chronic kidney disease, or unspecified chronic kidney disease; I50.32 Chronic diastolic (congestive) heart failure; E11.22 Type 2 diabetes mellitus with diabetic chronic kidney disease; E11.621 Type 2 diabetes mellitus with foot ulcer; E11.319 Type 2 diabetes mellitus with unspecified diabetic retinopathy without macular edema; D63.1 Anemia in chronic kidney disease; N18.3 Chronic kidney disease, stage 3 (moderate); E66.01 Morbid (severe) obesity due to excess calories; Z68.39 Body mass index [BMI] 39.0-39.9, adult; Z79.4 Long term (current) use of insulin
CPT/HCPCS: 36415; 80048; 80053; 82607; 82728; 82746; 82803; 82962; 83036; 83540; 83550; 83605; 83735; 83880; 84100; 85025; 85027; 85045; 85610; 85652; 85730; 87040; 93971; 96365; 99285; J0692; J1644; J1815; J3370; J3490; J7060

== ENCOUNTER → 2018-11-17 | Outpatient (CLI) | payer MEDICARE, MEDICAID ==
[2018-11-17 15:53] LABS: HEMATOCRIT 28.2 % (36.0-47.0); HEMOGLOBIN 9.3 g/dL (12.0-15.5); MEAN CORPUSCULAR HEMOGLOBIN 26.9 pg (27.0-33.4); MEAN CORPUSCULAR HGB CONC 33.1 g/dL (32.0-36.0); MEAN CORPUSCULAR VOLUME 81 fl (80-97); PLATELET COUNT 238 10^3/uL (150-450); RED BLOOD COUNT 3.47 10^6/uL (3.72-5.28); RED CELL DISTRIBUTION WIDTH 16.2 % (11.5-14.0); WHITE BLOOD COUNT 6.1 10^3/uL (4.0-10.5)
[2018-11-17 16:13] LABS: ANION GAP 10 (5-19); BLOOD UREA NITROGEN 36 mg/dL (7-20); CALCIUM 8.7 mg/dL (8.4-10.2); CARBON DIOXIDE 24 mmol/L (22-30); CHLORIDE 104 mmol/L (98-107); GLUCOSE 164 mg/dL (75-110); PHOSPHORUS 4.8 mg/dL (2.5-4.5); SODIUM 137.7 mmol/L (137-145)
[2018-11-17 16:20] LABS: URINE CREATININE 46.2 mg/dL (15-278)
[2018-11-17 16:30] LABS: UR PRO/CREAT RATIO RESULT 9.9 mg/mg (0.0-0.2); URINE PROTEIN 455.9 mg/dL (<12)
== END ==
LOC: CHH 15:45
PROVIDERS: ATTEND Internal Medicine Nephrology
DX: E11.621 Type 2 diabetes mellitus with foot ulcer (principal); N18.3 Chronic kidney disease, stage 3 (moderate); I50.9 Heart failure, unspecified; D64.9 Anemia, unspecified; I12.9 Hypertensive chronic kidney disease with stage 1 through stage 4 chronic kidney disease, or unspecified chronic kidney disease
CPT/HCPCS: 80048; 82570; 83970; 84100; 84156; 85027

== ENCOUNTER → 2019-04-10 | Outpatient (CLI) | payer MEDICARE, MEDICAID ==
[2019-04-10 15:07] LABS: HEMATOCRIT 28.1 % (36.0-47.0); HEMOGLOBIN 9.4 g/dL (12.0-15.5); MEAN CORPUSCULAR HGB CONC 33.5 g/dL (32.0-36.0); MEAN CORPUSCULAR VOLUME 84 fl (80-97); PLATELET COUNT 272 10^3/uL (150-450); RED BLOOD COUNT 3.36 10^6/uL (3.72-5.28); WHITE BLOOD COUNT 6.1 10^3/uL (4.0-10.5)
[2019-04-10 15:34] LABS: ANION GAP 10 (5-19); BLOOD UREA NITROGEN 41 mg/dL (7-20); CALCIUM 8.6 mg/dL (8.4-10.2); CARBON DIOXIDE 25 mmol/L (22-30); CHLORIDE 105 mmol/L (98-107); GLUCOSE 118 mg/dL (75-110); PHOSPHORUS 4.6 mg/dL (2.5-4.5); POTASSIUM 4.8 mmol/L (3.6-5.0)
== END ==
LOC: OD 14:36
PROVIDERS: ATTEND Physician Assistant Medical
DX: I12.9 Hypertensive chronic kidney disease with stage 1 through stage 4 chronic kidney disease, or unspecified chronic kidney disease (principal); N18.3 Chronic kidney disease, stage 3 (moderate)
CPT/HCPCS: 36415; 80048; 83970; 84100; 85027

== ENCOUNTER 2019-04-17 10:57 | Inpatient (IN) | payer MEDICARE, MEDICAID ==
[2019-04-17] MEDS ORDERED: NORMAL SALINE 1000 ML 1,000 ML IV ONE (11:35)
[2019-04-17] MEDS ORDERED: ONDANSETRON HCL INJ/PF 4 MG/2 ML SDV IV ONE ×2 (11:35→13:14)
[2019-04-17 11:36] LABS: VENOUS BLOOD BASE EXCESS -1.8 mmol/L; VENOUS BLOOD HCO3 23.7 mmol/L (20-32); VENOUS BLOOD PCO2 43.6 mmHg (35-63); VENOUS BLOOD PH 7.35 (7.30-7.42)
[2019-04-17 11:40] LABS: HEMATOCRIT 29.9 % (36.0-47.0); HEMOGLOBIN 9.5 g/dL (12.0-15.5); INTERNATIONAL RATION (INR) 1.11; MEAN CORPUSCULAR HGB CONC 31.7 g/dL (32.0-36.0); MEAN CORPUSCULAR VOLUME 85 fl (80-97); PLATELET COUNT 245 10^3/uL (150-450); PROTHROMBIN TIME 14.4 SEC (11.4-15.4); RED BLOOD COUNT 3.51 10^6/uL (3.72-5.28); RED CELL DISTRIBUTION WIDTH 15.1 % (11.5-14.0); WHITE BLOOD COUNT 8.2 10^3/uL (4.0-10.5)
[2019-04-17] MEDS ORDERED: PIPERACILLIN/TAZOBACTAM 3.375 GM VIAL IV ONE (11:46)
[2019-04-17] MEDS ORDERED: VANCOMYCIN HCL INJ 1000 MG VIAL IV ONE (11:46)
--- NOTE | 2019-04-17 11:53 | ER Document Report ---
ED General - General Chief Complaint: Abdominal Pain Stated Complaint: ABDOMINAL PAIN Time Seen by Provider: 04/17/19 11:33 Primary Care Provider: LUIZ LOPEZ MD [Primary Care Provider] - Follow up as needed Notes: 68-year-old female was brought into the emergency department with multiple complaints. The patient has a red swollen hot warm right leg. Patient has a history of diabetic ulcers and leg swelling. She also has wounds on both lower legs but her right leg is worse than the left. It is red warm and hot to touch extending from her foot all the way up above her knee. She states it is tender to touch she also complains of abdominal cramping nausea vomiting diarrhea several times this morning. She complains of fever and chills. She states she has a little bit of a sore throat and congestion but that did not start until after the vomiting. Nothing makes her discomfort for which she rates on her leg as severe better or worse. TRAVEL OUTSIDE OF THE [place] IN LAST 30 DAYS: No - Related Data Allergies/Adverse Reactions: iodine [Iodine] Allergy (Verified 03/22/18 08:37) Past Medical History - Social History Smoking Status: Former Smoker Chew tobacco use (# tins/day): No Frequency of alcohol use: None Drug Abuse: None Family History: DM, Hypertension Patient has suicidal ideation: No Patient has homicidal ideation: No - Past Medical History Cardiac Medical History: Reports: Hx Congestive Heart Failure, Hx Hypercholesterolemia, Hx Hypertension Denies: Hx Coronary Artery Disease, Hx Heart Attack Pulmonary Medical History: Denies: Hx Asthma, Hx Bronchitis, Hx COPD, Hx Pneumonia Neurological Medical History: Denies: Hx Cerebrovascular Accident, Hx Seizures Endocrine Medical History: Reports: Hx Diabetes Mellitus Type 1, Hx Diabetes Mellitus Type 2 Renal/ Medical History: Denies: Hx Peritoneal Dialysis GI Medical History: Reports: Hx Diverticulitis Musculoskeletal Medical History: Reports Hx Arthritis Past Surgical History: Denies: Hx Hysterectomy - Immunizations Hx Diphtheria, Pertussis, Tetanus Vaccination: No Review of Systems - Review of Systems Constitutional: See HPI, Chills, Fever Gastrointestinal: denies: Abdominal pain, Diarrhea, Nausea, Vomiting Skin: Other - Red warm and swelling right lower extremities multiple diabetic ulcers -: Yes All other systems reviewed and negative Physical Exam - Notes Notes: GENERAL_APPEARANCE: well_nourished, alert, cooperative VITALS: reviewed, see vital signs table. HEAD: no_swelling\tenderness on the head. EYES: PERRL, EOMI, conjunctiva_clear. NOSE: no_nasal_discharge. MOUTH: (-)decreased moisture. THROAT: no_tonsilar_inflammation, no_airway_obstruction. no_lymphadenopathy NECK: supple, no_neck_tenderness, (-)thyromegaly. BACK: no_back_tenderness. CHEST_WALL: no_chest_tenderness. LUNGS: no_wheezing, no_rales, no_rhonchi, (-)accessory muscle use, good air ex change bilateral. HEART: normal_rate, normal_rhythm, normal_S1, normal_S2, (-)S3, (-)S4, no_murmur, no_rub. ABDOMEN: normal_BS, soft, diffuse_abd_tenderness, (-)guarding, (-)rebound, no_organomegaly, no_abd_masses. EXTREMITIES: There is bilateral pedal edema 3+. The right leg is more swollen than the left there is cellulitis extending from a diabetic foot ulcer extending all the way up to just about the knee. It is warm to touch. There is strong dorsalis pedis posterior tibial pulses noted bilateral. No numbness no tingling SKIN: warm, dry, good_color, no_rash. MENTAL_STATUS: speech_clear, oriented_X_3, normal_affect, responds_appropriately to questions. NEURO: Neg Motor or Sensory Deficits on exam, CN 2-12 intact, DTR 2+ symmetric x 4, No cerbellar signs Course - Re-evaluation Re-evalutation: 04/17/19 11:50 68-year-old female comes in with multiple complaints. Patient is febrile with a temp of 102 she has obvious cellulitis of the right lower extremity. We will get a Doppler she also is tender everywhere in her belly so we will get an abdominal CT. She is allergic to iodine so do this without contrast. We will give her vancomycin and Zosyn for her cellulitis we will give her a liter of IV fluids. We will draw cultures and lactic acid. 04/17/19 13:17 CT the abdomen pelvis is negative. There is no leukocytosis which is surprising. The patient has impressive cellulitis of the right lower extremity. The patient had a fever of 102 here. 04/17/19 13:17 Lactic acid is 2. Patient has some renal insufficiency K is 5.1 she is likely dry we will give her fluids. Still awaiting the Doppler there is been a delay. My suspicion is low for DVT however since it is unilateral swelling will rule out out. The patient will be admitted to the hospital continue IV antibiotics. - Laboratory Result Diagrams: 04/17/19 11:18 04/17/19 11:18 Laboratory results interpreted by me: 04/17/19 04/17/19 11:18 11:18 RBC 3.51 L Hgb 9.5 L Hct 29.9 L MCHC 31.7 L RDW 15.1 H Seg Neuts % (Manual) 93 H Lymphocytes % (Manual) 4 L Monocytes % (Manual) 2 L Abs Lymphs (Manual) 0.3 L Potassium 5.1 H BUN 44 H Creatinine 1.82 H Est GFR ( Amer) 33 L Est GFR (Non-Af Amer) 28 L Glucose 123 H AST 41 H Albumin 3.1 L - Diagnostic Test Radiology reviewed: Reports reviewed Radiology results interpreted by me: 04/17/19 13:16 Abdomen/Pelvis CT 04/17/19 11:33 IMPRESSION: No acute findings in the abdomen or pelvis. Chest X-Ray 04/17/19 11:34 IMPRESSION: NO ACUTE RADIOGRAPHIC FINDING IN THE CHEST. Venous Dopplers are pending - EKG Interpretation by Me EKG shows normal: Sinus rhythm Rate: Normal Rhythm: NSR Discharge - Discharge Clinical Impression: Cellulitis of right lower extremity, Nausea vomiting and diarrhea Diabetic foot ulcer Qualifiers: Diabetic foot ulcer location: other Diabetes mellitus type: type 2 Laterality: right Non-pressure ulcer stage: unspecified non-pressure ulcer stage Qualified Code(s): E11.621 - Type 2 diabetes mellitus with foot ulcer; L97.519 - Non- pressure chronic ulcer of other part of right foot with unspecified severity Condition: Good Disposition: ADMITTED INPATIENT Admitting Provider: Ruby (Hospitalist) Unit Admitted: Medical Floor Referrals: LUIZ LOPEZ MD [Primary Care Provider] - Follow up as needed
[2019-04-17 12:04] LABS: ABSOLUTE LYMPHOCYTES# (MANUAL) 0.3 10^3/uL (0.5-4.7); ABSOLUTE MONOCYTES # (MANUAL) 0.2 10^3/uL (0.1-1.4); ANISOCYTOSIS SLIGHT; BASOPHILS % (MANUAL) 0 % (0-2); EOSINOPHILS % (MANUAL) 1 % (0-6); LYMPHOCYTES % (MANUAL) 4 % (13-45); MONOCYTES % (MANUAL) 2 % (3-13); POLYCHROMASIA SLIGHT; SEGMENTED NEUTROPHILS % (MAN) 93 % (42-78); TOTAL CELLS COUNTED 100; TOXIC VACUOLATION PRESENT
[2019-04-17 12:05] LABS: PLATELET COMMENT ADEQUATE
[2019-04-17 12:07] LABS: ALBUMIN 3.1 g/dL (3.5-5.0); ALKALINE PHOSPHATASE 96 U/L (38-126); ANION GAP 7 (5-19); ASPARTATE AMINO TRANSFERASE 41 U/L (14-36); BILIRUBIN,DIRECT 0.4 mg/dL (0.0-0.4); BILIRUBIN,TOTAL 0.8 mg/dL (0.2-1.3); BLOOD UREA NITROGEN 44 mg/dL (7-20); CALCIUM 8.4 mg/dL (8.4-10.2); CARBON DIOXIDE 25 mmol/L (22-30); CHLORIDE 106 mmol/L (98-107); GLUCOSE 123 mg/dL (75-110); POTASSIUM 5.1 mmol/L (3.6-5.0); TOTAL PROTEIN 6.3 g/dL (6.3-8.2)
--- NOTE | 2019-04-17 12:10 | RADIOLOGY REPORT (SQ) ---
EXAM DESCRIPTION: CT ABD/PELVIS NO ORAL OR IV COMPLETED DATE/TIME: 04/17/2019 11:58 am REASON FOR STUDY: abd pain COMPARISON: 01/24/2018 TECHNIQUE: CT scan of the abdomen and pelvis performed without intravenous or oral contrast. Images reviewed with lung, soft tissue, and bone windows. Reconstructed coronal and sagittal MPR images revi ewed. All images stored on PACS. All CT scanners at this facility use dose modulation, iterative reconstruction, and/or weight based d osing when appropriate to reduce radiation dose to as low as reasonably achievable (ALARA). [facility]: Dose Right [facility]: CareDose [facility]: Dose Right [facility]: Teradose 4D [facility]: Smart t-Art RADIATION DOSE: CT Rad equipment meets quality standard of care and radiation dose reduction techniq ues were employed. CTDIvol: 19.2 mGy. DLP: 1123 mGy-cm.mGy. LIMITATIONS: None. FINDINGS: LOWER CHEST: No significant findings. No nodules or infiltrates. NON-CONTRASTED LIVER, SPLEEN, ADRENALS: Evaluation limited by lack of IV contrast. No identified sign ificant masses. PANCREAS: No masses. No peripancreatic inflammatory changes. GALLBLADDER: No identified stones by CT criteria. No inflammatory changes to suggest cholecystitis. RIGHT KIDNEY AND URETER: No suspicious masses. Assessment limited by lack of IV contrast. No signif icant calcifications. No hydronephrosis or hydroureter. LEFT KIDNEY AND URETER: No suspicious masses. Assessment limited by lack of IV contrast. No signifi cant calcifications. No hydronephrosis or hydroureter. AORTA AND RETROPERITONEUM: No aneurysm. No retroperitoneal masses or adenopathy. BOWEL AND PERITONEAL CAVITY: No obvious masses or inflammatory changes. No free fluid. APPENDIX: Normal. PELVIS, BLADDER, AND ABDOMINAL WALL:Small umbilical hernia containing omental fat only. BONES: There are degenerative changes in the lumbar spine. OTHER: No other significant finding. IMPRESSION: No acute findings in the abdomen or pelvis. COMMENT: Quality ID # [id number]: Final reports with documentation of one or more dose reduction techniques (e.g., Automated exposure control, adjustment of the mA and/or kV according to patient size, use of iterative reconstruction technique) TECHNICAL DOCUMENTATION: JOB ID: [id number] [employer]- All Rights Reserved Reading location - IP/workstation name: [email or web address]
--- NOTE | 2019-04-17 13:13 | RADIOLOGY REPORT (SQ) ---
EXAM DESCRIPTION: CHEST SINGLE VIEW COMPLETED DATE/TIME: 04/17/2019 12:58 pm REASON FOR STUDY: fever COMPARISON: None. EXAM PARAMETERS: NUMBER OF VIEWS: One view. TECHNIQUE: Single frontal radiographic view of the chest acquired. RADIATION DOSE: NA LIMITATIONS: None. FINDINGS: LUNGS AND PLEURA: No opacities, masses or pneumothorax. No pleural effusion. MEDIASTINUM AND HILAR STRUCTURES: No masses. Contour normal. HEART AND VASCULAR STRUCTURES: Heart normal in size. Aortic atherosclerosis. . BONES: No acute findings. Degenerative changes at the right shoulder. HARDWARE: None in the chest. OTHER: No other significant finding. IMPRESSION: NO ACUTE RADIOGRAPHIC FINDING IN THE CHEST. TECHNICAL DOCUMENTATION: JOB ID: [id number] [employer]- All Rights Reserved Reading location - IP/workstation name: [email or web address]
[2019-04-17] MEDS ORDERED: MORPHINE SULFATE 10 MG/ML INJ IV ONE ×2 (13:14→14:43)
[2019-04-17] MEDS ORDERED: PROMETHAZINE HCL INJ 25 MG/1 ML VIAL IV ONE (14:43)
[2019-04-17] MEDS ORDERED: VANCOMYCIN HCL 0 MG in DEXTROSE 5%-WATER 250 ML IV NR (14:45)
[2019-04-17] MEDS ORDERED: MAG HYDROX/AL HYDROX/SIMETH SUSP 30 ML UDCUP PO PRN (14:46)
[2019-04-17] MEDS ORDERED: ALBUTEROL SULFATE 0.083% NEB 2.5 MG/3 ML AMPUL NEB PRN (14:46)
[2019-04-17] MEDS ORDERED: GLUCAGON,HUMAN RECOMB 1 MG INJ IM PRN (14:52)
[2019-04-17] MEDS ORDERED: DEXTROSE 40% GEL 15 GM TUBE PO PRN ×2 (14:52)
[2019-04-17] MEDS ORDERED: DEXTROSE 50%-WATER 25 GM/50 ML DISP.SYRIN IV PRN ×2 (14:52)
[2019-04-17] MEDS: ACETAMINOPHEN 325 MG TABLET PO PRN ×2 (17:41→22:10)
[2019-04-17] MEDS: INSULIN LISPRO 100 UNIT/ML 3 ML VIAL SUBCUT SCH ×2 (18:33→22:10)
[2019-04-17] MEDS: PIPERACILLIN SODIUM/TAZOBACTAM 3.375 GM in NORMAL SALINE 100 ML IV SCH ×2 (19:01→23:35)
[2019-04-17] MEDS: NORMAL SALINE 1000 ML 1,000 ML IV PRN (19:04)
[2019-04-17 21:28] LABS: APPEARANCE,URINE CLOUDY; BILIRUBIN,URINE NEGATIVE (NEGATIVE); COLOR,URINE YELLOW; GLUCOSE, URINE NEGATIVE (NEGATIVE); KETONES,URINE NEGATIVE (NEGATIVE); LEUKOCYTE ESTERASE,URINE MODERATE (NEGATIVE); NITRITE,URINE NEGATIVE (NEGATIVE); PROTEIN,URINE >=500 mg/dL (NEGATIVE); URINE SPECIFIC GRAVITY 1.014; UROBILINOGEN,URINE NEGATIVE mg/dL (<2.0)
[2019-04-17] MEDS ORDERED: VANCOMYCIN HCL 750 MG in DEXTROSE 5%-WATER 250 ML IV SCH (22:00)
[2019-04-17] MEDS: LABETALOL HCL 200 MG TABLET PO SCH (22:10)
[2019-04-17] MEDS: HEPARIN SOD (PORCINE) 5,000 UNIT/ML 1 ML VIAL SUBCUT SCH (22:10)
[2019-04-17] MEDS: ATORVASTATIN CALCIUM 10 MG TABLET PO SCH (22:10)
[2019-04-17] MEDS: FAMOTIDINE INJ/PF 20 MG/2 ML SDV IV SCH (22:11)
--- NOTE | 2019-04-17 22:57 | PDOC H&P ---
History of Present Illness Admission Date/PCP: 04/17/19 13:28 LUIZ LOPEZ MD History of Present Illness: DOM ADAMS is a 68 year old female with a PMH significant for CHF, Pulmon ricardo HTN, HTN, HLD, CKD3, DM, chronic diabetic foot ulcers, neuropathy, anemia, and morbid obesity who presented to the emergency department with a complaint of one day of generalized/diffuce/vague abdominal discomfort with N/V/D x 1 episode each. Patient reports she was her normal state of health yesterday when she saw her compress trucker for a right heel wound debridement and now has RLE edema, eryth hoa and tenderness increased from baseline. Per patient's daughter, patient often has GI symptoms with infections. Evaluation in the emergency department revealed low grade fever, HTN (160/100), tachypnea, baseline anemia, mild hyperkalemia, baseline renal function, nml Anion gap and BICARB, mildly elevated bgl, nml lactic acid, and elevated proBNP to 1350 (appears baseline). Lipase is nml, CT ABD/Pelvis is benign. Urinalysis is negative for UTI. Patient is referred to the hospitalist services for admission and management of RLE cellulitis secondary to chronic diabetic foot wound. Past Medical History Cardiac Medical History: Reports: Congestive Heart Failure, Hyperlipidema, Hypertension Denies: Coronary Artery Disease, Myocardial Infarction Pulmonary Medical History: Reports: None EENT Medical History: Reports: None Neurological Medical History: Denies: Ischemic CVA, Seizures Endocrine Medical History: Reports: Diabetes Mellitus Type 2, Obesity Renal/ Medical History: Reports: Chronic Kidney Disease Renal/ History Note: partial uterine prolapse GI Medical History: Reports: Diverticulitis, Gastroesophageal Reflux Disease Musculoskeltal Medical History: Reports: Arthritis Psychiatric Medical History: Reports: None Hematology: Reports: Anemia Past Surgical History Past Surgical History: Denies: Hysterectomy Social History Information Source: Patient, Relative Lives with: Family Smoking Status: Never Smoker Frequency of Alcohol Use: None Hx Recreational Drug Use: No Drugs: None Hx Prescription Drug Abuse: No - Advance Directive Resuscitation Status: Full Code Family History Family History: DM, Hypertension Parental Family History Reviewed: Yes Children Family History Reviewed: Yes Sibling(s) Family History Reviewed.: Yes Medication/Allergy Home Medications: Amlodipine Besylate [Norvasc 5 mg Tablet] 5 mg PO DAILY 04/17/19 Atorvastatin Calcium [Lipitor 10 mg Tablet] 10 mg PO QHS 04/17/19 Furosemide [Lasix 20 mg Tablet] 20 mg PO QPM 04/17/19 Furosemide [Lasix 20 mg Tablet] 40 mg PO QAM 04/17/19 Labetalol HCl [Normodyne 200 mg Tablet] 200 mg PO Q8 04/17/19 Lisinopril [Prinivil 10 mg Tablet] 10 mg PO DAILY 04/17/19 Allergies/Adverse Reactions: iodine [Iodine] Allergy (Verified 03/22/18 08:37) Review of Systems Constitutional: ABSENT: chills, fever(s), headache(s), weight gain, weight loss Eyes: ABSENT: visual disturbances Ears: ABSENT: hearing changes Cardiovascular: ABSENT: chest pain, dyspnea on exertion, edema, orthropnea, palpitations Respiratory: ABSENT: cough, hemoptysis Gastrointestinal: PRESENT: abdominal pain, diarrhea, nausea, vomiting. ABSENT: constipation, hematemesis, hematochezia Genitourinary: ABSENT: dysuria, hematuria Musculoskeletal: ABSENT: joint swelling Integumentary: PRESENT: erythema, lesions, wounds. ABSENT: rash Neurological: ABSENT: abnormal gait, abnormal speech, confusion, dizziness, focal weakness, syncope Psychiatric: ABSENT: anxiety, depression, homidical ideation, suicidal ideation Endocrine: ABSENT: cold intolerance, heat intolerance, polydipsia, polyuria Hematologic/Lymphatic: ABSENT: easy bleeding, easy bruising Physical Exam Vital Signs: Temp Pulse Resp BP Pulse Ox 100.4 F 99 20 158/61 H 94 04/17/19 17:46 04/17/19 17:46 04/17/19 17:46 04/17/19 17:46 04/17/19 17:46 Intake & Output 04/16/19 04/17/19 04/18/19 06:59 06:59 06:59 Intake Total 1000 Balance 1000 Weight 132.9 kg General appearance: PRESENT: no acute distress, morbidly obese, well-developed, well-nourished Head exam: PRESENT: atraumatic, normocephalic Eye exam: PRESENT: conjunctiva pink, EOMI, PERRLA. ABSENT: scleral icterus Ear exam: PRESENT: normal external ear exam Mouth exam: PRESENT: moist, tongue midline Neck exam: ABSENT: carotid bruit, JVD, lymphadenopathy, thyromegaly Respiratory exam: PRESENT: clear to auscultation rona, decreased breath sounds - bibasilar secondary to body habitus and poor inspiratory effort, symmetrical, tachypnea, unlabored. ABSENT: rales, rhonchi, wheezes Cardiovascular exam: PRESENT: RRR, +S1, +S2. ABSENT: diastolic murmur, rubs, systolic murmur Pulses: PRESENT: normal dorsalis pedis pul Vascular exam: PRESENT: normal capillary refill GI/Abdominal exam: PRESENT: normal bowel sounds, soft. ABSENT: distended, guarding, mass, organolmegaly, rebound, tenderness Rectal exam: PRESENT: deferred Extremities exam: PRESENT: full ROM, +1 edema - RLE. ABSENT: calf tenderness, clubbing, pedal edema Neurological exam: PRESENT: alert, awake, oriented to person, oriented to place, oriented to time, oriented to situation, CN II-XII grossly intact. ABSENT: motor sensory deficit Psychiatric exam: PRESENT: appropriate affect, normal mood. ABSENT: homicidal ideation, suicidal ideation Skin exam: PRESENT: dry, erythema - RLE; chronic venous stasis changes (R>L), unstagable pressure wound to Rt heel, warm. ABSENT: cyanosis, rash Results Laboratory Results: 04/17/19 11:18 04/17/19 11:18 04/17/19 04/17/19 04/17/19 11:18 11:18 11:18 WBC 8.2 RBC 3.51 L Hgb 9.5 L Hct 29.9 L MCV 85 MCH 27.0 MCHC 31.7 L RDW 15.1 H Plt Count 245 Seg Neutrophils % Not Reportable Lymphocytes % Not Reportable Monocytes % Not Reportable Eosinophils % Not Reportable Basophils % Not Reportable Absolute Neutrophils Not Reportable Absolute Lymphocytes Not Reportable Absolute Monocytes Not Reportable Absolute Eosinophils Not Reportable Absolute Basophils Not Reportable VBG pH VBG pCO2 VBG HCO3 VBG Base Excess Sodium 137.6 Potassium 5.1 H Chloride 106 Carbon Dioxide 25 Anion Gap 7 BUN 44 H Creatinine 1.82 H Est GFR ( Amer) 33 L Est GFR (Non-Af Amer) 28 L Glucose 123 H Lactic Acid 2.0 Calcium 8.4 Total Bilirubin 0.8 AST 41 H Alkaline Phosphatase 96 Total Protein 6.3 Albumin 3.1 L Lipase 84.2 04/17/19 11:18 WBC RBC Hgb Hct MCV MCH MCHC RDW Plt Count Seg Neutrophils % Lymphocytes % Monocytes % Eosinophils % Basophils % Absolute Neutrophils Absolute Lymphocytes Absolute Monocytes Absolute Eosinophils Absolute Basophils VBG pH 7.35 VBG pCO2 43.6 VBG HCO3 23.7 VBG Base Excess -1.8 Sodium Potassium Chloride Carbon Dioxide Anion Gap BUN Creatinine Est GFR ( Amer) Est GFR (Non-Af Amer) Glucose Lactic Acid Calcium Total Bilirubin AST Alkaline Phosphatase Total Protein Albumin Lipase 04/17/19 11:18 NT-Pro-B Natriuret Pep 1350 H Impressions: Abdomen/Pelvis CT 04/17/19 11:33 IMPRESSION: No acute findings in the abdomen or pelvis. Chest X-Ray 04/17/19 11:34 IMPRESSION: NO ACUTE RADIOGRAPHIC FINDING IN THE CHEST. Assessment and Plan - Diagnosis (1) Cellulitis of right lower extremity Is this a current diagnosis for this admission?: Yes Plan: RLE secondary to chronic diabetic foot wound debrided in the office by Dr. Bocanegra yesterday per patient and family. Blood cultures are pending. Patient is admitted to the medical floor. She is provided gentle IVF. She is empirically placed on IV Vanc and Zozyn. No history of MRSA; rapid deescalation of Vancomycin if clinically improved tomorrow. Elevate extremity, float heels. Analgesics and antiemetics as needed. Monitor for worsening heel wound; no indications for surgical consultation at this time. (2) Diabetic foot ulcer Qualifiers: Diabetic foot ulcer location: other Diabetes mellitus type: type 2 Laterality: right Non-pressure ulcer stage: unspecified non-pressure ulcer stage Qualified Code(s): E11.621 - Type 2 diabetes mellitus with foot ulcer; L97.519 - Non-pressure chronic ulcer of other part of right foot with unspecified severity Is this a current diagnosis for this admission?: Yes Plan: Primary management as above. Yadav boots ordered for heel off loading. Monitor for worsening appearance of wound; early surgical or podiatry consultation if worsened appearance or delayed response to antibiotics. (3) Nausea vomiting and diarrhea Is this a current diagnosis for this admission?: Yes Plan: CT ABD/Pelvis is benign. Lipase is nml. Urinalysis is negative for UTI; cultures pending. Will obtain stool cultures if continues to have frequent loose stools. No recent antibiotics; so low suspicion for c.diff at this time. Per family; patient often has GI symptoms associated with skin infections. Treatment of cellulitis as above. Clear liquids for now; advance as tolerated. Gentle IVF while p.o. intake is decreased. Antiemetics as needed. (4) Anemia Qualifiers: Anemia type: due to chronic kidney disease Chronic kidney disease stage: stage 3 (moderate) Qualified Code(s): N18.3 - Chronic kidney disease, stage 3 (moderate); D63.1 - Anemia in chronic kidney disease; D63.1 - Anemia in chronic kidney disease Is this a current diagnosis for this admission?: Yes Plan: Hgb 9.5; at baseline. No evidence of active bleeding at this time. Monitor daily CBC. Consider MVI and ferrous sulfate supplementation; holding now secondary to GI discomfort. (5) CKD (chronic kidney disease) stage 3, GFR 30-59 ml/min Is this a current diagnosis for this admission?: Yes Plan: Stable and at baseline. Gentle IV fluids. Currently on Vanc and Zosyn; rapid deescalation of Vanc if clinically improved tomorrow as patient does not have history of MRSA. Avoid nephrotoxic medications as able; otherwise renally dosed per pharmacy. Daily chemistries. (6) Chronic diastolic CHF (congestive heart failure) Is this a current diagnosis for this admission?: Yes Plan: Euvolemic. Without exacerbation at this time. Gentle IVF; monitor for fluid volume overload. Continue home dose lisinopril, labetalol, amlodioine, and atorvastatin. Holding lisinopril currently (7) Diabetes Qualifiers: Diabetes mellitus type: type 2 Diabetes mellitus half-way insulin use: without dedicated intermodal truck driver use Diabetes mellitus complication status: with kidney complications Diabetes mellitus complication detail: with chronic kidney disease Chronic kidney disease stage: stage 3 (moderate) Qualified Code(s): E11.22 - Type 2 diabetes mellitus with diabetic chronic kidney disease; N18.3 - Chronic kidney disease, stage 3 (moderate); N18.3 - Chronic kidney disease, stage 3 (moderate) Is this a current diagnosis for this admission?: Yes Plan: Will check A1C with a.m. lab work. Does not appear that patient is on home medications. Currently on clear liquid diet r/t N/V. Advance to cardiac/consistent carb as tolerated. Accu-Chek ACHS with SSI. Hypoglycemia protocol in place. (8) Hypertension Qualifiers: Hypertension type: essential hypertension Qualified Code(s): I10 - Essential (primary) hypertension Is this a current diagnosis for this admission?: Yes Plan: Improved blood pressures w/ resumption of home medication regiment. Continue home dose amlodipine, lisinopril, and labetalol. Currently holding lasix. (9) Morbid (severe) obesity due to excess calories Is this a current diagnosis for this admission?: Yes Plan: Lifestyle modification and dietary discretion is advised. - Time Time Spent with patient: 35 or more minutes Medications reviewed and adjusted accordingly: Yes Anticipated discharge: Home with Homehealth Within: within 72 hours - Inpatient Certification Based on my medical assessment, after consideration of the patient's comorbidities, presenting symptoms, or acuity I expect that the services needed warrant INPATIENT care.: Yes I certify that my determination is in accordance with my understanding of Medicare's requirements for reasonable and necessary INPATIENT services [42 CFR 412.3e].: Yes Medical Necessity: Significant Comorbidiites Make Outpatient Treatment Too Risky, Need For IV Fluids, Need for IV Antibiotics
[2019-04-17] MEDS: ONDANSETRON HCL INJ/PF 4 MG/2 ML SDV IV PRN (23:35)
[2019-04-18] MEDS: OXYCODONE HCL IR 5 MG TABLET PO PRN ×2 (02:17→23:38)
[2019-04-18] MEDS: PROMETHAZINE HCL INJ 25 MG/1 ML VIAL IV PRN ×3 (02:17→12:07)
[2019-04-18] MEDS: ONDANSETRON HCL INJ/PF 4 MG/2 ML SDV IV PRN ×2 (05:36→11:05)
[2019-04-18] MEDS: HEPARIN SOD (PORCINE) 5,000 UNIT/ML 1 ML VIAL SUBCUT SCH ×3 (06:56→21:24)
[2019-04-18] MEDS: LABETALOL HCL 200 MG TABLET PO SCH ×3 (06:56→21:24)
[2019-04-18] MEDS: PIPERACILLIN SODIUM/TAZOBACTAM 3.375 GM in NORMAL SALINE 100 ML IV SCH (06:56)
[2019-04-18] MEDS: ACETAMINOPHEN 325 MG TABLET PO PRN ×3 (07:45→23:38)
[2019-04-18 07:54] LABS: HEMATOCRIT 28.5 % (36.0-47.0); HEMOGLOBIN 9.1 g/dL (12.0-15.5); MEAN CORPUSCULAR HEMOGLOBIN 26.9 pg (27.0-33.4); MEAN CORPUSCULAR HGB CONC 31.8 g/dL (32.0-36.0); MEAN CORPUSCULAR VOLUME 85 fl (80-97); PLATELET COUNT 208 10^3/uL (150-450); RED BLOOD COUNT 3.37 10^6/uL (3.72-5.28); RED CELL DISTRIBUTION WIDTH 14.9 % (11.5-14.0)
[2019-04-18 07:55] LABS: WHITE BLOOD COUNT 19.4 10^3/uL (4.0-10.5)
[2019-04-18 08:08] LABS: ANION GAP 10 (5-19); BLOOD UREA NITROGEN 47 mg/dL (7-20); CALCIUM 7.7 mg/dL (8.4-10.2); CARBON DIOXIDE 21 mmol/L (22-30); CHLORIDE 103 mmol/L (98-107); GLUCOSE 211 mg/dL (75-110); POTASSIUM 5.1 mmol/L (3.6-5.0)
--- NOTE | 2019-04-18 08:16 | XCELERA REPORT ---
[address] [place] [facility] [address] Lower Extremity Venous Evaluation Procedure: Color flow and duplex imaging of the veins of the right lower extremity as well as the left Common Femoral vein. Right Sided Venous Evaluation Normal vessel filling wall to wall, compression and augmentation as well as Colour flow down to the infrageniculate veins. Left Sided Venous Evaluation The left common femoral vein is fully compressible. Spontaneous and phasic flow is present in the left common femoral vein. Interpretation Summary No duplex evidence of DVT or obstruction in the right lower extremity nor in the left Common Femoral vein. Name: DOM ADAMS Age: 68 yrs Gender: Female : 1950 Patient Status: Inpatient Patient Location: [place] [address]^A Study Date: 04/17/2019 01:40 PM Reason For Study: RLE swelling Ordering Physician: JOAN WALTERS Performed By: Heather Polanco : JOAN WALTERS > Juventino Rowe
[2019-04-18 08:25] LABS: ABSOLUTE MONOCYTES # (MANUAL) 1.4 10^3/uL (0.1-1.4); BASOPHILS % (MANUAL) 0 % (0-2); EOSINOPHILS % (MANUAL) 0 % (0-6); LYMPHOCYTES % (MANUAL) 0 % (13-45); MONOCYTES % (MANUAL) 7 % (3-13); SEGMENTED NEUTROPHILS % (MAN) 68 % (42-78); TOTAL CELLS COUNTED 100
[2019-04-18 08:28] LABS: TOXIC VACUOLATION PRESENT
[2019-04-18 08:29] LABS: ANISOCYTOSIS SLIGHT; BURR CELLS SLIGHT; HYPOCHROMASIA SLIGHT; OVALOCYTES SLIGHT; PLATELET COMMENT ADEQUATE; POIKILOCYTOSIS SLIGHT
[2019-04-18 08:30] LABS: BAND NEUTROPHILS % (MANUAL) 25 % (3-5)
[2019-04-18] MEDS: INSULIN LISPRO 100 UNIT/ML 3 ML VIAL SUBCUT SCH ×4 (10:58→21:24)
[2019-04-18] MEDS: AMLODIPINE BESYLATE 5 MG TABLET PO SCH (11:03)
[2019-04-18] MEDS: LISINOPRIL 10 MG TABLET PO SCH (11:04)
[2019-04-18] MEDS: IBUPROFEN 600 MG TABLET PO PRN (11:04)
[2019-04-18] MEDS: FAMOTIDINE INJ/PF 20 MG/2 ML SDV IV SCH ×2 (11:04→21:25)
[2019-04-18] MEDS: CEFEPIME 1 GM/D5W RTU 1 GM/50 ML RTUPB IV SCH ×2 (11:05→21:25)
[2019-04-18] MEDS: NORMAL SALINE 1000 ML 1,000 ML IV PRN ×2 (13:51→21:29)
--- NOTE | 2019-04-18 14:33 | EKG REPORT ---
SEVERITY:- ABNORMAL ECG - SINUS RHYTHM LEFT VENTRICULAR HYPERTROPHY : Confirmed by: Brice Flores 18-Apr-2019 14:32:30
--- NOTE | 2019-04-18 17:12 | Progress Note Acknowledgement ---
Progress Note Acknowledgement Progess Note Acknowledgement: I, the undersigned member of the medical staff with appropriate privileges and with supervisory authority over Marcela Villegas, a [facility] practice allied health professional, acknowledge that I have reviewed the progress notes entered on this patient, and in my professional judgment believe that the assessment made and/or any care evidenced was appropriate
--- NOTE | 2019-04-18 17:25 | PDOC PROGRESS REPORT ---
Subjective Progress Note for:: 04/18/19 Subjective:: DOM ADAMS is a 68 year old female with a PMH significant for CHF, Pulmonary HTN, HTN, HLD, CKD3, DM, chronic diabetic foot ulcers, neuropathy, anemia, and morbid obesity who was admitted 04/17/2019 for right lower leg cellulitis. Patient was seen on morning rounds with daughter present. She is found resting in bed comfortably on room air. She reports continued nausea but without emesis or abdominal discomfort and asks to advance her diet today. She has had a high- grade fever (103 oral) but without chills, malaise, body aches. She does continue to have right lower extremity discomfort. Otherwise, she denies chest pain, palpitations, dyspnea, cough, diarrhea, constipation, dysuria. Patient daughter requesting gynecological evaluation of her prolapsed uterus; states that she has not been evaluated for this in the past. They have no other questions or concerns. No concerns per nursing. Reason For Visit: RIGHT LOWER EXTREMITY CELLULITIS Physical Exam Vital Signs: Temp Pulse Resp BP Pulse Ox 98.5 F 75 14 153/52 H 98 04/18/19 15:00 04/18/19 16:03 04/18/19 16:03 04/18/19 15:00 04/18/19 16:03 Intake & Output 04/17/19 04/18/19 04/19/19 06:59 06:59 06:59 Intake Total 1949 1770 Balance 1949 1769 Weight 130.5 kg General appearance: PRESENT: no acute distress, morbidly obese, well-developed, well-nourished Head exam: PRESENT: atraumatic, normocephalic Eye exam: PRESENT: conjunctiva pink, EOMI, PERRLA. ABSENT: scleral icterus Ear exam: PRESENT: normal external ear exam Mouth exam: PRESENT: moist, tongue midline Neck exam: ABSENT: carotid bruit, JVD, lymphadenopathy, thyromegaly Respiratory exam: PRESENT: clear to auscultation rona, decreased breath sounds - bibasilar secondary to body habitus and poor inspiratory effort, symmetrical, unlabored. ABSENT: rales, rhonchi, wheezes Cardiovascular exam: PRESENT: RRR, +S1, +S2, tachycardia - HR<110. ABSENT: diastolic murmur, rubs, systolic murmur Pulses: PRESENT: normal dorsalis pedis pul Vascular exam: PRESENT: normal capillary refill GI/Abdominal exam: PRESENT: normal bowel sounds, soft. ABSENT: distended, guarding, mass, organolmegaly, rebound, tenderness Rectal exam: PRESENT: deferred Extremities exam: PRESENT: full ROM. ABSENT: calf tenderness, clubbing, pedal edema Neurological exam: PRESENT: alert, awake, oriented to person, oriented to place, oriented to time, oriented to situation, CN II-XII grossly intact. ABSENT: motor sensory deficit Psychiatric exam: PRESENT: appropriate affect, normal mood. ABSENT: homicidal ideation, suicidal ideation Skin exam: PRESENT: dry, erythema - RLE erythema and edema w/ bullous vesicles to anterior lower leg, warm. ABSENT: cyanosis, rash Results Laboratory Results: 04/18/19 07:19 04/18/19 07:19 04/17/19 04/18/19 04/18/19 21:00 07:19 07:19 WBC 19.4 H D RBC 3.37 L Hgb 9.1 L Hct 28.5 L MCV 85 MCH 26.9 L MCHC 31.8 L RDW 14.9 H Plt Count 208 Seg Neutrophils % Not Reportable Lymphocytes % Not Reportable Monocytes % Not Reportable Eosinophils % Not Reportable Basophils % Not Reportable Absolute Neutrophils Not Reportable Absolute Lymphocytes Not Reportable Absolute Monocytes Not Reportable Absolute Eosinophils Not Reportable Absolute Basophils Not Reportable Sodium 133.5 L Potassium 5.1 H Chloride 103 Carbon Dioxide 21 L Anion Gap 10 BUN 47 H Creatinine 2.37 H Est GFR ( Amer) 25 L Est GFR (Non-Af Amer) 20 L Glucose 211 H Calcium 7.7 L TSH Urine Color YELLOW Urine Appearance CLOUDY Urine pH 5.0 Ur Specific Barnard 1.014 Urine Protein >=500 H Urine Glucose (UA) NEGATIVE Urine Ketones NEGATIVE Urine Blood MODERATE H Urine Nitrite NEGATIVE Ur Leukocyte Esterase MODERATE H Urine WBC (Auto) 6 Urine RBC (Auto) 11 04/18/19 07:19 WBC RBC Hgb Hct MCV MCH MCHC RDW Plt Count Seg Neutrophils % Lymphocytes % Monocytes % Eosinophils % Basophils % Absolute Neutrophils Absolute Lymphocytes Absolute Monocytes Absolute Eosinophils Absolute Basophils Sodium Potassium Chloride Carbon Dioxide Anion Gap BUN Creatinine Est GFR ( Amer) Est GFR (Non-Af Amer) Glucose Calcium TSH 2.41 Urine Color Urine Appearance Urine pH Ur Specific Barnard Urine Protein Urine Glucose (UA) Urine Ketones Urine Blood Urine Nitrite Ur Leukocyte Esterase Urine WBC (Auto) Urine RBC (Auto) 04/17/19 11:18 NT-Pro-B Natriuret Pep 1350 H Impressions: Abdomen/Pelvis CT 04/17/19 11:33 IMPRESSION: No acute findings in the abdomen or pelvis. Chest X-Ray 04/17/19 11:34 IMPRESSION: NO ACUTE RADIOGRAPHIC FINDING IN THE CHEST. Assessment and Plan - Diagnosis (1) Cellulitis of right lower extremity Is this a current diagnosis for this admission?: Yes Plan: Worsened; increased area of erythema w/ bullous vesicle formation to anterior lower leg. Increased pain and edema. WBC elevated to 19.4 w/ 25 bands. Temp 103 oral today. Blood cultures are pending. Venous Doppler study negative for DVT Patient is admitted to the medical floor on telemetry She is provided gentle IVF. She is empirically placed on IV Vanc and Zozyn. Zosyn discontinued after 1 day; start cefepime secondary to KORI. Due to clinical worsening, will continue IV vancomycin. Elevate extremity, float heels. Analgesics and antiemetics as needed. Monitor for worsening heel wound; no indications for surgical consultation at this time. (2) Diabetic foot ulcer Qualifiers: Diabetic foot ulcer location: other Diabetes mellitus type: type 2 Latera lity: right Non-pressure ulcer stage: unspecified non-pressure ulcer stage Qualified Code(s): E11.621 - Type 2 diabetes mellitus with foot ulcer; L97.519 - Non-pressure chronic ulcer of other part of right foot with unspecified severity Is this a current diagnosis for this admission?: Yes Plan: Primary management as above. Yadav boots ordered for heel off loading. Monitor for worsening appearance of wound; early surgical or podiatry consultation if worsened appearance or delayed response to antibiotics. (3) Nausea vomiting and diarrhea Is this a current diagnosis for this admission?: Yes Plan: Secondary to acute febrile illness. CT ABD/Pelvis is benign. Lipase is nml. Urinalysis is negative for UTI; cultures pending. Will obtain stool cultures if continues to have frequent loose stools. No recent antibiotics; so low suspicion for c.diff at this time. Per family; patient often has GI symptoms associated with skin infections. Treatment of cellulitis as above. Clear liquids for now; advance as tolerated. Gentle IVF Antiemetics as needed. (4) Anemia Qualifiers: Anemia type: due to chronic kidney disease Chronic kidney disease stage: stage 3 (moderate) Qualified Code(s): N18.3 - Chronic kidney disease, stage 3 (moderate); D63.1 - Anemia in chronic kidney disease; D63.1 - Anemia in chronic kidney disease Is this a current diagnosis for this admission?: Yes Plan: Hgb 9.1; at baseline. No evidence of active bleeding at this time. Monitor daily CBC. Consider MVI and ferrous sulfate supplementation; holding now secondary to GI discomfort. (5) Chronic diastolic CHF (congestive heart failure) Is this a current diagnosis for this admission?: Yes Plan: Euvolemic. Without exacerbation at this time. Gentle IVF; monitor for fluid volume overload. Continue home dose lisinopril, labetalol, amlodioine, and atorvastatin. Holding lisinopril currently (6) Diabetes Qualifiers: Diabetes mellitus type: type 2 Diabetes mellitus superintendent terminal insulin use: without residential use Diabetes mellitus complication status: with kidney complications Diabetes mellitus complication detail: with chronic kidney disease Chronic kidney disease stage: stage 3 (moderate) Qualified Code(s): E11.22 - Type 2 diabetes mellitus with diabetic chronic kidney disease; N18.3 - Chronic kidney disease, stage 3 (moderate); N18.3 - Chronic kidney disease, stage 3 (moderate) Is this a current diagnosis for this admission?: Yes Plan: A1c 6.3% Does not appear that patient is on home medications. Advance to cardiac/consistent carb as tolerated. Accu-Chek ACHS with SSI. Hypoglycemia protocol in place. (7) Hypertension Qualifiers: Hypertension type: essential hypertension Qualified Code(s): I10 - Essential (primary) hypertension Is this a current diagnosis for this admission?: Yes Plan: Improved blood pressures w/ resumption of home medication regiment; remains somewhat hypertensive. Continue home dose amlodipine, lisinopril, and labetalol. Currently holding lasix. (8) Morbid (severe) obesity due to excess calories Is this a current diagnosis for this admission?: Yes Plan: Lifestyle modification and dietary discretion is advised. (9) Acute kidney injury superimposed on chronic kidney disease Is this a current diagnosis for this admission?: Yes Plan: Creatinine 1.82 on admission (baseline) increased to 2.37 today. Continue gentle IV fluids. Continue IV vancomycin secondary to clinically worsened appearance. Discontinue Zosyn and start cefepime. Avoid nephrotoxic medications as able; pharmacy to dose bank. Monitor daily chemistries and strict I&O's. (10) CKD (chronic kidney disease) stage 3, GFR 30-59 ml/min Is this a current diagnosis for this admission?: Yes Plan: . (11) Prolapsed uterus Is this a current diagnosis for this admission?: Yes Plan: Spoke with Dr. Best who evaluated the patient has a consult in January 2018. Patient is a poor surgical candidate. Advised low-dose Premarin cream daily for comfort. Follow-up as an outpatient for further evaluation and management (may be candidate for pessary device). Otherwise, no specific interventions at this time unless the patient develops acute urinary retention; in which case, reduce the uterus and place a Lackey catheter. - Time Time Spent with patient: 25-34 minutes Medications reviewed and adjusted accordingly: Yes Anticipated discharge: Home with Homehealth
[2019-04-18] MEDS: ATORVASTATIN CALCIUM 10 MG TABLET PO SCH (21:24)
[2019-04-18] MEDS: ESTROGENS,CONJUGATED 0.625 MG/1 GM 30 GM TUBE VG SCH (21:25)
[2019-04-18] MEDS ORDERED: VANCOMYCIN HCL 750 MG in DEXTROSE 5%-WATER 250 ML IV SCH (22:00)
[2019-04-18] MEDS ORDERED: ESTROGENS,CONJUGATED 0.625 MG/1 GM 30 GM TUBE VG SCH (22:00)
[2019-04-19 05:40] LABS: HEMATOCRIT 25.5 % (36.0-47.0); HEMOGLOBIN 8.3 g/dL (12.0-15.5); MEAN CORPUSCULAR HEMOGLOBIN 27.6 pg (27.0-33.4); MEAN CORPUSCULAR HGB CONC 32.6 g/dL (32.0-36.0); MEAN CORPUSCULAR VOLUME 85 fl (80-97); PLATELET COUNT 189 10^3/uL (150-450); RED BLOOD COUNT 3.01 10^6/uL (3.72-5.28); RED CELL DISTRIBUTION WIDTH 15.2 % (11.5-14.0); WHITE BLOOD COUNT 15.8 10^3/uL (4.0-10.5)
[2019-04-19 05:50] LABS: ANION GAP 9 (5-19); BLOOD UREA NITROGEN 57 mg/dL (7-20); CALCIUM 7.5 mg/dL (8.4-10.2); CARBON DIOXIDE 20 mmol/L (22-30); CHLORIDE 106 mmol/L (98-107); GLUCOSE 209 mg/dL (75-110); POTASSIUM 4.6 mmol/L (3.6-5.0)
[2019-04-19] MEDS: LABETALOL HCL 200 MG TABLET PO SCH ×3 (06:20→21:16)
[2019-04-19] MEDS: HEPARIN SOD (PORCINE) 5,000 UNIT/ML 1 ML VIAL SUBCUT SCH ×3 (06:20→21:15)
[2019-04-19 07:02] LABS: ABSOLUTE LYMPHOCYTES# (MANUAL) 0.5 10^3/uL (0.5-4.7); ABSOLUTE MONOCYTES # (MANUAL) 0.5 10^3/uL (0.1-1.4); BAND NEUTROPHILS % (MANUAL) 9 % (3-5); BASOPHILS % (MANUAL) 0 % (0-2); EOSINOPHILS % (MANUAL) 0 % (0-6); LYMPHOCYTES % (MANUAL) 3 % (13-45); MONOCYTES % (MANUAL) 3 % (3-13); SEGMENTED NEUTROPHILS % (MAN) 85 % (42-78); TOTAL CELLS COUNTED 100
[2019-04-19 07:04] LABS: ANISOCYTOSIS SLIGHT; PLATELET COMMENT ADEQUATE
[2019-04-19] MEDS: INSULIN LISPRO 100 UNIT/ML 3 ML VIAL SUBCUT SCH ×4 (07:57→21:16)
[2019-04-19] MEDS: OXYCODONE HCL IR 5 MG TABLET PO PRN (08:12)
[2019-04-19] MEDS: LISINOPRIL 10 MG TABLET PO SCH (09:18)
[2019-04-19] MEDS: AMLODIPINE BESYLATE 5 MG TABLET PO SCH (09:18)
[2019-04-19] MEDS: FAMOTIDINE INJ/PF 20 MG/2 ML SDV IV SCH (09:20)
[2019-04-19] MEDS: CEFEPIME 1 GM/D5W RTU 1 GM/50 ML RTUPB IV SCH (09:24)
[2019-04-19] MEDS: NORMAL SALINE 1000 ML 1,000 ML IV PRN ×2 (10:41→19:53)
[2019-04-19] MEDS ORDERED: PROMETHAZINE HCL INJ 25 MG/1 ML VIAL IV PRN (11:00)
[2019-04-19] MEDS: ACETAMINOPHEN 325 MG TABLET PO PRN (12:07)
[2019-04-19 12:46] LABS: PATH REVIEW PATHOLOGIST REVIEWED
[2019-04-19] MEDS ORDERED: MORPHINE SULFATE 10 MG/ML INJ IV ONE (15:00)
--- NOTE | 2019-04-19 18:02 | PDOC PROGRESS REPORT ---
Subjective Progress Note for:: 04/19/19 Subjective:: DOM ADAMS is a 68 year old female with a PMH significant for CHF, Pulmonary HTN, HTN, HLD, CKD3, DM, chronic diabetic foot ulcers, neuropathy, anemia, and morbid obesity who was admitted 04/17/2019 for right lower leg cellulitis. Patient was seen on afternoon rounds with son present and daughter by phone. She is found resting in bed comfortably on room air. She reports continued nausea but without emesis or abdominal discomfort; tolerated diet well. Primary complaint today is her right lower extremity discomfort. Otherwise, she denies chest pain, palpitations, dyspnea, cough, diarrhea, constipation, dysuria. She has no other questions or concerns today. Reason For Visit: RIGHT LOWER EXTREMITY CELLULITIS Physical Exam Vital Signs: Temp Pulse Resp BP Pulse Ox 99.2 F 78 20 102/61 98 04/19/19 15:00 04/19/19 15:00 04/19/19 15:00 04/19/19 15:00 04/19/19 15:00 Intake & Output 04/18/19 04/19/19 04/20/19 06:59 06:59 06:59 Intake Total 1950 3490 1511 Balance 1950 3490 1511 Weight 130.5 kg 139.6 kg General appearance: PRESENT: no acute distress, cooperative, morbidly obese, well-developed, well-nourished Head exam: PRESENT: atraumatic, normocephalic Eye exam: PRESENT: conjunctiva pink, EOMI, PERRLA. ABSENT: scleral icterus Ear exam: PRESENT: normal external ear exam Mouth exam: PRESENT: moist, tongue midline Neck exam: ABSENT: carotid bruit, JVD, lymphadenopathy, thyromegaly Respiratory exam: PRESENT: clear to auscultation rona, decreased breath sounds - bibasilar secondary to body habitus and poor inspiratory effort, symmetrical, un labored. ABSENT: rales, rhonchi, wheezes Cardiovascular exam: PRESENT: RRR, +S1, +S2. ABSENT: diastolic murmur, rubs, systolic murmur Pulses: PRESENT: normal dorsalis pedis pul Vascular exam: PRESENT: normal capillary refill GI/Abdominal exam: PRESENT: normal bowel sounds, soft. ABSENT: distended, guarding, mass, organolmegaly, rebound, tenderness Rectal exam: PRESENT: deferred Extremities exam: PRESENT: full ROM. ABSENT: calf tenderness, clubbing, pedal edema Neurological exam: PRESENT: alert, awake, oriented to person, oriented to place, oriented to time, oriented to situation, CN II-XII grossly intact. ABSENT: motor sensory deficit Psychiatric exam: PRESENT: appropriate affect, normal mood. ABSENT: homicidal ideation, suicidal ideation Skin exam: PRESENT: dry, erythema - RLE; decreased area and intensity compared to yesterday. Bullae are decreased. RLE remains edematous and tender to touch, warm. ABSENT: cyanosis, rash Results Laboratory Results: 04/19/19 04:57 04/19/19 04:57 04/19/19 04/19/19 04:57 04:57 WBC 15.8 H RBC 3.01 L Hgb 8.3 L Hct 25.5 L MCV 85 MCH 27.6 MCHC 32.6 RDW 15.2 H Plt Count 189 Seg Neutrophils % Not Reportable Lymphocytes % Not Reportable Monocytes % Not Reportable Eosinophils % Not Reportable Basophils % Not Reportable Absolute Neutrophils Not Reportable Absolute Lymphocytes Not Reportable Absolute Monocytes Not Reportable Absolute Eosinophils Not Reportable Absolute Basophils Not Reportable Sodium 134.5 L Potassium 4.6 Chloride 106 Carbon Dioxide 20 L Anion Gap 9 BUN 57 H Creatinine 3.27 H Est GFR ( Amer) 17 L Est GFR (Non-Af Amer) 14 L Glucose 209 H Calcium 7.5 L 04/17/19 21:00 Clean Catch Midstream Urine Culture - Final Mixed Urogenital Venessa 04/17/19 11:18 NT-Pro-B Natriuret Pep 1350 H Impressions: Abdomen/Pelvis CT 04/17/19 11:33 IMPRESSION: No acute findings in the abdomen or pelvis. Chest X-Ray 04/17/19 11:34 IMPRESSION: NO ACUTE RADIOGRAPHIC FINDING IN THE CHEST. Assessment and Plan - Diagnosis (1) Cellulitis of right lower extremity Is this a current diagnosis for this admission?: Yes Plan: Improved; decreased area of erythema, WBC decreased, fever curve down. Increased pain and edema. WBC elevated to 19.4 w/ 25 bands-> 15.8 w/ 9 bands. Temp 99.2 today, TMax last 24 hrs is 103. Blood cultures are negative to date. Venous Doppler study negative for DVT Patient is admitted to the medical floor on telemetry She is provided gentle IVF. She is empirically placed on IV Vanc and Zozyn. Zosyn discontinued after 1 day; start cefepime secondary to KORI. Vancomycin is discontinued day #2 secondary to improved clinical appearance, worsening KORI, and no Hx MRSA Continue cefepime; day #2. Elevate extremity, float heels. Analgesics and antiemetics as needed. Monitor for worsening heel wound; no indications for surgical consultation at this time. (2) Diabetic foot ulcer Qualifiers: Diabetic foot ulcer location: other Diabetes mellitus type: type 2 Laterality: right Non-pressure ulcer stage: unspecified non-pressure ulcer stage Qualified Code(s): E11.621 - Type 2 diabetes mellitus with foot ulcer; L97.519 - Non-pressure chronic ulcer of other part of right foot with unspecified severity Is this a current diagnosis for this admission?: Yes Plan: Primary management as above. Yadav boots ordered for heel off loading. Monitor for worsening appearance of wound; early surgical or podiatry consultation if worsened appearance or delayed response to antibiotics. (3) Nausea vomiting and diarrhea Is this a current diagnosis for this admission?: Yes Plan: Improved; slight nausea without emesis. Secondary to acute febrile illness. CT ABD/Pelvis is benign. Lipase is nml. Urinalysis is negative for UTI; cultures pending. No further loose stools. No recent antibiotics; so low suspicion for c.diff at this time. Per family; patient often has GI symptoms associated with skin infections. Treatment of cellulitis as above. Now tolerating regular diet Gentle IVF Antiemetics as needed. (4) Anemia Qualifiers: Anemia type: due to chronic kidney disease Chronic kidney disease stage: stage 3 (moderate) Qualified Code(s): N18.3 - Chronic kidney disease, stage 3 (moderate); D63.1 - Anemia in chronic kidney disease; D63.1 - Anemia in chronic kidney disease Is this a current diagnosis for this admission?: Yes Plan: Hgb 8.3; slight downward trend r/t IVF No evidence of active bleeding at this time. Monitor daily CBC. Start MVI and ferrous sulfate supplementation (5) Chronic diastolic CHF (congestive heart failure) Is this a current diagnosis for this admission?: Yes Plan: Euvolemic. Without exacerbation at this time. Gentle IVF; monitor for fluid volume overload. Continue home dose lisinopril, labetalol, amlodioine, and atorvastatin. Holding lasix currently (6) Diabetes Qualifiers: Diabetes mellitus type: type 2 Diabetes mellitus ad terminal makeup operator insulin use: without prison use Diabetes mellitus complication status: with kidney complications Diabetes mellitus complication detail: with chronic kidney disease Chronic kidney disease stage: stage 3 (moderate) Qualified Code(s): E11.22 - Type 2 diabetes mellitus with diabetic chronic kidney disease; N18.3 - Chronic kidney disease, stage 3 (moderate); N18.3 - Chronic kidney disease, stage 3 (moderate) Is this a current diagnosis for this admission?: Yes Plan: A1c 6.3% Does not appear that patient is on home medications. Advance to cardiac/consistent carb as tolerated. Accu-Chek ACHS with SSI. Hypoglycemia protocol in place. (7) Hypertension Qualifiers: Hypertension type: essential hypertension Qualified Code(s): I10 - Essential (primary) hypertension Is this a current diagnosis for this admission?: Yes Plan: Improved blood pressures w/ resumption of home medication regiment Continue home dose amlodipine, lisinopril, and labetalol. Currently holding lasix. (8) Morbid (severe) obesity due to excess calories Is this a current diagnosis for this admission?: Yes Plan: Lifestyle modification and dietary discretion is advised. (9) Acute kidney injury superimposed on chronic kidney disease Is this a current diagnosis for this admission?: Yes Plan: Worsened; Creatinine 1.82 -> 2.37-> 3.27 Likely ATN secondary to Zosyn/vancomycin combination. Continue gentle IV fluids. Have discontinued Zosyn and vancomycin. Avoid nephrotoxic medications as able. Monitor daily chemistries and strict I&O's. Patient declined Lackey catheter for strict I&O's (10) CKD (chronic kidney disease) stage 3, GFR 30-59 ml/min Is this a current diagnosis for this admission?: Yes Plan: Baseline creatinine 1.80/BUN 40. Avoid nephrotoxic medications as able. Daily chemistries. If creatinine does not begin to improve, consider nephrology consultation. (11) Prolapsed uterus Is this a current diagnosis for this admission?: Yes Plan: Spoke with Dr. Best who evaluated the patient has a consult in January 2018. Patient is a poor surgical candidate. Advised low-dose Premarin cream daily for comfort. Follow-up as an outpatient for further evaluation and management (may be candidate for pessary device). Otherwise, no specific interventions at this time unless the patient develops acute urinary retention; in which case, reduce the uterus and place a Lackey catheter. - Time Time Spent with patient: 25-34 minutes Medications reviewed and adjusted accordingly: Yes Anticipated discharge: Home with Homehealth
[2019-04-19] MEDS: FERROUS SULFATE 325 MG TABLET PO SCH (18:55)
[2019-04-19] MEDS: ONDANSETRON HCL INJ/PF 4 MG/2 ML SDV IV PRN (21:13)
[2019-04-19] MEDS: ATORVASTATIN CALCIUM 10 MG TABLET PO SCH (21:16)
[2019-04-20] MEDS: ESTROGENS,CONJUGATED 0.625 MG/1 GM 30 GM TUBE VG SCH ×2 (00:35→21:30)
[2019-04-20 06:02] LABS: ABSOLUTE EOSINOPHILS # (AUTO) 0.1 10^3/uL (0.0-0.6); ABSOLUTE LYMPHOCYTES (AUTO) 0.6 10^3/uL (0.5-4.7); ABSOLUTE MONOCYTES (AUTO) 0.7 10^3/uL (0.1-1.4); ABSOLUTE NEUT (AUTO) 9.1 10^3/uL (1.7-8.2); BASOPHILS % (AUTO) 0.4 % (0-2); EOSINOPHILS % (AUTO) 1.3 % (0-6); HEMOGLOBIN 8.3 g/dL (12.0-15.5); LYMPHOCYTES % (AUTO) 5.8 % (13-45); MEAN CORPUSCULAR HEMOGLOBIN 27.9 pg (27.0-33.4); MEAN CORPUSCULAR HGB CONC 33.1 g/dL (32.0-36.0); MEAN CORPUSCULAR VOLUME 84 fl (80-97); MONOCYTES % (AUTO) 6.8 % (3-13); PLATELET COUNT 192 10^3/uL (150-450); RED BLOOD COUNT 2.97 10^6/uL (3.72-5.28); RED CELL DISTRIBUTION WIDTH 15.2 % (11.5-14.0); SEGMENTED NEUTROPHILS % (AUTO) 85.7 % (42-78); TOTAL CELLS COUNTED % (AUTO) 100 %; WHITE BLOOD COUNT 10.7 10^3/uL (4.0-10.5)
[2019-04-20] MEDS: HEPARIN SOD (PORCINE) 5,000 UNIT/ML 1 ML VIAL SUBCUT SCH ×3 (06:03→21:35)
[2019-04-20] MEDS: LABETALOL HCL 200 MG TABLET PO SCH ×3 (06:03→21:35)
[2019-04-20] MEDS: NORMAL SALINE 1000 ML 1,000 ML IV PRN ×3 (06:17→23:19)
[2019-04-20 06:25] LABS: ANION GAP 9 (5-19); BLOOD UREA NITROGEN 61 mg/dL (7-20); CALCIUM 7.3 mg/dL (8.4-10.2); CARBON DIOXIDE 18 mmol/L (22-30); CHLORIDE 107 mmol/L (98-107); GLUCOSE 136 mg/dL (75-110); POTASSIUM 4.4 mmol/L (3.6-5.0)
[2019-04-20] MEDS: INSULIN LISPRO 100 UNIT/ML 3 ML VIAL SUBCUT SCH ×4 (08:14→21:35)
[2019-04-20] MEDS: OXYCODONE HCL IR 5 MG TABLET PO PRN ×2 (08:18→15:06)
[2019-04-20] MEDS: FERROUS SULFATE 325 MG TABLET PO SCH ×2 (08:18→17:42)
[2019-04-20] MEDS: LISINOPRIL 10 MG TABLET PO SCH (09:28)
[2019-04-20] MEDS: FAMOTIDINE INJ/PF 20 MG/2 ML SDV IV SCH (09:28)
[2019-04-20] MEDS: MULTIVITAMIN TABLET PO SCH (09:28)
[2019-04-20] MEDS: AMLODIPINE BESYLATE 5 MG TABLET PO SCH (09:28)
[2019-04-20] MEDS ORDERED: CEFEPIME HCL 2 GM in DEXTROSE 5%-WATER 50 ML IV SCH (10:00)
[2019-04-20] MEDS: IBUPROFEN 600 MG TABLET PO PRN (16:10)
--- NOTE | 2019-04-20 16:55 | PDOC PROGRESS REPORT ---
Subjective Progress Note for:: 04/20/19 Subjective:: DOM ADAMS is a 68 year old female with a PMH significant for CHF, Pulmonary HTN, HTN, HLD, CKD3, DM, chronic diabetic foot ulcers, neuropathy, anemia, and morbid obesity who was admitted 04/17/2019 for right lower leg cellulitis. Patient was seen on morning rounds with daughter present. She is found sitting up to the edge of the bed comfortably on room air. She reports she is feeling much better today. Does continue to have RLE discomfort, though this is s omewhat decreased today. Did work with physical therapy this morning. Otherwise, she denies chest pain, palpitations, dyspnea, cough, diarrhea, constipation, dysuria. She has no other questions or concerns today. Reason For Visit: RIGHT LOWER EXTREMITY CELLULITIS Physical Exam Vital Signs: Temp Pulse Resp BP Pulse Ox 99.2 F 79 18 133/67 H 100 04/20/19 15:29 04/20/19 15:29 04/20/19 15:29 04/20/19 15:29 04/20/19 15:29 Intake & Output 04/19/19 04/20/19 04/21/19 06:59 06:59 06:59 Intake Total 3490 5526 1650 Output Total 1400 500 Balance 3490 4126 1150 Weight 139.6 kg 141.5 kg General appearance: PRESENT: no acute distress, morbidly obese, well-developed, well-nourished Head exam: PRESENT: atraumatic, normocephalic Eye exam: PRESENT: conjunctiva pink, EOMI, PERRLA. ABSENT: scleral icterus Ear exam: PRESENT: normal external ear exam Mouth exam: PRESENT: moist, tongue midline Neck exam: ABSENT: carotid bruit, JVD, lymphadenopathy, thyromegaly Respiratory exam: PRESENT: clear to auscultation rona, symmetrical, unlabored. ABSENT: rales, rhonchi, wheezes Cardiovascular exam: PRESENT: RRR, +S1, +S2. ABSENT: diastolic murmur, rubs, systolic murmur Pulses: PRESENT: normal dorsalis pedis pul Vascular exam: PRESENT: normal capillary refill GI/Abdominal exam: PRESENT: normal bowel sounds, soft. ABSENT: distended, guarding, mass, organolmegaly, rebound, tenderness Rectal exam: PRESENT: deferred Extremities exam: PRESENT: full ROM. ABSENT: calf tenderness, clubbing, pedal edema Musculoskeletal exam: PRESENT: ambulatory - 1-2 steps w/ 2 person max assist (r/t pain) Neurological exam: PRESENT: alert, awake, oriented to person, oriented to place, oriented to time, oriented to situation, CN II-XII grossly intact. ABSENT: motor sensory deficit Psychiatric exam: PRESENT: appropriate affect, normal mood. ABSENT: homicidal ideation, suicidal ideation Skin exam: PRESENT: dry, warm, other - RLE; decreased erythema and edema. Bullae have resolved. Remains tender to touch. ABSENT: cyanosis, rash Results Laboratory Results: 04/20/19 05:24 04/20/19 05:24 04/20/19 04/20/19 05:24 05:24 WBC 10.7 H RBC 2.97 L Hgb 8.3 L Hct 25.0 L MCV 84 MCH 27.9 MCHC 33.1 RDW 15.2 H Plt Count 192 Seg Neutrophils % 85.7 H Lymphocytes % 5.8 L Monocytes % 6.8 Eosinophils % 1.3 Basophils % 0.4 Absolute Neutrophils 9.1 H Absolute Lymphocytes 0.6 Absolute Monocytes 0.7 Absolute Eosinophils 0.1 Absolute Basophils 0.0 Sodium 134.2 L Potassium 4.4 Chloride 107 Carbon Dioxide 18 L Anion Gap 9 BUN 61 H Creatinine 3.10 H Est GFR ( Amer) 18 L Est GFR (Non-Af Amer) 15 L Glucose 136 H Calcium 7.3 L 04/17/19 11:18 NT-Pro-B Natriuret Pep 1350 H Impressions: Abdomen/Pelvis CT 04/17/19 11:33 IMPRESSION: No acute findings in the abdomen or pelvis. Chest X-Ray 04/17/19 11:34 IMPRESSION: NO ACUTE RADIOGRAPHIC FINDING IN THE CHEST. Assessment and Plan - Diagnosis (1) Cellulitis of right lower extremity Is this a current diagnosis for this admission?: Yes Plan: Significantly improved; decreased area of erythema and edema. WBC decreased, fever curve down. WBC elevated to 19.4 w/ 25 bands-> 15.8 w/ 9 bands-> 10.7 no bands. TMax 99.9 last 48 hrs Blood cultures are negative to date. Venous Doppler study negative for DVT Patient is admitted to the medical floor on telemetry She is provided gentle IVF. She is empirically placed on IV Vanc and Zozyn. Zosyn discontinued after 1 day; start cefepime secondary to KORI. Vancomycin is discontinued day #2 secondary to improved clinical appearance, worsening KORI, and no Hx MRSA Continue cefepime; day #3. Elevate extremity, float heels. Analgesics and antiemetics as needed. Monitor for worsening heel wound; no indications for surgical consultation at this time. (2) Diabetic foot ulcer Qualifiers: Diabetic foot ulcer location: other Diabetes mellitus type: type 2 Laterality: right Non-pressure ulcer stage: unspecified non-pressure ulcer stage Qualified Code(s): E11.621 - Type 2 diabetes mellitus with foot ulcer; L97.519 - Non-pressure chronic ulcer of other part of right foot with unspecified severity Is this a current diagnosis for this admission?: Yes Plan: Primary management as above. Yadav boots ordered for heel off loading. Monitor for worsening appearance of wound; early surgical or podiatry consultation if worsened appearance or delayed response to antibiotics. (3) Nausea vomiting and diarrhea Is this a current diagnosis for this admission?: Yes Plan: Resolved. Secondary to acute febrile illness. CT ABD/Pelvis is benign. Lipase is nml. Urinalysis is negative for UTI; cultures pending. No further loose stools. No recent antibiotics; so low suspicion for c.diff at this time. Per family; patient often has GI symptoms associated with skin infections. Treatment of cellulitis as above. Now tolerating regular diet Gentle IVF Antiemetics as needed. (4) Anemia Qualifiers: Anemia type: due to chronic kidney disease Chronic kidney disease stage: stage 3 (moderate) Qualified Code(s): N18.3 - Chronic kidney disease, stage 3 (moderate); D63.1 - Anemia in chronic kidney disease; D63.1 - Anemia in chronic kidney disease Is this a current diagnosis for this admission?: Yes Plan: Hgb 8.3; slight downward trend r/t IVF No evidence of active bleeding at this time. Monitor daily CBC. Continue MVI and ferrous sulfate supplementation (5) Chronic diastolic CHF (congestive heart failure) Is this a current diagnosis for this admission?: Yes Plan: Euvolemic. Without exacerbation at this time. Gentle IVF; monitor for fluid volume overload. Continue home dose lisinopril, labetalol, amlodioine, and atorvastatin. Holding lasix currently (6) Diabetes Qualifiers: Diabetes mellitus type: type 2 Diabetes mellitus salvage determiner insulin use: without fdc use Diabetes mellitus complication status: with kidney complications Diabetes mellitus complication detail: with chronic kidney disease Chronic kidney disease stage: stage 3 (moderate) Qualified Code(s): E11.22 - Type 2 diabetes mellitus with diabetic chronic kidney disease; N18.3 - Chronic kidney disease, stage 3 (moderate); N18.3 - Chronic kidney disease, stage 3 (moderate) Is this a current diagnosis for this admission?: Yes Plan: A1c 6.3% Does not appear that patient is on home medications. Advance to cardiac/consistent carb as tolerated. Accu-Chek ACHS with SSI. Hypoglycemia protocol in place. (7) Hypertension Qualifiers: Hypertension type: essential hypertension Qualified Code(s): I10 - Essential (primary) hypertension Is this a current diagnosis for this admission?: Yes Plan: Acceptable blood pressures Continue home dose amlodipine, lisinopril, and labetalol. Currently holding lasix. (8) Morbid (severe) obesity due to excess calories Is this a current diagnosis for this admission?: Yes Plan: Lifestyle modification and dietary discretion is advised. (9) Acute kidney injury superimposed on chronic kidney disease Is this a current diagnosis for this admission?: Yes Plan: Slight improvement today. Creatinine 1.82 -> 2.37-> 3.27-> 3.10 Likely ATN secondary to Zosyn/vancomycin combination. Continue gentle IV fluids. Have discontinued Zosyn and vancomycin. Avoid nephrotoxic medications as able. Monitor daily chemistries and strict I&O's. Patient declined Lackey catheter for strict I&O's; adequate urine output (10) CKD (chronic kidney disease) stage 3, GFR 30-59 ml/min Is this a current diagnosis for this admission?: Yes Plan: Baseline creatinine 1.80/BUN 40. Avoid nephrotoxic medications as able. Daily chemistries. (11) Prolapsed uterus Is this a current diagnosis for this admission?: Yes Plan: Spoke with Dr. Best who evaluated the patient has a consult in January 2018. Patient is a poor surgical candidate. Advised low-dose Premarin cream daily for comfort. Follow-up as an outpatient for further evaluation and management (may be candidate for pessary device). Otherwise, no specific interventions at this time unless the patient develops acute urinary retention; in which case, reduce the uterus and place a Lackey catheter. - Time Time Spent with patient: 25-34 minutes Medications reviewed and adjusted accordingly: Yes Anticipated discharge: Home Within: within 48 hours
[2019-04-20] MEDS: ATORVASTATIN CALCIUM 10 MG TABLET PO SCH (21:35)
[2019-04-21] MEDS: LABETALOL HCL 200 MG TABLET PO SCH ×3 (05:23→21:36)
[2019-04-21] MEDS: HEPARIN SOD (PORCINE) 5,000 UNIT/ML 1 ML VIAL SUBCUT SCH ×3 (05:23→21:36)
[2019-04-21] MEDS: OXYCODONE HCL IR 5 MG TABLET PO PRN (05:24)
[2019-04-21 05:56] LABS: HEMATOCRIT 24.4 % (36.0-47.0); MEAN CORPUSCULAR HEMOGLOBIN 27.5 pg (27.0-33.4); MEAN CORPUSCULAR HGB CONC 32.8 g/dL (32.0-36.0); MEAN CORPUSCULAR VOLUME 84 fl (80-97); PLATELET COUNT 196 10^3/uL (150-450); RED CELL DISTRIBUTION WIDTH 15.1 % (11.5-14.0); WHITE BLOOD COUNT 7.9 10^3/uL (4.0-10.5)
[2019-04-21 06:12] LABS: ANION GAP 8 (5-19); BLOOD UREA NITROGEN 56 mg/dL (7-20); CALCIUM 7.7 mg/dL (8.4-10.2); CARBON DIOXIDE 18 mmol/L (22-30); CHLORIDE 111 mmol/L (98-107); GLUCOSE 185 mg/dL (75-110); POTASSIUM 4.3 mmol/L (3.6-5.0)
[2019-04-21] MEDS: INSULIN LISPRO 100 UNIT/ML 3 ML VIAL SUBCUT SCH ×4 (07:57→21:36)
[2019-04-21] MEDS: LISINOPRIL 10 MG TABLET PO SCH (09:05)
[2019-04-21] MEDS: AMLODIPINE BESYLATE 5 MG TABLET PO SCH (09:05)
[2019-04-21] MEDS: MULTIVITAMIN TABLET PO SCH (09:05)
[2019-04-21] MEDS: FERROUS SULFATE 325 MG TABLET PO SCH ×2 (09:05→17:12)
[2019-04-21] MEDS: NORMAL SALINE 1000 ML 1,000 ML IV PRN ×2 (09:06→21:37)
[2019-04-21] MEDS: FAMOTIDINE INJ/PF 20 MG/2 ML SDV IV SCH (09:06)
[2019-04-21] MEDS: IBUPROFEN 600 MG TABLET PO PRN (09:16)
[2019-04-21] MEDS ORDERED: OXYCODONE HCL IR 5 MG TABLET PO PRN (11:38)
[2019-04-21] MEDS: CEPHALEXIN 500 MG CAPSULE PO SCH ×3 (12:25→23:36)
--- NOTE | 2019-04-21 15:25 | PDOC PROGRESS REPORT ---
Subjective Progress Note for:: 04/21/19 Subjective:: DOM ADAMS is a 68 year old female with a PMH significant for CHF, Pulmonary HTN, HTN, HLD, CKD3, DM, chronic diabetic foot ulcers, neuropathy, anemia, and morbid obesity who was admitted 04/17/2019 for right lower leg cellulitis. Patient was seen on morning rounds with daughter present. She is found resting in bed comfortably on room air. She reports she is feeling well today, though tired. Does continue to have RLE discomfort, but gradually improving. Otherwise, she denies chest pain, palpitations, dyspnea, cough, diarrhea, constipation, dysuria. She has no other questions or concerns today. No concerns per nursing. Reason For Visit: RIGHT LOWER EXTREMITY CELLULITIS Physical Exam Vital Signs: Temp Pulse Resp BP Pulse Ox 98.1 F 64 16 181/86 H 100 04/21/19 11:02 04/21/19 14:00 04/21/19 11:02 04/21/19 11:02 04/21/19 11:02 Intake & Output 04/20/19 04/21/19 04/22/19 06:59 06:59 06:59 Intake Total 5526 4030 1000 Output Total 1400 2350 Balance 4126 1680 1000 Weight 141.5 kg 144.8 kg General appearance: PRESENT: no acute distress, cooperative, obese, well- developed, well-nourished Head exam: PRESENT: atraumatic, normocephalic Eye exam: PRESENT: conjunctiva pink, EOMI, PERRLA. ABSENT: scleral icterus Ear exam: PRESENT: normal external ear exam Mouth exam: PRESENT: moist, tongue midline Neck exam: ABSENT: carotid bruit, JVD, lymphadenopathy, thyromegaly Respiratory exam: PRESENT: clear to auscultation rona, decreased breath sounds - Diminished secondary to body habitus, poor inspiratory effort, and positioning, symmetrical, unlabored. ABSENT: rales, rhonchi, wheezes Cardiovascular exam: PRESENT: RRR, +S1, +S2. ABSENT: diastolic murmur, rubs, systolic murmur Pulses: PRESENT: normal dorsalis pedis pul Vascular exam: PRESENT: normal capillary refill GI/Abdominal exam: PRESENT: normal bowel sounds, soft. ABSENT: distended, gu arding, mass, organolmegaly, rebound, tenderness Rectal exam: PRESENT: deferred Extremities exam: PRESENT: full ROM. ABSENT: calf tenderness, clubbing, pedal edema Neurological exam: PRESENT: alert, awake, oriented to person, oriented to place, oriented to time, oriented to situation, CN II-XII grossly intact. ABSENT: mot or sensory deficit Psychiatric exam: PRESENT: appropriate affect, normal mood. ABSENT: homicidal ideation, suicidal ideation Skin exam: PRESENT: dry, warm, other - Erythema and edema to right mid lower leg; significantly improved from yesterday. Continues to have increased warmth and is tender to touch.. ABSENT: cyanosis, rash Results Laboratory Results: 04/21/19 04:57 04/21/19 04:57 04/21/19 04/21/19 04:57 04:57 WBC 7.9 RBC 2.90 L Hgb 8.0 L Hct 24.4 L MCV 84 MCH 27.5 MCHC 32.8 RDW 15.1 H Plt Count 196 Sodium 136.6 L Potassium 4.3 Chloride 111 H Carbon Dioxide 18 L Anion Gap 8 BUN 56 H Creatinine 2.65 H Est GFR ( Amer) 22 L Est GFR (Non-Af Amer) 18 L Glucose 185 H Calcium 7.7 L 04/18/19 22:54 Stool - Stool - Final 04/18/19 22:54 Stool - Stool Stool Culture - Final NO SALMONELLA, SHIGELLA, CAMPYLOBACTER, OR E.COLI 0157 RECOVERED. NEGATIVE FOR SHIGA TOXINS 1&2. 04/17/19 11:18 NT-Pro-B Natriuret Pep 1350 H Impressions: Abdomen/Pelvis CT 04/17/19 11:33 IMPRESSION: No acute findings in the abdomen or pelvis. Chest X-Ray 04/17/19 11:34 IMPRESSION: NO ACUTE RADIOGRAPHIC FINDING IN THE CHEST. Assessment and Plan - Diagnosis (1) Cellulitis of right lower extremity Is this a current diagnosis for this admission?: Yes Plan: Continues to improve; decreased area of erythema and edema. Leukocytosis has resolved, afebrile x24 hours. WBC elevated to 19.4 w/ 25 bands-> 15.8 w/ 9 bands-> 10.7 -> 7.9. TMax 99.9 last 48 hrs Blood cultures are negative to date. Venous Doppler study negative for DVT Patient is admitted to the medical floor on telemetry She is provided gentle IVF. She is empirically placed on IV Vanc and Zozyn. Zosyn discontinued after 1 day; start cefepime secondary to KORI. Vancomycin is discontinued day #2 secondary to improved clinical appearance, worsening KORI, and no Hx MRSA Cefepime discontinued on day #4. Start Keflex p.o. Elevate extremity, float heels. Analgesics and antiemetics as needed. Monitor for worsening heel wound; no indications for surgical consultation at this time. (2) Diabetic foot ulcer Qualifiers: Diabetic foot ulcer location: other Diabetes mellitus type: type 2 Laterality: right Non-pressure ulcer stage: unspecified non-pressure ulcer stage Qualified Code(s): E11.621 - Type 2 diabetes mellitus with foot ulcer; L97.519 - Non-pressure chronic ulcer of other part of right foot with unspeci fied severity Is this a current diagnosis for this admission?: Yes Plan: Primary management as above. Yadav boots ordered for heel off loading. Monitor for worsening appearance of wound; early surgical or podiatry consultation if worsened appearance or delayed response to antibiotics. (3) Nausea vomiting and diarrhea Is this a current diagnosis for this admission?: Yes Plan: Resolved. Secondary to acute febrile illness. CT ABD/Pelvis is benign. Lipase is nml. Urinalysis is negative for UTI; cultures pending. No further loose stools. No recent antibiotics; so low suspicion for c.diff at this time. Per family; patient often has GI symptoms associated with skin infections. Treatment of cellulitis as above. Now tolerating regular diet Gentle IVF Antiemetics as needed. (4) Anemia Qualifiers: Anemia type: due to chronic kidney disease Chronic kidney disease stage: stage 3 (moderate) Qualified Code(s): N18.3 - Chronic kidney disease, stage 3 (moderate); D63.1 - Anemia in chronic kidney disease; D63.1 - Anemia in chronic kidney disease Is this a current diagnosis for this admission?: Yes Plan: Hgb 8.0; slight downward trend r/t IVF No evidence of active bleeding at this time. Monitor daily CBC. Continue MVI and ferrous sulfate supplementation (5) Chronic diastolic CHF (congestive heart failure) Is this a current diagnosis for this admission?: Yes Plan: Euvolemic. Without exacerbation at this time. Gentle IVF; monitor for fluid volume overload. Continue home dose lisinopril, labetalol, amlodioine, and atorvastatin. 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 Advance to cardiac/consistent carb as tolerated. Accu-Chek ACHS with SSI. Hypoglycemia protocol in place. (7) Hypertension Qualifiers: Hypertension type: essential hypertension Qualified Code(s): I10 - Essential (primary) hypertension Is this a current diagnosis for this admission?: Yes Plan: Elevated blood pressures today;181/86. Weight up 3.3 kg secondary to continued IV fluids. Have decreased rate today. Continue home dose amlodipine, lisinopril, and labetalol. Currently holding lasix. (8) Morbid (severe) obesity due to excess calories Is this a current diagnosis for this admission?: Yes Plan: Lifestyle modification and dietary discretion is advised. (9) Acute kidney injury superimposed on chronic kidney disease Is this a current diagnosis for this admission?: Yes Plan: Improved; Creatinine 1.82 -> 2.37-> 3.27-> 3.10-> 2.68 Likely ATN secondary to Zosyn/vancomycin combination. Baseline creatinine 1.8 Continue gentle IV fluids; have decreased rate today. Have discontinued Zosyn and vancomycin. Avoid nephrotoxic medications as able. Monitor daily chemistries and strict I&O's. Patient declined Lackey catheter for strict I&O's; adequate urine output (10) CKD (chronic kidney disease) stage 3, GFR 30-59 ml/min Is this a current diagnosis for this admission?: Yes Plan: Baseline creatinine 1.80/BUN 40. Avoid nephrotoxic medications as able. Daily chemistries. (11) Prolapsed uterus Is this a current diagnosis for this admission?: Yes Plan: Spoke with Dr. Best who evaluated the patient has a consult in January 2018. Patient is a poor surgical candidate. Advised low-dose Premarin cream daily for comfort. Follow-up as an outpatient for further evaluation and management (may be candidate for pessary device). Otherwise, no specific interventions at this time unless the patient develops acute urinary retention; in which case, reduce the uterus and place a Lackey catheter. - Time Time Spent with patient: 25-34 minutes Medications reviewed and adjusted accordingly: Yes Anticipated discharge: Home with Homehealth Within: within 24 hours - If remains clinically improved and creatinine continues to trend down
[2019-04-21] MEDS: ATORVASTATIN CALCIUM 10 MG TABLET PO SCH (21:36)
[2019-04-21] MEDS: ESTROGENS,CONJUGATED 0.625 MG/1 GM 30 GM TUBE VG SCH (21:37)
[2019-04-22 05:07] LABS: HEMATOCRIT 24.3 % (36.0-47.0); MEAN CORPUSCULAR HEMOGLOBIN 27.8 pg (27.0-33.4); MEAN CORPUSCULAR HGB CONC 32.9 g/dL (32.0-36.0); MEAN CORPUSCULAR VOLUME 84 fl (80-97); PLATELET COUNT 199 10^3/uL (150-450); RED BLOOD COUNT 2.87 10^6/uL (3.72-5.28); RED CELL DISTRIBUTION WIDTH 15.6 % (11.5-14.0); WHITE BLOOD COUNT 9.1 10^3/uL (4.0-10.5)
[2019-04-22 05:23] LABS: ANION GAP 7 (5-19); BLOOD UREA NITROGEN 54 mg/dL (7-20); CALCIUM 7.9 mg/dL (8.4-10.2); CARBON DIOXIDE 17 mmol/L (22-30); CHLORIDE 113 mmol/L (98-107); GLUCOSE 214 mg/dL (75-110); POTASSIUM 4.6 mmol/L (3.6-5.0)
[2019-04-22] MEDS: CEPHALEXIN 500 MG CAPSULE PO SCH (06:08)
[2019-04-22] MEDS: LABETALOL HCL 200 MG TABLET PO SCH ×3 (06:08→22:24)
[2019-04-22] MEDS: HEPARIN SOD (PORCINE) 5,000 UNIT/ML 1 ML VIAL SUBCUT SCH ×3 (06:08→22:24)
[2019-04-22] MEDS: INSULIN LISPRO 100 UNIT/ML 3 ML VIAL SUBCUT SCH ×4 (07:44→22:23)
[2019-04-22] MEDS: FERROUS SULFATE 325 MG TABLET PO SCH ×2 (09:09→17:02)
[2019-04-22] MEDS: AMLODIPINE BESYLATE 5 MG TABLET PO SCH (09:09)
[2019-04-22] MEDS: MULTIVITAMIN TABLET PO SCH (09:09)
[2019-04-22] MEDS: LISINOPRIL 10 MG TABLET PO SCH (09:09)
--- NOTE | 2019-04-22 10:08 | RADIOLOGY REPORT (SQ) ---
EXAM DESCRIPTION: FOOT RIGHT 2 VIEWS COMPLETED DATE/TIME: 04/22/2019 9:59 am REASON FOR STUDY: chronic foot wound; acute cellulitis COMPARISON: 2017 NUMBER OF VIEWS: Two views. TECHNIQUE: AP and lateral radiographic images acquired of the right foot. LIMITATIONS: None. FINDINGS: MINERALIZATION: Severe osteopenia. BONES: No acute fracture or dislocation. No worrisome bone lesions. JOINTS: No effusions. SOFT TISSUES: No soft tissue swelling. No foreign body. OTHER: No other significant finding. IMPRESSION: No obvious findings of osteomyelitis. TECHNICAL DOCUMENTATION: JOB ID: [id number] [employer]- All Rights Reserved Reading location - IP/workstation name: [email or web address]
[2019-04-22] MEDS: FAMOTIDINE 20 MG TABLET PO SCH ×2 (10:11→22:24)
[2019-04-22] MEDS: PIPERACILLIN SODIUM/TAZOBACTAM 2.25 GM in NORMAL SALINE 50 ML IV SCH ×3 (11:35→23:37)
[2019-04-22] MEDS ORDERED: PIPERACILLIN SODIUM/TAZOBACTAM 3.375 GM in NORMAL SALINE 100 ML IV SCH (12:00)
--- NOTE | 2019-04-22 13:43 | PDOC PROGRESS REPORT ---
Subjective Progress Note for:: 04/22/19 Subjective:: DOM ADAMS is a 68 year old female with a PMH significant for CHF, Pulmonary HTN, HTN, HLD, CKD3, DM, chronic diabetic foot ulcers, neuropathy, anemia, and morbid obesity who was admitted 04/17/2019 for right lower leg cellulitis. Patient was seen on morning rounds with daughter present. She is found resting in bed comfortably on room air. She complains of nausea and vague abdominal discomfort that she relates to p.o. antibiotic. She also reports increased warmth, erythema, and pain to her right lower extremity. Otherwise, she denies chest pain, palpitations, dyspnea, cough, diarrhea, constipation, dysuria. She has no other questions or concerns today. No concerns per nursing. Reason For Visit: RIGHT LOWER EXTREMITY CELLULITIS Physical Exam Vital Signs: Temp Pulse Resp BP Pulse Ox 98.5 F 67 18 160/60 H 97 04/22/19 10:59 04/22/19 10:59 04/22/19 10:59 04/22/19 10:59 04/22/19 10:59 Intake & Output 04/21/19 04/22/19 04/23/19 06:59 06:59 06:59 Intake Total 4030 2537 995 Output Total 2350 2505 Balance 1680 32 995 Weight 144.8 kg 149 kg General appearance: PRESENT: no acute distress, cooperative, obese, well- developed, well-nourished Head exam: PRESENT: atraumatic, normocephalic Eye exam: PRESENT: conjunctiva pink, EOMI, PERRLA. ABSENT: scleral icterus Ear exam: PRESENT: normal external ear exam Mouth exam: PRESENT: moist, tongue midline Neck exam: ABSENT: carotid bruit, JVD, lymphadenopathy, thyromegaly Respiratory exam: PRESENT: clear to auscultation rona, decreased breath sounds - Bibasilar; secondary to body habitus, symmetrical, unlabored. ABSENT: rales, rhonchi, wheezes Cardiovascular exam: PRESENT: RRR, +S1, +S2. ABSENT: diastolic murmur, rubs, systolic murmur Pulses: PRESENT: normal dorsalis pedis pul Vascular exam: PRESENT: normal capillary refill GI/Abdominal exam: PRESENT: normal bowel sounds, soft. ABSENT: distended, guarding, mass, organolmegaly, rebound, tenderness Rectal exam: PRESENT: deferred Extremities exam: PRESENT: full ROM, +1 edema - RLE. ABSENT: calf tenderness, clubbing, pedal edema Neurological exam: PRESENT: alert, awake, oriented to person, oriented to place, oriented to time, oriented to situation, CN II-XII grossly intact. ABSENT: motor sensory deficit Psychiatric exam: PRESENT: appropriate affect, normal mood. ABSENT: homicidal ideation, suicidal ideation Skin exam: PRESENT: dry, warm, other - RLE with increased warmth, edema, and tenderness to touch. Area of erythema has increased; anterior lower extremity extending to her mid thigh on the medial aspect.. ABSENT: cyanosis, rash Results Laboratory Results: 04/22/19 04:31 04/22/19 04:31 04/22/19 04/22/19 04:31 04:31 WBC 9.1 RBC 2.87 L Hgb 8.0 L Hct 24.3 L MCV 84 MCH 27.8 MCHC 32.9 RDW 15.6 H Plt Count 199 Sodium 137.4 Potassium 4.6 Chloride 113 H Carbon Dioxide 17 L Anion Gap 7 BUN 54 H Creatinine 2.22 H Est GFR ( Amer) 27 L Est GFR (Non-Af Amer) 22 L Glucose 214 H Calcium 7.9 L 04/17/19 11:18 NT-Pro-B Natriuret Pep 1350 H Impressions: Abdomen/Pelvis CT 04/17/19 11:33 IMPRESSION: No acute findings in the abdomen or pelvis. Chest X-Ray 04/17/19 11:34 IMPRESSION: NO ACUTE RADIOGRAPHIC FINDING IN THE CHEST. Foot X-Ray 04/22/19 00:00 IMPRESSION: No obvious findings of osteomyelitis. Assessment and Plan - Diagnosis (1) Cellulitis of right lower extremity Is this a current diagnosis for this admission?: Yes Plan: Worsened clinical appearance today; increased erythema and pain. WBCs remain normal, patient is afebrile. Blood cultures are negative to date. Venous Doppler study negative for DVT Foot x-ray is negative concerning bone findings. Patient is admitted to the medical floor on telemetry She is provided gentle IVF. She is empirically placed on IV Vanc and Zozyn. Zosyn discontinued after 1 day; start cefepime secondary to KORI. Vancomycin is discontinued day #2 secondary to improved clinical appearance, worsening KORI, and no Hx MRSA Cefepime discontinued on day #4. Keflex discontinued after 1 day secondary to GI intolerance. Review of previous wound cultures demonstrate sensitivity to PIP/Tazo; will resume Zosyn today with plans to transition to Augmentin. Patient reports good tolerance of penicillins in the past. Elevate extremity, float heels. Analgesics and antiemetics as needed. (2) Diabetic foot ulcer Qualifiers: Diabetic foot ulcer location: other Diabetes mellitus type: type 2 Laterality: right Non-pressure ulcer stage: unspecified non-pressure ulcer s tage Qualified Code(s): E11.621 - Type 2 diabetes mellitus with foot ulcer; L97.519 - Non-pressure chronic ulcer of other part of right foot with unspecified severity Is this a current diagnosis for this admission?: Yes Plan: Foot x-ray is reassuring. Primary management as above. Yadav boots ordered for heel off loading. Monitor for worsening appearance of wound; early surgical or podiatry consultation if worsened appearance or delayed response to antibiotics. (3) Nausea vomiting and diarrhea Is this a current diagnosis for this admission?: Yes Plan: Slight nausea today; patient relates this to antibiotic change. Secondary to acute febrile illness. CT ABD/Pelvis is benign. Lipase is nml. Urinalysis is negative for UTI; cultures negative No further loose stools. No recent antibiotics; so low suspicion for c.diff at this time. Per family; patient often has GI symptoms associated with skin infections. Treatment of cellulitis as above. Now tolerating regular diet Antiemetics as needed. (4) Anemia Qualifiers: Anemia type: due to chronic kidney disease Chronic kidney disease stage: stage 3 (moderate) Qualified Code(s): N18.3 - Chronic kidney disease, stage 3 (moderate); D63.1 - Anemia in chronic kidney disease; D63.1 - Anemia in chronic kidney disease Is this a current diagnosis for this admission?: Yes Plan: Hgb 8.0; slight downward trend r/t IVF No evidence of active bleeding at this time. Monitor daily CBC. Continue MVI and ferrous sulfate supplementation (5) Chronic diastolic CHF (congestive heart failure) Is this a current diagnosis for this admission?: Yes Plan: Euvolemic. Without exacerbation at this time. Gentle IVF; monitor for fluid volume overload. Continue home dose lisinopril, labetalol, amlodioine, and atorvastatin. Holding lasix currently (6) Diabetes Qualifiers: Diabetes mellitus type: type 2 Diabetes mellitus intermediate insulin use: without oysterman use Diabetes mellitus complication status: with kidney complications Diabetes mellitus complication detail: with chronic kidney disease Chronic kidney disease stage: stage 3 (moderate) Qualified Code(s): E11.22 - Type 2 diabetes mellitus with diabetic chronic kidney disease; N18.3 - Chronic kidney disease, stage 3 (moderate); N18.3 - Chronic kidney disease, stage 3 (moderate) Is this a current diagnosis for this admission?: Yes Plan: A1c 6.3% Does not appear that patient is on home medications. Advance to cardiac/consistent carb as tolerated. Accu-Chek ACHS with SSI. Hypoglycemia protocol in place. (7) Hypertension Qualifiers: Hypertension type: essential hypertension Qualified Code(s): I10 - Essential (primary) hypertension Is this a current diagnosis for this admission?: Yes Plan: Slightly improved. Elevated blood pressures today; 160/60. Weight up 3.3 kg secondary to continued IV fluids. Have discontinued fluids. Continue home dose amlodipine, lisinopril, and labetalol. Currently holding lasix. (8) Morbid (severe) obesity due to excess calories Is this a current diagnosis for this admission?: Yes Plan: Lifestyle modification and dietary discretion is advised. (9) Acute kidney injury superimposed on chronic kidney disease Is this a current diagnosis for this admission?: Yes Plan: Improved; Creatinine 1.82 -> 2.37-> 3.27-> 3.10-> 2.65-> 2.22 Likely ATN secondary to Zosyn/vancomycin combination. Baseline creatinine 1.8 Have discontinued Vancomycin. Avoid nephrotoxic medications as able. Monitor daily chemistries and strict I&O's. Patient declined Lackey catheter for strict I&O's; adequate urine output (10) CKD (chronic kidney disease) stage 3, GFR 30-59 ml/min Is this a current diagnosis for this admission?: Yes Plan: Baseline creatinine 1.80/BUN 40. Avoid nephrotoxic medications as able. Daily chemistries. (11) Prolapsed uterus Is this a current diagnosis for this admission?: Yes Plan: Spoke with Dr. Best who evaluated the patient has a consult in January 2018. Patient is a poor surgical candidate. Advised low-dose Premarin cream daily for comfort. Follow-up as an outpatient for further evaluation and management (may be candidate for pessary device). Otherwise, no specific interventions at this time unless the patient develops acute urinary retention; in which case, reduce the uterus and place a Lackey catheter. - Time Time Spent with patient: 35 or more minutes Medications reviewed and adjusted accordingly: Yes Anticipated discharge: Home with Homehealth Within: within 48 hours
[2019-04-22] MEDS ORDERED: AMOXICILLIN TR/POT CLAVULANATE 500-125 MG TAB PO SCH (14:00)
[2019-04-22] MEDS ORDERED: POLYETHYLENE GLYCOL 3350 POWDER 17 GM/1 PACKET PO SCH (14:45)
[2019-04-22] MEDS: HYDROCODONE/ACETAMINOPHEN 5-325 MG TABLET PO PRN (15:26)
[2019-04-22] MEDS: POLYETHYLENE GLYCOL 3350 POWDER 17 GM/1 PACKET PO SCH (17:02)
[2019-04-22] MEDS: ESTROGENS,CONJUGATED 0.625 MG/1 GM 30 GM TUBE VG SCH (22:24)
[2019-04-22] MEDS: ATORVASTATIN CALCIUM 10 MG TABLET PO SCH (22:24)
[2019-04-23 05:18] LABS: HEMATOCRIT 24.1 % (36.0-47.0); MEAN CORPUSCULAR HEMOGLOBIN 27.8 pg (27.0-33.4); MEAN CORPUSCULAR HGB CONC 33.1 g/dL (32.0-36.0); MEAN CORPUSCULAR VOLUME 84 fl (80-97); PLATELET COUNT 230 10^3/uL (150-450); RED BLOOD COUNT 2.86 10^6/uL (3.72-5.28); RED CELL DISTRIBUTION WIDTH 15.2 % (11.5-14.0); WHITE BLOOD COUNT 8.6 10^3/uL (4.0-10.5)
[2019-04-23 05:48] LABS: ANION GAP 7 (5-19); BLOOD UREA NITROGEN 46 mg/dL (7-20); CALCIUM 7.8 mg/dL (8.4-10.2); CARBON DIOXIDE 19 mmol/L (22-30); CHLORIDE 112 mmol/L (98-107); GLUCOSE 156 mg/dL (75-110); POTASSIUM 4.7 mmol/L (3.6-5.0)
[2019-04-23] MEDS: HEPARIN SOD (PORCINE) 5,000 UNIT/ML 1 ML VIAL SUBCUT SCH ×3 (06:00→21:37)
[2019-04-23] MEDS: LABETALOL HCL 200 MG TABLET PO SCH ×3 (06:01→21:36)
[2019-04-23] MEDS: PIPERACILLIN SODIUM/TAZOBACTAM 2.25 GM in NORMAL SALINE 50 ML IV SCH ×3 (06:02→17:31)
[2019-04-23] MEDS: INSULIN LISPRO 100 UNIT/ML 3 ML VIAL SUBCUT SCH ×4 (07:42→21:37)
[2019-04-23] MEDS: FERROUS SULFATE 325 MG TABLET PO SCH ×2 (09:58→17:33)
[2019-04-23] MEDS: MULTIVITAMIN TABLET PO SCH (09:58)
[2019-04-23] MEDS: FAMOTIDINE 20 MG TABLET PO SCH ×2 (09:58→21:36)
[2019-04-23] MEDS: AMLODIPINE BESYLATE 5 MG TABLET PO SCH (09:58)
[2019-04-23] MEDS: LISINOPRIL 10 MG TABLET PO SCH (09:58)
[2019-04-23] MEDS: ONDANSETRON HCL INJ/PF 4 MG/2 ML SDV IV PRN (10:55)
[2019-04-23] MEDS ORDERED: METOCLOPRAMIDE HCL INJ/PF 10 MG/2 ML SDV IV ONE (10:58)
[2019-04-23] MEDS: METOCLOPRAMIDE HCL 10 MG TABLET PO SCH ×3 (11:38→21:36)
--- NOTE | 2019-04-23 15:26 | PDOC PROGRESS REPORT ---
Subjective Progress Note for:: 04/23/19 Subjective:: DOM ADAMS is a 68 year old female with a PMH significant for CHF, Pulmonary HTN, HTN, HLD, CKD3, DM, chronic diabetic foot ulcers, neuropathy, anemia, and morbid obesity who was admitted 04/17/2019 for right lower leg cellulitis. Patient was seen on morning rounds. She is found resting in bed on room air. She complains of nausea and vague abdominal discomfort; one episode of emesis this morning. She denies diarrhea. She does confirm that her RLE is feeling somewhat better. Otherwise, she denies chest pain, palpitations, dyspnea, cough, diarrhea, constipation, dysuria. She has no other questions or concerns today. No concerns per nursing. Reason For Visit: RIGHT LOWER EXTREMITY CELLULITIS Physical Exam Vital Signs: Temp Pulse Resp BP Pulse Ox 97.5 F 71 18 180/66 H 100 04/23/19 12:00 04/23/19 12:00 04/23/19 12:00 04/23/19 12:00 04/23/19 12:00 Intake & Output 04/22/19 04/23/19 04/24/19 06:59 06:59 06:59 Intake Total 2537 2342 560 Output Total 2505 1350 550 Balance 32 992 10 Weight 149 kg General appearance: PRESENT: no acute distress, cooperative, morbidly obese, well-developed, well-nourished Head exam: PRESENT: atraumatic, normocephalic Eye exam: PRESENT: conjunctiva pink, EOMI, PERRLA. ABSENT: scleral icterus Ear exam: PRESENT: normal external ear exam Mouth exam: PRESENT: moist, tongue midline Neck exam: ABSENT: carotid bruit, JVD, lymphadenopathy, thyromegaly Respiratory exam: PRESENT: clear to auscultation rona, symmetrical, unlabored. ABSENT: rales, rhonchi, wheezes Cardiovascular exam: PRESENT: RRR, +S1, +S2. ABSENT: diastolic murmur, rubs, systolic murmur Pulses: PRESENT: normal dorsalis pedis pul Vascular exam: PRESENT: normal capillary refill GI/Abdominal exam: PRESENT: normal bowel sounds, soft. ABSENT: distended, guarding, mass, organolmegaly, rebound, tenderness Rectal exam: PRESENT: deferred Extremities exam: PRESENT: full ROM. ABSENT: calf tenderness, clubbing, pedal edema Neurological exam: PRESENT: alert, awake, oriented to person, oriented to place, oriented to time, oriented to situation, CN II-XII grossly intact. ABSENT: motor sensory deficit Psychiatric exam: PRESENT: appropriate affect, normal mood. ABSENT: homicidal ideation, suicidal ideation Skin exam: PRESENT: dry, warm, other - Slight erythema to anterior lower leg. Edema is nearly resolved. Patient does have blisters to her right medial thigh and anterior right lower leg.. ABSENT: cyanosis, rash Results Laboratory Results: 04/23/19 04:33 04/23/19 04:33 04/23/19 04/23/19 04:33 04:33 WBC 8.6 RBC 2.86 L Hgb 8.0 L Hct 24.1 L MCV 84 MCH 27.8 MCHC 33.1 RDW 15.2 H Plt Count 230 Sodium 137.9 Potassium 4.7 Chloride 112 H Carbon Dioxide 19 L Anion Gap 7 BUN 46 H Creatinine 2.11 H Est GFR ( Amer) 28 L Est GFR (Non-Af Amer) 23 L Glucose 156 H Calcium 7.8 L 04/17/19 19:50 Blood Blood Culture - Final NO GROWTH IN 5 DAYS 04/17/19 19:25 Blood Blood Culture - Final NO GROWTH IN 5 DAYS 04/17/19 11:18 NT-Pro-B Natriuret Pep 1350 H Impressions: Abdomen/Pelvis CT 04/17/19 11:33 IMPRESSION: No acute findings in the abdomen or pelvis. Chest X-Ray 04/17/19 11:34 IMPRESSION: NO ACUTE RADIOGRAPHIC FINDING IN THE CHEST. Foot X-Ray 04/22/19 00:00 IMPRESSION: No obvious findings of osteomyelitis. Assessment and Plan - Diagnosis (1) Cellulitis of right lower extremity Is this a current diagnosis for this admission?: Yes Plan: Improved appearance today. WBCs remain normal, patient is afebrile. Blood cultures are negative to date. Venous Doppler study negative for DVT Foot x-ray is negative concerning bone findings. Patient is admitted to the medical floor on telemetry She is provided gentle IVF. She is empirically placed on IV Vanc and Zozyn. Zosyn discontinued after 1 day; start cefepime secondary to KORI. Vancomycin is discontinued day #2 secondary to improved clinical appearance, worsening KORI, and no Hx MRSA Cefepime discontinued on day #4. Keflex discontinued after 1 day secondary to GI intolerance. Review of previous wound cultures demonstrate sensitivity to PIP/Tazo; will resume Zosyn today with plans to transition to Augmentin. Patient reports good tolerance of penicillins in the past. Continue Zosyn day #2. Elevate extremity, float heels. Analgesics and antiemetics as needed. (2) Diabetic foot ulcer Qualifiers: Diabetic foot ulcer location: other Diabetes mellitus type: type 2 Laterality: right Non-pressure ulcer stage: unspecified non-pressure ulcer stage Qualified Code(s): E11.621 - Type 2 diabetes mellitus with foot ulcer; L97.519 - Non-pressure chronic ulcer of other part of right foot with unspecified severity Is this a current diagnosis for this admission?: Yes Plan: Foot x-ray is reassuring. Primary management as above. Yadav boots ordered for heel off loading. Monitor for worsening appearance of wound; early surgical or podiatry consultation if worsened appearance or delayed response to antibiotics. (3) Nausea vomiting and diarrhea Is this a current diagnosis for this admission?: Yes Plan: Nausea with one episode of emesis today. CT ABD/Pelvis is benign. Lipase is nml. Urinalysis is negative for UTI; cultures negative No further loose stools. No recent antibiotics; so low suspicion for c.diff at this time. Per family; patient often has GI symptoms associated with skin infections. Treatment of cellulitis as above. Now tolerating regular diet Antiemetics as needed. Will trial reglan; possible gastroparesis given her history of diabetes mellitus. (4) Anemia Qualifiers: Anemia type: due to chronic kidney disease Chronic kidney disease stage: stage 3 (moderate) Qualified Code(s): N18.3 - Chronic kidney disease, stage 3 (moderate); D63.1 - Anemia in chronic kidney disease; D63.1 - Anemia in chronic kidney disease Is this a current diagnosis for this admission?: Yes Plan: Hgb 8.0; slight downward trend r/t IVF No evidence of active bleeding at this time. Monitor daily CBC. Continue MVI and ferrous sulfate supplementation (5) Chronic diastolic CHF (congestive heart failure) Is this a current diagnosis for this admission?: Yes Plan: Euvolemic. Without exacerbation at this time. Continue home dose lisinopril, labetalol, amlodioine, and atorvastatin. Resume low-dose Lasix today. (6) Diabetes Qualifiers: Diabetes mellitus type: type 2 Diabetes mellitus mcc insulin use: without [facility] use Diabetes mellitus complication status: with kidney complications Diabetes mellitus complication detail: with chronic kidney disease Chronic kidney disease stage: stage 3 (moderate) Qualified Code(s): E11.22 - Type 2 diabetes mellitus with diabetic chronic kidney disease; N18.3 - Chronic kidney disease, stage 3 (moderate); N18.3 - Chronic kidney disease, stage 3 (moderate) Is this a current diagnosis for this admission?: Yes Plan: A1c 6.3% Does not appear that patient is on home medications. Advance to cardiac/consistent carb as tolerated. Accu-Chek ACHS with SSI. Hypoglycemia protocol in place. (7) Hypertension Qualifiers: Hypertension type: essential hypertension Qualified Code(s): I10 - Essential (primary) hypertension Is this a current diagnosis for this admission?: Yes Plan: Slightly improved. Elevated blood pressures today Weight up 10 kg secondary to continued IV fluids/antibiotics. Have discontinued fluids. Continue home dose amlodipine, lisinopril, and labetalol. Resume low-dose Lasix. (8) Morbid (severe) obesity due to excess calories Is this a current diagnosis for this admission?: Yes Plan: Lifestyle modification and dietary discretion is advised. (9) Acute kidney injury superimposed on chronic kidney disease Is this a current diagnosis for this admission?: Yes Plan: Improved; Creatinine 1.82 -> 2.37-> 3.27-> 3.10-> 2.65-> 2.22-> 2.11 Likely ATN secondary to Zosyn/vancomycin combination. Baseline creatinine 1.8 Have discontinued Vancomycin. Avoid nephrotoxic medications as able. Monitor daily chemistries and strict I&O's. Patient declined Lackey catheter for strict I&O's; adequate urine output (10) CKD (chronic kidney disease) stage 3, GFR 30-59 ml/min Is this a current diagnosis for this admission?: Yes Plan: Baseline creatinine 1.80/BUN 40. Avoid nephrotoxic medications as able. Daily chemistries. (11) Prolapsed uterus Is this a current diagnosis for this admission?: Yes Plan: Spoke with Dr. Best who evaluated the patient has a consult in January 2018. Patient is a poor surgical candidate. Advised low-dose Premarin cream daily for comfort. Follow-up as an outpatient for further evaluation and management (may be candidate for pessary device). Otherwise, no specific interventions at this time unless the patient develops acute urinary retention; in which case, reduce the uterus and place a Lackey ca theter. - Time Time Spent with patient: 15-24 minutes Medications reviewed and adjusted accordingly: Yes Anticipated discharge: Home with Homehealth Within: within 48 hours - Once tolerating p.o. antibiotics - Plan Summary Plan Summary: Patient received 4 days of cefepime; transitioned to Keflex with subsequent worsening of her RLE cellulitis with associated nausea/vomiting. Review of previous wound cultures shows that she has always been sensitive to penicillins; resumed IV Zosyn with plan to transition to Augmentin once clinically improved as patient reports that she has tolerated penicillins well in the past. Today her leg looks significantly improved, however, she does continue to have nausea and emesis. Hopefully the patient will be able to tolerate med p.o. medications tomorrow and can be discharged home with home health services.
[2019-04-23] MEDS: POLYETHYLENE GLYCOL 3350 POWDER 17 GM/1 PACKET PO SCH (17:26)
[2019-04-23] MEDS: ATORVASTATIN CALCIUM 10 MG TABLET PO SCH (21:35)
[2019-04-23] MEDS: ESTROGENS,CONJUGATED 0.625 MG/1 GM 30 GM TUBE VG SCH (21:37)
[2019-04-24] MEDS: PIPERACILLIN SODIUM/TAZOBACTAM 2.25 GM in NORMAL SALINE 50 ML IV SCH ×5 (00:28→23:06)
[2019-04-24] MEDS ORDERED: HYDRALAZINE HCL 10 MG TABLET PO PRN (02:02)
[2019-04-24] MEDS: HYDRALAZINE HCL INJ/PF 20 MG/1 ML SDV IV PRN (02:42)
[2019-04-24] MEDS: HYDROCODONE/ACETAMINOPHEN 5-325 MG TABLET PO PRN ×3 (03:56→21:07)
[2019-04-24 05:45] LABS: HEMATOCRIT 24.2 % (36.0-47.0); MEAN CORPUSCULAR HEMOGLOBIN 27.8 pg (27.0-33.4); MEAN CORPUSCULAR HGB CONC 33.2 g/dL (32.0-36.0); MEAN CORPUSCULAR VOLUME 84 fl (80-97); PLATELET COUNT 270 10^3/uL (150-450)
[2019-04-24] MEDS: LABETALOL HCL 200 MG TABLET PO SCH ×3 (06:01→21:08)
[2019-04-24] MEDS: HEPARIN SOD (PORCINE) 5,000 UNIT/ML 1 ML VIAL SUBCUT SCH ×3 (06:01→21:09)
[2019-04-24 06:03] LABS: ANION GAP 7 (5-19); BLOOD UREA NITROGEN 43 mg/dL (7-20); CARBON DIOXIDE 19 mmol/L (22-30); CHLORIDE 112 mmol/L (98-107); GLUCOSE 140 mg/dL (75-110); POTASSIUM 4.8 mmol/L (3.6-5.0)
[2019-04-24] MEDS: INSULIN LISPRO 100 UNIT/ML 3 ML VIAL SUBCUT SCH ×4 (07:39→21:10)
[2019-04-24] MEDS: METOCLOPRAMIDE HCL 10 MG TABLET PO SCH ×4 (08:49→21:10)
[2019-04-24] MEDS: FERROUS SULFATE 325 MG TABLET PO SCH ×2 (08:49→17:02)
[2019-04-24] MEDS: FUROSEMIDE 20 MG TABLET PO SCH (08:49)
[2019-04-24] MEDS: MULTIVITAMIN TABLET PO SCH (10:22)
[2019-04-24] MEDS: LISINOPRIL 10 MG TABLET PO SCH (10:22)
[2019-04-24] MEDS: FAMOTIDINE 20 MG TABLET PO SCH ×2 (10:22→21:08)
[2019-04-24] MEDS: AMLODIPINE BESYLATE 5 MG TABLET PO SCH (10:22)
--- NOTE | 2019-04-24 10:44 | PDOC PROGRESS REPORT ---
Subjective Progress Note for:: 04/24/19 Subjective:: 68 year old female with a PMH significant for CHF, Pulmonary HTN, HTN, HLD, CKD3, DM, chronic diabetic foot ulcers, neuropathy, anemia, and morbid obesity who was admitted 04/17/2019 for right lower leg cellulitis. Patient was seen on morning rounds. She is found resting in bed on room air. She complains of nausea and vague abdominal discomfort; one episode of emesis this morning. She denies diarrhea. She does confirm that her RLE is feeling somewhat better. Otherwise, she denies chest pain, palpitations, dyspnea, cough, diarrhea, constipation, dysuria. She has no other questions or concerns today. No concerns per nursing. 04/[id number]-egci-old female admitted with right lower leg cellulitis afebrile no acute events in the last 24 hours. Cultures are negative so far. Presently on IV Zosyn. Portably in the chair communicating well. As per the patient pain is 3/10. Reason For Visit: RIGHT LOWER EXTREMITY CELLULITIS Physical Exam Vital Signs: Temp Pulse Resp BP Pulse Ox 97.6 F 60 18 158/70 H 100 04/24/19 08:00 04/24/19 08:00 04/24/19 08:00 04/24/19 08:00 04/24/19 08:00 Intake & Output 04/23/19 04/24/19 04/25/19 06:59 06:59 06:59 Intake Total 2342 1300 50 Output Total 1350 1150 Balance 992 150 50 General appearance: PRESENT: no acute distress, morbidly obese Head exam: PRESENT: atraumatic Eye exam: PRESENT: PERRLA Mouth exam: PRESENT: moist, tongue midline Teeth exam: PRESENT: poor dentation Neck exam: ABSENT: carotid bruit, JVD, lymphadenopathy, thyromegaly Respiratory exam: PRESENT: decreased breath sounds Cardiovascular exam: PRESENT: RRR. ABSENT: diastolic murmur, rubs, systolic murmur Pulses: PRESENT: normal dorsalis pedis pul GI/Abdominal exam: PRESENT: normal bowel sounds, soft. ABSENT: distended, guarding, mass, organolmegaly, rebound, tenderness Rectal exam: PRESENT: deferred Extremities exam: PRESENT: +2 edema Psychiatric exam: PRESENT: appropriate affect, normal mood. ABSENT: homicidal ideation, suicidal ideation Skin exam: PRESENT: other Additional comments: Left lower leg cellulitis especially slight bruising from the back of the right upper leg. Erythema present most likely secondary to chronic venous stasis. Results Laboratory Results: 04/24/19 04:44 04/24/19 04:44 04/24/19 04/24/19 04:44 04:44 WBC 9.0 RBC 2.90 L Hgb 8.0 L Hct 24.2 L MCV 84 MCH 27.8 MCHC 33.2 RDW 15.0 H Plt Count 270 Sodium 137.6 Potassium 4.8 Chloride 112 H Carbon Dioxide 19 L Anion Gap 7 BUN 43 H Creatinine 2.10 H Est GFR ( Amer) 28 L Est GFR (Non-Af Amer) 23 L Glucose 140 H Calcium 8.0 L 04/17/19 11:18 NT-Pro-B Natriuret Pep 1350 H Impressions: Abdomen/Pelvis CT 04/17/19 11:33 IMPRESSION: No acute findings in the abdomen or pelvis. Chest X-Ray 04/17/19 11:34 IMPRESSION: NO ACUTE RADIOGRAPHIC FINDING IN THE CHEST. Foot X-Ray 04/22/19 00:00 IMPRESSION: No obvious findings of osteomyelitis. Assessment and Plan - Diagnosis (1) Cellulitis of right lower extremity Is this a current diagnosis for this admission?: Yes Plan: Improved appearance today. WBCs remain normal, patient is afebrile. Blood cultures are negative to date. Venous Doppler study negative for DVT Foot x-ray is negative concerning bone findings. Patient is admitted to the medical floor on telemetry She is provided gentle IVF. She is empirically placed on IV Vanc and Zozyn. Zosyn discontinued after 1 day; start cefepime secondary to KORI. Vancomycin is discontinued day #2 secondary to improved clinical appearance, worsening KORI, and no Hx MRSA Cefepime discontinued on day #4. Keflex discontinued after 1 day secondary to GI intolerance. Review of previous wound cultures demonstrate sensitivity to PIP/Tazo; will resume Zosyn today with plans to transition to Augmentin. Patient reports good tolerance of penicillins in the past. Continue Zosyn day #2. Elevate extremity, float heels. Analgesics and antiemetics as needed. 04/24/2019-patient admitted with right lower extremity cellulitis stable. Cultures are negative so far. Venous Dopplers negative for DVT. X-rays negative for any osteomyelitis concerns. Patient is receiving IV Zosyn. Afebrile with a WBC count of 9.0. Patient receiving pain medications. Plan is to continue the present management. (2) Diabetic foot ulcer Qualifiers: Diabetic foot ulcer location: other Diabetes mellitus type: type 2 Laterality: right Non-pressure ulcer stage: unspecified non-pressure ulcer stage Qualified Code(s): E11.621 - Type 2 diabetes mellitus with foot ulcer; L97.519 - Non-pressure chronic ulcer of other part of right foot with unspecified severity Is this a current diagnosis for this admission?: Yes Plan: Foot x-ray is reassuring. Primary management as above. Yadav boots ordered for heel off loading. Monitor for worsening appearance of wound; early surgical or podiatry consultation if worsened appearance or delayed response to antibiotics. 04/24/2019-x-ray is negative for bone infection. Patient is on heel protector. Plan is to continue to closely monitor the ulcer. Presently on IV Zosyn. To continue the present management. (3) Nausea vomiting and diarrhea Is this a current diagnosis for this admission?: Yes Plan: Nausea with one episode of emesis today. CT ABD/Pelvis is benign. Lipase is nml. Urinalysis is negative for UTI; cultures negative No further loose stools. No recent antibiotics; so low suspicion for c.diff at this time. Per family; patient often has GI symptoms associated with skin infections. Treatment of cellulitis as above. Now tolerating regular diet Antiemetics as needed. Will trial reglan; possible gastroparesis given her history of diabetes mellitus. 22,019-patient admitted with nausea and vomitings CT abdomen pelvis was negative for acute pathology. Urine culture shows mixed urogenital gigi. Blood cultures are negative. Lipase within the normal limits. Denies any complaints of nausea vomiting this morning. (4) Anemia Qualifiers: Anemia type: due to chronic kidney disease Chronic kidney disease stage: stage 3 (moderate) Qualified Code(s): N18.3 - Chronic kidney disease, stage 3 (moderate); D63.1 - Anemia in chronic kidney disease; D63.1 - Anemia in chronic kidney disease Is this a current diagnosis for this admission?: Yes Plan: Hgb 8.0; slight downward trend r/t IVF No evidence of active bleeding at this time. Monitor daily CBC. Continue MVI and ferrous sulfate supplementation 04/24/2019-patient hemoglobin is 8.0 stable. Patient is on multivitamin and iron supplementations. Anemia may be secondary to chronic kidney disease. (5) Chronic diastolic CHF (congestive heart failure) Is this a current diagnosis for this admission?: Yes Plan: Euvolemic. Without exacerbation at this time. Continue home dose lisinopril, labetalol, amlodioine, and atorvastatin. Resume low-dose Lasix today. 04/24/2019-patient has history of chronic diastolic heart failure bilateral lower extremity swelling especially the right lower leg. Presently on lisinopril, labetalol, amlodipine and atorvastatin. Presently on low-dose of Lasix 40mg daily. Blood pressure today is 163/78. Plan is to continue the present management. (6) Diabetes Qualifiers: Diabetes mellitus type: type 2 Diabetes mellitus [employer] insulin use: without [facility] use Diabetes mellitus complication status: with kidney complications Diabetes mellitus complication detail: with chronic kidney disease Chronic kidney disease stage: stage 3 (moderate) Qualified Code(s): E11.22 - Type 2 diabetes mellitus with diabetic chronic kidney disease; N18.3 - Chronic kidney disease, stage 3 (moderate); N18.3 - Chronic kidney disease, stage 3 (moderate) Is this a current diagnosis for this admission?: Yes Plan: A1c 6.3% Does not appear that patient is on home medications. Advance to cardiac/consistent carb as tolerated. Accu-Chek ACHS with SSI. Hypoglycemia protocol in place. 04/24/2019-patient has history of type 2 diabetes mellitus latest blood sugar is 145 stable. Hemoglobin A1c is 6.3. Plan is to continue to check the blood sugars before meals and at bedtime. (7) Hypertension Qualifiers: Hypertension type: essential hypertension Qualified Code(s): I10 - Essential (primary) hypertension Is this a current diagnosis for this admission?: Yes Plan: Slightly improved. Elevated blood pressures today Weight up 10 kg secondary to continued IV fluids/antibiotics. Have discontinued fluids. Continue home dose amlodipine, lisinopril, and labetalol. Resume low-dose Lasix. 04/24/2019-patient blood pressure is around 158/78. Presently on amlodipine, lisinopril, labetalol, Lasix 40 mg p.o. daily. Plan is to continue the present management. fluid Restriction was advised. (8) Acute kidney injury superimposed on chronic kidney disease Is this a current diagnosis for this admission?: Yes Plan: Improved; Creatinine 1.82 -> 2.37-> 3.27-> 3.10-> 2.65-> 2.22-> 2.11 Likely ATN secondary to Zosyn/vancomycin combination. Baseline creatinine 1.8 Have discontinued Vancomycin. Avoid nephrotoxic medications as able. Monitor daily chemistries and strict I&O's. Patient declined Lackey catheter for strict I&O's; adequate urine output 04/24/2019-patient's latest creatinine is 2.1 today. Peaked to 2.87 and her baseline creatinine is around 1.8. Most likely she has ATN secondary to combination of Zosyn and vancomycin presently on IV Zosyn. Plan is to continue to closely monitor the urinary output and renal function. Urine output is 1350 mL in the last 24 hours. (9) Prolapsed uterus Is this a current diagnosis for this admission?: Yes Plan: Spoke with Dr. Best who evaluated the patient has a consult in January 2018. Patient is a poor surgical candidate. Advised low-dose Premarin cream daily for comfort. Follow-up as an outpatient for further evaluation and management (may be candidate for pessary device). Otherwise, no specific interventions at this time unless the patient develops acute urinary retention; in which case, reduce the uterus and place a Lackey catheter. (10) Morbid (severe) obesity due to excess calories Is this a current diagnosis for this admission?: Yes Plan: Lifestyle modification and dietary discretion is advised.
[2019-04-24] MEDS: POLYETHYLENE GLYCOL 3350 POWDER 17 GM/1 PACKET PO SCH (17:17)
[2019-04-24] MEDS: ATORVASTATIN CALCIUM 10 MG TABLET PO SCH (21:08)
[2019-04-24] MEDS: ESTROGENS,CONJUGATED 0.625 MG/1 GM 30 GM TUBE VG SCH (21:08)
[2019-04-25] MEDS: HYDRALAZINE HCL INJ/PF 20 MG/1 ML SDV IV PRN ×3 (03:26→20:36)
[2019-04-25] MEDS: LABETALOL HCL 200 MG TABLET PO SCH ×3 (05:46→21:56)
[2019-04-25] MEDS: HEPARIN SOD (PORCINE) 5,000 UNIT/ML 1 ML VIAL SUBCUT SCH ×3 (05:46→21:55)
[2019-04-25] MEDS: PIPERACILLIN SODIUM/TAZOBACTAM 2.25 GM in NORMAL SALINE 50 ML IV SCH ×2 (05:47→12:51)
[2019-04-25 06:37] LABS: HEMATOCRIT 23.8 % (36.0-47.0); MEAN CORPUSCULAR HEMOGLOBIN 27.1 pg (27.0-33.4); MEAN CORPUSCULAR VOLUME 82 fl (80-97); PLATELET COUNT 297 10^3/uL (150-450); RED BLOOD COUNT 2.89 10^6/uL (3.72-5.28); RED CELL DISTRIBUTION WIDTH 14.8 % (11.5-14.0)
[2019-04-25 06:46] LABS: HEMOGLOBIN 7.8 g/dL (12.0-15.5)
[2019-04-25 06:56] LABS: ALBUMIN 2.5 g/dL (3.5-5.0); ALKALINE PHOSPHATASE 104 U/L (38-126); ANION GAP 7 (5-19); ASPARTATE AMINO TRANSFERASE 31 U/L (14-36); BILIRUBIN,DIRECT 0.3 mg/dL (0.0-0.4); BILIRUBIN,TOTAL 0.4 mg/dL (0.2-1.3); BLOOD UREA NITROGEN 41 mg/dL (7-20); CALCIUM 8.3 mg/dL (8.4-10.2); CARBON DIOXIDE 19 mmol/L (22-30); CHLORIDE 112 mmol/L (98-107); GLUCOSE 117 mg/dL (75-110); POTASSIUM 4.6 mmol/L (3.6-5.0); TOTAL PROTEIN 5.7 g/dL (6.3-8.2)
[2019-04-25 07:48] LABS: ABSOLUTE LYMPHOCYTES# (MANUAL) 0.8 10^3/uL (0.5-4.7); ABSOLUTE MONOCYTES # (MANUAL) 0.4 10^3/uL (0.1-1.4); BAND NEUTROPHILS % (MANUAL) 1 % (3-5); BASOPHILS % (MANUAL) 0 % (0-2); EOSINOPHILS % (MANUAL) 5 % (0-6); LYMPHOCYTES % (MANUAL) 8 % (13-45); MONOCYTES % (MANUAL) 4 % (3-13); SEGMENTED NEUTROPHILS % (MAN) 82 % (42-78); TOTAL CELLS COUNTED 100
[2019-04-25 07:49] LABS: ANISOCYTOSIS SLIGHT; OVALOCYTES 1+; PLATELET COMMENT ADEQUATE; POIKILOCYTOSIS 1+; ROULEAUX 1+; SCHISTOCYTES SLIGHT
[2019-04-25] MEDS: INSULIN LISPRO 100 UNIT/ML 3 ML VIAL SUBCUT SCH ×4 (09:31→21:55)
[2019-04-25] MEDS: MULTIVITAMIN TABLET PO SCH (09:34)
[2019-04-25] MEDS: AMLODIPINE BESYLATE 5 MG TABLET PO SCH (09:34)
[2019-04-25] MEDS: FERROUS SULFATE 325 MG TABLET PO SCH ×2 (09:34→17:32)
[2019-04-25] MEDS: FAMOTIDINE 20 MG TABLET PO SCH ×2 (09:34→21:56)
[2019-04-25] MEDS: METOCLOPRAMIDE HCL 10 MG TABLET PO SCH ×4 (09:35→21:55)
[2019-04-25] MEDS: FUROSEMIDE 20 MG TABLET PO SCH (10:24)
--- NOTE | 2019-04-25 12:15 | PDOC PROGRESS REPORT ---
Subjective Progress Note for:: 04/25/19 Subjective:: 68 year old female with a PMH significant for CHF, Pulmonary HTN, HTN, HLD, CKD3, DM, chronic diabetic foot ulcers, neuropathy, anemia, and morbid obesity who was admitted 04/17/2019 for right lower leg cellulitis. Patient was seen on morning rounds. She is found resting in bed on room air. She complains of nausea and vague abdominal discomfort; one episode of emesis this morning. She denies diarrhea. She does confirm that her RLE is feeling somewhat better. Otherwise, she denies chest pain, palpitations, dyspnea, cough, diarrhea, constipation, dysuria. She has no other questions or concerns today. No concerns per nursing. 04/24/[id number]-vdkl-old female admitted with right lower leg cellulitis afebrile no acute events in the last 24 hours. Cultures are negative so far. Presently on IV Zosyn. Portably in the chair communicating well. As per the patient pain is 3/10. 04/25/[id number]-bxrl-old female admitted with right lower leg cellulitis cultures are negative so far. Afebrile. WBC count is normal. Presently on IV Zosyn. Creatinine is persistently elevated from baseline. Plan is to continue to closely monitor her labs if everything is okay if he may discharge her tomorrow on p.o. antibiotics. Reason For Visit: RIGHT LOWER EXTREMITY CELLULITIS Physical Exam Vital Signs: Temp Pulse Resp BP Pulse Ox 98.2 F 70 17 135/59 H 100 04/25/19 07:33 04/25/19 07:33 04/25/19 07:33 04/25/19 07:33 04/25/19 07:33 Intake & Output 04/24/19 04/25/19 04/26/19 06:59 06:59 06:59 Intake Total 1300 2070 Output Total 1150 4600 Balance 150 -2530 Weight 148.8 kg General appearance: PRESENT: no acute distress, morbidly obese Head exam: PRESENT: atraumatic Eye exam: PRESENT: PERRLA Mouth exam: PRESENT: moist, tongue midline Teeth exam: PRESENT: poor dentation Neck exam: ABSENT: carotid bruit, JVD, lymphadenopathy, thyromegaly Respiratory exam: PRESENT: decreased breath sounds Cardiovascular exam: PRESENT: RRR. ABSENT: diastolic murmur, rubs, systolic murmur Pulses: PRESENT: normal dorsalis pedis pul GI/Abdominal exam: PRESENT: normal bowel sounds, soft. ABSENT: distended, guarding, mass, organolmegaly, rebound, tenderness Rectal exam: PRESENT: deferred Extremities exam: PRESENT: full ROM, +1 edema, other - Right lower leg erythema is improving.. ABSENT: calf tenderness, clubbing, pedal edema Neurological exam: PRESENT: alert, awake, oriented to person, oriented to place, oriented to time, oriented to situation, CN II-XII grossly intact. ABSENT: motor sensory deficit Results Laboratory Results: 04/25/19 05:45 04/25/19 05:45 04/25/19 04/25/19 05:45 05:45 WBC 10.0 RBC 2.89 L Hgb 7.8 L Hct 23.8 L MCV 82 MCH 27.1 MCHC 33.0 RDW 14.8 H Plt Count 297 Seg Neutrophils % Not Reportable Lymphocytes % Not Reportable Monocytes % Not Reportable Eosinophils % Not Reportable Basophils % Not Reportable Absolute Neutrophils Not Reportable Absolute Lymphocytes Not Reportable Absolute Monocytes Not Reportable Absolute Eosinophils Not Reportable Absolute Basophils Not Reportable Sodium 137.9 Potassium 4.6 Chloride 112 H Carbon Dioxide 19 L Anion Gap 7 BUN 41 H Creatinine 2.23 H Est GFR ( Amer) 26 L Est GFR (Non-Af Amer) 22 L Glucose 117 H Calcium 8.3 L Magnesium 2.0 Total Bilirubin 0.4 AST 31 Alkaline Phosphatase 104 Total Protein 5.7 L Albumin 2.5 L 04/17/19 04/25/19 11:18 05:45 NT-Pro-B Natriuret Pep 1350 H 6470 H Impressions: Abdomen/Pelvis CT 04/17/19 11:33 IMPRESSION: No acute findings in the abdomen or pelvis. Chest X-Ray 04/17/19 11:34 IMPRESSION: NO ACUTE RADIOGRAPHIC FINDING IN THE CHEST. Foot X-Ray 04/22/19 00:00 IMPRESSION: No obvious findings of osteomyelitis. Assessment and Plan - Diagnosis (1) Cellulitis of right lower extremity Is this a current diagnosis for this admission?: Yes Plan: Improved appearance today. WBCs remain normal, patient is afebrile. Blood cultures are negative to date. Venous Doppler study negative for DVT Foot x-ray is negative concerning bone findings. Patient is admitted to the medical floor on telemetry She is provided gentle IVF. She is empirically placed on IV Vanc and Zozyn. Zosyn discontinued after 1 day; start cefepime secondary to KORI. Vancomycin is discontinued day #2 secondary to improved clinical appearance, worsening KORI, and no Hx MRSA Cefepime discontinued on day #4. Keflex discontinued after 1 day secondary to GI intolerance. Review of previous wound cultures demonstrate sensitivity to PIP/Tazo; will resume Zosyn today with plans to transition to Augmentin. Patient reports good tolerance of penicillins in the past. Continue Zosyn day #2. Elevate extremity, float heels. Analgesics and antiemetics as needed. 04/24/2019-patient admitted with right lower extremity cellulitis stable. Cultures are negative so far. Venous Dopplers negative for DVT. X-rays negative for any osteomyelitis concerns. Patient is receiving IV Zosyn. Afebr ile with a WBC count of 9.0. Patient receiving pain medications. Plan is to continue the present management. 04/25/2019-patient admitted with right lower extremity cellulitis cultures are negative so far on Zosyn plan is to continue the IV antibiotic therapy for at least another day. (2) Diabetic foot ulcer Qualifiers: Diabetic foot ulcer location: other Diabetes mellitus type: type 2 Laterality: right Non-pressure ulcer stage: unspecified non-pressure ulcer stage Qualified Code(s): E11.621 - Type 2 diabetes mellitus with foot ulcer; L97.519 - Non-pressure chronic ulcer of other part of right foot with unspecified severity Is this a current diagnosis for this admission?: Yes Plan: Foot x-ray is reassuring. Primary management as above. Yadav boots ordered for heel off loading. Monitor for worsening appearance of wound; early surgical or podiatry consultation if worsened appearance or delayed response to antibiotics. 04/24/2019-x-ray is negative for bone infection. Patient is on heel protector. Plan is to continue to closely monitor the ulcer. Presently on IV Zosyn. To co ntinue the present management. 04/25/2019-patient admitted with a diabetic foot ulcer she is on heel protector plan is to continue to closely monitor the ulcer presently on IV Zosyn. (3) Nausea vomiting and diarrhea Is this a current diagnosis for this admission?: Yes Plan: Nausea with one episode of emesis today. CT ABD/Pelvis is benign. Lipase is nml. Urinalysis is negative for UTI; cultures negative No further loose stools. No recent antibiotics; so low suspicion for c.diff at this time. Per family; patient often has GI symptoms associated with skin infections. Treatment of cellulitis as above. Now tolerating regular diet Antiemetics as needed. Will trial reglan; possible gastroparesis given her history of diabetes mellitus. 04/24/2019-patient admitted with nausea and vomitings CT abdomen pelvis was negative for acute pathology. Urine culture shows mixed urogenital gigi. Blood cultures are negative. Lipase within the normal limits. Denies any complaints of nausea vomiting this morning. 04/25/2019-patient admitted with nausea vomiting's CT abdomen/pelvis is negative for acute pathology no complaints of nausea vomiting this morning. (4) Anemia Qualifiers: Anemia type: due to chronic kidney disease Chronic kidney disease stage: stage 3 (moderate) Qualified Code(s): N18.3 - Chronic kidney disease, stage 3 (moderate); D63.1 - Anemia in chronic kidney disease; D63.1 - Anemia in chronic kidney disease Is this a current diagnosis for this admission?: Yes Plan: Hgb 8.0; slight downward trend r/t IVF No evidence of active bleeding at this time. Monitor daily CBC. Continue MVI and ferrous sulfate supplementation 04/24/2019-patient hemoglobin is 8.0 stable. Patient is on multivitamin and iron supplementations. Anemia may be secondary to chronic kidney disease. 04/25/2019-patient hemoglobin is around 7.8 stable. Anemia of chronic disease most likely secondary to CKD. (5) Chronic diastolic CHF (congestive heart failure) Is this a current diagnosis for this admission?: Yes Plan: Euvolemic. Without exacerbation at this time. Continue home dose lisinopril, labetalol, amlodioine, and atorvastatin. Resume low-dose Lasix today. 04/24/2019-patient has history of chronic diastolic heart failure bilateral lower extremity swelling especially the right lower leg. Presently on lisinopril, labetalol, amlodipine and atorvastatin. Presently on low-dose of Lasix 40mg daily. Blood pressure today is 163/78. Plan is to continue the present management. 04/25/2019-patient has history of chronic diastolic heart failure with bilateral lower extremity swelling especially the right lower leg. Swelling is improving erythema is improving. (6) Diabetes Qualifiers: Diabetes mellitus type: type 2 Diabetes mellitus jail insulin use: without terminal system operator use Diabetes mellitus complication status: with kidney complications Diabetes mellitus complication detail: with chronic kidney disease Chronic kidney disease stage: stage 3 (moderate) Qualified Code(s): E11.22 - Type 2 diabetes mellitus with diabetic chronic kidney disease; N18.3 - Chronic kidney disease, stage 3 (moderate); N18.3 - Chronic kidney disease, stage 3 (moderate) Is this a current diagnosis for this admission?: Yes Plan: A1c 6.3% Does not appear that patient is on home medications. Advance to cardiac/consistent carb as tolerated. Accu-Chek ACHS with SSI. Hypoglycemia protocol in place. 04/24/2019-patient has history of type 2 diabetes mellitus latest blood sugar is 145 stable. Hemoglobin A1c is 6.3. Plan is to continue to check the blood sugars before meals and at bedtime. 04/25/2019-patient latest blood sugar is 118 today plan is to continue the present management. (7) Hypertension Qualifiers: Hypertension type: essential hypertension Qualified Code(s): I10 - Essential (primary) hypertension Is this a current diagnosis for this admission?: Yes Plan: Slightly improved. Elevated blood pressures today Weight up 10 kg secondary to continued IV fluids/antibiotics. Have discontinued fluids. Continue home dose amlodipine, lisinopril, and labetalol. Resume low-dose Lasix. 04/24/2019-patient blood pressure is around 158/78. Presently on amlodipine, lisinopril, labetalol, Lasix 40 mg p.o. daily. Plan is to continue the present management. fluid Restriction was advised. 04/25/2019-patient blood pressure today is 151/60 stable. Plan is to continue the present management. (8) Acute kidney injury superimposed on chronic kidney disease Is this a current diagnosis for this admission?: Yes Plan: Improved; Creatinine 1.82 -> 2.37-> 3.27-> 3.10-> 2.65-> 2.22-> 2.11 Likely ATN secondary to Zosyn/vancomycin combination. Baseline creatinine 1.8 Have discontinued Vancomycin. Avoid nephrotoxic medications as able. Monitor daily chemistries and strict I&O's. Patient declined Lackey catheter for strict I&O's; adequate urine output 04/24/2019-patient's latest creatinine is 2.1 today. Peaked to 2.87 and her baseline creatinine is around 1.8. Most likely she has ATN secondary to combination of Zosyn and vancomycin presently on IV Zosyn. Plan is to continue to closely monitor the urinary output and renal function. Urine output is 1350 mL in the last 24 hours. 2018-serum creatinine today is 2.2 it was peaked to 2.87 and her baseline creatinine is around 1.8. Presently on IV Zosyn. Plan is to discontinue IV Zosyn and to start on IV Rocephin 2 g daily. (9) Prolapsed uterus Is this a current diagnosis for this admission?: Yes (10) Morbid (severe) obesity due to excess calories Is this a current diagnosis for this admission?: Yes - Time Time Spent with patient: 25-34 minutes Medications reviewed and adjusted accordingly: Yes Anticipated discharge: Home
[2019-04-25] MEDS: CEFTRIAXONE 2 GM/D5W RTU 2 GM/50 ML RTUPB IV SCH (13:32)
[2019-04-25] MEDS: POLYETHYLENE GLYCOL 3350 POWDER 17 GM/1 PACKET PO SCH (17:29)
[2019-04-25] MEDS: ESTROGENS,CONJUGATED 0.625 MG/1 GM 30 GM TUBE VG SCH (21:55)
[2019-04-25] MEDS: ATORVASTATIN CALCIUM 10 MG TABLET PO SCH (21:56)
[2019-04-25] MEDS: GUAIFENESIN 600 MG TABLET.SA PO SCH (21:56)
[2019-04-26] MEDS: HYDRALAZINE HCL INJ/PF 20 MG/1 ML SDV IV PRN (03:58)
[2019-04-26 04:58] LABS: ABSOLUTE EOSINOPHILS # (AUTO) 0.3 10^3/uL (0.0-0.6); ABSOLUTE LYMPHOCYTES (AUTO) 1.2 10^3/uL (0.5-4.7); ABSOLUTE MONOCYTES (AUTO) 0.7 10^3/uL (0.1-1.4); ABSOLUTE NEUT (AUTO) 7.3 10^3/uL (1.7-8.2); BASOPHILS % (AUTO) 0.3 % (0-2); EOSINOPHILS % (AUTO) 3.4 % (0-6); HEMATOCRIT 24.5 % (36.0-47.0); HEMOGLOBIN 8.1 g/dL (12.0-15.5); LYMPHOCYTES % (AUTO) 12.4 % (13-45); MEAN CORPUSCULAR HEMOGLOBIN 27.7 pg (27.0-33.4); MEAN CORPUSCULAR HGB CONC 33.1 g/dL (32.0-36.0); MEAN CORPUSCULAR VOLUME 84 fl (80-97); MONOCYTES % (AUTO) 7.2 % (3-13); PLATELET COUNT 311 10^3/uL (150-450); RED BLOOD COUNT 2.92 10^6/uL (3.72-5.28); SEGMENTED NEUTROPHILS % (AUTO) 76.7 % (42-78); TOTAL CELLS COUNTED % (AUTO) 100 %; WHITE BLOOD COUNT 9.5 10^3/uL (4.0-10.5)
[2019-04-26 05:14] LABS: ALBUMIN 2.6 g/dL (3.5-5.0); ALKALINE PHOSPHATASE 112 U/L (38-126); ANION GAP 7 (5-19); ASPARTATE AMINO TRANSFERASE 27 U/L (14-36); BILIRUBIN,DIRECT 0.3 mg/dL (0.0-0.4); BILIRUBIN,TOTAL 0.3 mg/dL (0.2-1.3); BLOOD UREA NITROGEN 37 mg/dL (7-20); CALCIUM 8.2 mg/dL (8.4-10.2); CARBON DIOXIDE 20 mmol/L (22-30); CHLORIDE 111 mmol/L (98-107); GLUCOSE 131 mg/dL (75-110)
[2019-04-26] MEDS: HEPARIN SOD (PORCINE) 5,000 UNIT/ML 1 ML VIAL SUBCUT SCH (05:50)
[2019-04-26] MEDS: LABETALOL HCL 200 MG TABLET PO SCH (05:50)
[2019-04-26] MEDS: GUAIFENESIN 600 MG TABLET.SA PO SCH (05:50)
[2019-04-26] MEDS: INSULIN LISPRO 100 UNIT/ML 3 ML VIAL SUBCUT SCH ×2 (08:04→12:11)
[2019-04-26] MEDS: METOCLOPRAMIDE HCL 10 MG TABLET PO SCH ×2 (08:06→12:10)
[2019-04-26] MEDS: FERROUS SULFATE 325 MG TABLET PO SCH (08:06)
[2019-04-26] MEDS: MULTIVITAMIN TABLET PO SCH (09:07)
[2019-04-26] MEDS: AMLODIPINE BESYLATE 5 MG TABLET PO SCH (10:30)
[2019-04-26] MEDS: CEFTRIAXONE 2 GM/D5W RTU 2 GM/50 ML RTUPB IV SCH (10:30)
[2019-04-26] MEDS: FAMOTIDINE 20 MG TABLET PO SCH (10:31)
[2019-04-26 12:29] VITALS: BP 158/70
--- NOTE | 2019-04-26 13:19 | PDOC DISCHARGE SUMMARY ---
General - Admit/Disc Date/PCP Admission Date/Primary Care Provider: 04/17/19 13:28 LUIZ LOPEZ MD Discharge Date: 04/26/19 - Discharge Diagnosis (1) Cellulitis of right lower extremity Is this a current diagnosis for this admission?: Yes Summary: Improved appearance today. WBCs remain normal, patient is afebrile. Blood cultures are negative to date. Venous Doppler study negative for DVT Foot x-ray is negative concerning bone findings. Patient is admitted to the medical floor on telemetry She is provided gentle IVF. She is empirically placed on IV Vanc and Zozyn. Zosyn discontinued after 1 day; start cefepime secondary to KORI. Vancomycin is discontinued day #2 secondary to improved clinical appearance, worsening KORI, and no Hx MRSA Cefepime discontinued on day #4. Keflex discontinued after 1 day secondary to GI intolerance. Review of previous wound cultures demonstrate sensitivity to PIP/Tazo; will resume Zosyn today with plans to transition to Augmentin. Patient reports good tolerance of penicillins in the past. Continue Zosyn day #2. Elevate extremity, float heels. Analgesics and antiemetics as needed. 04/24/2019-patient admitted with right lower extremity cellulitis stable. Cultures are negative so far. Venous Dopplers negative for DVT. X-rays nega tive for any osteomyelitis concerns. Patient is receiving IV Zosyn. Afebrile with a WBC count of 9.0. Patient receiving pain medications. Plan is to continue the present management. 04/25/2019-patient admitted with right lower extremity cellulitis cultures are negative so far on Zosyn plan is to continue the IV antibiotic therapy for at least another day. 04/26/[id number]-kmar-old female admitted with right lower leg cellulitis, cultures are negative so far. Started on levo floxacillin 5 mg p.o. daily she is going home with antibiotics for 1 week. No complications during the hospital stay. (2) Diabetic foot ulcer Is this a current diagnosis for this admission?: Yes Summary: Foot x-ray is reassuring. Primary management as above. Yadav boots ordered for heel off loading. Monitor for worsening appearance of wound; early surgical or podiatry consultation if worsened appearance or delayed response to antibiotics. 04/24/2019-x-ray is negative for bone infection. Patient is on heel protector. Plan is to continue to closely monitor the ulcer. Presently on IV Zosyn. To continue the present management. 04/25/2019-patient admitted with a diabetic foot ulcer she is on heel protector plan is to continue to closely monitor the ulcer presently on IV Zosyn. 04/26/2019-patient admitted with diabetic foot ulcer with monitoring the wound on regular basis no deterioration of the wound patient was strongly advised to follow-up with primary care physician from there she may need to go to a wound care center for further management. (3) Nausea vomiting and diarrhea Is this a current diagnosis for this admission?: Yes Summary: Nausea with one episode of emesis today. CT ABD/Pelvis is benign. Lipase is nml. Urinalysis is negative for UTI; cultures negative No further loose stools. No recent antibiotics; so low suspicion for c.diff at this time. Per family; patient often has GI symptoms associated with skin infections. Treatment of cellulitis as above. Now tolerating regular diet Antiemetics as needed. Will trial reglan; possible gastroparesis given her history of diabetes mellitus. 04/24/2019-patient admitted with nausea and vomitings CT abdomen pelvis was negative for acute pathology. Urine culture shows mixed urogenital gigi. Blood cultures are negative. Lipase within the normal limits. Denies any complaints of nausea vomiting this morning. 04/25/2019-patient admitted with nausea vomiting's CT abdomen/pelvis is negative for acute pathology no complaints of nausea vomiting this morning. 04/26/2019-patient admitted with complaints of nausea and vomitings, CT head was negative for acute pathology. Patient able to tolerate the diet. On examination abdomen soft obese bowel sounds are present nontender. (4) Anemia Is this a current diagnosis for this admission?: Yes Summary: Hgb 8.0; slight downward trend r/t IVF No evidence of active bleeding at this time. Monitor daily CBC. Continue MVI and ferrous sulfate supplementation 04/24/2019-patient hemoglobin is 8.0 stable. Patient is on multivitamin and iron supplementations. Anemia may be secondary to chronic kidney disease. 04/25/2019-patient hemoglobin is around 7.8 stable. Anemia of chronic disease most likely secondary to CKD. 04/26/2019-patient hemoglobin is is 8.1 today. Stable. (5) Chronic diastolic CHF (congestive heart failure) Is this a current diagnosis for this admission?: Yes Summary: Euvolemic. Without exacerbation at this time. Continue home dose lisinopril, labetalol, amlodioine, and atorvastatin. Resume low-dose Lasix today. 04/24/2019-patient has history of chronic diastolic heart failure bilateral lower extremity swelling especially the right lower leg. Presently on lisinopril, labetalol, amlodipine and atorvastatin. Presently on low-dose of Lasix 40mg daily. Blood pressure today is 163/78. Plan is to continue the present management. 04/25/2019-patient has history of chronic diastolic heart failure with bilateral lower extremity swelling especially the right lower leg. Swelling is improving erythema is improving. (6) Diabetes Is this a current diagnosis for this admission?: Yes Summary: A1c 6.3% Does not appear that patient is on home medications. Advance to cardiac/consistent carb as tolerated. Accu-Chek ACHS with SSI. Hypoglycemia protocol in place. 04/24/2019-patient has history of type 2 diabetes mellitus latest blood sugar is 145 stable. Hemoglobin A1c is 6.3. Plan is to continue to check the blood sugars before meals and at bedtime. 04/25/2019-patient latest blood sugar is 118 today plan is to continue the present management. (7) Hypertension Is this a current diagnosis for this admission?: Yes Summary: Slightly improved. Elevated blood pressures today Weight up 10 kg secondary to continued IV fluids/antibiotics. Have discontinued fluids. Continue home dose amlodipine, lisinopril, and labetalol. Resume low-dose Lasix. 04/24/2019-patient blood pressure is around 158/78. Presently on amlodipine, lisinopril, labetalol, Lasix 40 mg p.o. daily. Plan is to continue the present management. fluid Restriction was advised. 04/25/2019-patient blood pressure today is 151/60 stable. Plan is to continue the present management. (8) Acute kidney injury superimposed on chronic kidney disease Is this a current diagnosis for this admission?: Yes Summary: Improved; Creatinine 1.82 -> 2.37-> 3.27-> 3.10-> 2.65-> 2.22-> 2.11 Likely ATN secondary to Zosyn/vancomycin combination. Baseline creatinine 1.8 Have discontinued Vancomycin. Avoid nephrotoxic medications as able. Monitor daily chemistries and strict I&O's. Patient declined Lackey catheter for strict I&O's; adequate urine output 04/24/2019-patient's latest creatinine is 2.1 today. Peaked to 2.87 and her baseline creatinine is around 1.8. Most likely she has ATN secondary to combination of Zosyn and vancomycin presently on IV Zosyn. Plan is to continue to closely monitor the urinary output and renal function. Urine output is 1350 mL in the last 24 hours. 2018-serum creatinine today is 2.2 it was peaked to 2.87 and her baseline creatinine is around 1.8. Presently on IV Zosyn. Plan is to discontinue IV Zosyn and to start on IV Rocephin 2 g daily. (9) Prolapsed uterus Is this a current diagnosis for this admission?: Yes (10) Morbid (severe) obesity due to excess calories Is this a current diagnosis for this admission?: Yes - Additional Information Resuscitation Status: Full Code Discharge Diet: Cardiac, Diabetic Discharge Activity: Activity As Tolerated, Balance Activity w/Rest, Slowly Increase Activity Prescriptions: Ferrous Sulfate [Feosol 325 mg Tablet] 325 mg PO BIDPCBS #60 tablet Cephalexin Monohydrate [Keflex 500 mg Capsule] 500 mg PO Q6 #28 capsule Levofloxacin [Levaquin 500 mg Tablet] 500 mg PO DAILY #10 tablet Oxycodone HCl [Oxy-Ir 5 mg Tablet] 5 mg PO Q4HP PRN #20 tablet PRN Reason: Estrogens,Conjugated [Premarin Vaginal Cream (0.625 mg/gm) 30 gm] 1 gm VG QHS #1 tube Multivitamin [Tab-A-Twin (Multiple Vitamin) Tablet] 1 tab PO DAILY #30 tablet Home Medications: Amlodipine Besylate [Norvasc 5 mg Tablet] 5 mg PO DAILY 04/17/19 Atorvastatin Calcium [Lipitor 10 mg Tablet] 10 mg PO QHS 04/17/19 Furosemide [Lasix 20 mg Tablet] 20 mg PO QPM 04/17/19 Furosemide [Lasix 20 mg Tablet] 40 mg PO QAM 04/17/19 Labetalol HCl [Normodyne 200 mg Tablet] 200 mg PO Q8 04/17/19 Lisinopril [Prinivil 10 mg Tablet] 10 mg PO DAILY 04/17/19 Cephalexin Monohydrate [Keflex 500 mg Capsule] 500 mg PO Q6 #28 capsule 04/22/19 Estrogens,Conjugated [Premarin Vaginal Cream (0.625 mg/gm) 30 gm] 1 gm VG QHS #1 tube 04/22/19 Ferrous Sulfate [Feosol 325 mg Tablet] 325 mg PO BIDPCBS #60 tablet 04/22/19 Ibuprofen [Motrin 600 mg Tablet] 600 mg PO Q6HP PRN tablet 04/22/19 Multivitamin [Tab-A-Twin (Multiple Vitamin) Tablet] 1 tab PO DAILY #30 tablet 04/22/19 Oxycodone HCl [Oxy-Ir 5 mg Tablet] 5 mg PO Q4HP PRN #20 tablet 04/22/19 Levofloxacin [Levaquin 500 mg Tablet] 500 mg PO DAILY #10 tablet 04/26/19 History of Present Illness History of Present Illness: DOM ADAMS is a 68 year old female 68 year old female with a PMH significant for CHF, Pulmonary HTN, HTN, HLD, CKD3, DM, chronic diabetic foot ulcers, neuropathy, anemia, and morbid obesity who presented to the emergency department with a complaint of one day of generalized/diffuce/vague abdominal discomfort with N/V/D x 1 episode each. Patient reports she was her normal state of health yesterday when she saw her flyer repairer for a right heel wound debridement and now has RLE edema, erythema and tenderness increased from baseline. Per patient's daughter, patient often has GI symptoms with infections. Evaluation in the emergency department revealed low grade fever, HTN (160/100), tachypnea, baseline anemia, mild hyperkalemia, baseline renal function, nml Anion gap and BICARB, mildly elevated bgl, nml lactic acid, and elevated proBNP to 1350 (appears baseline). Lipase is nml, CT ABD/Pelvis is benign. Urinalysis is negative for UTI. Patient is referred to the hospitalist services for admission and management of RLE cellulitis secondary to chronic diabetic foot wound. Hospital Course Hospital Course: 68 year old female with a PMH significant for CHF, Pulmonary HTN, HTN, HLD, CKD3, DM, chronic diabetic foot ulcers, neuropathy, anemia, and morbid obesity who was admitted 04/17/2019 for right lower leg cellulitis. Patient was seen on morning rounds. She is found resting in bed on room air. She complains of nausea and vague abdominal discomfort; one episode of emesis this morning. She denies diarrhea. She does confirm that her RLE is feeling somewhat better. Otherwise, she denies chest pain, palpitations, dyspnea, cough, diarrhea, constipation, dysuria. She has no other questions or concerns today. No concerns per nursing. 04/24/[id number]-vfog-old female admitted with right lower leg cellulitis afebrile no acute events in the last 24 hours. Cultures are negative so far. Presently on IV Zosyn. Portably in the chair communicating well. As per the patient pain is 3/10. 04/25/[id number]-drue-old female admitted with right lower leg cellulitis cultures are negative so far. Afebrile. WBC count is normal. Presently on IV Zosyn. C reatinine is persistently elevated from baseline. Plan is to continue to closely monitor her labs if everything is okay if he may discharge her tomorrow on p.o. antibiotics. 04/26/[id number]-morn-old female admitted with right lower leg cellulitis, cultures came back negative so far erythema redness is significantly improved. Patient agreed to go home on p.o. antibiotics. Patient was strongly advised to be compliant with her medications and follow-up with primary care physician in 2 3 days. Physical Exam Vital Signs: Temp Pulse Resp BP Pulse Ox 97.4 F 74 18 158/70 H 96 04/26/19 12:26 04/26/19 12:26 04/26/19 12:26 04/26/19 12:26 04/26/19 12:26 Intake & Output 04/25/19 04/26/19 04/27/19 06:59 06:59 06:59 Intake Total 2070 1760 Output Total 4600 2300 Balance -2530 -540 Weight 148.8 kg 147.2 kg General appearance: PRESENT: no acute distress, morbidly obese Head exam: PRESENT: atraumatic Eye exam: PRESENT: PERRLA Mouth exam: PRESENT: moist, tongue midline Teeth exam: PRESENT: poor dentation Neck exam: ABSENT: carotid bruit, JVD, lymphadenopathy, thyromegaly Respiratory exam: PRESENT: clear to auscultation rona. ABSENT: rales, rhonchi, wheezes Cardiovascular exam: PRESENT: RRR. ABSENT: diastolic murmur, rubs, systolic murmur Pulses: PRESENT: normal dorsalis pedis pul GI/Abdominal exam: PRESENT: normal bowel sounds, soft. ABSENT: distended, guarding, mass, organolmegaly, rebound, tenderness Rectal exam: PRESENT: deferred Extremities exam: PRESENT: full ROM. ABSENT: calf tenderness, clubbing, pedal edema Neurological exam: PRESENT: alert, awake, oriented to person, oriented to place, oriented to time, oriented to situation, CN II-XII grossly intact. ABSENT: motor sensory deficit Psychiatric exam: PRESENT: appropriate affect, normal mood. ABSENT: homicidal ideation, suicidal ideation Results Laboratory Results: 04/26/19 04:00 04/26/19 04:00 04/26/19 04/26/19 04:00 04:00 WBC 9.5 RBC 2.92 L Hgb 8.1 L Hct 24.5 L MCV 84 MCH 27.7 MCHC 33.1 RDW 15.0 H Plt Count 311 Seg Neutrophils % 76.7 Sodium 138.0 Potassium 5.0 Chloride 111 H Carbon Dioxide 20 L Anion Gap 7 BUN 37 H Creatinine 1.98 H Est GFR ( Amer) 30 L Glucose 131 H Calcium 8.2 L Magnesium 2.0 Total Bilirubin 0.3 AST 27 Alkaline Phosphatase 112 Total Protein 6.0 L Albumin 2.6 L 04/17/19 04/25/19 11:18 05:45 NT-Pro-B Natriuret Pep 1350 H 6470 H Impressions: Abdomen/Pelvis CT 04/17/19 11:33 IMPRESSION: No acute findings in the abdomen or pelvis. Chest X-Ray 04/17/19 11:34 IMPRESSION: NO ACUTE RADIOGRAPHIC FINDING IN THE CHEST. Foot X-Ray 04/22/19 00:00 IMPRESSION: No obvious findings of osteomyelitis. Qualifiers - * PATIENT BEING DISCHARGED WITH ANY OF THE FOLLOWING DIAGNOSIS: No VTE patient discharged on overlapping Therapy?: No Acute Heart Failure - Is this a Heart Failure Patient?: No Plan Time Spent: Greater than 30 Minutes
== END 2019-04-26 13:11 | disposition home health service (06) | DRG 638 ==
LOC: ER 10:57 → EH 13:28 → 4S 17:28
PROVIDERS: ADMIT Internal Medicine; ATTEND Internal Medicine
DX: E11.628 Type 2 diabetes mellitus with other skin complications (principal); L03.115 Cellulitis of right lower limb; I13.0 Hypertensive heart and chronic kidney disease with heart failure and stage 1 through stage 4 chronic kidney disease, or unspecified chronic kidney disease; I50.32 Chronic diastolic (congestive) heart failure; E11.621 Type 2 diabetes mellitus with foot ulcer; N17.9 Acute kidney failure, unspecified; R10.9 Unspecified abdominal pain; E78.00 Pure hypercholesterolemia, unspecified; I27.20 Pulmonary hypertension, unspecified; E11.22 Type 2 diabetes mellitus with diabetic chronic kidney disease; N18.3 Chronic kidney disease, stage 3 (moderate); K21.9 Gastro-esophageal reflux disease without esophagitis; D63.1 Anemia in chronic kidney disease; N81.4 Uterovaginal prolapse, unspecified; E66.01 Morbid (severe) obesity due to excess calories; R11.2 Nausea with vomiting, unspecified; R19.7 Diarrhea, unspecified; T36.1X5A Adverse effect of cephalosporins and other beta-lactam antibiotics, initial encounter; Y92.230 Patient room in hospital as the place of occurrence of the external cause
CPT/HCPCS: 36415; 71045; 74176; 80048; 80053; 81001; 82803; 82962; 83036; 83605; 83690; 83735; 83880; 84443; 85025; 85027; 85610; 87040; 87045; 87086; 87205; 93005; 93010; 93971; 96361; 96365; 96375; 96376; 99285; J0360; J0692; J0696; J1644; J1815; J2270; J2405; J2543; J2550; J2765; J3370; J3490; J7030; J7050; J7060; S0028

== ENCOUNTER 2020-06-19 11:38 | Emergency (ER) | payer MEDICARE, MEDICAID ==
[2020-06-19 12:10] VITALS: BP 174/74
--- NOTE | 2020-06-19 12:40 | ER Document Report ---
ED Medical Screen (RME) - General Chief Complaint: Shortness Of Breath Stated Complaint: SHORTNESS OF BREATH Time Seen by Provider: 06/19/20 12:32 Primary Care Provider: TRUPTI SHERMAN DO [Primary Care Provider] - Follow up as needed TRAVEL OUTSIDE OF THE [place] IN LAST 30 DAYS: No - HPI Notes: 06/19/20 12:37 69-year-old female with past medical history for congestive heart failure, diabetes, hypertension, obesity, chronic wounds to the emergency department with complaints of acute onset exertional shortness of breath this morning. She states she was walking to the transport van so that she can go to her wound clinic appointment. She states she got very short of breath. She states that she is feeling a little bit better now that she is rested but she has not attempted to try to get up and walk around again. She states that she feels like she is gotten more swollen the past several days. She denies any chest pain. Denies any nausea vomiting. Denies any diaphoresis. Patient with 1-2+ pitting edema to bilateral legs. Auscultation with slight inspiratory rales but limited due to patient's body habitus. I performed a brief medical screening exam on the patient determined that the patient needs further evaluation and management by main side provider. I have placed initial orders to help expedite care. - Related Data Allergies/Adverse Reactions: iodine [Iodine] Allergy (Verified 06/19/20 12:32) Home Medications: htn. chf. dm Past Medical History - Social History Chew tobacco use (# tins/day): No Frequency of alcohol use: None Drug Abuse: None - Past Medical History Cardiac Medical History: Reports: Hx Congestive Heart Failure, Hx Hypercholesterolemia, Hx Hypertension Denies: Hx Coronary Artery Disease, Hx Heart Attack Pulmonary Medical History: Denies: Hx Asthma, Hx Bronchitis, Hx COPD, Hx Pneumonia Neurological Medical History: Denies: Hx Cerebrovascular Accident, Hx Seizures Endocrine Medical History: Reports: Hx Diabetes Mellitus Type 1, Hx Diabetes Mellitus Type 2 Renal/ Medical History: Denies: Hx Peritoneal Dialysis GI Medical History: Reports: Hx Diverticulitis, Hx Gastroesophageal Reflux Disease Musculoskeltal Medical History: Reports Hx Arthritis Past Surgical History: Denies: Hx Hysterectomy - Immunizations Hx Diphtheria, Pertussis, Tetanus Vaccination: No Physical Exam - Vital signs Vitals: Temp Pulse Resp BP Pulse Ox 98.4 F 58 L 20 174/74 H 97 06/19/20 12:06 06/19/20 12:06 06/19/20 12:06 06/19/20 12:06 06/19/20 12:06 Course - Vital Signs Vital signs: Temp Pulse Resp BP Pulse Ox 98.4 F 58 L 20 174/74 H 97 06/19/20 12:06 06/19/20 12:06 06/19/20 12:06 06/19/20 12:06 06/19/20 12:06 Doctor's Discharge - Discharge Referrals: TRUPTI SHERMAN DO [Primary Care Provider] - Follow up as needed
[2020-06-19 13:25] LABS: ABSOLUTE EOSINOPHILS # (AUTO) 0.3 10^3/uL (0.0-0.6); ABSOLUTE LYMPHOCYTES (AUTO) 0.7 10^3/uL (0.5-4.7); ABSOLUTE MONOCYTES (AUTO) 0.5 10^3/uL (0.1-1.4); ABSOLUTE NEUT (AUTO) 4.2 10^3/uL (1.7-8.2); BASOPHILS % (AUTO) 0.5 % (0-2); EOSINOPHILS % (AUTO) 4.7 % (0-6); HEMATOCRIT 26.4 % (36.0-47.0); HEMOGLOBIN 8.7 g/dL (12.0-15.5); LYMPHOCYTES % (AUTO) 12.3 % (13-45); MEAN CORPUSCULAR HEMOGLOBIN 27.1 pg (27.0-33.4); MEAN CORPUSCULAR VOLUME 82 fl (80-97); MONOCYTES % (AUTO) 8.5 % (3-13); PLATELET COUNT 239 10^3/uL (150-450); RED BLOOD COUNT 3.23 10^6/uL (3.72-5.28); RED CELL DISTRIBUTION WIDTH 16.9 % (11.5-14.0); TOTAL CELLS COUNTED % (AUTO) 100 %; WHITE BLOOD COUNT 5.7 10^3/uL (4.0-10.5)
[2020-06-19 13:34] LABS: INTERNATIONAL RATION (INR) 1.07; PROTHROMBIN TIME 14.1 SEC (11.4-15.4)
[2020-06-19 13:35] LABS: PARTIAL THROMBOPLASTIN TIME 28.9 SEC (23.5-35.8)
[2020-06-19 13:49] LABS: ALBUMIN 3.3 g/dL (3.5-5.0); ALKALINE PHOSPHATASE 113 U/L (38-126); ANION GAP 6 (5-19); ASPARTATE AMINO TRANSFERASE 25 U/L (14-36); BILIRUBIN,DIRECT 0.3 mg/dL (0.0-0.4); BILIRUBIN,TOTAL 0.6 mg/dL (0.2-1.3); BLOOD UREA NITROGEN 33 mg/dL (7-20); CALCIUM 8.4 mg/dL (8.4-10.2); CARBON DIOXIDE 26 mmol/L (22-30); CHLORIDE 108 mmol/L (98-107); GLUCOSE 129 mg/dL (75-110); POTASSIUM 5.2 mmol/L (3.6-5.0); TOTAL PROTEIN 6.8 g/dL (6.3-8.2)
[2020-06-19 13:58] LABS: NT PRO BNP 5060 pg/mL (<125)
[2020-06-19 14:00] LABS: TROPONIN I < 0.012 ng/mL
--- NOTE | 2020-06-19 14:02 | RADIOLOGY REPORT (SQ) ---
EXAM DESCRIPTION: CHEST SINGLE VIEW IMAGES COMPLETED DATE/TIME: 06/19/2020 1:26 pm REASON FOR STUDY: exertional SOB COMPARISON: 04/17/2019. EXAM PARAMETERS: NUMBER OF VIEWS: One view. TECHNIQUE: Single frontal radiographic view of the chest acquired. RADIATION DOSE: NA LIMITATIONS: None. FINDINGS: LUNGS AND PLEURA: No opacities, masses or pneumothorax. No pleural effusion. MEDIASTINUM AND HILAR STRUCTURES: No masses. Contour normal. HEART AND VASCULAR STRUCTURES: Heart upper limits of normal in size. Normal vasculature. BONES: No acute findings. HARDWARE: None in the chest. OTHER: No other significant finding. IMPRESSION: NO ACUTE RADIOGRAPHIC FINDING IN THE CHEST. TECHNICAL DOCUMENTATION: JOB ID: [id number] 2010 [employer]- All Rights Reserved Reading location - IP/workstation name: [email or web address]
--- NOTE | 2020-06-19 21:10 | ER Document Report ---
ED General - General Chief Complaint: Shortness Of Breath Stated Complaint: SHORTNESS OF BREATH Time Seen by Provider: 06/19/20 12:32 Primary Care Provider: TRUPTI SHERMAN DO [Primary Care Provider] - Follow up as needed TRAVEL OUTSIDE OF THE [place] IN LAST 30 DAYS: No - HPI Notes: Patient is a 69-year-old female with a history of CHF, hypertension, stage III CKD, who presents to the emergency department for evaluation of increased difficulty breathing. She states that over the last few weeks she has been more short of breath when she lays down. She has been coughing at night, but only at night. She states today she was walking and she became more acutely short of breath. She could barely take a few steps without needing to stop. She states that she has had a significant gain and edema over the last several weeks. She relates that all of this is because she ran out of her Lasix. She did not have any refills left, was without her Lasix dose for over a week. She states that she gained a significant amount of fluid at that time, really has not been able to diurese since then. No fevers or chills. No nausea or vomiting. No pain of any sort. She is still urinating. Normal bowel movements. Other than missing her Lasix for that week, she has no other changes in her medications recently. - Related Data Allergies/Adverse Reactions: iodine [Iodine] Allergy (Verified 06/19/20 12:32) Past Medical History - General Information source: Patient - Social History Smoking Status: Never Smoker Chew tobacco use (# tins/day): No Frequency of alcohol use: None Drug Abuse: None Family History: DM, Hypertension Patient has homicidal ideation: No - Past Medical History Cardiac Medical History: Reports: Hx Congestive Heart Failure, Hx Hypercholest erolemia, Hx Hypertension Denies: Hx Coronary Artery Disease, Hx Heart Attack Pulmonary Medical History: Denies: Hx Asthma, Hx Bronchitis, Hx COPD, Hx Pneumonia Neurological Medical History: Denies: Hx Cerebrovascular Accident, Hx Seizures Endocrine Medical History: Reports: Hx Diabetes Mellitus Type 2 Renal/ Medical History: Reports: Hx Renal Insufficiency. Denies: Hx Peritoneal Dialysis GI Medical History: Reports: Hx Diverticulitis, Hx Gastroesophageal Reflux Di sease Musculoskeletal Medical History: Reports Hx Arthritis Past Surgical History: Denies: Hx Hysterectomy - Immunizations Hx Diphtheria, Pertussis, Tetanus Vaccination: No Review of Systems - Review of Systems Constitutional: Weight gain EENT: No symptoms reported Cardiovascular: See HPI Respiratory: See HPI Gastrointestinal: No symptoms reported Genitourinary: No symptoms reported Musculoskeletal: No symptoms reported Skin: No symptoms reported Neurological/Psychological: No symptoms reported -: Yes All other systems reviewed and negative Physical Exam - Vital signs Vitals: Temp Pulse Resp BP Pulse Ox 98.4 F 58 L 20 174/74 H 97 06/19/20 12:06 06/19/20 12:06 06/19/20 12:06 06/19/20 12:06 06/19/20 12:06 - Notes Notes: There is a 69-year-old female who appears her stated age, in no acute distress. She is not tachypneic, breathing 19 times a minute. She is oxygenating between 97-99% on room air. Vital signs reviewed, please refer to chart. Head is normocephalic, atraumatic. Pupils equal round, reactive to light. Neck is supple without meningismus. Heart is regular rate and rhythm. Lungs reveal diminished breath sounds throughout, limited by body habitus. Abdomen is obese, nontender, normoactive bowel sounds throughout. She has pitting edema to the umbilicus. She has 3+ pitting edema to the lower extremities with chronic appearing skin changes and bullae secondary to fluid retention. Extremities without cyanosis, clubbing. Posterior calves are nontender. Peripheral pulses are equal. Skin is warm and dry. Patient is awake, alert, neurological exam is nonfocal. Course - Re-evaluation Re-evalutation: 06/19/20 21:09 Patient presents emergency department for evaluation. She had laboratory investigations as ordered through triage. Chest x-ray is unremarkable. proBNP is over 5000, but the patient does have CKD. I reviewed her prior echocardiogram in 2018, which revealed grade 3 or 4 diastolic dysfunction but a normal EF. She states she does not follow with cardiology, but does follow closely with nephrology. She actually has an appointment with FAZAL Porter, next week. I suspect that this is all secondary to her missing some Lasix. Again she is stable at this time. Plan will be to administer a dose of IV Lasix here, will discuss this with nephrology. 06/19/20 21:14 I discussed findings with Dr. Sin. She agrees with IV Lasix here, discharge, close follow-up. I will also give the patient the name of our on- call chief petroleum engineer jeannette, she is told she can follow-up with him or arrange cardiology follow-up with primary care. She is to return to the ED with worsening or new concerning symptoms of any sort. - Vital Signs Vital signs: Temp Pulse Resp BP Pulse Ox 98.4 F 58 L 20 174/74 H 100 06/19/20 12:06 06/19/20 12:06 06/19/20 12:06 06/19/20 12:06 06/19/20 19:11 - Laboratory Result Diagrams: 06/19/20 12:59 06/19/20 12:59 Laboratory results interpreted by me: 06/19/20 06/19/20 06/19/20 12:59 12:59 12:59 RBC 3.23 L Hgb 8.7 L Hct 26.4 L RDW 16.9 H Lymph % (Auto) 12.3 L Potassium 5.2 H Chloride 108 H BUN 33 H Creatinine 2.15 H Est GFR ( Amer) 27 L Est GFR (MDRD) Non-Af 23 L Glucose 129 H NT-Pro-B Natriuret Pep 5060 H Albumin 3.3 L - Diagnostic Test Radiology reviewed: Reports reviewed Radiology results interpreted by me: 06/19/20 21:09 Chest X-Ray 06/19/20 12:37 IMPRESSION: NO ACUTE RADIOGRAPHIC FINDING IN THE CHEST. - EKG Interpretation by Me Additional EKG results interpreted by me: 06/19/20 21:10 Sinus bradycardia with rate of 58 bpm. Left axis deviation. LVH. Nonspecific ST changes, but no ST elevation concerning for infarction. No change when compared to prior study of April 17, 2019. Discharge - Discharge Clinical Impression: Peripheral edema Congestive heart failure Qualifiers: Heart failure type: diastolic Heart failure chronicity: acute on chronic Qualified Code(s): I50.33 - Acute on chronic diastolic (congestive) heart failure Condition: Stable Disposition: HOME, SELF-CARE Instructions: Edema, Peripheral ([facility]), Congestive Heart Failure ([facility]) Additional Instructions: You have been given extra Lasix through your IV. Please continue to take your regular medications as prescribed. Follow-up with nephrology next week as scheduled. If you develop chest pain, worsening breathing, or any other new or concerning symptoms, please return immediately to the emergency department for reevaluation. Referrals: TRUPTI SHERMAN DO [Primary Care Provider] - Follow up as needed
[2020-06-19] MEDS ORDERED: FUROSEMIDE INJ/PF 40 MG/4 ML SDV IV ONE (21:13)
--- NOTE | 2020-06-19 21:50 | EKG REPORT ---
SEVERITY:- ABNORMAL ECG - SINUS RHYTHM PROBABLE LEFT VENTRICULAR HYPERTROPHY : Confirmed by: Brice Flores 19-Jun-2020 21:49:39
== END 2020-06-19 22:06 | disposition home or self-care (01) ==
LOC: ER 11:38
DX: I11.0 Hypertensive heart disease with heart failure (principal); I50.33 Acute on chronic diastolic (congestive) heart failure; R60.9 Edema, unspecified; R63.5 Abnormal weight gain; R06.02 Shortness of breath; R06.00 Dyspnea, unspecified; E78.00 Pure hypercholesterolemia, unspecified; E11.9 Type 2 diabetes mellitus without complications
CPT/HCPCS: 93005; 99285; 96374; 36415; 83735; 85025; 85610; 85730; 80053; 84484; 83880; 71045; 93010; J1940